=== PATIENT | female | born 1945 | race Caucasian/White ===

== ENCOUNTER 2016-04-21 22:55 | Emergency (ER) | payer MEDICARE ==
[2016-04-22] MEDS ORDERED: Ondansetron INJ* 2 MG/ML VIAL ONE
[2016-04-22] MEDS ORDERED: Ondansetron INJ* 2 MG/ML VIAL IV ONE ×2 (00:15→00:16)
[2016-04-22] MEDS ORDERED: NS 0.9% 1000 ML* 1,000 ML IV ONE ×2 (00:15→02:00)
--- NOTE | 2016-04-22 00:26 | ED ---
Polo Beverly Billy, scribed for Pantera Connor MD on 04/22/16 at 0014 . Complex/Multi-Sys Presentation - HPI Summary HPI Summary: Patient is a 71 year-old female with a history of cancer coming to [facility] complaining of constant dizziness today. She also reports nausea and vomiting. Nothing makes her symptoms better or worse. She saw her PCP yesterday for fever and cough and was given Rx Levaquin. She states that she had her last chemotherapy treatment 2 days ago. - History Of Current Complaint Chief Complaint: EDDizziness Time Seen by Provider: 04/22/16 00:11 Hx Obtained From: Patient Onset/Duration: Gradual Onset, Lasting Hours, Still Present Timing: Constant Severity Currently: Moderate Severity Initially: Moderate Aggravating Factor(s): none Alleviating Factor(s): none Associated Signs And Symptoms: Positive: Dizziness, Cough, Nausea, Vomiting, Fever - Allergies/Home Medications Allergies/Adverse Reactions: Allergies Allergy/AdvReac Type Severity Reaction Status Date / Time Cefepime Allergy Intermediate Hives Verified 03/10/16 10:47 Glatiramer [From Copaxone] Allergy Unknown Unknown Verified 03/10/16 10:47 Reaction Details Mannitol [From Copaxone] Allergy Unknown Unknown Verified 03/10/16 10:47 Reaction Details Ciprofloxacin AdvReac Severe See Comment Verified 03/10/16 10:47 PMH/Surg Hx/FS Hx/Imm Hx Endocrine/Hematology History: Reports: Hx Anemia - from chemo medications, Other Endocrine/Hematological Disorders - multiple MYELOMA, BONE MARROW TRANSPLANT Denies: Hx Diabetes Cardiovascular History: Reports: Other Cardiovascular Problems/Disorders - BONE MARROW TRANSPLANT, CML Denies: Hx Congestive Heart Failure, Hx Hypertension, Hx Pacemaker/ICD Respiratory History: Reports: Hx Pneumonia, Hx Seasonal Allergies, Other Respiratory Problems/Disorders - PNA GI History: Reports: Hx Gastroesophageal Reflux Disease History: Denies: Hx Dialysis, Hx Renal Disease Musculoskeletal History: Reports: Hx Arthritis - on right finger, neck, lower back, Other Musculoskeletal History - MS Sensory History: Reports: Hx Contacts or Glasses Denies: Hx Hearing Aid Opthamlomology History: Reports: Hx Contacts or Glasses Neurological History: Reports: Other Neuro Impairments/Disorders - MS Psychiatric History: Reports: Hx Anxiety Denies: Hx Panic Disorder - Cancer History Cancer Type, Location and Year: MULTIPLE myeloma with bone marrow transplant Hx Chemotherapy: Yes Hx Radiation Therapy: No Hx Palliative Cancer Treatment: No - Surgical History Surgery Procedure, Year, and Place: BONE MARROW TRANSPLANT 2011 Hx Anesthesia Reactions: No - Immunization History Date of Tetanus Vaccine: Unk Date of Influenza Vaccine: Fall 2014 Infectious Disease History: No Infectious Disease History: Denies: Traveled Outside the [place] in Last 30 Days - Family History Known Family History: Positive: Other - BREAST CANCER - Social History Alcohol Use: None Hx Substance Use: No Substance Use Type: Reports: None Hx Tobacco Use: No Smoking Status (MU): Never Smoked Tobacco Review of Systems Positive: Fever Positive: Cough Positive: Vomiting, Nausea Neurological: Other - dizziness All Other Systems Reviewed And Are Negative: Yes Physical Exam Triage Information Reviewed: Yes Vital Signs On Initial Exam: Initial Vitals Temp Pulse Resp BP Pulse Ox 101.9 F 107 22 149/54 100 04/21/16 23:02 04/21/16 23:02 04/21/16 23:02 04/21/16 23:02 04/21/16 23:02 Vital Signs Reviewed: Yes Appearance: Positive: No Pain Distress, Thin Skin: Positive: Warm Head/Face: Positive: Normal Head/Face Inspection Eyes: Positive: NORA ENT: Positive: Hearing grossly normal Neck: Positive: Supple Respiratory/Lung Sounds: Positive: Clear to Auscultation, Breath Sounds Present Cardiovascular: Positive: RRR Abdomen Description: Positive: Nontender, Soft Bowel Sounds: Positive: Present Musculoskeletal: Positive: Strength/ROM Intact Neurological: Positive: Sensory/Motor Intact, Alert, Oriented to Person Place, Time, Normal Gait Psychiatric: Positive: Affect/Mood Appropriate Diagnostics - Vital Signs Vital Signs Temp Pulse Resp BP Pulse Ox 04/21/16 23:02 101.9 F 107 22 149/54 100 - Laboratory Result Diagrams: 04/22/16 00:05 04/22/16 00:05 Lab Statement: Any lab studies that have been ordered have been reviewed, and results considered in the medical decision making process. - Radiology CXR Xray Interpretation: No Acute Changes Radiology Interpretation Completed By: ED Physician - EKG 2311 EKG Interpretation: NSR 90 bpm, no ST elevation Re-Evaluation - Re-Evaluation First Eval Re-Evaluation Time: 04:00 - afebrile, flu positive, will d/c Complex Multi-Symp Course/Dx - Diagnoses Provider Diagnoses: Influenza Discharge - Discharge Plan Condition: Stable Disposition: HOME Patient Education Materials: Influenza (ED) Referrals: Adwoa Boyce MD [Primary Care Provider] - Additional Instructions: RETURN FOR ANY WORSENING SYMPTOMS SUCH FEVER, CHILLS. The documentation as recorded by the Polo bal Billy accurately reflects the service I personally performed and the decisions made by me, Pantera Connor MD.
[2016-04-22 00:37] LABS: Hematocrit 27 % (35-47); Hemoglobin 8.4 g/dl (12.0-16.0); Mean Corpuscular HGB Conc 32 g/dl (31-36); Mean Corpuscular Hemoglobin 27 pg (27-31); Mean Corpuscular Volume 86 fL (80-97); Mean Platelet Volume 9 um3 (7.4-10.4); Red Blood Count 3.11 10^6/ul (4.0-5.4); Red Cell Distribution Width 19 % (10.5-15)
[2016-04-22 00:38] LABS: Comments Flag Yes
[2016-04-22 00:39] LABS: White Blood Count 3.1 10^3/ul (3.5-10.8)
[2016-04-22 00:44] LABS: Albumin 3.7 g/dL (3.2-5.2); BUN/Creatinine Ratio 9.3 (8-20); Calcium 9.1 mg/dL (8.6-10.3); EGFR African American 40.8 (>60); EGFR Non-African American 31.7 (>60); Globulin 2.5 g/dL (2-4); Magnesium 1.4 mg/dL (1.9-2.7); Potassium 3.7 mmol/L (3.5-5.0); Total Bilirubin 1.3 mg/dL (0.2-1.0); Total Protein 6.2 g/dL (6.4-8.9)
[2016-04-22 00:46] LABS: Troponin I 0.01 ng/mL (<0.04)
[2016-04-22] MEDS ORDERED: Metoclopramide IV* 5 MG/ML 2 ML VIAL ONE ×2 (00:55)
[2016-04-22] MEDS ORDERED: Metoclopramide IV* 5 MG/ML 2 ML VIAL IV ONE (01:00)
[2016-04-22 01:17] LABS: TSH (Thyroid Stimulating Horm) 2.92 mcIU/mL (0.34-5.60)
[2016-04-22 02:19] LABS: Urine Bilirubin Negative (Negative); Urine Glucose Negative (Negative); Urine Nitrite Negative (Negative)
[2016-04-22] MEDS ORDERED: Acetaminophen TAB* 325 MG PO ONE (02:47)
[2016-04-22 06:34] VITALS: BP 119/50
--- NOTE | 2016-04-22 07:58 | RAD ---
INDICATION: Fever COMPARISON: Similar chest x-ray dated December 28, 2015 TECHNIQUE: PA and lateral views of the chest were obtained. FINDINGS: The heart and mediastinum are normal in size and contour. There is atherosclerotic calcification overlying the arch of the aorta similar in appearance the previous chest x-ray. The lungs are grossly clear. There is no evidence of large pleural effusion. Visualized bones are normal for the patient's age. There is no radiographic evidence of free air beneath the diaphragm IMPRESSION: No radiographic evidence of acute cardiopulmonary disease.
== END 2016-04-22 06:34 | disposition home or self-care (01) ==
LOC: ED 22:55
DX: J11.1 Influenza due to unidentified influenza virus with other respiratory manifestations (principal); R42 Dizziness and giddiness; R05 Cough; R11.2 Nausea with vomiting, unspecified; R50.9 Fever, unspecified
CPT/HCPCS: 36415; 71020; 80053; 81003; 83605; 83735; 84443; 84484; 85025; 87040; 87502; 93005; 96374; 96375; 99282; A9270-GY; J2405; J2765

== ENCOUNTER 2016-11-28 01:00 | Inpatient (IN) | payer MEDICARE ==
[2016-11-28] MEDS ORDERED: NS 0.9% 1000 ML*IV.FLUID IV ONE (01:11)
[2016-11-28] MEDS ORDERED: Ondansetron INJ* 2 MG/ML VIAL IV ONE (01:12)
[2016-11-28] MEDS ORDERED: Acetaminophen SUPP* 650 MG SUPP PR ONE (01:13)
--- NOTE | 2016-11-28 01:36 | HP ---
H&P (Free Text) History and Physical: PCP: Elisabet Boyce MD Date/Time: 11/28/2016 0125 CC: N/V/D HPI: Mrs Pepe is a 71YO female HX multiple sclerosis & multiple myeloma who was admitted ~2 weeks ago at [facility] in [place] for LLE cellulitis. Tonight she presents reporting generalized fatigue and weakness all day with onset of N/ V/D around 2300 for which she called her PCP receiving the recommendation to present to [facility] ED. Upon arrival, she was noted to be febrile at 104.1F. Her has had bronchitis recently and Monday she felt a slight "tickle" in the back of her throat progressing to mild, non-productive cough. She admits to chills, but denies fever and sweats, earache, rash, open wound, and B/U/F of urine. She did have some mild to moderate LLQ/flank pain with the diarrhea, but this has since resolved. PMedHx multiple myeloma multiple sclerosis CKD stg 3b GERD normocytic anemia allergic rhinitis depression Ambulatory Orders Nursing to reconcile. Cholecalciferol TAB* [Vitamin D TAB*] 2,000 units PO DAILY 02/14/13 Dexamethasone TAB* [Decadron TAB*] 20 mg PO DAILY 09/09/14 Aspirin EC Low Dose* [Ecotrin EC Low Dose 81 MG*] 81 mg PO DAILY 10/02/14 LoraTADine TAB(NF) [Claritin 10 MG TAB(NF)] 10 mg PO DAILY 10/02/14 Multivitamins/Minerals TAB* [Theragran/minerals TAB*] 1 tab PO DAILY 10/02/14 Zoledronic Acid* [Zometa] 4 mg INFUSION .EVERY 3 MONTHS 10/02/14 Acyclovir* [Zovirax 400 MG TAB*] 400 mg PO DAILY 07/19/15 LORazepam TAB(*) [Ativan 0.5 MG TAB (*)] 0.5 mg PO Q4H PRN 07/19/15 Ondansetron ODT TAB* [Zofran 4 MG Odt TAB*] 4 mg PO Q4H PRN 07/19/15 Pomalyst 2 mg PO DAILY 07/19/15 Sennosides-Docusate Sodium [Senna-S 8.6-50 mg] 2 tab PO DAILY PRN 07/19/15 Ninlaro 4 mg PO SEE INSTRUCTIONS 10/27/15 Loperamide HCl [Imodium A-D] 0.5 - 2 tab PO DAILY PRN 11/02/15 Omeprazole CAP* [Prilosec CAP* 20 MG] 20 mg PO BID 11/02/15 Ranitidine HCl 150 mg PO DAILY PRN 11/02/15 Vitamin B Complex CAP* [B Complex CAP*] 1 cap PO DAILY 03/03/16 Escitalopram (NF) [Lexapro (NF)] 10 mg PO DAILY 06/09/16 Clarithromycin TAB* [Biaxin 500 MG TAB*] 500 mg PO DAILY 08/15/16 Levofloxacin [Levaquin] 500 mg PO DAILY 08/15/16 Probiotic Product [Align] 4 mg PO DAILY 09/27/16 Allergies Cefepime Allergy (Intermediate, Verified 09/27/16 11:46) Hives Glatiramer [From Copaxone] Allergy (Unknown, Verified 09/27/16 11:46) Unknown Reaction Details Mannitol [From Copaxone] Allergy (Unknown, Verified 09/27/16 11:46) Unknown Reaction Details Ciprofloxacin Adverse Reaction (Severe, Verified 09/27/16 11:46) See Comment Contraindicated with current medications PSurgHx L foot surgery bone marrow transplant tonsillectomy SocHx: no tobacco, alcohol, or recreational drug HX; lives with her ; works as an artist & owns/manages property; full code status FamHx: Mother: rheumatic heart disease, passed at 87; Father: CAD, bladder CA, passed at 84; Brother: Hodgkin's lymphoma in remission ROS: as above, otherwise reviewed and all were negative vitals: Vital Signs Temp 39.9 C 11/28/16 01:01 Pulse 109 11/28/16 01:01 Resp 20 11/28/16 01:01 BP 162/51 11/28/16 01:01 Pulse Ox 95 11/28/16 01:01 Intake & Output 11/27/16 11/27/16 11/28/16 11:59 23:59 11:59 Weight 77.111 kg Constitutional: NAD, normally developed, overweight white female HEENM: atraumatic; sclera/conjunctiva: non-icteric/clear; hearing: clinically intact; oropharynx: clear, mucosa moist Neck: soft tissue: no nuchal rigidity; thyroid: normal Pulmonary: harsh end-expiratory wheeze in left upper lung field, fair to good aeration, no accessory muscle use CV: TR/RR, normal S1S2, no carotid bruit, no jugular venous distention, 2+ B DP/ PT, no edema Abdominal: soft, non-distended, non-tender, no rebound/guarding/rigidity, normoactive bowel sounds, no hepatosplenomegaly or masses, no costovertebral angle tenderness Musculoskeletal: general: grossly intact; gait: stable Integumental: normal appearance and texture of exposed skin Psychiatric orientation: AA&O to PPS affect: calm mood: pleasant eye contact: good content: reliable responses: timely insight: good Testing: Lab Results 11/28/16 11/28/16 11/28/16 Range/Units 01:45 01:45 01:45 WBC 7.2 (3.5-10.8) 10^3/ul RBC 3.27 L (4.0-5.4) 10^6/ul Hgb 9.4 L (12.0-16.0) g/dl Hct 30 L (35-47) % MCV 90 (80-97) fL MCH 29 (27-31) pg MCHC 32 (31-36) g/dl RDW 19 H (10.5-15) % Plt Count 194 (150-450) 10^3/ul MPV 8 (7.4-10.4) um3 Neut % (Auto) 86.5 H (38-83) % Lymph % (Auto) 3.9 L (25-47) % Garrett % (Auto) 7.0 (1-9) % Eos % (Auto) 1.7 (0-6) % Baso % (Auto) 0.9 (0-2) % Absolute Neuts (auto) 6.2 (1.5-7.7) 10^3/ul Absolute Lymphs (auto) 0.3 L (1.0-4.8) 10^3/ul Absolute Monos (auto) 0.5 (0-0.8) 10^3/ul Absolute Eos (auto) 0.1 (0-0.6) 10^3/ul Absolute Basos (auto) 0.1 (0-0.2) 10^3/ul Absolute Nucleated RBC 0 10^3/ul Nucleated RBC % 0.1 INR (Anticoag Therapy) 0.90 (0.89-1.11) APTT 27.0 (26.0-36.3) seconds Sodium 138 (133-145) mmol/L Potassium 3.9 (3.5-5.0) mmol/L Chloride 106 (101-111) mmol/L Carbon Dioxide 23 (22-32) mmol/L Anion Gap 9 (2-11) mmol/L BUN 27 H (6-24) mg/dL Creatinine 1.85 H (0.51-0.95) mg/dL Est GFR ( Amer) 34.8 (>60) Est GFR (Non-Af Amer) 27.0 (>60) BUN/Creatinine Ratio 14.6 (8-20) Glucose 121 H (70-100) mg/dL Lactic Acid (0.5-2.0) mmol/L Calcium 9.1 (8.6-10.3) mg/dL Total Bilirubin 0.60 (0.2-1.0) mg/dL AST 19 (13-39) U/L ALT 19 (7-52) U/L Alkaline Phosphatase 83 (34-104) U/L Troponin I 0.02 (<0.04) ng/mL Total Protein 6.4 (6.4-8.9) g/dL Albumin 4.0 (3.2-5.2) g/dL Globulin 2.4 (2-4) g/dL Albumin/Globulin Ratio 1.7 (1-3) 11/28/16 Range/Units 01:45 WBC (3.5-10.8) 10^3/ul RBC (4.0-5.4) 10^6/ul Hgb (12.0-16.0) g/dl Hct (35-47) % MCV (80-97) fL MCH (27-31) pg MCHC (31-36) g/dl RDW (10.5-15) % Plt Count (150-450) 10^3/ul MPV (7.4-10.4) um3 Neut % (Auto) (38-83) % Lymph % (Auto) (25-47) % Garrett % (Auto) (1-9) % Eos % (Auto) (0-6) % Baso % (Auto) (0-2) % Absolute Neuts (auto) (1.5-7.7) 10^3/ul Absolute Lymphs (auto) (1.0-4.8) 10^3/ul Absolute Monos (auto) (0-0.8) 10^3/ul Absolute Eos (auto) (0-0.6) 10^3/ul Absolute Basos (auto) (0-0.2) 10^3/ul Absolute Nucleated RBC 10^3/ul Nucleated RBC % INR (Anticoag Therapy) (0.89-1.11) APTT (26.0-36.3) seconds Sodium (133-145) mmol/L Potassium (3.5-5.0) mmol/L Chloride (101-111) mmol/L Carbon Dioxide (22-32) mmol/L Anion Gap (2-11) mmol/L BUN (6-24) mg/dL Creatinine (0.51-0.95) mg/dL Est GFR ( Amer) (>60) Est GFR (Non-Af Amer) (>60) BUN/Creatinine Ratio (8-20) Glucose (70-100) mg/dL Lactic Acid 1.9 (0.5-2.0) mmol/L Calcium (8.6-10.3) mg/dL Total Bilirubin (0.2-1.0) mg/dL AST (13-39) U/L ALT (7-52) U/L Alkaline Phosphatase (34-104) U/L Troponin I (<0.04) ng/mL Total Protein (6.4-8.9) g/dL Albumin (3.2-5.2) g/dL Globulin (2-4) g/dL Albumin/Globulin Ratio (1-3) ECG, personally reviewed: NSR rate 89, no ischemia CXR, personally reviewed: no acute process Impression: 71F HX multiple sclerosis & multiple myeloma presents with N/V/D and fever 39.9C DIAGNOSIS & PLAN Primary SIRS 2nd bronchitis vs early pneumonia (HCAP) : IVFs : IV vancomycin, meropenem, & levofloxacin (allergy to cefepime) : blood & sputum CXs : urine Legionella & S pneumo antigens ordered : rapid influenza ordered : UA ordered, pending : incentive spirometry : guaifenesin : supportive care Secondary multiple myeloma : continue outpatient follow up multiple sclerosis : continue outpatient follow up CKD stg 3b : periodic monitoring GERD : continue omeprazole depression : review meds once reconciled Admission Rational: inpatient for SIRS 2nd bronchitis vs early HCAP requiring IVFs & IV ABX; inappropriate for outpatient setting DVTp: heparin SQ & SCDs Code Status: full HCP:
[2016-11-28] MEDS ORDERED: Acetaminophen TAB* 325 MG PO ONE (01:52)
[2016-11-28] MEDS ORDERED: Acetaminophen TAB* 325 MG ONE (01:54)
[2016-11-28 02:06] LABS: Hematocrit 30 % (35-47); Hemoglobin 9.4 g/dl (12.0-16.0); Mean Corpuscular HGB Conc 32 g/dl (31-36); Mean Corpuscular Hemoglobin 29 pg (27-31); Mean Corpuscular Volume 90 fL (80-97); Mean Platelet Volume 8 um3 (7.4-10.4); Red Blood Count 3.27 10^6/ul (4.0-5.4); Red Cell Distribution Width 19 % (10.5-15); White Blood Count 7.2 10^3/ul (3.5-10.8)
[2016-11-28 02:16] LABS: BUN/Creatinine Ratio 14.6 (8-20); Calcium 9.1 mg/dL (8.6-10.3); EGFR African American 34.8 (>60); Globulin 2.4 g/dL (2-4); Potassium 3.9 mmol/L (3.5-5.0); Total Bilirubin 0.6 mg/dL (0.2-1.0); Total Protein 6.4 g/dL (6.4-8.9)
[2016-11-28 02:19] LABS: Troponin I 0.02 ng/mL (<0.04)
--- NOTE | 2016-11-28 03:15 | ED ---
Alan Beverly Angela, scribed for Rand Garcia MD on 11/28/16 at 0144 . HPI Febrile Illness - HPI Summary HPI Summary: This pt is a 71 y/o female, with multiple myel presenting to [facility] c/o nausea, vomiting, diarrhea, fever (99.7 F) since 2300 yesterday (11/27/16). Pt has had 2 episodes of emesis. Pt is currently on 2 oral chemo treatments, the last one she took was yesterday. Pt reports she was admitted at [facility] 2 weeks ago for left leg cellulitis. She notes she has a cold and cough that began 2 days ago. Pt sees her oncologist at [facility] in [place]. PCP: Dr. Adwoa Boyce. - History of Current Complaint Chief Complaint: EDFever Time Seen by Provider: 11/28/16 01:11 Hx Obtained From: Patient Onset/Duration: Started Hours Ago Timing: Lasting Hours Pain Intensity: 3 Associated Signs and Symptoms: Diarrhea, Nausea, Vomiting, Other: - fever - Additional Pertinent History Primary Care Physician: [id number] - Allergy/Home Medications Allergies/Adverse Reactions: Allergies Allergy/AdvReac Type Severity Reaction Status Date / Time Cefepime Allergy Mild Hives Verified 11/28/16 03:06 Glatiramer [From Copaxone] Allergy Unknown Unknown Verified 11/28/16 02:09 Reaction Details Mannitol [From Copaxone] Allergy Unknown Unknown Verified 11/28/16 02:09 Reaction Details Ciprofloxacin AdvReac Severe See Comment Verified 11/28/16 02:09 PMH/Surg Hx/FS Hx/Imm Hx Endocrine/Hematology History: Reports: Hx Anemia - from chemo medications, Other Endocrine/Hematological Disorders - multiple MYELOMA, BONE MARROW TRANSPLANT Denies: Hx Diabetes Cardiovascular History: Reports: Other Cardiovascular Problems/Disorders - BONE MARROW TRANSPLANT, CML Denies: Hx Congestive Heart Failure, Hx Hypertension, Hx Pacemaker/ICD Respiratory History: Reports: Hx Pneumonia, Hx Seasonal Allergies, Other Respiratory Problems/Disorders - PNA GI History: Reports: Hx Gastroesophageal Reflux Disease History: Denies: Hx Dialysis, Hx Renal Disease Musculoskeletal History: Reports: Hx Arthritis - on right finger, neck, lower back, Other Musculoskeletal History - MS Sensory History: Reports: Hx Contacts or Glasses Denies: Hx Hearing Aid Opthamlomology History: Reports: Hx Contacts or Glasses Neurological History: Reports: Other Neuro Impairments/Disorders - MS Psychiatric History: Reports: Hx Anxiety Denies: Hx Panic Disorder - Cancer History Cancer Type, Location and Year: MULTIPLE myeloma with bone marrow transplant Hx Chemotherapy: Yes Hx Radiation Therapy: No Hx Palliative Cancer Treatment: No - Surgical History Surgery Procedure, Year, and Place: BONE MARROW TRANSPLANT 2011 Hx Anesthesia Reactions: No - Immunization History Date of Tetanus Vaccine: Unk Date of Influenza Vaccine: Fall 2014 Infectious Disease History: No Infectious Disease History: Denies: Traveled Outside the [place] in Last 30 Days - Family History Known Family History: Positive: Other - BREAST CANCER - Social History Alcohol Use: None Hx Substance Use: No Substance Use Type: Reports: None Hx Tobacco Use: No Smoking Status (MU): Never Smoked Tobacco Review of Systems Positive: Fever, Chills Negative: Chest Pain Positive: Cough. Negative: Shortness Of Breath Positive: Vomiting, Diarrhea, Nausea. Negative: Abdominal Pain Genitourinary: Negative Neurological: Negative All Other Systems Reviewed And Are Negative: Yes Physical Exam Triage Information Reviewed: Yes Vital Signs On Initial Exam: Initial Vitals Temp Pulse Resp BP Pulse Ox 103.8 F 109 20 162/51 95 11/28/16 01:01 11/28/16 01:01 11/28/16 01:01 11/28/16 01:01 11/28/16 01:01 Vital Signs Reviewed: Yes Appearance: Positive: No Pain Distress, Ill-Appearing Skin: Positive: Warm, Skin Color Reflects Adequate Perfusion, Dry Eyes: Positive: EOMI, NORA ENT: Positive: Pharynx normal, TMs normal Neck: Positive: Supple, Nontender, Other: - no meningismus Respiratory/Lung Sounds: Positive: Clear to Auscultation, Breath Sounds Present , Other - coughing frequently. Negative: Rales, Rhonchi Cardiovascular: Positive: Tachycardia - but not toxic. Negative: Murmur, Rub, Other - gallop Abdomen Description: Positive: Nontender, Soft. Negative: Distended, Guarding, Other: - rebound Bowel Sounds: Positive: Present Musculoskeletal: Positive: Strength/ROM Intact. Negative: Edema Left, Edema Right Neurological: Positive: Sensory/Motor Intact, Alert, Oriented to Person Place, Time, CN Intact II-III Psychiatric: Positive: Affect/Mood Appropriate Diagnostics - Vital Signs Vital Signs Temp Pulse Resp BP Pulse Ox 11/28/16 01:01 103.8 F 109 20 162/51 95 - Laboratory Lab Results: Lab Results 11/28/16 11/28/16 11/28/16 Range/Units 01:45 01:45 01:45 WBC 7.2 (3.5-10.8) 10^3/ul RBC 3.27 L (4.0-5.4) 10^6/ul Hgb 9.4 L (12.0-16.0) g/dl Hct 30 L (35-47) % MCV 90 (80-97) fL MCH 29 (27-31) pg MCHC 32 (31-36) g/dl RDW 19 H (10.5-15) % Plt Count 194 (150-450) 10^3/ul MPV 8 (7.4-10.4) um3 Neut % (Auto) 86.5 H (38-83) % Lymph % (Auto) 3.9 L (25-47) % [place] % (Auto) 7.0 (1-9) % Eos % (Auto) 1.7 (0-6) % Baso % (Auto) 0.9 (0-2) % Absolute Neuts (auto) 6.2 (1.5-7.7) 10^3/ul Absolute Lymphs (auto) 0.3 L (1.0-4.8) 10^3/ul Absolute Monos (auto) 0.5 (0-0.8) 10^3/ul Absolute Eos (auto) 0.1 (0-0.6) 10^3/ul Absolute Basos (auto) 0.1 (0-0.2) 10^3/ul Absolute Nucleated RBC 0 10^3/ul Nucleated RBC % 0.1 INR (Anticoag Therapy) 0.90 (0.89-1.11) APTT 27.0 (26.0-36.3) seconds Sodium 138 (133-145) mmol/L Potassium 3.9 (3.5-5.0) mmol/L Chloride 106 (101-111) mmol/L Carbon Dioxide 23 (22-32) mmol/L Anion Gap 9 (2-11) mmol/L BUN 27 H (6-24) mg/dL Creatinine 1.85 H (0.51-0.95) mg/dL Est GFR ( Amer) 34.8 (>60) Est GFR (Non-Af Amer) 27.0 (>60) BUN/Creatinine Ratio 14.6 (8-20) Glucose 121 H (70-100) mg/dL Lactic Acid (0.5-2.0) mmol/L Calcium 9.1 (8.6-10.3) mg/dL Total Bilirubin 0.60 (0.2-1.0) mg/dL AST 19 (13-39) U/L ALT 19 (7-52) U/L Alkaline Phosphatase 83 (34-104) U/L Troponin I 0.02 (<0.04) ng/mL Total Protein 6.4 (6.4-8.9) g/dL Albumin 4.0 (3.2-5.2) g/dL Globulin 2.4 (2-4) g/dL Albumin/Globulin Ratio 1.7 (1-3) 11/28/16 Range/Units 01:45 WBC (3.5-10.8) 10^3/ul RBC (4.0-5.4) 10^6/ul Hgb (12.0-16.0) g/dl Hct (35-47) % MCV (80-97) fL MCH (27-31) pg MCHC (31-36) g/dl RDW (10.5-15) % Plt Count (150-450) 10^3/ul MPV (7.4-10.4) um3 Neut % (Auto) (38-83) % Lymph % (Auto) (25-47) % [place] % (Auto) (1-9) % Eos % (Auto) (0-6) % Baso % (Auto) (0-2) % Absolute Neuts (auto) (1.5-7.7) 10^3/ul Absolute Lymphs (auto) (1.0-4.8) 10^3/ul Absolute Monos (auto) (0-0.8) 10^3/ul Absolute Eos (auto) (0-0.6) 10^3/ul Absolute Basos (auto) (0-0.2) 10^3/ul Absolute Nucleated RBC 10^3/ul Nucleated RBC % INR (Anticoag Therapy) (0.89-1.11) APTT (26.0-36.3) seconds Sodium (133-145) mmol/L Potassium (3.5-5.0) mmol/L Chloride (101-111) mmol/L Carbon Dioxide (22-32) mmol/L Anion Gap (2-11) mmol/L BUN (6-24) mg/dL Creatinine (0.51-0.95) mg/dL Est GFR ( Amer) (>60) Est GFR (Non-Af Amer) (>60) BUN/Creatinine Ratio (8-20) Glucose (70-100) mg/dL Lactic Acid 1.9 (0.5-2.0) mmol/L Calcium (8.6-10.3) mg/dL Total Bilirubin (0.2-1.0) mg/dL AST (13-39) U/L ALT (7-52) U/L Alkaline Phosphatase (34-104) U/L Troponin I (<0.04) ng/mL Total Protein (6.4-8.9) g/dL Albumin (3.2-5.2) g/dL Globulin (2-4) g/dL Albumin/Globulin Ratio (1-3) Result Diagrams: 11/28/16 01:45 11/28/16 01:45 Lab Statement: Any lab studies that have been ordered have been reviewed, and results considered in the medical decision making process. - Radiology Chest XR Xray Interpretation: No Acute Changes - Normal chest XR. Unchanged to prior chest XR from August 09. Radiology Interpretation Completed By: ED Physician - EKG 0203 Cardiac Rate: NL EKG Rhythm: Sinus Rhythm EKG Interpretation: No Q waves, no ST elevations Course/Dx - Course Course Of Treatment: 71 yo female with multiple myeloma with new cough and high fever pt discussed with Dr. Sneed upon her arrival he has already ordered antibiotics to cover her for pneumonia. She is not neutropenic and a urine is pending. She received 30cc/kg of NS upon initial evaluation - Diagnoses Provider Diagnoses: Pneumonia, Multiple myeloma - Provider Notifications Discussed Care Of Patient With: Rodrigo Sneed Instructed by Provider To: Other - I discussed the pt's case with Dr. Sneed, who has agreed to admit the pt. Discharge - Discharge Plan Condition: Stable Disposition: ADMITTED TO [facility] documentation as recorded by the Alan bal Angela accurately reflects the service I personally performed and the decisions made by , Rand Garcia MD.
[2016-11-28] MEDS ORDERED: Acetaminophen TAB* 325 MG PO PRN (03:16)
[2016-11-28] MEDS ORDERED: Ondansetron INJ* 2 MG/ML VIAL IV PRN (03:17)
[2016-11-28] MEDS ORDERED: NS 0.9% 1000 ML* 1,000 ML IV SCH (03:30)
[2016-11-28] MEDS ORDERED: Vancomycin per Pharmacy* NOTE FOLLOW UP PRN (04:10)
[2016-11-28 04:19] LABS: Urine Bacteria Absent (Absent); Urine Bilirubin Negative (Negative); Urine Glucose 1+(50 mg/dL) (Negative); Urine Nitrite Negative (Negative)
[2016-11-28] MEDS: Levofloxacin 750 MG IVPREMIX(* 750 MG/150 ML BAG IVPB SCH (05:04)
[2016-11-28] MEDS: Vancomycin(*) 1,250 MG in NS 0.9% 250 ML* 250 ML IVPB ONE ×3 (05:07→06:56)
[2016-11-28 05:59] LABS: Hematocrit 25 % (35-47); Mean Corpuscular HGB Conc 32 g/dl (31-36); Mean Corpuscular Hemoglobin 29 pg (27-31); Mean Corpuscular Volume 90 fL (80-97); Mean Platelet Volume 8 um3 (7.4-10.4); Red Blood Count 2.75 10^6/ul (4.0-5.4); Red Cell Distribution Width 19 % (10.5-15); White Blood Count 6.2 10^3/ul (3.5-10.8)
[2016-11-28] MEDS ORDERED: Omeprazole CAP* 20 MG PO SCH (06:00)
[2016-11-28 06:18] LABS: BUN/Creatinine Ratio 13.9 (8-20); Calcium 8.1 mg/dL (8.6-10.3); EGFR African American 41.7 (>60); EGFR Non-African American 32.4 (>60)
[2016-11-28] MEDS: Meropenem 500MG PREMIX(*) 500 MG/50 ML BAG IV SCH ×2 (06:55→16:58)
--- NOTE | 2016-11-28 07:50 | RAD ---
HISTORY: Fever COMPARISONS: August 09, 2016 VIEWS: 1: frontal portable view of the chest at 12:24 AM FINDINGS: LINES AND TUBES: None. CARDIOMEDIASTINAL SILHOUETTE: The cardiomediastinal silhouette is normal for portable technique. PLEURA: The costophrenic angles are sharp. No pleural abnormalities are noted. LUNG PARENCHYMA: The lungs are clear. ABDOMEN: The upper abdomen is clear. There is no subphrenic gas. BONES AND SOFT TISSUES: No bone or soft tissue abnormalities are noted. IMPRESSION: NO ACTIVE CARDIOPULMONARY DISEASE.
[2016-11-28] MEDS ORDERED: Levofloxacin 750 MG IVPREMIX(* 750 MG/150 ML BAG IVPB SCH (08:00)
--- NOTE | 2016-11-28 08:12 | RAD ---
INDICATION: Pneumonia COMPARISON: November 28, 2016 TECHNIQUE: An AP portable view obtained at 0755 hours is submitted. FINDINGS: Bones/Soft Tissues: There are no acute bony findings. Cardiomediastinal: The cardiomediastinal silhouette is normal. Lungs: There are no infiltrates. Pleura: There are no pleural effusions. Other: None IMPRESSION: NO ACTIVE DISEASE.
[2016-11-28] MEDS: guaiFENesin ER TAB 600 MG PO SCH ×2 (09:09→21:51)
[2016-11-28 10:50] LABS: C Reactive Protein 49.89 mg/L (< 5.00)
[2016-11-28] MEDS: Aspirin EC Low Dose* 81 MG TAB.EC PO SCH (11:58)
[2016-11-28] MEDS: Cholecalciferol TAB* 1000 UNITS PO SCH (11:59)
[2016-11-28] MEDS: Acyclovir* 400 MG TAB PO SCH (11:59)
[2016-11-28] MEDS ORDERED: Clarithromycin TAB* 500 MG PO SCH (12:00)
[2016-11-28] MEDS: CMC:Escitalopram (NF) 10 MG TAB PO SCH (12:28)
[2016-11-28] MEDS: Omeprazole CAP* 20 MG PO SCH (16:58)
[2016-11-28] MEDS: Vancomycin(*) 750 MG in NS 0.9% 250 ML* 250 ML IVPB SCH (18:04)
[2016-11-28] MEDS: Cetirizine* 10 MG TAB PO SCH (19:02)
[2016-11-28] MEDS: Clarithromycin TAB* 500 MG PO SCH (21:51)
[2016-11-28] MEDS: POMALIDOMIDE 2 MG PO SCH (21:53)
[2016-11-29] MEDS: Meropenem 500MG PREMIX(*) 500 MG/50 ML BAG IV SCH ×2 (03:51→21:36)
[2016-11-29] MEDS: Vancomycin(*) 750 MG in NS 0.9% 250 ML* 250 ML IVPB SCH ×2 (04:40→18:22)
[2016-11-29] MEDS: Heparin VIAL(*) 5000 UNITS/ML VIAL (FIVE THOUSAND) SUBCUT SCH ×3 (05:17→21:38)
[2016-11-29 05:32] LABS: Hematocrit 25 % (35-47); Mean Corpuscular HGB Conc 32 g/dl (31-36); Mean Corpuscular Hemoglobin 29 pg (27-31); Mean Corpuscular Volume 90 fL (80-97); Mean Platelet Volume 8 um3 (7.4-10.4); Red Cell Distribution Width 20 % (10.5-15); White Blood Count 3.5 10^3/ul (3.5-10.8)
[2016-11-29 05:46] LABS: Albumin 3.3 g/dL (3.2-5.2); BUN/Creatinine Ratio 11.6 (8-20); C Reactive Protein 57.26 mg/L (< 5.00); Calcium 8.2 mg/dL (8.6-10.3); EGFR African American 48.8 (>60); EGFR Non-African American 37.9 (>60); Globulin 1.9 g/dL (2-4); Magnesium 1.7 mg/dL (1.9-2.7); Phosphorus 2.8 mg/dL (2.5-5.0); Potassium 3.9 mmol/L (3.5-5.0); Total Bilirubin 0.5 mg/dL (0.2-1.0); Total Protein 5.2 g/dL (6.4-8.9)
[2016-11-29] MEDS: Cholecalciferol TAB* 1000 UNITS PO SCH (07:42)
[2016-11-29] MEDS: Omeprazole CAP* 20 MG PO SCH ×2 (07:42→18:18)
[2016-11-29] MEDS: Aspirin EC Low Dose* 81 MG TAB.EC PO SCH (07:42)
[2016-11-29] MEDS: Acyclovir* 400 MG TAB PO SCH (07:42)
[2016-11-29] MEDS: guaiFENesin ER TAB 600 MG PO SCH ×2 (07:42→21:37)
[2016-11-29] MEDS: CMC:Escitalopram (NF) 10 MG TAB PO SCH (07:45)
[2016-11-29] MEDS: Levofloxacin 750 MG IVPREMIX(* 750 MG/150 ML BAG IVPB SCH (08:44)
[2016-11-29] MEDS ORDERED: Magnesium Sulfate 2 GM IV IVPB ONE (09:30)
[2016-11-29] MEDS ORDERED: Loperamide CAP* 2 MG ONE (09:55)
[2016-11-29] MEDS ORDERED: diPHENhydraMINE PO* 25 MG PO ONE (11:00)
[2016-11-29] MEDS ORDERED: Acetaminophen TAB* 325 MG PO ONE (11:00)
[2016-11-29] MEDS ORDERED: Loperamide CAP* 2 MG PO PRN (11:00)
[2016-11-29] MEDS ORDERED: Famotidine TAB* 20 MG PO ONE (11:00)
[2016-11-29] MEDS ORDERED: IMMUNE GLOBULN IV ONE (11:30)
[2016-11-29] MEDS ORDERED: Loperamide LIQ* 2 MG/10 ML UDC PO PRN (11:36)
[2016-11-29] MEDS ORDERED: methylPREDNISolone 125 MG* 2 ML VIAL IV ONE (12:00)
[2016-11-29] MEDS ORDERED: NINLARO PO SCH (12:00)
[2016-11-29 13:55] LABS: Immunoglobulin A 30 mg/dL (61 - 356); Immunoglobulin G 295 mg/dL (767 - 1590); Immunoglobulin M <5 mg/dL (37 - 286)
[2016-11-29] MEDS ORDERED: Vancomycin Trough Check NOTE FOLLOW UP ONE (17:00)
[2016-11-29] MEDS: Cetirizine* 10 MG TAB PO SCH (18:18)
[2016-11-29] MEDS: POMALIDOMIDE 2 MG PO SCH (21:37)
[2016-11-29] MEDS: Clarithromycin TAB* 500 MG PO SCH (21:37)
[2016-11-29] MEDS: Vancomycin(*) 1,000 MG in NS 0.9% 250 ML* 250 ML IVPB SCH (22:16)
[2016-11-30] MEDS: Heparin VIAL(*) 5000 UNITS/ML VIAL (FIVE THOUSAND) SUBCUT SCH ×3 (06:03→20:45)
[2016-11-30 07:42] LABS: Hematocrit 29 % (35-47); Hemoglobin 9.3 g/dl (12.0-16.0); Mean Corpuscular HGB Conc 33 g/dl (31-36); Mean Corpuscular Hemoglobin 29 pg (27-31); Mean Corpuscular Volume 89 fL (80-97); Mean Platelet Volume 8 um3 (7.4-10.4); Red Blood Count 3.22 10^6/ul (4.0-5.4); Red Cell Distribution Width 19 % (10.5-15)
[2016-11-30 07:45] LABS: Add Diff/Slide Review? Slide Review Added; Comments Flag Yes
[2016-11-30] MEDS: Omeprazole CAP* 20 MG PO SCH ×2 (08:03→16:42)
[2016-11-30 08:04] LABS: Calcium 8.9 mg/dL (8.6-10.3); EGFR African American 52.7 (>60); Magnesium 2.2 mg/dL (1.9-2.7); Potassium 4.4 mmol/L (3.5-5.0)
[2016-11-30] MEDS: Meropenem 500MG PREMIX(*) 500 MG/50 ML BAG IV SCH ×3 (08:05→19:34)
[2016-11-30 08:15] LABS: Immature Granulocytes 10 % (0-9); Metamyelocytes % 4 % (0-2); Myelocytes % 1 % (0-1); Neutrophil % 79 % (38-83)
[2016-11-30 08:16] LABS: RBC Morphology Normal (Normal)
[2016-11-30] MEDS ORDERED: NS 0.9% 250 ML* 250 ML ONE (09:57)
[2016-11-30] MEDS: CMC:Escitalopram (NF) 10 MG TAB PO SCH (10:48)
[2016-11-30] MEDS: Aspirin EC Low Dose* 81 MG TAB.EC PO SCH (10:48)
[2016-11-30] MEDS: guaiFENesin ER TAB 600 MG PO SCH ×2 (10:48→20:44)
[2016-11-30] MEDS: Vancomycin(*) 1,000 MG in NS 0.9% 250 ML* 250 ML IVPB SCH ×2 (10:48→20:44)
[2016-11-30] MEDS: Acyclovir* 400 MG TAB PO SCH (10:48)
[2016-11-30] MEDS: Cholecalciferol TAB* 1000 UNITS PO SCH (10:48)
[2016-11-30] MEDS: Cetirizine* 10 MG TAB PO SCH (18:25)
[2016-11-30] MEDS: Clarithromycin TAB* 500 MG PO SCH (20:43)
[2016-11-30] MEDS: POMALIDOMIDE 2 MG PO SCH (20:44)
[2016-12-01] MEDS: Heparin VIAL(*) 5000 UNITS/ML VIAL (FIVE THOUSAND) SUBCUT SCH (05:18)
[2016-12-01 05:44] LABS: Hematocrit 25 % (35-47); Hemoglobin 8.1 g/dl (12.0-16.0); Mean Corpuscular HGB Conc 32 g/dl (31-36); Mean Corpuscular Hemoglobin 29 pg (27-31); Mean Corpuscular Volume 89 fL (80-97); Mean Platelet Volume 8 um3 (7.4-10.4); Red Cell Distribution Width 19 % (10.5-15); White Blood Count 6.1 10^3/ul (3.5-10.8)
[2016-12-01 05:58] LABS: Albumin 3.4 g/dL (3.2-5.2); BUN/Creatinine Ratio 16.1 (8-20); C Reactive Protein 14.93 mg/L (< 5.00); Calcium 8.6 mg/dL (8.6-10.3); EGFR African American 49.2 (>60); EGFR Non-African American 38.2 (>60); Globulin 2.5 g/dL (2-4); Potassium 4.2 mmol/L (3.5-5.0); Total Bilirubin 0.4 mg/dL (0.2-1.0); Total Protein 5.9 g/dL (6.4-8.9)
[2016-12-01] MEDS: Omeprazole CAP* 20 MG PO SCH (07:47)
[2016-12-01] MEDS: Meropenem 500MG PREMIX(*) 500 MG/50 ML BAG IV SCH (07:47)
[2016-12-01] MEDS ORDERED: Vancomycin Trough Check NOTE FOLLOW UP ONE (08:30)
--- NOTE | 2016-12-01 09:06 | RAD ---
Indication: Cough. 2 views of the chest including dual energy PA views demonstrate no mediastinal shift. Lung nance appear clear. No alveolar consolidation is noted. IMPRESSION: Hyperinflated lung nance without evidence of alveolar consolidation.
[2016-12-01] MEDS: Vancomycin(*) 1,000 MG in NS 0.9% 250 ML* 250 ML IVPB SCH (09:30)
[2016-12-01] MEDS: guaiFENesin ER TAB 600 MG PO SCH (09:33)
[2016-12-01] MEDS: CMC:Escitalopram (NF) 10 MG TAB PO SCH (09:33)
[2016-12-01] MEDS: Cholecalciferol TAB* 1000 UNITS PO SCH (09:33)
[2016-12-01] MEDS: Aspirin EC Low Dose* 81 MG TAB.EC PO SCH (09:33)
[2016-12-01] MEDS: Acyclovir* 400 MG TAB PO SCH (09:33)
--- NOTE | 2016-12-01 09:39 | PN ---
Progress Note - Progress Note Date of Service: 12/01/16 SOAP: Subjective: Feeling better this am. still coughing but improving. she reports an episode of cellulitis at [facility] this month requiring IV antibiotics. She feels that she improved from that but never got back to baseline and then got this episode. Objective: Vital Signs Temp Pulse Resp BP Pulse Ox 97.4 F 68 16 150/68 96 12/01/16 07:25 12/01/16 07:25 12/01/16 07:25 12/01/16 07:25 12/01/16 07:25 sitting up in NAD perr eomi op moist right sided rhonchi s1 s2 nl soft nt +bs no LE edema A+O x 3, nonfocal neurological exam no chuy Laboratory Results - last 24 hr 11/29/16 12/01/16 12/01/16 04:50 05:05 05:08 WBC 6.1 RBC 2.80 L Hgb 8.1 L Hct 25 L MCV 89 MCH 29 MCHC 32 RDW 19 H Plt Count 146 L MPV 8 Sodium Potassium Chloride Carbon Dioxide Anion Gap BUN Creatinine Est GFR ( Amer) Est GFR (Non-Af Amer) BUN/Creatinine Ratio Glucose Calcium Total Bilirubin AST ALT Alkaline Phosphatase C-Reactive Protein Total Protein Albumin Globulin Albumin/Globulin Ratio Procalcitonin 2.3 H 0.7 H 12/01/16 05:09 WBC RBC Hgb Hct MCV MCH MCHC RDW Plt Count MPV Sodium 141 Potassium 4.2 Chloride 110 Carbon Dioxide 26 Anion Gap 5 BUN 22 Creatinine 1.37 H Est GFR ( Amer) 49.2 Est GFR (Non-Af Amer) 38.2 BUN/Creatinine Ratio 16.1 Glucose 79 Calcium 8.6 Total Bilirubin 0.40 AST 12 L ALT 12 Alkaline Phosphatase 65 C-Reactive Protein 14.93 H Total Protein 5.9 L Albumin 3.4 Globulin 2.5 Albumin/Globulin Ratio 1.4 Procalcitonin Acetaminophen (Tylenol Tab*) 650 mg PO Q6H PRN PRN Reason: FEVER/PAIN Last Admin: 11/29/16 12:37 Dose: 650 mg Acyclovir (Zovirax Tab*) 400 mg PO DAILY [facility] Last Admin: 12/01/16 09:33 Dose: 400 mg Aspirin (Aspirin Ec Low Dose*) 81 mg PO DAILY [facility] Last Admin: 12/01/16 09:33 Dose: 81 mg Cetirizine HCl (Zyrtec*) 10 mg PO QPM [facility] Last Admin: 11/30/16 18:25 Dose: 10 mg Cholecalciferol (Vitamin D Tab*) 1,000 units PO DAILY [facility] Last Admin: 12/01/16 09:33 Dose: 1,000 units Clarithromycin (Biaxin Tab*) 500 mg PO 2100 [facility] Last Admin: 11/30/16 20:43 Dose: 500 mg Escitalopram Oxalate (Lexapro (Nf)) 10 mg PO DAILY [facility] Last Admin: 12/01/16 09:33 Dose: 10 mg Guaifenesin (Mucinex*) 1,200 mg PO BID [facility] Last Admin: 12/01/16 09:33 Dose: 1,200 mg Heparin Sodium (Porcine) (Heparin Vial(*)) 5,000 units SUBCUT Q8HR [facility] Last Admin: 12/01/16 05:18 Dose: Not Given Meropenem (Merrem 500mg Premix(*)) 500 mg in 50 mls @ 100 mls/hr IV 0800,2000 [facility] Last Admin: 12/01/16 07:47 Dose: 100 mls/hr Vancomycin HCl 1,000 mg/ (Sodium Chloride) 250 mls @ 166.667 mls/hr IVPB Q12H [facility] Last Admin: 12/01/16 09:30 Dose: Not Given Loperamide HCl (Imodium Cap*) 2 mg PO .AFTER EACH LOOSE BM PRN PRN Reason: LOOSE STOOL Loperamide HCl (Imodium Liq*) 1 mg PO .AFTER EACH LOOSE BM PRN PRN Reason: AFTER EACH LOOSE BM Pto: Pomalidomide ( Pomalyst) 2 Mg Capsule 1 dose PO 2100 [facility] Last Admin: 11/30/16 20:44 Dose: 1 dose Pto - Ninlaro ( (Ixazomib) 4 Mg) 1 dose PO Tu@1200 [facility] Last Admin: 11/29/16 13:05 Dose: 1 dose Omeprazole (Prilosec Cap*) 20 mg PO BID AC [facility] Last Admin: 12/01/16 07:47 Dose: 20 mg Ondansetron HCl (Zofran Inj*) 4 mg IV Q6H PRN PRN Reason: NAUSEA Pharmacy Consult (Vancomycin Per Pharmacy*) 1 note FOLLOW UP . PRN PRN Reason: PER PROTOCOL Assessment: 71 yo F w MM on pomalyst/ninlaro/dexamethasone presenting with her second bacterial infection in 1 month requiring IV abx. I suspect that this is related to her relative immunocompromised state and have recommended that we go back to IVIG when IgG <500 (she had been recommended to hold for summer months and start up again late fall). Plan: Pneumonia: -agree with discharge on antibiotics particularly given procalcitonin elevation on admission -will get rescue inhaler at home MM: -cont ninlaro, pomalyst, dex -IVIG this admission, will check q4 weeks and infuse when <500 -fu with tn 12/22 at 12:40 zometa to follow -cont asa -asymptomatic anemia-no indication for transfusion
[2016-12-01 14:15] VITALS: BP 139/56
--- NOTE | 2016-12-01 15:30 | DS ---
CC: Dr. Halie Kennedy; Dr. Venancio Chavez, [facility]. DISCHARGE SUMMARY: DATE OF ADMISSION: 11/28/16. DATE OF DISCHARGE: 12/01/16. DISCHARGE DIAGNOSES: 1. Pneumonia with systemic inflammatory response syndrome. 2. Multiple myeloma. 3. Low immunoglobins. 4. Renal insufficiency related to multiple myeloma. 5. History of multiple sclerosis. 6. Menopause. 7. History of colonic polyps. 8. Anemia related to multiple myeloma. 9. Hypomagnesemia. 10. History of anxiety. 11. History of gastroesophageal reflux disease. HISTORY: Adwoa Pepe is a 71-year-old woman admitted with a 2-day history of an upper respiratory infection, then with shaking chills and temperature of 103.8. Please see the dictated admission note for details of the present illness, past medical history, family history, social and personal history, review of systems and physical examination. LABORATORY DATA: CBC on 11/28/16: WBC 7.2, H and H 9.4/30, MCV 90, PLT 194K. Neutrophils 86.5%, lymphs 3.9%, monos 7%, eos 1.7%, baso 0.9%. Repeat CBC on four hours later: WBC 6.2, H and H 8/25, PLT 175K. CBC on 11/29/16: WBC down to 3.5, H and H 8/25, PLT 165K. 11/30/16: WBC 10, H and H 9.3/29, MCV 89, PLT 221K. CBC on 12/01/16: WBC 6.1, H and H 8.1/25, MCV 89, PLT 146K. INR 0.9, PTT 27. Chemistries on 11/28/16: Sodium 138, potassium 3.9, chloride 106, CO2 23, BUN/creatinine 27/1.85, glucose 121. Rest of the comprehensive metabolic panel was normal. BUN and creatinine gradually stabilized and were 18 /1.29 on 11/30/16 and 22/1.37 on 12/01/16. Comprehensive metabolic panel at the time of discharge was normal. CRPs during the course of the hospitalization 49.89 on 11/28/16, 57.26 on and 41.93 on 12/01/16. Procalcitonins were 2.3 on 11/29/16, 1.5 on 11/30/16 and 0.7 on 12/01/16. Magnesium was 1.7 on 11/29/16, 2.2 on 11/30/16. Urinalysis on 11/28/16, straw, clear; specific gravity 1.008, pH 5. Dipstick positive for blood 1+. Micro: Wbc's trace, rbc's trace, epithelial cells present, bacteria absent, urine glucose 1+. Vancomycin level on 11/29/16 was 13.6. Quantitative immunoglobulins on 11/28/16, IgG 295, IgA 30, IgM less than 5. Influenza A and B were negative. Blood cultures were no growth. Urine for legionella and streptoccocal antigens were negative. IMAGING: Chest x-ray on 11/28/16 showed no acute disease (portable). Repeat portable chest x-ray on 11/28/16 was essentially unchanged. Chest x-ray PA and lateral, on 12/01/16 did show bibasilar infiltrates, not an official report, addendum pending, this is on comparison with previous chest x-ray. EKG on 11/28 showed sinus rhythm, RSR' in V1 and V2; otherwise normal. HOSPITAL COURSE: The patient was initially admitted and placed on vancomycin, meropenem, levofloxacin after cultures were taken. It was felt that she had bronchitis versus early pneumonia. She was told to do incentive spirometry. She was given IV fluids. Her temperature came down and did not go up again. She was seen in consultation by Oncology while in the hospital and they recommended IVIG which she received. She was pretreated with IV methylprednisolone, diphenhydramine, and famotidine because of previous reaction to receiving IVIG. IV levofloxacin was stopped after the initial dose. She gradually improved. She continued to have a harsh cough, but felt better. She had loose stools related to the antibiotics. Her anemia was noted , she was asymptomatic from it and she did not wish to have transfusion at this time and it was not strongly recommended. She continued to have physical exam findings of pneumonia with harsh cough, coarse inspiratory rales at the bases with bronchial breath sounds and inspiratory and expiratory squeak. Her cough was always non- productive. She felt quite weak, but improved as she was in the hospital. She had a low magnesium which was repleted. At the time of discharge, she felt much better. She continued to cough, but felt up to going home. Her stools were looser than normal, but she said it was not diarrhea. Her vital signs were stable. She was afebrile. On exam, her chest showed bibasilar rales with inspiratory and expiratory squeak, bronchial breath sounds at the right base. Heart was regular. Abdomen was nontender. Extremities showed no calf tenderness or edema. She had an improving pneumonia, could be discharged. At the time of discharge, her diet is regular. Activities as tolerated. DISCHARGE MEDICATIONS: 1. Pomalyst 2 mg once a day. 2. Ninlaro 4 mg once a week. 3. Dexamethasone 12 mg once a week. 4. Levofloxacin 500 mg once a day for 5 days. 5. Erythromycin 500 mg once a day. 6. Acyclovir 400 mg once a day. 7. Escitalopram 10 mg once a day 8. Vitamin D 2000 units once a day. 9. Claritin 10 mg once a day. 10. Aspirin 81 mg once a day. 11. Omeprazole 20 mg twice a day. 12. Ondansetron 4 mg every 4 hours as needed for nausea. 13. Lorazepam 0.5 mg as needed for nausea. 14. Probiotic once a day. 15. Albuterol 2 puffs every 4 hours as needed for cough or wheezing. Prescriptions for levofloxacin and albuterol was sent into [facility]. She will be followed up with me in 5 to [address] Kennedy in about 3 weeks, at which time she will have usual Zometa infusion. Of note, she did receive her Pomalyst and Ninlaro while she was in the hospital. [id number]/[facility] #: [id number] [facility]
== END 2016-12-01 13:55 | disposition home or self-care (01) | DRG 194 ==
LOC: ED 01:00 → MED 01:26
PROVIDERS: ADMIT Hospitalist; ATTEND Internal Medicine Geriatric Medicine
DX: J18.9 Pneumonia, unspecified organism (principal); C90.00 Multiple myeloma not having achieved remission; Z94.81 Bone marrow transplant status; G35 Multiple sclerosis; E83.42 Hypomagnesemia; N18.3 Chronic kidney disease, stage 3 (moderate); J30.2 Other seasonal allergic rhinitis; M13.0 Polyarthritis, unspecified; F41.9 Anxiety disorder, unspecified; F32.9 Major depressive disorder, single episode, unspecified; D64.9 Anemia, unspecified; Z78.0 Asymptomatic menopausal state; Z88.1 Allergy status to other antibiotic agents; Z80.3 Family history of malignant neoplasm of breast; Z82.49 Family history of ischemic heart disease and other diseases of the circulatory system; Z80.52 Family history of malignant neoplasm of bladder; Z88.8 Allergy status to other drugs, medicaments and biological substances; Z86.010 Personal history of colon polyps; Z79.82 Long term (current) use of aspirin
CPT/HCPCS: 36415; 71010; 71020; 80048; 80053; 80202; 81003; 81015; 82784; 83605; 83735; 84100; 84145; 84484; 85025; 85027; 85610; 85730; 86140; 87040; 87502; 87899; 93005; 99232; A9270-GY; J1568; J1644; J2405; J2930; J3370; J3475

== ENCOUNTER 2016-12-09 12:57 | Observation (INO) | payer MEDICARE ==
[2016-12-09] MEDS ORDERED: Aspirin Low Dose CHEW TAB* 81 MG PO ONE (13:44)
--- NOTE | 2016-12-09 14:24 | RAD ---
Indication: Chest pain. Comparison: December 01, 2016 Technique: Upright AP 1400 hours Report: No focal pulmonary lesion, compelling alveolar consolidation, pleural effusion, pneumothorax. Negative for cardiomegaly. Unremarkable central pulmonary vasculature. Unremarkable mediastinal contours accounting for portable AP technique. IMPRESSION: No evidence for acute intrathoracic disease.
[2016-12-09 14:44] LABS: Hematocrit 27 % (35-47); Hemoglobin 8.8 g/dl (12.0-16.0); Mean Corpuscular HGB Conc 33 g/dl (31-36); Mean Corpuscular Hemoglobin 29 pg (27-31); Mean Corpuscular Volume 89 fL (80-97); Mean Platelet Volume 8 um3 (7.4-10.4); Red Blood Count 3.02 10^6/ul (4.0-5.4); Red Cell Distribution Width 19 % (10.5-15); White Blood Count 7.2 10^3/ul (3.5-10.8)
[2016-12-09 15:01] LABS: Albumin 3.4 g/dL (3.2-5.2); BUN/Creatinine Ratio 18.2 (8-20); Calcium 8.5 mg/dL (8.6-10.3); EGFR African American 46.8 (>60); EGFR Non-African American 36.4 (>60); Globulin 2.5 g/dL (2-4); Potassium 4.2 mmol/L (3.5-5.0); Total Bilirubin 0.6 mg/dL (0.2-1.0); Total Protein 5.9 g/dL (6.4-8.9)
[2016-12-09 15:02] LABS: Troponin I 0.01 ng/mL (<0.04)
[2016-12-09] MEDS ORDERED: NS 0.9% 1000 ML* 1,000 ML IV ONE (16:53)
--- NOTE | 2016-12-09 19:31 | ED ---
Alan Beverly Angela, scribed for Ant Apodaca MD on 12/09/16 at 1348 . HPI Chest Pain - HPI Summary HPI Summary: This pt is a 71 y/o female presenting to [facility] c/o chest pain that began at approximately 1200 today. Pt describes her pain under her left breast that radiates through her back and down right arm. She notes her pain only lasted about 15 minutes. Prior to her chest pain, when she got up at 1030 this morning , pt states she had a hard time walking the dog and felt tired. Pt also states she was diaphoretic. She reports she only had yogurt and cereal for breakfast this morning, and took omeprazole right before eating. She denies nausea, LE pain. At onset, the pt's pain was 7-8/10 in severity and currently she rates her pain 0/10 in severity. Pt states she has had this pain before and it was diagnosed as indigestion. She denies tobacco, alcohol, drug use. Pt states she was hospitalized for pneumonia and was discharged 9 days ago. She finished her 5 day course of antibiotics on Monday, 3 days ago. PMHx: multiple myeloma, GERD. PSHx: bone marrow transplant (5 years ago), currently on chemotherapy. - History of Current Complaint Chief Complaint: EDChestPainROMI Time Seen by Provider: 12/09/16 13:44 Hx Obtained From: Patient Onset/Duration: Started Hours Ago Timing: Lasting Minutes - 15 min Pain Intensity: 0 Pain Scale Used: 0-10 Numeric Chest Pain Location: Left Anterior Chest Pain Radiates: Yes Chest Pain Radiates To:: Back, Arm - right Aggravating Factor(s): Nothing Alleviating Factor(s): Spontaneous Resolution Associated Signs and Symptoms: Positive: Chest Pain, Diaphoresis, Back Pain, Other: - fatigue. Negative: Nausea, Calf Pain/Swelling - Additional Pertinent History Primary Care Physician: [id number] - Allergy/Home Medications Allergies/Adverse Reactions: Allergies Allergy/AdvReac Type Severity Reaction Status Date / Time Cefepime Allergy Mild Hives Verified 11/28/16 03:06 Glatiramer [From Copaxone] Allergy Unknown Unknown Verified 11/28/16 02:09 Reaction Details Mannitol [From Copaxone] Allergy Unknown Unknown Verified 11/28/16 02:09 Reaction Details Ciprofloxacin AdvReac Severe See Comment Verified 11/28/16 02:09 Home Medications: Home Medications Albuterol HFA INHALER* [Ventolin HFA Inhaler*] 2 puff INH Q4H PRN 12/09/16 [ History Confirmed 12/09/16] Dexamethasone TAB* [Decadron TAB*] 12 mg PO WEEKLY 12/09/16 [History Confirmed 12/09/16] Erythromycin TAB* 500 mg PO DAILY 12/09/16 [History Confirmed 12/09/16] Fluticasone NASAL SPRAY 50MCG* [Flonase NASAL SPRAY 50MCG*] 1 spray BOTH NARES DAILY PRN 12/09/16 [History Confirmed 12/09/16] Pseudoephedrine HCL ER TAB* [Sudafed 12 Hour*] 120 mg PO DAILY PRN 12/09/16 [ History Confirmed 12/09/16] PMH/Surg Hx/FS Hx/Imm Hx Endocrine/Hematology History: Reports: Hx Anemia - from chemo medications, Other Endocrine/Hematological Disorders - multiple MYELOMA, BONE MARROW TRANSPLANT Denies: Hx Diabetes Cardiovascular History: Reports: Other Cardiovascular Problems/Disorders - BONE MARROW TRANSPLANT, CML Denies: Hx Congestive Heart Failure, Hx Hypertension, Hx Pacemaker/ICD Respiratory History: Reports: Hx Pneumonia, Hx Seasonal Allergies, Other Respiratory Problems/Disorders - PNA GI History: Reports: Hx Gastroesophageal Reflux Disease History: Denies: Hx Dialysis, Hx Renal Disease Musculoskeletal History: Reports: Hx Arthritis - on right finger, neck, lower back, Other Musculoskeletal History - MS Sensory History: Reports: Hx Contacts or Glasses Denies: Hx Hearing Aid Opthamlomology History: Reports: Hx Contacts or Glasses Neurological History: Reports: Other Neuro Impairments/Disorders - MS Psychiatric History: Reports: Hx Anxiety Denies: Hx Panic Disorder - Cancer History Cancer Type, Location and Year: MULTIPLE myeloma with bone marrow transplant Hx Chemotherapy: Yes Hx Radiation Therapy: No Hx Palliative Cancer Treatment: No - Surgical History Surgery Procedure, Year, and Place: BONE MARROW TRANSPLANT 2011 Hx Anesthesia Reactions: No - Immunization History Date of Tetanus Vaccine: Unk Date of Influenza Vaccine: Fall 2014 Infectious Disease History: Yes Infectious Disease History: Denies: Traveled Outside the [place] in Last 30 Days - Family History Known Family History: Positive: Cardiac Disease, Other - BREAST CANCER. Mother: rheumatic heart disease (from rheumatic fever) - Social History Alcohol Use: None Hx Substance Use: No Substance Use Type: Reports: None Hx Tobacco Use: No Smoking Status (MU): Never Smoked Tobacco Review of Systems Positive: Fatigue, Skin Diaphoresis Eyes: Negative Positive: Chest Pain Negative: Nausea Musculoskeletal: Negative Skin: Negative Neurological: Negative All Other Systems Reviewed And Are Negative: Yes Physical Exam Triage Information Reviewed: Yes Vital Signs On Initial Exam: Initial Vitals Temp Pulse Resp BP Pulse Ox 98.8 F 63 19 131/62 93 12/09/16 13:03 12/09/16 13:03 12/09/16 13:03 12/09/16 13:03 12/09/16 13:03 Vital Signs Reviewed: Yes Appearance: Positive: Well-Appearing, No Pain Distress Skin: Positive: Warm, Skin Color Reflects Adequate Perfusion Head/Face: Positive: Normal Head/Face Inspection Eyes: Positive: EOMI ENT: Positive: Normal ENT inspection Neck: Positive: Nontender Respiratory/Lung Sounds: Positive: Clear to Auscultation, Breath Sounds Present Cardiovascular: Positive: RRR. Negative: Murmur Abdomen Description: Positive: Nontender Musculoskeletal: Positive: Strength/ROM Intact. Negative: Edema Left, Edema Right Neurological: Positive: Sensory/Motor Intact, Alert, Oriented to Person Place, Time, CN Intact II-III Psychiatric: Positive: Normal - Staci Coma Scale Best Eye Response: 4 - Spontaneous Best Motor Response: 6 - Obeys Commands Best Verbal Response: 5 - Oriented Coma Scale Total: 15 Diagnostics - Vital Signs Vital Signs Temp Pulse Resp BP Pulse Ox 12/09/16 13:03 98.8 F 63 19 131/62 93 - Laboratory Result Diagrams: 12/09/16 14:25 12/09/16 14:25 Lab Statement: Any lab studies that have been ordered have been reviewed, and results considered in the medical decision making process. - Radiology Chest XR Xray Interpretation: No Acute Changes - IMPRESSION: No evidence for acute intrathoracic disease. ED physician has reviewed this radiology report and agrees. Radiology Interpretation Completed By: Radiologist - EKG 1338 Cardiac Rate: NL - 66 bpm EKG Rhythm: Sinus Rhythm EKG Interpretation: No STEMI Chest Pain Course/Dx - Course Assessment/Plan: Pt is a 71 y/o female who presents with chest pain that began at approximately 1200 today and lasted 15 minutes. Pt describes her pain under her left breast that radiates through her back and up to her chin. Bloodwork, chest XR, and EKG were obtained. Chest XR is negative. EKG shows NSR. Dr. Adwoa Boyce came to see the pt in the ED. Dr. Boyce is admitting the pt. - Diagnoses Provider Diagnoses: Chest pain Discharge - Discharge Plan Condition: Good Disposition: ADMITTED TO [facility] Referrals: Adwoa Boyce MD [Primary Care Provider] - The documentation as recorded by the Alan bal Angela accurately reflects the service I personally performed and the decisions made by , Ant Apodaca MD.
[2016-12-09] MEDS ORDERED: POMALIDOMIDE 2 MG PO SCH (23:00)
[2016-12-09] MEDS ORDERED: Ondansetron TAB* 4 MG PO PRN (23:18)
[2016-12-09] MEDS ORDERED: Albuterol HFA INHALER* 8 gm MDI INH PRN (23:19)
[2016-12-09] MEDS: CLARITHROMYCIN 500 MG PO SCH (23:33)
[2016-12-09] MEDS: Omeprazole CAP* 20 MG PO SCH (23:41)
--- NOTE | 2016-12-10 02:34 | HP ---
HISTORY AND PHYSICAL: DATE OF ADMISSION: 12/09/16 HISTORY OF PRESENT ILLNESS: Adwoa Pepe is a 71-year-old woman admitted with chest pain. The patient was in her usual state of health until this morning. She had been ill recently with pneumonia, having been discharged from the hospital a week ago. She had been doing a lot of coughing and slept badly the night before last. Last night, however, she slept well and in fact slept until 10:30 this morning. She woke up and then had a small breakfast of yogurt with cereal and a glass of water. She ate this around 11 a.m. Around 11:30, she had pain in her lower sternal region, radiating to underneath the left breast and going up into her throat into the right side of her upper back. She thinks that she had similar symptoms years ago when she was first diagnosed with myeloma, which is about 5 years ago. This pain lasted about 10 to 15 minutes and then gradually resolved with just a faint feeling of a "shadow pain" afterwards. The ambulance was called by her and she thinks her blood pressure was quite elevated when the ambulance came. She felt hot, but her temperature was 98.7. She thinks, however, that her usual temperature is 97. She did not have any nausea or vomiting with this. She felt somewhat moist, but did not really sweat, but as mentioned, did feel hot. She wonders whether this could be related to her gallbladder. Last night, she had a heavy meal with vegetable soup, roast beef and cauliflower around 8 p.m. She still has a considerable amount of coughing, but better than it was. The cough is now productive since she has been using an inhaler. PAST MEDICAL HISTORY: Otherwise significant for the following medical problems: 1. Pneumonia as mentioned above with systemic inflammatory response syndrome for which she was in the hospital from 11/28/16 to 12/01/16. 2. Multiple myeloma, status post bone marrow transplant with recurrence, on chemotherapy. 3. Renal insufficiency related to multiple myeloma. 4. History of multiple sclerosis, asymptomatic. 5. Menopause. 6. History of colonic polyps. 7. Anemia, related to multiple myeloma. 8. History of anxiety. 9. History of gastroesophageal reflux disease. PAST SURGICAL HISTORY: Prior surgeries include status post excision of ganglion of right ring finger, hammertoe repair, and removal of bone spur from left foot in 2000 and 2017 excision of esophageal polyp (endoscopic). 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 CURRENT MEDICATIONS: 1. Ventolin 2 puffs q. 4h. p.r.n. 2. Ninlaro 4 mg capsule once a week, 3 weeks out of 4. 3. Vitamin D3 two capsules every day. 4. Escitalopram 10 mg daily. 5. Pomalyst 2 mg one a day, 21 days out of 28. 6. Ativan 0.5 mg p.r.n. 7. Probiotic every day. 8. Flonase 1 spray twice a day as needed for allergies. 9. Clarithromycin 500 mg daily. 10. Claritin 10 mg as needed for allergies. 11. Omeprazole 20 mg twice a day. 12. Zofran 4 mg every 4 hours as needed for nausea. 13. Acyclovir 400 mg daily. 14. She just finished taking Levaquin for her pneumonia. 15. Aspirin 81 mg daily. ALLERGIES: MANNITOL, CIPRO (contraindicated because of the chemotherapy she is on). CEFEPIME caused a rash. ERYTHROMYCIN, GI upset. ZOCOR, paresthesias. PENICILLIN, swollen tongue, blisters. COPAXONE, dyspnea and palpitations. HABITS: Tobacco, none. ETOH, occasional. FAMILY HISTORY: Positive for heart disease, cancer. SOCIAL AND PERSONAL HISTORY: The patient is . She lives in her own home. She has 3 adult children, all of whom live out of the area. REVIEW OF SYSTEMS: Generally, she has been very fatigued. Her appetite is okay. She denies recent fever, chills or sweats. Skin: She had a recent cellulitis prior to having had pneumonia, was hospitalized at [facility] in [place] for this. HEENT: Negative. Nodes: Negative. Heme: See above. Breasts: Negative. Endocrine: Negative. Respiratory: See above. Cardiovascular: See above. GI: See above. : Negative. 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 Musculoskeletal: Negative. Neuro: See above. Psychiatric: History of anxiety. PHYSICAL EXAMINATION GENERAL: She is a well-developed, well-nourished female, in no acute distress, no chest pain as we are speaking. VITAL SIGNS: Blood pressure 144/66, pulse 63, respirations 15, temperature 98.8. O2 sat 96% on room air. HEENT: Atraumatic, normocephalic. Mouth and pharynx showed moist mucous membranes. NECK: Supple. There is no thyromegaly. NODES: Without adenopathy. CHEST: Shows rales at the right base. HEART: Normal S1, S2. There are no murmurs, gallops, or rubs. Pulses are full throughout. ABDOMEN: Soft with mild right upper quadrant tenderness with involuntary guarding. No rebound. No masses or organomegaly. Bowel sounds are active. EXTREMITIES: Without cyanosis, clubbing, or edema. NEUROLOGIC: Without gross focal or lateralizing signs. SKIN: Warm and dry. LABORATORY DATA: CBC: WBC 7.2, H and H of 8.8/27, MCV 89, PLT 108,000. D- dimer 381. Chemistries: Sodium 137, potassium 4.2, chloride 106, CO2 of 24, BUN and creatinine of 26/1.43. Rest of her comprehensive metabolic panel was within normal limits. Troponins were 0.01 initial and repeat 0. Lactic acid normal at 1.6. IMAGING: Chest x-ray showed no acute disease. EKG was within normal limits. Lung scan was ordered, I do not see a result. Ultrasound of the gallbladder has been ordered, not resulted yet. IMPRESSION: The patient with chest discomfort radiating to the throat and back. Symptoms suggestive of possible biliary colic. Angina is a possibility, but seems less likely. Trending troponin seems normal at this point. She is being placed on telemetry. Heparin is being used for DVT prophylaxis. She already takes aspirin. She is full code. [id number]/[facility] #: [id number] [facility]
[2016-12-10 05:09] LABS: Hematocrit 25 % (35-47); Hemoglobin 8.2 g/dl (12.0-16.0); Mean Corpuscular HGB Conc 33 g/dl (31-36); Mean Corpuscular Hemoglobin 29 pg (27-31); Mean Corpuscular Volume 88 fL (80-97); Mean Platelet Volume 8 um3 (7.4-10.4); Red Blood Count 2.87 10^6/ul (4.0-5.4); Red Cell Distribution Width 19 % (10.5-15); White Blood Count 4.5 10^3/ul (3.5-10.8)
[2016-12-10 05:21] LABS: Albumin 3.2 g/dL (3.2-5.2); BUN/Creatinine Ratio 17.3 (8-20); C Reactive Protein 11.34 mg/L (< 5.00); Calcium 8.5 mg/dL (8.6-10.3); EGFR African American 50.9 (>60); EGFR Non-African American 39.6 (>60); Globulin 2.3 g/dL (2-4); Potassium 4.3 mmol/L (3.5-5.0); Total Bilirubin 0.6 mg/dL (0.2-1.0); Total Protein 5.5 g/dL (6.4-8.9); Troponin I 0.01 ng/mL (<0.04)
[2016-12-10 05:22] LABS: Comments Flag Yes
[2016-12-10 05:23] LABS: Add Diff/Slide Review? Slide Review Added
--- NOTE | 2016-12-10 08:42 | RAD ---
HISTORY: Biliary colic COMPARISONS: CT dated August 03, 2015 TECHNIQUE: Multiple transverse and longitudinal ultrasound images were obtained of the right upper quadrant of the abdomen using grayscale and color Doppler imaging. FINDINGS: LIVER: The liver is diffusely echogenic and coarse in echotexture, with decreased acoustic transmission. The liver is otherwise normal in shape, size, and contour. There is normal hepatopedal flow of the portal vein on Doppler imaging. BILIARY TREE: There is no intrahepatic or extrahepatic biliary dilatation. The common duct measures 0.3 cm. GALLBLADDER: The gallbladder is well-visualized. There is no cholelithiasis, gallbladder wall thickening, pericholecystic fluid, or sonographic Cruz sign. PANCREAS: The head of the pancreas is unremarkable. The tail of the pancreas is not well visualized secondary to overlying bowel gas. RIGHT KIDNEY: There is a 4.4 x 4.1 x 5.1 cm simple cyst of the lower pole of the right kidney. There is no hydronephrosis or nephrolithiasis. The right kidney measures 12.6 x 4.6 x 4.5 cm. AORTA AND IVC: The aorta and IVC are unremarkable. FLUID: There are no pleural effusions. There is no free fluid within the hepatorenal recess. OTHER FINDINGS: None. IMPRESSION: FATTY LIVER
[2016-12-10] MEDS ORDERED: Cetirizine* 10 MG TAB PO SCH (09:00)
[2016-12-10] MEDS ORDERED: Acyclovir* 400 MG TAB PO SCH (09:00)
[2016-12-10] MEDS ORDERED: Cholecalciferol TAB* 1000 UNITS PO SCH (09:00)
[2016-12-10] MEDS ORDERED: Aspirin Low Dose CHEW TAB* 81 MG PO SCH (09:00)
[2016-12-10] MEDS ORDERED: Citalopram TAB* 20 MG PO SCH (09:00)
[2016-12-10] MEDS: Omeprazole CAP* 20 MG PO SCH (09:57)
[2016-12-10] MEDS: CLARITHROMYCIN 500 MG PO SCH (09:58)
[2016-12-10 11:58] VITALS: BP 133/59
--- NOTE | 2016-12-10 18:54 | DS ---
CC: Dr. Halie Kennedy; Dr. Venancio Chavez, [facility] * DISCHARGE SUMMARY: DATE OF ADMISSION: 12/09/16 DATE OF DISCHARGE: 12/10/16 DISCHARGE DIAGNOSES: 1. Chest pain, probably due to gastroesophageal reflux. 2. Multiple myeloma, status post bone marrow transplant with recurrence, on chemotherapy. 3. History of recent pneumonia with systemic inflammatory response syndrome. 4. History of hypogammaglobulinemia, status post IVIG infusion. 5. Renal insufficiency related to multiple myeloma. 6. History of multiple sclerosis. 7. Menopause. 8. History of colonic polyps. 9. History of gastroesophageal reflux disease and esophageal polyp removed March 2016. 10. Anemia, related to multiple myeloma. 11. History of anxiety. 12. Thrombocytopenia. HISTORY: Adwoa Pepe is a 71-year-old woman admitted with chest pain. Please see the dictated admission note for details of the present illness, past medical history, family history, social and personal history, review of systems , and physical examination. DIAGNOSTIC STUDIES/LAB DATA: CBC on 12/09/16: WBC 7.2, H and H of 8.8/27, MCV 89, PLT 108K. CBC on 12/10/16: WBC 4.5, H and H 8.2/25, MCV 88, PLT 97. D- dimer 381 (normal corrected for age). Chemistries on 12/09/16: Sodium 137, potassium 4.2, chloride 106, CO2 24, BUN and creatinine 26/1.43, calcium 8.5, total protein 5.9, chemistry profile otherwise within normal limits. Troponin normal at 0.01, 0, and 0.01, serially followed. Chemistries on 12/10/16: Sodium 142, potassium 4.3, chloride 108, CO2 28, BUN and creatinine 23/1.33, glucose 81. Rest of her comprehensive metabolic panel was essentially within normal limits. C-reactive protein was mildly elevated at 11.34, which is down from 14.93 on 12/01/16 and which was down from 57.26 during her hospitalization for pneumonia on 11/29/16. Imaging: Chest x-ray on 12/09/16 was within normal limits. No evidence for acute intrathoracic process. Gallbladder ultrasound on 12/10/16 showed no gallstones. Note, the liver was diffusely echogenic and coarse in echotexture with normal flow in the portal vein. Pancreas was normal. Right kidney was normal. The aorta and IVC were unremarkable. EKG was normal. HOSPITAL COURSE: The patient was admitted. At the time of admission, she had no chest pain. She had recurrent heaviness in her chest with symptoms of food coming up in her chest after breakfast on 12/10/16, which she attributes to not having been given her omeprazole until after she ate. When I saw her, just felt sore, not painful. She felt that the symptoms today are mild and last night were similar to what she had experienced in August 2010, at which time she had a negative stress test. At the time of discharge, vital signs, blood pressure 144/67, pulse 58, respirations 16, temperature afebrile, and O2 sat 94%. Chest: Clear. Heart: Regular without murmurs, gallops, or rubs. Abdomen is soft with mild right upper quadrant and epigastric tenderness without rebound, guarding. Bowel sounds are normal. Extremities showed no edema. Her lower legs are diffusely tender, anterior and posteriorly this is mild. Her telemetry had showed normal sinus rhythm and sinus bradycardia. No arrhythmia. It was felt that her chest pain/epigastric pain sounded like gastroesophageal reflux. Initially, a nuclear medicine V/Q scan had been ordered, but felt not to be necessary because of the nature of her symptoms and what was essentially a negative D-dimer. It was felt that her symptoms were not cardiac. If there are recurrent symptoms, she could have an outpatient stress test. DISCHARGE MEDICATIONS: At the time of discharge, her medications are: 1. Ninlaro 4 mg weekly. 2. Pomalyst 2 mg daily. 3. Clarithromycin 500 mg once a day. 4. Omeprazole 20 mg twice a day; this is before eating. 5. Escitalopram 10 mg once a day. 6. Vitamin D3 2000 units once a day. 7. Acyclovir 400 mg once a day. 8. Aspirin 81 mg once a day. 9. Mylanta or Maalox 2 tablespoons every 4 hours as needed for indigestion or chest pain. 10. Claritin 10 mg once a day. 11. Dexamethasone 12 mg weekly. 12. Ondansetron 4 mg every 4 hours as needed for nausea. 13. Lorazepam 0.5 mg once a day as needed for nausea. 14. Probiotic once a day. 15. Albuterol 2 puffs every 4 hours as needed for cough or wheezing. DISCHARGE INSTRUCTIONS: She was told to call 911 if she has chest pain unrelieved by antacid. She will be following up with me in 5 to 7 days. DIET: As usual. ACTIVITY: As tolerated. [id number]/CPS #: [id number] MTDD
== END 2016-12-10 14:20 | disposition home or self-care (01) ==
LOC: ED 12:57 → MEDTELE 19:31
PROVIDERS: ADMIT Internal Medicine Geriatric Medicine; ATTEND Internal Medicine Geriatric Medicine
DX: R07.9 Chest pain, unspecified (principal); C90.00 Multiple myeloma not having achieved remission; D63.8 Anemia in other chronic diseases classified elsewhere; N28.9 Disorder of kidney and ureter, unspecified; G35 Multiple sclerosis; K21.9 Gastro-esophageal reflux disease without esophagitis; D69.6 Thrombocytopenia, unspecified; K76.0 Fatty (change of) liver, not elsewhere classified; Z79.82 Long term (current) use of aspirin; Z79.899 Other long term (current) drug therapy; Z88.1 Allergy status to other antibiotic agents; Z88.8 Allergy status to other drugs, medicaments and biological substances
CPT/HCPCS: 36415; 71010; 76705; 80053; 83605; 84484; 85025; 85379; 86140; 87040; 93005; 96360; 96361; 99284; A9270-GY; G0378

== ENCOUNTER 2017-02-10 11:46 | Day surgery (SDC) | payer MEDICARE ==
[~2017-02-10 11:46] MED LIST: Buffered Lidocaine 0.9% SYRIN* 5 ML/SYR SYRINGE INTRADERM ONE; Famotidine IV* 10 MG/ML 2 ML (20 mg) IV ONE; Lidocaine 2% PF * 5 ML VIAL ONE; Midazolam* 1 MG/ML 2 ML VIAL (2 MG) ONE; Propofol* 500 MG/50 ML BTL ONE; Sodium Citrate/Citric Acid* 15 ML UDC PO ONE
[2017-02-10] MEDS ORDERED: Buffered Lidocaine 0.9% SYRIN* 5 ML/SYR SYRINGE ONE (12:00)
[2017-02-10] MEDS ORDERED: Famotidine IV* 10 MG/ML 2 ML (20 mg) ONE (12:00)
[2017-02-10] MEDS ORDERED: Sodium Citrate/Citric Acid* 15 ML UDC ONE (12:00)
[2017-02-10] MEDS ORDERED: Ondansetron INJ* 2 MG/ML VIAL IV PRN (12:20)
[2017-02-10] MEDS ORDERED: fentaNYL* 50 MCG/ML 2 ML VIAL (100 MCG VIAL) IV PRN ×2 (12:20)
[2017-02-10] MEDS ORDERED: Lidocaine 1% INJ* 10 MG/ML 30 ML SDV ONE (12:20)
[2017-02-10] MEDS ORDERED: Ibuprofen TAB* 600 MG PO PRN (12:20)
[2017-02-10] MEDS ORDERED: oxyCODONE TAB* 5 MG TAB PO PRN (12:20)
[2017-02-10] MEDS ORDERED: Clindamycin 900 MG IVPREMIX(* 900 MG/50 ML SDV IV ONE (13:18)
[2017-02-10] MEDS ORDERED: KETAMINE HCL* 50 MG/ML 10 ML VIAL ONE (13:35)
[2017-02-10] MEDS ORDERED: fentaNYL* 50 MCG/ML 2 ML VIAL (100 MCG VIAL) ONE (14:08)
--- NOTE | 2017-02-10 15:02 | RAD ---
Indication: Status post port placement. Single frontal view of the chest performed at 1445 hours was reviewed. Comparison is made with previous exam dated December 09, 2016. No mediastinal shift is noted. Heart is of normal size and configuration. Lung nance appear clear. Central catheter is in the superior vena cava. No pneumothorax is noted. IMPRESSION: NO ACTIVE CARDIOPULMONARY DISEASE IS NOTED. PORT-A-CATH IS IN THE SUPERIOR VENA CAVA WITH NO PNEUMOTHORAX.
--- NOTE | 2017-02-10 15:03 | RAD ---
CPT II Codes: 6045F INDICATION: PowerPort placement. Fluoroscopic services provided for referring physician. 119.6 seconds of fluoroscopy time was used. 2 spot image demonstrates placement of a catheter into the superior vena cava. IMPRESSION: Fluoroscopic services provided for referring physician for PowerPort placement.
[2017-02-10 15:18] VITALS: BP 155/72
--- NOTE | 2017-02-11 03:42 | OP ---
CC: Halie Kennedy MD; Adwoa Boyce MD * DATE OF OPERATION: 02/10/17 - [facility] DATE OF : 49 SURGEON: Abram Floyd MD. INDUSTRIAL NURSE: None. ANESTHESIOLOGIST: Dr. Lara. ANESTHESIA: Local MAC. PRE-OP DIAGNOSIS: Leukemia. POST-OP DIAGNOSIS: Leukemia. OPERATIVE PROCEDURE: PowerPort placement, left subclavian approach. ESTIMATED BLOOD LOSS: Minimal. IV FLUIDS: Crystalloid. SPECIMENS: None. DRAINS: None. COMPLICATIONS: None. COUNTS: Instrument, needle, and sponge counts correct. DESCRIPTION OF PROCEDURE: The patient was brought to the operating room and placed on the table supine. Sequential compression devices were placed on both lower extremities. Intravenous antibiotics were administered. Sedation was administered. She was prepped and draped in the usual sterile fashion. Time out was performed. Local anesthetic was infiltrated for a left subclavian approach and the left subclavian vein was cannulated on first pass; however, the guidewire did not seem to be able to be progressed into the superior vena cava. The guidewire was withdrawn and the vein was re-assessed. With the needle in place and manipulation of the guidewire under fluoroscopic guidance, the guidewire was ultimately able to be passed into the atrium. No arrhythmia was noted. A pocket was created in the left upper chest after infiltrating additional local anesthetic. The pocket was created with cautery dissection of the subcutaneous tissues. A counter incision was then made at the guidewire insertion and an 8 [place] PowerPort catheter was back tunneled to the pocket. The peel-away sheath and dilator were then advanced into the superior vena cava under fluoroscopic guidance. The guidewire and dilator were removed and then the catheter was advanced into the superior vena cava under fluoroscopic guidance. The peel-away sheath was removed. The catheter was cut to 25 cm length and connected to the PowerPort and this was positioned in the pocket to secure with 2-0 Prolene suture. The port was assessed. It was drawn and flushed easily and ultimately flushed with heparinized saline. The pocket was closed in 2 layers with a 3-0 Vicryl for the subcutaneous tissues and 4-0 Monocryl for the skin edges. Counter incision was closed in the same fashion. Steri-strips were applied with a Tegaderm dressing. The patient tolerated the procedure well, was transferred to the recovery stable condition. A post-procedural chest x-ray revealed the catheter to be in the superior vena cava and no evidence of pneumothorax. [id number]/[facility] #: [id number] DONTE
== END 2017-02-10 15:44 | disposition home or self-care (01) ==
LOC: OR 11:46
PROVIDERS: ATTEND Surgery
DX: C90.00 Multiple myeloma not having achieved remission (principal); G35 Multiple sclerosis; N18.9 Chronic kidney disease, unspecified; F41.8 Other specified anxiety disorders; D64.9 Anemia, unspecified; K21.9 Gastro-esophageal reflux disease without esophagitis; R11.2 Nausea with vomiting, unspecified
CPT/HCPCS: 71010; 76000; A9270-GY; C1788; J1642; J2250; J2704; J3010

== ENCOUNTER 2017-12-18 12:08 | Observation (INO) | payer MEDICARE ==
[2017-12-18 12:54] LABS: ABS Basophils 0 10^3/ul (0-0.2); ABS Eosinophils 0.1 10^3/ul (0-0.6); ABS Lymphocytes 1.1 10^3/ul (1.0-4.8); ABS Monocytes 0.5 10^3/ul (0-0.8); ABS Neutrophils 1.7 10^3/ul (1.5-7.7); ABS Nucleated RBC 0 10^3/ul; Eosinophil % 2.3 % (0-6); Hematocrit 28 % (35-47); Hemoglobin 8.9 g/dl (12.0-16.0); Lymphocyte % 32.1 % (25-47); Mean Corpuscular HGB Conc 32 g/dl (31-36); Mean Corpuscular Hemoglobin 28 pg (27-31); Mean Corpuscular Volume 88 fL (80-97); Mean Platelet Volume 7.8 um3 (7.4-10.4); Nucleated Red Blood Cells % 0.1; Platelet Count 110 10^3/ul (150-450); Red Blood Count 3.16 10^6/ul (4.00-5.40); Red Cell Distribution Width 19 % (10.5-15); White Blood Count 3.4 10^3/ul (3.5-10.8)
[2017-12-18 13:19] LABS: EGFR Non-African American 33.3 (>60)
--- NOTE | 2017-12-18 13:50 | ED ---
HPI Chest Pain - HPI Summary HPI Summary: A 72 y/o F with CA was BIBA presents to ED with c/o CP onset approx 1030. Associated sx: fatigue, elevated BP (max: 178/90 at home), mild SOB, nausea. Pt went to physical therapy at 0930. Sees Dr. Kennedy, oncology, who referred her to ED due to CP and elevated BP. Pt is feeling better at bedside. No previous CT. Shes unsure of the date of her last stress test. Denies: MOSER, vision changes , ear ache, sore throat, neck pain, v/d, dysuria, melea, hematuria, rash, pedal edema. Pt takes baby aspirin daily, took her medications this AM. Pt given nitro by EMS en route. - History of Current Complaint Chief Complaint: EDChestPainROMI Hx Obtained From: Patient Onset/Duration: Started Hours Ago, Atraumatic, Still Present - mildly Timing: Constant Initial Severity: Moderate Current Severity: Mild Pain Intensity: 1 Pain Scale Used: 0-10 Numeric Character: Dull/Aching Alleviating Factor(s): EMS Tx - nitro Associated Signs and Symptoms: Positive: Shortness of Breath - mild, Nausea, Other: - pos: elevated BP; fatigue. neg: vision changes, ear ache, sore throat, neck pain, diarrhea, dysuria, melea, hematuria, rash, pedal edema. Negative: Headaches, Vomiting - Additional Pertinent History Primary Care Physician: [id number] - Allergy/Home Medications Allergies/Adverse Reactions: Allergies Allergy/AdvReac Type Severity Reaction Status Date / Time cefepime Allergy Mild Hives Verified 12/06/17 11:17 glatiramer (copolymer 1) Allergy Unknown Verified 12/06/17 11:17 [From Copaxone] Reaction Details simvastatin Allergy Unknown Verified 12/06/17 11:17 Reaction Details ciprofloxacin AdvReac Severe Unknown Verified 12/06/17 11:17 Reaction Details Home Medications: Home Medications Loperamide HCl [Imodium A-D] 2 mg PO SEE INSTRUCTIONS PRN 12/18/17 [History Confirmed 12/18/17] Metoprolol Tartrate TAB* [Lopressor TAB*] 25 mg PO BID 12/18/17 [History Confirmed 12/18/17] Pomalidomide [Pomalyst] 2 mg PO DAILY 12/18/17 [History Confirmed 12/18/17] diPHENhydraMINE PO* [Benadryl PO 25 MG TAB*] 25 mg PO Q6H PRN 12/18/17 [History Confirmed 12/18/17] PMH/Surg Hx/FS Hx/Imm Hx Previously Healthy: No Endocrine/Hematology History: Reports: Hx Anemia - from chemo medications, Other Endocrine/Hematological Disorders - multiple MYELOMA, BONE MARROW TRANSPLANT Denies: Hx Diabetes Cardiovascular History: Reports: Other Cardiovascular Problems/Disorders - BONE MARROW TRANSPLANT, CML Denies: Hx Congestive Heart Failure, Hx Hypertension, Hx Pacemaker/ICD Respiratory History: Reports: Hx Pneumonia, Hx Seasonal Allergies, Other Respiratory Problems/Disorders - PNEUMONIA ONE WEEK AGO GI History: Reports: Hx Gastroesophageal Reflux Disease History: Reports: Hx Renal Disease - DECREASED FUNCTION FROM MULTIPLE MYELOMA Denies: Hx Dialysis Musculoskeletal History: Reports: Hx Arthritis, Other Musculoskeletal History - MS Sensory History: Reports: Hx Contacts or Glasses - GLASSES Denies: Hx Hearing Aid Opthamlomology History: Reports: Hx Contacts or Glasses - GLASSES Neurological History: Reports: Other Neuro Impairments/Disorders - MS Psychiatric History: Reports: Hx Anxiety, Hx Depression - ON MEDICATION Denies: Hx Panic Disorder - Cancer History Cancer Type, Location and Year: MULTIPLE MYELOMA Hx Chemotherapy: Yes Hx Radiation Therapy: No Hx Palliative Cancer Treatment: No - Surgical History Surgery Procedure, Year, and Place: BONE MARROW TRANSPLANT 2011;. RIGHT HAND RING FINGER - REMOVAL OF BONE SPUR;. POWER PORT. Lt 5TH TOE - ARTHROPLASTY Hx Anesthesia Reactions: No - Immunization History Date of Tetanus Vaccine: Unk Date of Influenza Vaccine: Fall 2014 Infectious Disease History: No Infectious Disease History: Denies: Traveled Outside the [place] in Last 30 Days - Family History Known Family History: Positive: Cardiac Disease, Other - BREAST CANCER. Mother: rheumatic heart disease (from rheumatic fever) - Social History Occupation: Retired Lives: With Family Alcohol Use: None Hx Substance Use: No Substance Use Type: Reports: None Hx Tobacco Use: No Smoking Status (MU): Never Smoked Tobacco Have You Smoked in the Last Year: No Review of Systems Positive: Fatigue Negative: Blurred Vision Negative: Sore Throat, Ear Ache Positive: Chest Pain, Other - elevated BP Positive: Shortness Of Breath - mild Positive: Nausea, Other - neg: melena. Negative: Vomiting, Diarrhea Negative: dysuria, hematuria Negative: Arthralgia - neck pain, Edema Negative: Rash Negative: Headache All Other Systems Reviewed And Are Negative: No Physical Exam - Summary Physical Exam Summary: Appearance: Alert, conversive, nontoxic appearing Skin: Warm, dry, no mottling, no rashes, no contusions HEENT: EOMI, PERRL, mildly dry mucous membranes Neck: No masses on the neck, supple Respiratory: Clear to auscultation, breath sounds present, no rales, no rhonchi , no wheezes Cardiovascular: RRR, pulses are symmetrical in both lower and upper extremities Abdomen: Soft, non-tender Bowel Sounds: Present Musculoskeletal: No CVA tenderness, no obvious deformity, moving all extremities in a grossly normal manner Neurological: A&Ox3, CN II-XII Intact, moving all extremities symmetrically Psychiatric: Normal affect and mood Triage Information Reviewed: Yes Vital Signs On Initial Exam: Initial Vitals Temp Pulse Resp BP Pulse Ox 98.1 F 74 19 128/69 97 12/18/17 12:10 12/18/17 12:10 12/18/17 12:10 12/18/17 12:10 12/18/17 12:10 Vital Signs Reviewed: Yes Diagnostics - Vital Signs Vital Signs Temp Pulse Resp BP Pulse Ox 12/18/17 13:00 72 20 95 12/18/17 12:30 79 23 95 12/18/17 12:27 81 17 137/81 96 12/18/17 12:26 73 23 95 12/18/17 12:10 98.1 F 74 19 128/69 97 - Laboratory Lab Results: Lab Results 12/18/17 12/18/17 12/18/17 Range/Units 12:41 12:41 12:41 WBC 3.4 L (3.5-10.8) 10^3/ul RBC 3.16 L (4.00-5.40) 10^6/ul Hgb 8.9 L (12.0-16.0) g/dl Hct 28 L (35-47) % MCV 88 (80-97) fL MCH 28 (27-31) pg MCHC 32 (31-36) g/dl RDW 19 H (10.5-15) % Plt Count 110 L (150-450) 10^3/ul MPV 7.8 (7.4-10.4) um3 Neut % (Auto) 51.0 (38-83) % Lymph % (Auto) 32.1 (25-47) % Gibson % (Auto) 13.9 H (0-7) % Eos % (Auto) 2.3 (0-6) % Baso % (Auto) 0.7 (0-2) % Absolute Neuts (auto) 1.7 (1.5-7.7) 10^3/ul Absolute Lymphs (auto) 1.1 (1.0-4.8) 10^3/ul Absolute Monos (auto) 0.5 (0-0.8) 10^3/ul Absolute Eos (auto) 0.1 (0-0.6) 10^3/ul Absolute Basos (auto) 0 (0-0.2) 10^3/ul Absolute Nucleated RBC 0 10^3/ul Nucleated RBC % 0.1 Sodium 139 (135-145) mmol/L Potassium 4.2 (3.5-5.0) mmol/L Chloride 107 (101-111) mmol/L Carbon Dioxide 24 (22-32) mmol/L Anion Gap 8 (2-11) mmol/L BUN 29 H (6-24) mg/dL Creatinine 1.54 H (0.51-0.95) mg/dL Est GFR ( Amer) 40.3 (>60) Est GFR (Non-Af Amer) 33.3 (>60) BUN/Creatinine Ratio 18.8 (8-20) Glucose 96 (70-100) mg/dL Calcium 8.8 (8.6-10.3) mg/dL Magnesium 1.8 L (1.9-2.7) mg/dL Total Bilirubin 0.60 (0.2-1.0) mg/dL AST 21 (13-39) U/L ALT 25 (7-52) U/L Alkaline Phosphatase 81 (34-104) U/L Troponin I 0.01 (<0.04) ng/mL B-Natriuretic Peptide 67 ( - 100) pg/mL Total Protein 5.9 L (6.4-8.9) g/dL Albumin 3.7 (3.2-5.2) g/dL Globulin 2.2 (2-4) g/dL Albumin/Globulin Ratio 1.7 (1-3) Lipase 54 (11.0-82.0) U/L TSH Pending Result Diagrams: 12/18/17 12:41 12/18/17 12:41 Lab Statement: Any lab studies that have been ordered have been reviewed, and results considered in the medical decision making process. - Radiology CXR Xray Interpretation: No Acute Changes - IMPRESSION: No active cardiopulmonary disease is noted. ED provider has reviewed this report. Radiology Interpretation Completed By: Radiologist - EKG 1211 Cardiac Rate: NL - 78 bpm EKG Rhythm: Sinus Rhythm EKG Interpretation: nml QTC. nml axis. Re-Evaluation - Re-Evaluation 1 Re-Evaluation Time: 16:02 Change: Unchanged Comment: Family at bedside now. Discussing results with pt. Pt states the CP onset was approx 1030 today. States still having chest "heaviness" during re- eval. Chest Pain Course/Dx - Course Course Of Treatment: A 72 y/o F with CA was BIBA presenting with CP onset approx 1030. Associated sx: fatigue, elevated BP (max: 178/90 at home), mild SOB , nausea. - Diagnoses Provider Diagnoses: Chest pain - Provider Notifications Discussed Care Of Patient With: Chris Richardson - oncology Time Discussed With Above Provider: 16:20 Instructed by Provider To: Other - Courtesy call. Recommends admission. Discharge - Sign-Out/Discharge Documenting (check all that apply): Patient Departure - ADMIT - Discharge Plan Condition: Stable Disposition: ADMITTED TO [facility] - Billing Disposition and Condition Condition: STABLE Disposition: Admitted to [facility] - Attestation Statements Document Initiated by Scribe: Yes Documenting Scribe: Kisha Fernandez Provider For Whom Scribe is Documenting (Include Credential): Dr. Mallory Funk MD Scribe Attestation: Kisha Beverly, scribed for Dr. Mallory Funk MD on 12/18/17 at 2155. Scribe Documentation Reviewed: Yes Provider Attestation: The documentation as recorded by the Kisha bal accurately reflects the service I personally performed and the decisions made by me, Dr. Mallory Funk MD Consult Consult: At 1628: Consult with Dr. Perez, hospitalist Will admit pt.
--- NOTE | 2017-12-18 13:52 | RAD ---
Indication: Chest pain. Single AP portable view of the chest done at 1302 hours demonstrates no mediastinal shift. Central line is in the superior cava. Lung nance are clear. IMPRESSION: No active cardiopulmonary disease is noted.
[2017-12-18] MEDS ORDERED: Al Hydrox/Mg Hydrox/Simet LIQ* 30 ML UDC PO PRN (17:39)
[2017-12-18] MEDS ORDERED: Albuterol 2.5 MG/3 ML NEB.SOL* (0.083%) INH PRN (17:39)
[2017-12-18] MEDS ORDERED: Acetaminophen TAB* 325 MG PO PRN (17:39)
[2017-12-18] MEDS ORDERED: oxyCODONE/Acetamin 5/325 MG* TAB PO PRN (17:39)
[2017-12-18] MEDS ORDERED: Morphine VIAL* 4 MG/ML VIAL (1 ml vial) IV PRN (17:39)
[2017-12-18] MEDS ORDERED: Ondansetron INJ* 2 MG/ML VIAL IV PRN (17:39)
[2017-12-18] MEDS ORDERED: Magnesium Oxide TAB* 400 MG PO ONE (17:43)
[2017-12-18] MEDS ORDERED: diPHENhydraMINE PO* 25 MG PO PRN (17:46)
[2017-12-18] MEDS: Omeprazole CAP* 20 MG PO SCH (21:04)
[2017-12-18] MEDS: Heparin VIAL(*) 5000 UNITS/ML VIAL (FIVE THOUSAND) SUBCUT SCH (21:05)
--- NOTE | 2017-12-18 21:06 | HP ---
AMENDED REPORT NOW INCLUDES COSIGNER DESIGNATION CC: Dr. Boyce; Dr. Kennedy * ADMISSION HISTORY AND PHYSICAL: DATE OF ADMISSION: 12/18/17 PATIENT OF ADMITTING HOSPITALIST: Dr. Laney Perez.* (DICTATED BY DO WHITE) PRIMARY CARE PROVIDER: Dr. Adwoa Boyce. PRIMARY ONCOLOGIST: Dr. Halie Kennedy. CHIEF COMPLAINT: Chest pain. HISTORY OF PRESENT ILLNESS: Ms. Pepe is a 72-year-old female with past medical history significant for multiple myeloma, for which she received both oral and IV infusions of chemotherapy most recently last week, who also was recently diagnosed with hypertension who presented to the emergency room earlier today with complaints of chest pain. The patient tells me that she is on her week break from IV infusion starting today and she took her last dose of 21 day cycle of Pomalyst today and she is not due for any more oral medication for another week. She tells me that she was recently diagnosed at Dr. Kennedy' s office with hypertension for which she was initially both on metoprolol 25 mg b.i.d. that she did not tolerate causing her to be weak and have no energy. She saw Dr. Kennedy last Monday and her metoprolol was discontinued and instead she was started on 2.5 mg of amlodipine. The patient notes that her blood pressure that she checked at home and outside at the local pharmacy continued to be high with systolic measure up to 160s in general. She denied any headache, dizziness, or blurred vision; however, she developed some chest tightness this morning after she had physical therapy and exertion. She denied any shortness of breath, cough, or any other associated symptoms. She presented to the emergency room for evaluation and had laboratory workup that revealed a CBC with hemoglobin and hematocrit consistent with her recent baseline of 9 for hemoglobin and 28 for hematocrit. Her chemistry panel showed again BUN of 29 which appear slightly elevated than her baseline as well as creatinine of 1.5 as well. Her magnesium was slightly low at 1.8 and her troponin was negative. Her EKG in the emergency room showed no evidence of any ST changes. The patient had similar episode of chest pain about a year ago that was evaluated and thought to be related to her gallbladder. She had gallbladder workup that revealed no evidence of cholecystitis; however, she had history of GERD and her symptoms eventually improved with proton pump inhibitors and taken Mylanta as needed. She described her chest pain this time as being totally different, more substernal and started after exertion during her workout with physical therapist earlier today. Again, given her ongoing symptoms and her history of multiple myeloma as well as exertional chest pain earlier today and recent diagnosis of hypertension, we were asked to see the patient to consider admission to telemetry for observation trending troponin and to rule out acute coronary syndrome. PAST MEDICAL HISTORY: As mentioned above, significant for: 1. Multiple myeloma for which she receive IV chemotherapy infusions at Dr. Kennedy's office and this week is her "break week" with no infusion scheduled. 2. History of renal insufficiency secondary to multiple myeloma. 3. History of multiple sclerosis, which has been asymptomatic. 4. History of colonic polyps. 5. History of anemia related to her multiple myeloma. 6. Anxiety. 7. GERD. 8. Recent diagnosis of hypertension. PAST SURGICAL HISTORY: Include: 1. Excision of ganglion on the right ring finger. 2. Hammertoe repair. 3. Removal of bone spur from the left foot in 2000 and 2016. 4. Excision of esophageal polyp. 5. Mediport placement. CURRENT MEDICATIONS: Her medications at home include: 1. Acyclovir 400 mg p.o. daily. 2. Aspirin 81 mg p.o. daily. 3. Decadron 4 mg p.o. q.weekly. 4. Benadryl 25 mg p.o. q.6 hours as needed for itching. 5. Imodium 2 mg p.o. q.6 hours as needed for diarrhea. 6. Claritin 10 mg p.o. daily. 7. Amlodipine 2.5 mg p.o. daily. 8. Omeprazole 20 mg p.o. b.i.d. 9. Zofran 4 mg p.o. q.6 hours as needed for nausea. 10. Pomalyst 2 mg p.o. daily every 28-day cycle and the patient finished her 28 - day cycle today and she is starting her week break. ALLERGIES: Multiple including CEFEPIME, SIMVASTATIN, CIPROFLOXACIN, and GLATIRAMER. FAMILY HISTORY: Significant for heart disease as well as cancer. SOCIAL HISTORY: The patient is . Lives with her in her own home. She is a nonsmoker. Denies alcohol intake. Wishes her as healthcare proxy and she wishes to be a full code. REVIEW OF SYSTEMS: See HPI, otherwise 12-point review of systems were examined and they were essentially negative. PHYSICAL EXAMINATION GENERAL: She is a pleasant, healthy-appearing older female, in no acute distress or discomfort at the time of admission. VITAL SIGNS: Revealed a temperature of 98.1, pulse of 68, blood pressure 156/66 , respiration of 18 with O2 sat of 95% on room air. HEENT: Head is normocephalic, atraumatic. Sclerae anicteric. PERRLA. EOMs intact. Oropharynx is pink and moist. NECK: Supple. Trachea midline. No cervical adenopathy, thyromegaly, or JVD. LUNGS: Clear to auscultation bilaterally. HEART: Regular rate and rhythm. Normal S1 and S2 without rubs, murmurs, or gallops. BACK: With normal curvature. No CVA tenderness noted. BREAST EXAM: Deferred at this time. ABDOMEN: Soft, nontender, and nondistended. No hernias, masses, or hepatosplenomegaly. EXTREMITIES: Without cyanosis, clubbing, or edema. NEUROLOGIC: She is awake, alert, and oriented x3. Hand certified dietary manager is equal bilaterally. Tongue is midline. Sensation is intact throughout. RECTAL: Exam deferred at this time. LABORATORY DATA: CBC with white count of 3,400, hemoglobin 8.9, hematocrit 28 , and platelets of 110. Her chemistry panel with sodium of 139, potassium 4.2, chloride 107, BUN at 29 and creatinine of 1.54. Glucose 96, magnesium 1.8. LFTs within normal limits. ACCESSORY DIAGNOSTIC DATA: Her chest x-ray today showed no evidence of acute cardiopulmonary issue. EKG showed sinus rhythm with a ventricular rate of [address] changes. IMPRESSION: A 72-year-old female with past medical history significant for multiple myeloma for which she is currently receiving chemotherapy as well as chronic renal insufficiency, history of multiple sclerosis, anemia, anxiety and most recently diagnosed with hypertension, who presented to the emergency room with hypertension and acute onset of chest tightness earlier this morning, found to have a negative troponin and normal EKG, but given her multiple risk factor will be admitted to telemetry to rule out acute coronary syndrome under hospitalist services for the following. ASSESSMENT AND PLAN: 1. Chest pain. The patient definitely has multiple risk factors for acute coronary syndrome given her age, family history as well as recent diagnosis of hypertension and known history of multiple myeloma. I will trend her troponin, repeat her EKG in the morning, and will go ahead and perform a stress test in the a.m. She is currently stable and I will provide nitroglycerin and morphine as needed for her chest pain. Looking back at her record, it looks like she was started on metoprolol for a period of 10 days that she did not tolerate. Her Norvasc dose was 2.5 at home which we will increase to 5 mg starting tomorrow morning until she follows up with Dr. Kennedy later tomorrow. Again, we will provide supplemental oxygen as needed. Keep her n.p.o. after midnight in anticipation for a stress test. 2. History of multiple myeloma. The patient fortunately on her break week for both IV infusion and p.o. medication. I will continue to monitor closely. Her CBC appeared to be at her baseline and her platelet count is reasonable. We will continue her heparin subcu for DVT prophylaxis. I will also continue all her medication including acyclovir, Benadryl, Imodium, and Decadron as needed. 3. Renal insufficiency. The patient with slight elevation in her BUN; however , her creatinine appears to be at baseline. She was given a dose of IV fluid and we will continue to encourage her p.o. hydration. She does not have any complaints of nausea and will provide Zofran as needed for symptomatic management. 4. History of anxiety. We will continue her home meds or Ativan as needed. 5. Gastroesophageal reflux disease. I will continue her PPI coverage. 6. DVT prophylaxis. The patient at highest risk. We will provide both subcu heparin and SCDs. 7. Code status. She wishes to be a full code. 8. Disposition. Admit to telemetry for observation, trending troponin. Stress test in the morning, rule out acute coronary syndrome. TIME SPENT: Approximately 60 minutes spent admitting this patient for which greater than 50% of that time on taking history and performing physical exam. I went on and discussed the case with my attending who agreed to plan of care and will follow up accordingly. DO WHITE [id number]/[facility] #: [id number] ROND
[2017-12-19] MEDS: Heparin VIAL(*) 5000 UNITS/ML VIAL (FIVE THOUSAND) SUBCUT SCH ×2 (05:28→13:01)
[2017-12-19 07:03] LABS: ABS Basophils 0 10^3/ul (0-0.2); ABS Eosinophils 0.1 10^3/ul (0-0.6); ABS Lymphocytes 0.9 10^3/ul (1.0-4.8); ABS Monocytes 0.4 10^3/ul (0-0.8); ABS Neutrophils 1.2 10^3/ul (1.5-7.7); ABS Nucleated RBC 0 10^3/ul; Eosinophil % 5.4 % (0-6); Hematocrit 28 % (35-47); Hemoglobin 9.1 g/dl (12.0-16.0); Lymphocyte % 34.7 % (25-47); Mean Corpuscular HGB Conc 33 g/dl (31-36); Mean Corpuscular Hemoglobin 29 pg (27-31); Mean Corpuscular Volume 87 fL (80-97); Mean Platelet Volume 8.4 um3 (7.4-10.4); Nucleated Red Blood Cells % 0; Platelet Count 120 10^3/ul (150-450); Red Blood Count 3.16 10^6/ul (4.00-5.40); Red Cell Distribution Width 19 % (10.5-15); White Blood Count 2.6 10^3/ul (3.5-10.8)
[2017-12-19 07:09] LABS: EGFR Non-African American 32.8 (>60)
[2017-12-19] MEDS ORDERED: Acyclovir* 400 MG TAB PO SCH (09:00)
[2017-12-19] MEDS ORDERED: amLODIPine TAB* 5 MG PO SCH (09:00)
[2017-12-19] MEDS ORDERED: Aspirin EC TAB* 81 MG TAB.EC PO SCH (09:00)
[2017-12-19] MEDS: Omeprazole CAP* 20 MG PO SCH (09:18)
--- NOTE | 2017-12-19 09:30 | PN ---
Progress Note - Progress Note Date of Service: 12/19/17 SOAP: Subjective: [72 yo female well known to the oncology service for treatment of her multiple myeloma was referred to the emergency department with c/o CP and HTN yesterday. She reports that she wasn't feeling well at physical therapy and developed some substernal chest pressure. Her PT session ended early, but she felt well enough to go shopping after. When she returned home she checked her BP and sBP measured ~180mmHg. She waited several minutes and rechecked and noted it was still elevated at ~170 mmHg. At that point she called the oncology office and was directed to the ER. She was hypertensive for EMS, but normotensive when she reached the ER. No EKG changes and troponin negative. She was admitted for telemetry monitoring and plans for a stress test this morning. She was recently started on treatment for HTN in the oncology clinic when she reported she wasn't feeling well and her sBP was measured in the 180s. She did not tolerate the metoprolol she was initially prescribed, and recently started on amlodipine. She reports that she had very little sleep overnight. No recurrent CP. She did have an episode of diarrhea this morning and feels mentally "slow".] Objective: [ Laboratory Results - last 24 hr 12/18/17 12/18/17 12/18/17 12:41 12:41 12:41 WBC 3.4 L RBC 3.16 L Hgb 8.9 L Hct 28 L MCV 88 MCH 28 MCHC 32 RDW 19 H Plt Count 110 L MPV 7.8 Neut % (Auto) 51.0 Lymph % (Auto) 32.1 Wolfe % (Auto) 13.9 H Eos % (Auto) 2.3 Baso % (Auto) 0.7 Absolute Neuts (auto) 1.7 Absolute Lymphs (auto) 1.1 Absolute Monos (auto) 0.5 Absolute Eos (auto) 0.1 Absolute Basos (auto) 0 Absolute Nucleated RBC 0 Nucleated RBC % 0.1 Sodium 139 Potassium 4.2 Chloride 107 Carbon Dioxide 24 Anion Gap 8 BUN 29 H Creatinine 1.54 H Est GFR ( Amer) 40.3 Est GFR (Non-Af Amer) 33.3 BUN/Creatinine Ratio 18.8 Glucose 96 Calcium 8.8 Magnesium 1.8 L Total Bilirubin 0.60 AST 21 ALT 25 Alkaline Phosphatase 81 Troponin I 0.01 B-Natriuretic Peptide 67 Total Protein 5.9 L Albumin 3.7 Globulin 2.2 Albumin/Globulin Ratio 1.7 Triglycerides Cholesterol LDL Cholesterol HDL Cholesterol Lipase 54 TSH 4.73 12/18/17 12/18/17 12/19/17 18:01 21:44 06:33 WBC 2.6 L RBC 3.16 L Hgb 9.1 L Hct 28 L MCV 87 MCH 29 MCHC 33 RDW 19 H Plt Count 120 L MPV 8.4 Neut % (Auto) 44.3 Lymph % (Auto) 34.7 Wolfe % (Auto) 14.7 H Eos % (Auto) 5.4 Baso % (Auto) 0.9 Absolute Neuts (auto) 1.2 L Absolute Lymphs (auto) 0.9 L Absolute Monos (auto) 0.4 Absolute Eos (auto) 0.1 Absolute Basos (auto) 0 Absolute Nucleated RBC 0 Nucleated RBC % 0 Sodium Potassium Chloride Carbon Dioxide Anion Gap BUN Creatinine Est GFR ( Amer) Est GFR (Non-Af Amer) BUN/Creatinine Ratio Glucose Calcium Magnesium Total Bilirubin AST ALT Alkaline Phosphatase Troponin I 0.01 0.01 B-Natriuretic Peptide Total Protein Albumin Globulin Albumin/Globulin Ratio Triglycerides Cholesterol LDL Cholesterol HDL Cholesterol Lipase TSH 12/19/17 06:33 WBC RBC Hgb Hct MCV MCH MCHC RDW Plt Count MPV Neut % (Auto) Lymph % (Auto) Wolfe % (Auto) Eos % (Auto) Baso % (Auto) Absolute Neuts (auto) Absolute Lymphs (auto) Absolute Monos (auto) Absolute Eos (auto) Absolute Basos (auto) Absolute Nucleated RBC Nucleated RBC % Sodium 141 Potassium 4.1 Chloride 108 Carbon Dioxide 25 Anion Gap 8 BUN 24 Creatinine 1.56 H Est GFR ( Amer) 39.7 Est GFR (Non-Af Amer) 32.8 BUN/Creatinine Ratio 15.4 Glucose 101 H Calcium 9.2 Magnesium Total Bilirubin AST ALT Alkaline Phosphatase Troponin I B-Natriuretic Peptide Total Protein Albumin Globulin Albumin/Globulin Ratio Triglycerides 331 Cholesterol 207 LDL Cholesterol 88 HDL Cholesterol 53.2 Lipase TSH Acetaminophen (Tylenol Tab*) 650 mg PO Q4H PRN PRN Reason: FEVER/PAIN Acyclovir (Zovirax Tab*) 400 mg PO QAM [facility] Last Admin: 12/19/17 09:18 Dose: 400 mg Al Hydrox/Mg Hydrox/Simethicone (Maalox Plus*) 30 ml PO Q6H PRN PRN Reason: INDIGESTION Albuterol (Ventolin 2.5 Mg/3 Ml Neb.Lynne*) 2.5 mg INH [id number] AWAKE PRN PRN Reason: sob/wheezing Amlodipine Besylate (Norvasc Tab*) 5 mg PO DAILY [facility] Last Admin: 12/19/17 09:19 Dose: 5 mg Aspirin (Aspirin Ec Tab*) 81 mg PO DAILY [facility] Last Admin: 12/19/17 09:19 Dose: 81 mg Cetirizine HCl (Zyrtec*) 10 mg PO QPM [facility] Diphenhydramine HCl (Benadryl Po*) 25 mg PO Q6H PRN PRN Reason: Allergy Symptoms Escitalopram Oxalate (Lexapro (Nf)) 10 mg PO DAILY [facility] Heparin Sodium (Porcine) (Heparin Vial(*)) 5,000 units SUBCUT Q8HR [facility] Last Admin: 12/19/17 05:28 Dose: 5,000 units Morphine Sulfate (Morphine Vial*) 2 mg IV Q4H PRN PRN Reason: PAIN Omeprazole (Prilosec Cap*) 20 mg PO BID [facility] Last Admin: 12/19/17 09:18 Dose: 20 mg Ondansetron HCl (Zofran Inj*) 4 mg IV Q4H PRN PRN Reason: NAUSEA/VOMITING Oxycodone/Acetaminophen (Percocet 5/325 Tab*) 1 tab PO Q4H PRN PRN Reason: Pain Vital Signs: Temp Pulse Resp BP Pulse Ox 97.8 F 71 16 135/60 94 12/19/17 07:31 12/19/17 07:31 12/19/17 07:31 12/19/17 07:31 12/19/17 07:31 Exam: Gen: Well appearing 72 yo female in NAD HEENT: tacky MM, thin white coating of tongue and start of ulceration on R buccal mucosa CV: RRR, no m/r/g Resp: CTA Abd: soft, mild epigastric TTP Ext: no edema ] Assessment: [72 yo female with multiple myeloma admitted with HTN and chest pressure. No EKG changes or elevated troponin. She has some mild epigastric TTP and an episode of diarrhea. Symptoms may be due to a mild viral gastroenteritis.] Plan: [1. Chest pain - seems less likely to be cardiac, but proceeding with stress test is recommended - patient was concerned about how her myeloma medications may interact with the technicium 99 used in a nuclear stress test, no significant drug-drug interactions found - further management per primary care physician, Dr Adwoa Boyce 2. HTN - patient is concerned that her recent onset of HTN is related to the Velcade that was started in October, which is certainly possible but is not a common SE - BP appears well controlled overnight and seems to be tolerating the amlodipine well 3. Multiple myeloma - currently treated with pomalyst, daratumumab and Velcade - Velcade was added in October with some slight improvement in light chains 4. Anemia - stable - likely multifactorial related to CRI and myeloma - could consider repeating iron/B12 studies as both were slightly low when last measured 1 year ago Dispo: pending stress test, discharge per Dr Boyce. Oncology will follow as necessary
[2017-12-19] MEDS ORDERED: Citalopram TAB* 20 MG PO SCH ×2 (10:00→10:05)
--- NOTE | 2017-12-19 15:03 | RAD ---
Edited for charges. INDICATION: Chest pain. COMPARISON: There are no relevant prior studies available for comparison. Technique: A single day myocardial perfusion stress study was performed. Initially a resting study was performed. The patient was given an intravenous injection of 26.8 mCi of technetium 99m tetrofosmin and and the heart was imaged in multiple projections. The patient returned later in the day and under the direction of the patient's adjunct latin professor, the patient was exercised to a peak heart rate of 130 beats per minute which was 87% of the maximum predicted heart rate. Subsequently the patient was given intravenous injection of 26.8 mCi of technetium 99m tetrofosmin and the heart was imaged in multiple projections. Images were reconstructed in the axial, sagittal and coronal planes and in a 3- D format. FINDINGS: There is mild hypokinesis within the septum. The left ventricular ejection fraction is calculated to be 71%. No focal myocardial perfusion defects are seen. There is no evidence for infarct or ischemia. IMPRESSION: NO EVIDENCE FOR INFARCT OR ISCHEMIA. ASSESSMENT: Low risk. Based on imaging criteria from ACC/AHA 2002 Guideline Update for the Management of Patients With Chronic Stable Angina Table 23. Noninvasive Risk Stratification. MTDD
[2017-12-19 16:22] VITALS: BP 134/48
[2017-12-19] MEDS ORDERED: Cetirizine* 10 MG TAB PO SCH (18:00)
--- NOTE | 2017-12-22 18:20 | DS ---
CC: Dr. Halie Kennedy; Dr. Veanncio Chavez * DISCHARGE SUMMARY: DATE OF ADMISSION: 12/18/17 DATE OF DISCHARGE: 12/19/17 DISCHARGE DIAGNOSES: 1. Chest pain, etiology uncertain. 2. Multiple myeloma. 3. Anemia. 4. Hypogammaglobulinemia, receiving IVIG infusions. 5. Renal insufficiency related to multiple myeloma. 6. History of multiple sclerosis. 7. Menopause. 8. History of colonic polyps. 9. History of gastroesophageal reflux disease and esophageal polyp removed in March 2016. 10. History of anxiety. 11. Thrombocytopenia. 12. Leukopenia. 13. Hypertension. HISTORY: Adwoa Pepe is a 72-year-old woman admitted with chest pain. Please see the dictated admission note for details of the present illness, past medical history, family history, social and personal history, review of systems , and physical examination. In detailed review of her admission, she tells me that she had recently had 3 cycles of Velcade. Two weeks previous to admission after her shot, she did not feel good and her blood pressure was 186. She received an IV drug to bring her blood pressure down. Started metoprolol, which she took twice a day. She felt rotten and kept falling asleep, so she stopped taking it. She then was recently started on amlodipine on Monday, 12/15. She did not feel well all weekend, was dragging. 12/18/17, she went to physical therapy, which she has been doing 3 times a week to work on strength. She had taken doxycycline for a week 12/05/17 until 12/12/17 for a persistent cough following a cold. She had been sick for 6 weeks prior to that and the doxycycline seemed to work. On physical therapy, she looked bad, was slow/sluggish. She did do physical therapy but for only about 20 minutes and then, because she was tired, left early. She stopped at [employer] to pick something up she had put away and went home. She took her blood pressure getting home and it was 170 systolic. She had been checking her blood pressure 3 times a day. She called oncology office because of the elevated blood pressure and also feeling of weight on her chest, which started after getting home. She described this pain was 5/10. She was instructed to come to the emergency room. She called 911. In the ambulance, she was given 4 baby aspirin and 2 nitroglycerins and the pain went away. After going into the ER, she had heaviness that stayed for "awhile", went away without treatment. The patient describes pain as lower substernal/epigastric. We reviewed her medications. She regularly takes acyclovir, escitalopram, aspirin, vitamin D 2000 units, Claritin, Norvasc in the morning, omeprazole b.i.d., Pomalyst days and dexamethasone every other week along with Velcade she is getting 12 mg the first day and 4 mg days 2 and 3. LABORATORY DATA: WBC 3.4, H and H 8.9, MCV 88, PLT 110k. Repeat labs, WBC 2.6, H and H 9.1, MCV 87, PLT 120k on 12/19/17. Chemistries on admission: Sodium 139, potassium 4.2, chloride 107, CO2 of 24, BUN and creatinine 29/1.54, glucose 96, magnesium 1.8. Rest of the comprehensive metabolic panel within normal limits, except for a total protein 5.9. Lipase normal at 54. TSH normal at 4.73. B12 low normal at 241. Lipids on 12/19/17, triglycerides 331, cholesterol 207, LDL 88, HDL 53.2. Troponins were trended and were 0.01, 0.01, 0.01. BNP was 67 (normal). Repeat BNP on 12/19/17 was essentially unchanged. IMAGING: Chest x-ray on 12/18/17 showed no active cardiopulmonary disease. EKG done on admission showed sinus rhythm, normal EKG, no significant change. Repeat EKG on 12/19/17 showed normal sinus rhythm, no significant change, normal. Nuclear stress test done on 12/18/17 showed less than [address] depression in recovery. It was an exercise test. She got part way into stage II. Her blood pressure went up to 206/64. She reached her target heart rate. It was felt to be a low-risk study with no areas of decreased perfusion or infarct. No infarct or ischemia. HOSPITAL COURSE: The patient was admitted. She was placed on telemetry. She had no significant arrhythmias. She had no further chest pain. She felt fairly well on 12/19/17. She felt up to going home. She was seen by the Oncology physician's assistant quality manager. She felt that her multiple myeloma was improving on the Velcade with her light chains going down. She suggested repeating B12 and iron studies. At the time of discharge, she was feeling back to normal. It was felt that her chest pain is possibly due to gastroesophageal reflux. It is felt not to be cardiac. She will be followed up in my office in 2 to 3 days. B12 and iron studies will be reviewed at that time. DISCHARGE MEDICATIONS: At the time of discharge, her medications are as follows : 1. Acetaminophen 650 every 4 hours as needed. 2. Maalox as needed for indigestion. 3. Amlodipine 5 mg daily, which is twice the dose she had been on previously. 4. Loratadine 10 mg q.a.m. 5. Baby aspirin 81 mg daily. 6. Acyclovir 400 mg daily. 7. Omeprazole 20 mg twice a day. 8. Pomalyst as before. 9. Velcade as before. 10. Dexamethasone as before. DIET: Regular. ACTIVITY: As tolerated. [id number]/[facility] #: [id number] MTDD
== END 2017-12-19 17:54 | disposition home or self-care (01) ==
LOC: ED 12:08 → MEDTELE 17:39
PROVIDERS: ADMIT Hospitalist; ATTEND Internal Medicine Geriatric Medicine
DX: R07.9 Chest pain, unspecified (principal); R06.02 Shortness of breath; R11.0 Nausea; R53.83 Other fatigue; Z85.820 Personal history of malignant melanoma of skin; R21 Rash and other nonspecific skin eruption; K21.9 Gastro-esophageal reflux disease without esophagitis
CPT/HCPCS: 36415; 71045; 78452; 80048; 80053; 80061; 82607; 82728; 83540; 83550; 83690; 83735; 83880; 83921; 84443; 84484; 85025; 93005; 93017; 96375; 99225; 99232; 99284; A9270-GY; A9502; G0378; J1644

== ENCOUNTER 2018-02-08 20:47 | Inpatient (IN) | payer MEDICARE ==
--- OUTSIDE RECORDS SUMMARY | 2018-02-08 21:11 | XMS REPORT | Continuity of Care Document ---
:1945 External Reference #:[id number] Author Name Marcia Mota O.D. Address [address] [place] [address] Care Team Providers Name Role Phone Adwoa Boyce M.D. Primary Care Physician Unavailable Payers Type Date Identification Numbers Payment Provider Subscriber Policy Number: [id number] [employer] Adwoa Pepe Group Number: [id number] PayID: [id number] [place] [address] Advance Directives Description No Information Available Problems Date Description Provider Status Onset: Reflux Active Onset: Multiple myeloma Active Onset: Multiple sclerosis Active Note: NOT ON TREATMENT AT THIS TIME Onset: 02/07/2018 Conjunctivitis Marcia Mota O.D. Active Onset: 02/07/2018 Tear film insufficiency Marcia Mota O.D. Active Onset: 02/07/2018 Angular blepharoconjunctivitis Marcia Mota O.D. Active Onset: 02/12/2016 Nuclear senile cataract Marcia Mota O.D. Active Family History Date Family Member(s) Problem(s) Comments Father No Current Problems Mother No Current Problems Social History Type Date Description Comments Sex Unknown Marital Status Legal Status: Occupation Real Estate ETOH Use Denies alcohol use Tobacco Use Start: Unknown Patient has never smoked Recreational Drug Use Denies Drug Use Smoking Status Reviewed: 02/07/18 Patient has never smoked Allergies, Adverse Reactions, Alerts Description No Known Drug Allergies Medications Medication Date Status Form Strength Qnty SIG Indications Ordering Provider Erythromycin 02/07/ Active Ointment 5mg/GM 1Tube apply H10.89 Marcia J. 2018 thin [place], strip to O.D. all four eyelid margins x every night for 2 weeks Systane Ultra 09/12/ Active Solution 0.4-0.3% 1 drop Marcia Garza left eye [place], every 2 O.D. hours Aspirin 00/00/ Active Tablets 81mg 1 tab by Unknown 0000 mouth every day Pomalyst /00/ Active Capsules 2mg Kennedy, 0000 Halie M.D. Ninlaro /00/ Active Capsules 4mg Kennedy, 0000 Halie M.D. Dexamethasone 00/ Active Tablets 4mg Unknown 0000 Ondansetron HCL / Active Tablets 4mg Kennedy, 0000 Halie M.D. Acyclovir / Active Tablets 400mg Kennedy, 0000 Halie M.D. Escitalopram / Active Tablets 10mg Kennedy, Oxalate 0000 Halie M.D. Omeprazole / Active Capsules DR 10mg Unknown 0000 Vitamin D 00/ Active Tablets 2000Unit Unknown 0000 Doxycycline / Active Capsules 50mg 1 by Unknown Hyclate 0000 mouth every day Prednisolone 06/27/ Hx Suspension 1% 1units 1 drop 372.14 Tonie Chamorro Acetate 2015 - right Giovanny, 02/11/ eye four O.D. 2015 times a day Vitamin D // Hx Capsules 17457Acar Austen, (Ergocalciferol 0000 - Adwoa M.D. ) 2015 Daily Efra // Hx Tablets Take 1 Unknown 0000 - Tablet 09/12/ By Mouth 2017 Day Revlimid // Hx Capsules 5mg Unknown 0000 - 2015 B Complex-B12 // Hx Tablets 1 tab by Unknown 0000 - mouth 02/11/ 2015 day Dexamethasone /00/ Hx Tablets 1mg Unknown 0000 - 2017 Immunizations Description No Information Available Vital Signs Description No Information Available Results Description No Information Available Procedures Date Code Description Status 09/13/2017 29064 Determination Of Refractive State Completed 09/13/2017 99852 Est Patient Comprehensive Exam Completed 09/09/2016 80897 Est Patient Comprehensive Exam Completed 02/12/2016 49864 Determination Of Refractive State Completed 02/12/2016 73756 Est Patient Comprehensive Exam Completed 01/21/2014 76548 Determination Of Refractive State Completed 01/21/2014 49688 Est Patient Comprehensive Exam Completed 11/28/2011 10457 Recheck Completed 07/29/2011 97626 Determination Of Refractive State Completed 07/29/2011 40565 Est Patient Comprehensive Exam Completed 04/22/2010 42850 Est Patient Comprehensive Exam Completed 04/22/2010 27164 Determination Of Refractive State Completed 03/25/2009 13968 Est Patient Intermediate Exam Completed 02/05/2008 63086 Determination Of Refractive State Completed 02/05/2008 82205 Est Patient Comprehensive Exam Completed 11/09/2006 11718 Determination Of Refractive State Completed 11/09/2006 73487 Est Patient Comprehensive Exam Completed 09/14/2005 76978 Determination Of Refractive State Completed 09/14/2005 88433 Est Patient Comprehensive Exam Completed 08/13/2003 81537 Determination Of Refractive State Completed 08/13/2003 74997 Est Patient Comprehensive Exam Completed 08/12/2003 32797 Rescheduled Appointment Completed Encounters Type Date Location Provider Dx Diagnosis Office Visit 06/30/2014 Tonie Zamora, 372.14 Allergic 3:15p , rody Serrato Conjunctivitis 373.00 Blepharitis Unspec Office Visit 06/27/2014 11:30a Nando Chamorro 372.14 Allergic MD Samson, rody Baltazar O.D. Conjunctivitis Office Visit 08/30/2010 4:15p Nando Perez 373.00 Blepharitis Unspec MD Samson, rody Flanagan O.D. Office Visit 07/26/2010 3:15p Nando Perez 373.00 Blepharitis Unspec MD Samson, rody Flanagan O.D. Office Visit 07/21/2010 8:15a Nando Perez 375.15 Dry Eyes (Isabell Davies MD, rody Flanagan O.D. Syndrome) Office Visit 04/03/2008 3:15p Nando Perez 375.15 Dry Eyes (Isabell Davies MD, rody Flanagan O.D. Syndrome) Office Visit 01/07/2008 11:30a Nando Perez 375.15 Dry Eyes (Isabell Davies MD, rody Flanagan O.D. Syndrome) Office Visit 07/08/2004 9:45a Nando Chang 372.14 Allergic MD Samson, pc Kelly Rod. Conjunctivitis Plan of Treatment 02/07/2018 - Marcia Mota O.D.H10.89 Other conjunctivitisNew Medication: Erythromycin 5 mg/GM - apply thin strip to all four eyelid margins x every night for 2 weeksFollow up:prn/ cee 09/2018/ pt may return for rx check once eyes quhouY75.523 Angular blepharoconjunctivitis, bilateralComments:Smoking can increase the risk of developing or worsening any eye related disease, as well as affect your overall health. If you are a smoker, we strongly recommend that you quit.If you are not a smoker, we strongly recommend that you do not start. Start ointment in both eyes and rub into all lids atbedtime for 2 weeks - do right eye first then left Use a hot compress for 5-10 minutes 2 x [id number] Dry eye syndrome of bilateral lacrimal glands
[2018-02-08] MEDS ORDERED: Lidocaine 2.5%/Prilocain 2.5%* 5 GM TUBE ONE (21:37)
[2018-02-08] MEDS ORDERED: NS 0.9% 1000 ML* 1,000 ML IV ONE (22:24)
--- NOTE | 2018-02-08 22:44 | ED ---
HPI Febrile Illness - HPI Summary HPI Summary: 72 year old female with history of multiple myeloma on chemotherapy presents to the ED referred by Siena Bryson, TO for fever, sinus pressure, and cough. States she was seen by her PCP approximately 1 week ago and started on course of doxycycline for sinus infection. She returned PCP on 02/06/2018 with no improvement in symptoms. A CBC was performed at that time which showed WBC 5.7, RBC 3.16, Hgb 8.8, Hct 27, Platelet 202, with a normal diff. Last night she spiked a fever of 103 F and returned to her PCP again today. A BMP, CRP, Procalcitonin, blood cultures x 2, and CXR were obtained. BMP showed Cr 2.24 with eGFR 21.6 and otherwise unremarkable. CRP 159.6. Normal procalcitonin. CXR showed a right subhilar mass with RUL atelectasis not seen on previous CT chest. She states she has had continued intermittent fever today, max temp of 101 F. Symptoms associated with feeling fatigued, sleeping more than usual, and decreased PO intake. She also notes chronic diarrhea related to her chemo but states it is at baseline. - History of Current Complaint Chief Complaint: EDFever Time Seen by Provider: 02/08/18 21:31 Hx Obtained From: Patient Onset/Duration: Started Days Ago Pain Intensity: 0 - Additional Pertinent History Primary Care Physician: [id number] - Allergy/Home Medications Allergies/Adverse Reactions: Allergies Allergy/AdvReac Type Severity Reaction Status Date / Time cefepime Allergy Mild Hives Verified 02/08/18 21:02 glatiramer (copolymer 1) Allergy Unknown Verified 02/08/18 21:02 [From Copaxone] Reaction Details simvastatin Allergy Unknown Verified 02/08/18 21:02 Reaction Details ciprofloxacin AdvReac Severe Unknown Verified 02/08/18 21:02 Reaction Details Home Medications: Home Medications Erythromycin OPHTH.OINT* [Ilotycin OPHTH.OINT*] 1 applic BOTH EYES BEDTIME 02/09 [History Confirmed 02/09/18] Magnesium Oxide [Magnesium] 250 mg PO DAILY 02/09/18 [History Confirmed 02/09/18 ] PMH/Surg Hx/FS Hx/Imm Hx Endocrine/Hematology History: Reports: Hx Anemia - from chemo medications, Other Endocrine/Hematological Disorders - multiple MYELOMA, BONE MARROW TRANSPLANT Denies: Hx Diabetes Cardiovascular History: Reports: Hx Angina, Hx Hypertension, Other Cardiovascular Problems/Disorders - BONE MARROW TRANSPLANT, CML Denies: Hx Congestive Heart Failure, Hx Coronary Artery Disease, Hx Hypercholesterolemia, Hx Myocardial Infarction, Hx Pacemaker/ICD, Hx Valvular Heart Disease Respiratory History: Reports: Hx Pneumonia, Hx Seasonal Allergies, Other Respiratory Problems/Disorders - PNEUMONIA ONE WEEK AGO Denies: Hx Asthma, Hx Chronic Obstructive Pulmonary Disease (COPD) GI History: Reports: Hx Gastroesophageal Reflux Disease History: Reports: Hx Renal Disease - DECREASED FUNCTION FROM MULTIPLE MYELOMA Denies: Hx Dialysis Musculoskeletal History: Reports: Hx Arthritis, Other Musculoskeletal History - MS Sensory History: Reports: Hx Contacts or Glasses - GLASSES Denies: Hx Hearing Aid Opthamlomology History: Reports: Hx Contacts or Glasses - GLASSES Neurological History: Reports: Other Neuro Impairments/Disorders - MS Psychiatric History: Reports: Hx Anxiety, Hx Depression - ON MEDICATION Denies: Hx Panic Disorder - Cancer History Cancer Type, Location and Year: MULTIPLE MYELOMA Hx Chemotherapy: Yes Hx Radiation Therapy: No Hx Palliative Cancer Treatment: No - Surgical History Surgery Procedure, Year, and Place: BONE MARROW TRANSPLANT 2011;. RIGHT HAND RING FINGER - REMOVAL OF BONE SPUR;. POWER PORT. Lt 5TH TOE - ARTHROPLASTY Hx Anesthesia Reactions: No - Immunization History Date of Tetanus Vaccine: Unk Date of Influenza Vaccine: Fall 2014 Infectious Disease History: No Infectious Disease History: Denies: Traveled Outside the [place] in Last 30 Days - Family History Known Family History: Positive: Cardiac Disease, Other - BREAST CANCER. Mother: rheumatic heart disease (from rheumatic fever) - Social History Alcohol Use: None Hx Substance Use: No Substance Use Type: Reports: None Hx Tobacco Use: No Smoking Status (MU): Never Smoked Tobacco Have You Smoked in the Last Year: No Review of Systems Positive: Fever, Chills, Fatigue Negative: Drainage, Erythema Positive: Nasal Discharge, Other - Sinus pressure. Negative: Sore Throat, Ear Ache Negative: Palpitations, Chest Pain Positive: Shortness Of Breath, Cough Positive: Nausea. Negative: Abdominal Pain, Vomiting, Diarrhea Negative: dysuria, frequency, urgency Negative: Rash All Other Systems Reviewed And Are Negative: Yes Physical Exam - Summary Physical Exam Summary: GENERAL APPEARANCE: Well appearing, alert and cooperative, and appears to be in no acute distress. EYES: Conjunctiva clear. No discharge. EARS: External auditory canals and tympanic membranes clear, hearing grossly intact. NOSE: No nasal discharge noted. Mild maxillary sinus tenderness. THROAT: Pharynx mild erythema with cobblestoning. No tonsilar inflammation, swelling, exudate, or lesions. NECK: Neck supple, non-tender without lymphadenopathy. CARDIAC: Normal S1 and S2. No S3, S4 or murmurs. Rhythm is regular. There is no peripheral edema, cyanosis or pallor. Extremities are warm and well perfused. Capillary refill is less than 2 seconds. LUNGS: Course crackles noted to RML otherwise clear. Loose non-productive cough. ABDOMEN: Positive bowel sounds. Soft, nondistended, nontender. No guarding or rebound. No masses or hepatosplenomegally. MUSKULOSKELETAL: ROM intact to all extremities. No joint erythema or tenderness. Normal muscular development. Normal gait. EXTREMITIES: No significant deformity or joint abnormality. No edema. Peripheral pulses intact. NEUROLOGICAL: Awake and oriented. Strength and sensation symmetric and intact throughout. SKIN: Skin normal color, texture and turgor with no lesions or eruptions. Triage Information Reviewed: Yes Vital Signs On Initial Exam: Initial Vitals Temp Pulse Resp BP Pulse Ox 98.2 F 80 18 140/48 98 02/08/18 20:56 02/08/18 20:56 02/08/18 20:56 02/08/18 20:56 02/08/18 20:56 Vital Signs Reviewed: Yes Diagnostics - Vital Signs Vital Signs Temp Pulse Resp BP Pulse Ox 02/08/18 22:21 97 02/08/18 22:07 74 128/54 97 02/08/18 22:00 77 98 02/08/18 21:38 79 97 02/08/18 21:36 78 144/66 97 02/08/18 20:56 98.2 F 80 18 140/48 98 - Laboratory Result Diagrams: 02/08/18 22:20 02/08/18 22:20 Lab Statement: Any lab studies that have been ordered have been reviewed, and results considered in the medical decision making process. Course/Dx - Course Course Of Treatment: 72 year old female with history of multiple myeloma on chemotherapy presents to the ED referred by Siena Bryson NP for fever , sinus pressure, and cough. States she was seen by her PCP approximately 1 week ago and started on course of doxycycline for sinus infection. She returned PCP on 02/06/2018 with no improvement in symptoms. A CBC was performed at that time which showed WBC 5.7, RBC 3.16, Hgb 8.8, Hct 27, Platelet 202, with a normal diff. Last night she spiked a fever of 103 F and returned to her PCP again today. A BMP, CRP, Procalcitonin, blood cultures x 2, and CXR were obtained. BMP showed Cr 2.24 with eGFR 21.6 and otherwise unremarkable. CRP 159.6. Normal procalcitonin. CXR showed a right subhilar mass with RUL atelectasis not seen on previous CT chest. She states she has had continued intermittent fever today, max temp of 101 F. Symptoms associated with feeling fatigued, sleeping more than usual, and decreased PO intake. She also notes chronic diarrhea related to her chemo but states it is at baseline. She was afebrile at presentation and remained so throught her ED course. VSS. Exam revealed sinus pressure, nasal congestion, and mild pharyngeal cobblestoning consistent with a URI/sinusitis. There were course crackle in the RML consistent with the x-ray findings. She was found to have a normal WBC of 5.9 and normal differential, she was anemic with RBC 2.84, Hgb 7.9, and Hct 25, her creatinine remained elevated at 2.36 and her BUN had increased to 28. Her CRP remained elevated at 171.20 however her lactic acid and procalcitonin were normal at 1.4 and 0.3 respectively. The case was discussed with Dr. Navarrete and she has accepted her for admission. - Febrile Illness Differential Diagnoses: Bacteremia, Neoplasm, Pneumonia, Sepsis - Diagnoses Provider Diagnoses: Fever, Mass of middle lobe of right lung, Anemia - Provider Notifications Discussed Care Of Patient With: Carlene Navarrete Time Discussed With Above Provider: 00:20 Instructed by Provider To: Admit As Inpatient Discharge - Sign-Out/Discharge Documenting (check all that apply): Patient Departure - Discharge Plan Condition: Stable Disposition: ADMITTED TO [facility] - Billing Disposition and Condition Condition: STABLE Disposition: Admitted to [facility]
[2018-02-08 22:47] LABS: EGFR Non-African American 20.3 (>60)
[2018-02-08 22:51] LABS: Hematocrit 25 % (35-47); Hemoglobin 7.9 g/dl (12.0-16.0); Mean Corpuscular HGB Conc 32 g/dl (31-36); Mean Corpuscular Hemoglobin 28 pg (27-31); Mean Corpuscular Volume 87 fL (80-97); Mean Platelet Volume 9.5 fL (7.4-10.4); Platelet Count 182 10^3/ul (150-450); Red Blood Count 2.84 10^6/ul (4.00-5.40); Red Cell Distribution Width 20 % (10.5-15); White Blood Count 5.9 10^3/ul (3.5-10.8)
[2018-02-08 23:09] LABS: INR 1.31 (0.77-1.02)
[2018-02-08 23:27] LABS: ABS Basophils 0 10^3/ul (0-0.2); ABS Eosinophils 0 10^3/ul (0-0.6); ABS Lymphocytes 0.5 10^3/ul (1.0-4.8); ABS Monocytes 0.5 10^3/ul (0-0.8); ABS Neutrophils 4.7 10^3/ul (1.5-7.7); ABS Nucleated RBC 0 10^3/ul; Eosinophil % 0.3 %; Lymphocyte % 9.3 %; Nucleated Red Blood Cells % 0
[2018-02-09] MEDS ORDERED: Acetaminophen TAB* 325 MG PO PRN (00:21)
[2018-02-09] MEDS ORDERED: Loperamide CAP* 2 MG PO PRN (00:21)
[2018-02-09] MEDS ORDERED: diPHENhydraMINE PO* 25 MG PO PRN (00:21)
[2018-02-09] MEDS ORDERED: Al Hydrox/Mg Hydrox/Simet LIQ* 30 ML UDC PO PRN (00:21)
[2018-02-09] MEDS: amLODIPine TAB* 5 MG PO SCH ×2 (02:35→20:43)
[2018-02-09] MEDS: NS 0.9% 1000 ML* 1,000 ML IV SCH ×2 (02:36→10:32)
--- NOTE | 2018-02-09 04:16 | HP ---
CC: Dr. Adwoa Boyce; Dr. Espinoza; Dr. Kennedy * HISTORY AND PHYSICAL: DATE OF ADMISSION: 02/08/18 TIME OF EVALUATION: 11:50 p.m. PRIMARY CARE PROVIDER: Dr. Adwoa Boyce. COVERING PRIMARY CARE PROVIDER: Dr. Espinoza. ONCOLOGIST: Dr. Kennedy. CHIEF COMPLAINT: "I am not well." HISTORY OF PRESENT ILLNESS: Ms. Pepe is a 72-year-old lady with a past medical history of recurrent multiple myeloma, undergoing chemotherapy; chronic kidney disease; anemia; GERD; multiple sclerosis, who presents to the emergency room referred by Siena Bryson NP, at Dr. Boyce's office due to fever and failing outpatient antibiotic therapy. The patient states that she has started to have upper respiratory symptoms that she describes as facial pressure and rhinorrhea around 01/27/18 and 01/28/18. She contacted Dr. Boyce over the phone, was prescribed doxycycline. She states that she took it for about a week but did not have improvement of her symptom. She continued to have facial pressure, rhinorrhea, postnasal drip with cough productive of yellowish-greenish phlegm. She states that last night , she had a fever of 103.[address] Espinoza, who recommended laboratory tests and x-ray that the patient had done this morning. Her chest x-ray done as outpatient earlier today showed a right suprahilar mass with right upper lobe atelectasis, new when compared to her prior test from 12/18/17 and she was referred to the emergency room for further evaluation. The patient states that she has been feeling poorly with low energy. Has been sleeping more and she states that she is not able to keep up with her oral fluid intake. She does have diarrhea associated with her chemotherapy but states that this is unchanged from her baseline. This morning, she had another episode of fever, although it was lower at 100.7. She denies chest pain or palpitation. She does not have shortness of breath but feels "stuffed." There is no nausea, no vomiting. She is able to eat, although her appetite is decreased due to her respiratory symptoms. PAST MEDICAL HISTORY: 1. Multiple myeloma, status post bone marrow transplant with recurrence, now on chemotherapy with Pomalyst, daratumumab, and Velcade for 3 weeks of the month. 2. CKD, stage 3, secondary to multiple myeloma. 3. Chronic anemia secondary to multiple myeloma. 4. History of multiple sclerosis. 5. History of chronic polyps. 6. Anxiety. 7. GERD. 8. Hypertension. PAST SURGICAL HISTORY: 1. Excision of ganglion of the right ring finger. 2. Hammertoe repair. 3. Removal of bone spurs from the left foot in 2000 and 2016. 4. 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 5. Status post Mediport placement. MEDICATIONS: 1. Acetaminophen 650 mg p.o. q.4 hours p.r.n. pain or fever. 2. Acyclovir 400 mg p.o. q.a.m. 3. Maalox Plus 30 mL p.o. q.6 hours p.r.n. indigestion. 4. Amlodipine 2.5 mg p.o. at bedtime. 5. Aspirin 81 mg p.o. daily. 6. Cholecalciferol 1000 units p.o. daily. 7. Dexamethasone 4 mg p.o. weekly on Tuesdays with her dose of daratumumab. 8. Benadryl 25 mg p.o. q.6 hours p.r.n. itching. 9. Erythromycin ophthalmological ointment to both eyes at bedtime. 10. Escitalopram 10 mg p.o. daily. 11. Loperamide 2 mg 1 to 2 tablets as needed, up to 6 times a day for diarrhea. 12. Claritin 10 mg p.o. q.a.m. 13. Magnesium oxide 250 mg p.o. daily. 14. Omeprazole 20 mg p.o. b.i.d. 15. Pomalyst 2 mg p.o. daily. 16. Psyllium husk 2 capsules p.o. b.i.d. The patient received daratumumab and Velcade at Dr. Kennedy's office. ALLERGIES: The patient had hives with CEFEPIME, and unknown reactions to COPAXONE, SIMVASTATIN, and CIPROFLOXACIN. FAMILY HISTORY: Positive for heart disease and cancer. SOCIAL HISTORY: No history of tobacco or drug use. She occasionally drinks alcohol. Surrogate decision maker is her , Jonathan Pepe. Phone number is [phone]. REVIEW OF SYSTEMS: A 14-point review of systems was performed, and all the pertinent negative and positive findings are in the HPI. PHYSICAL EXAMINATION GENERAL: The patient is a pleasant elderly lady, sitting up on the ED stretcher , in no acute distress. VITAL SIGNS: Temperature 98.2, heart rate is 76, respiratory rate is 18, oxygen saturation is 97% on room air, blood pressure is 121/55. HEENT: Pupils are equal. There is mild palpebral erythema, but the patient states that she was recently diagnosed with an eyelid infection and was just prescribed erythromycin ointment. Mucous membranes are dry. CHEST: Breath sounds bilaterally, decreased in the right upper lobe. There are some faint crackles in the right middle lobe. CVS: Normal S1, S2. Regular rate and rhythm. ABDOMEN: Soft. Bowel sounds are present. EXTREMITIES: Trace bilateral lower extremity pitting edema. NEURO: She is alert x3. Able to move all 4 extremities. DIAGNOSTIC STUDIES/LAB DATA: The patient had a CBC that showed WBC of 5.9, hemoglobin 7.9, hematocrit of 25, platelets of 182 with 80.5% neutrophils. INR is 1.3. Chemistry showed sodium of 134, potassium 3.6, chloride of 103, bicarb of 20, BUN of 28, creatinine of 2.36, glucose of 128, lactic acid of 1.4, calcium of 8.6. Total bilirubin 0.6, AST is 12, ALT is 19, alk phos 76. CRP is 171.2. Her chest x-ray done earlier today as outpatient showed a right suprahilar mass causing right upper lobe atelectasis and this appears to be new when compared to her prior chest x-ray from 12/18/17. IMPRESSION AND PLAN: Ms. Pepe is a 72-year-old lady with a past medical history of recurrent multiple myeloma, status post bone marrow transplant, now on chemotherapy; chronic kidney disease, stage 3, and anemia associated with multiple myeloma; gastroesophageal reflux disease; hypertension, who presented to the emergency room with almost 2 weeks of respiratory symptoms that failed management as outpatient. 1. Respiratory infection, suspect the patient may have a postobstructive pneumonia. The patient does not meet sepsis criteria at this time, but she is immunosuppressed due to her history of multiple myeloma and current chemotherapy. I believe her symptoms started with a upper respiratory infection , likely a sinusitis that did not respond to doxycycline and it has progressed to a lower respiratory tract infection. This lesion on her lungs could represent an infiltrate but I am concerned that this could represent a new tumor or adenopathy causing obstructive atelectasis and postobstructive pneumonia. The patient will be admitted to telemetry floor, she will receive IV hydration and we are going to continue her levofloxacin that had just been started as outpatient. I will believe levofloxacin will give enough coverage for gram-positives, gram-negatives, and atypicals and we will check legionella and pneumococcal antigens as well as sputum culture. She will have a CT of the chest without contrast (due to her renal failure) to better delineate this right upper lobe process. Blood cultures already sent in the emergency room. Prior H and P states that there is interaction between Cipro and her chemotherapy. I have run the drug interaction report and that does not seem to be the case with levofloxacin. She will receive symptomatic treatment for her cough. 2. Acute kidney injury. The patient's creatinine at baseline is around 1.7 to 1.9. She is up to 2.3 now and this appears to be prerenal in the setting of dehydration. She will receive IV fluids. We are going to check a urinalysis, random urine creatinine, random urine sodium, so we can calculate her FENa. 3. Anemia. It is close to her baseline. 4. Hypertension. It is controlled at this time. We will continue amlodipine. 5. Gastroesophageal reflux disease. We will continue omeprazole. 6. DVT prophylaxis. The patient has a score of 4 on a DVT Prophylaxis Risk Assessment Guide and she will be started on subcutaneous heparin. 7. Code status is full. TIME SPENT: Approximately 55 minutes was spent with the patient interview, medical records review, physical examination to complete this admission, more than half of this time was spent [id number] with the patient in coordination of care. [id number]/[facility] #: [id number] DONTE
[2018-02-09] MEDS: Heparin VIAL(*) 5000 UNITS/ML VIAL (FIVE THOUSAND) SUBCUT SCH ×3 (05:24→21:37)
[2018-02-09] MEDS ORDERED: Heparin VIAL(*) 5000 UNITS/ML VIAL (FIVE THOUSAND) SUBCUT SCH (06:00)
[2018-02-09] MEDS: Omeprazole CAP* 20 MG PO SCH ×2 (07:34→18:22)
[2018-02-09 08:31] LABS: Urine Appearance Clear; Urine Blood 2+ (Negative); Urine Color Straw; Urine Ketones Negative (Negative); Urine Protein Negative (Negative); Urine Red Blood Cell Trace(0-2/hpf) (Absent); Urine Specific Gravity 1.009 (1.010-1.030); Urine Urobilinogen Negative (Negative); Urine White Blood Cell Absent (Absent)
[2018-02-09] MEDS: Aspirin EC TAB* 81 MG TAB.EC PO SCH (09:27)
[2018-02-09] MEDS: Magnesium Oxide TAB* 400 MG PO SCH (09:27)
[2018-02-09] MEDS: guaiFENesin ER TAB 600 MG PO SCH ×2 (09:28→20:43)
[2018-02-09] MEDS: Cholecalciferol TAB* 1000 UNITS PO SCH (09:30)
[2018-02-09] MEDS: CMCS:Escitalopram (NF) 10 MG TAB PO SCH (09:30)
[2018-02-09] MEDS: Acyclovir* 400 MG TAB PO SCH (09:31)
[2018-02-09] MEDS: Psyllium PAK PO SCH ×2 (09:33→20:44)
[2018-02-09] MEDS ORDERED: NS 0.9% 250 ML* 250 ML IV ONE (10:00)
[2018-02-09] MEDS: POMALIDOMIDE 2 MG PO SCH (13:34)
--- NOTE | 2018-02-09 16:41 | PN ---
Progress Note - Progress Note Date of Service: 02/09/18 SOAP: Subjective: [Admitted overnight with cough and fever, CXR suggested possible RUL mass. She had been treated with doxycycline for several days for sinusitis but started spiking fevers 2d ago and was switched to Levaquin by her PCP. She took her first dose shortly before she presented in the ER. This am she reports feeling slightly better. No additional fevers since admission.] Objective: [ Acetaminophen (Tylenol Tab*) 650 mg PO Q4H PRN PRN Reason: FEVER/PAIN Acyclovir (Zovirax Tab*) 400 mg PO QAM [facility] Last Admin: 02/09/18 09:31 Dose: 400 mg Al Hydrox/Mg Hydrox/Simethicone (Maalox Plus*) 30 ml PO Q6H PRN PRN Reason: INDIGESTION Amlodipine Besylate (Norvasc Tab*) 2.5 mg PO BEDTIME [facility] Last Admin: 02/09/18 02:35 Dose: 2.5 mg Aspirin (Aspirin Ec Tab*) 81 mg PO DAILY [facility] Last Admin: 02/09/18 09:27 Dose: 81 mg Cetirizine HCl (Zyrtec*) 10 mg PO QPM [facility] Cholecalciferol (Vitamin D Tab*) 2,000 units PO DAILY [facility] Last Admin: 02/09/18 09:30 Dose: 2,000 units Diphenhydramine HCl (Benadryl Po*) 25 mg PO Q6H PRN PRN Reason: Allergy Symptoms Erythromycin (Erythromycin Opth Oint*) 1 applic BOTH EYES BEDTIME [facility] Escitalopram Oxalate (Lexapro (Nf)) 10 mg PO DAILY [facility] Last Admin: 02/09/18 09:30 Dose: 10 mg Guaifenesin (Mucinex*) 600 mg PO BID [facility] Last Admin: 02/09/18 09:28 Dose: 600 mg Heparin Sodium (Porcine) (Heparin Vial(*)) 5,000 units SUBCUT Q8HR [facility] Last Admin: 02/09/18 13:35 Dose: 5,000 units Levofloxacin/Dextrose (Levaquin 750 Mg Ivpremix(*)) 750 mg in 150 mls @ 100 mls /hr IVPB Q48H [facility] Sodium Chloride (Ns 0.9% 1000 Ml*) 1,000 mls @ 100 mls/hr IV PER RATE [facility] Stop: 02/10/18 06:00 Last Admin: 02/09/18 10:32 Dose: 100 mls/hr Loperamide HCl (Imodium Cap*) 2 mg PO .SEE INSTRUCTIONS PRN PRN Reason: DIARRHEA Magnesium Oxide (Magox 400 Tab*) 200 mg PO DAILY [facility] Last Admin: 02/09/18 09:27 Dose: 200 mg Pto:Pomalidomide [ (Pomalyst] 2 Mg Caps) 2 mg PO DAILY [facility] Last Admin: 02/09/18 13:34 Dose: 2 mg Omeprazole (Prilosec Cap*) 20 mg PO Q12H [facility] Last Admin: 02/09/18 07:34 Dose: 20 mg Psyllium Hydrophilic Mucilloid (Metamucil Noé*) 1 pkt PO BID [facility] Last Admin: 02/09/18 09:33 Dose: 1 pkt Laboratory Results - last 24 hr 02/08/18 02/08/18 02/08/18 22:20 22:20 22:20 WBC 5.9 RBC 2.84 L Hgb 7.9 L Hct 25 L MCV 87 MCH 28 MCHC 32 RDW 20 H Plt Count 182 MPV 9.5 Neut % (Auto) 80.5 Lymph % (Auto) 9.3 Waller % (Auto) 9.3 Eos % (Auto) 0.3 Baso % (Auto) 0.6 Absolute Neuts (auto) 4.7 Absolute Lymphs (auto) 0.5 L Absolute Monos (auto) 0.5 Absolute Eos (auto) 0 Absolute Basos (auto) 0 Absolute Nucleated RBC 0 Nucleated RBC % 0 INR (Anticoag Therapy) APTT Sodium 134 L Potassium 3.6 Chloride 103 Carbon Dioxide 20 L Anion Gap 11 BUN 28 H Creatinine 2.36 H Est GFR ( Amer) 24.6 Est GFR (Non-Af Amer) 20.3 BUN/Creatinine Ratio 11.9 Glucose 128 H Lactic Acid 1.4 Calcium 8.6 Total Bilirubin 0.60 AST 12 L ALT 19 Alkaline Phosphatase 76 C-Reactive Protein 171.20 H Total Protein 6.1 L Albumin 3.6 Globulin 2.5 Albumin/Globulin Ratio 1.4 Procalcitonin Urine Color Urine Appearance Urine pH Ur Specific Plains Urine Protein Urine Ketones Urine Blood Urine Nitrate Urine Bilirubin Urine Urobilinogen Ur Leukocyte Esterase Urine WBC (Auto) Urine RBC (Auto) Urine Bacteria Urine Glucose 02/08/18 02/08/18 02/09/18 22:55 22:55 02:50 WBC RBC Hgb Hct MCV MCH MCHC RDW Plt Count MPV Neut % (Auto) Lymph % (Auto) Waller % (Auto) Eos % (Auto) Baso % (Auto) Absolute Neuts (auto) Absolute Lymphs (auto) Absolute Monos (auto) Absolute Eos (auto) Absolute Basos (auto) Absolute Nucleated RBC Nucleated RBC % INR (Anticoag Therapy) 1.31 H APTT 27.1 Sodium Potassium Chloride Carbon Dioxide Anion Gap BUN Creatinine Est GFR ( Amer) Est GFR (Non-Af Amer) BUN/Creatinine Ratio Glucose Lactic Acid 1.1 Calcium Total Bilirubin AST ALT Alkaline Phosphatase C-Reactive Protein Total Protein Albumin Globulin Albumin/Globulin Ratio Procalcitonin 0.3 Urine Color Urine Appearance Urine pH Ur Specific [place] Urine Protein Urine Ketones Urine Blood Urine Nitrate Urine Bilirubin Urine Urobilinogen Ur Leukocyte Esterase Urine WBC (Auto) Urine RBC (Auto) Urine Bacteria Urine Glucose 02/09/18 08:15 WBC RBC Hgb Hct MCV MCH MCHC RDW Plt Count MPV Neut % (Auto) Lymph % (Auto) Waller % (Auto) Eos % (Auto) Baso % (Auto) Absolute Neuts (auto) Absolute Lymphs (auto) Absolute Monos (auto) Absolute Eos (auto) Absolute Basos (auto) Absolute Nucleated RBC Nucleated RBC % INR (Anticoag Therapy) APTT Sodium Potassium Chloride Carbon Dioxide Anion Gap BUN Creatinine Est GFR ( Amer) Est GFR (Non-Af Amer) BUN/Creatinine Ratio Glucose Lactic Acid Calcium Total Bilirubin AST ALT Alkaline Phosphatase C-Reactive Protein Total Protein Albumin Globulin Albumin/Globulin Ratio Procalcitonin Urine Color Straw Urine Appearance Clear Urine pH 6.0 Ur Specific [place] 1.009 L Urine Protein Negative Urine Ketones Negative Urine Blood 2+ A Urine Nitrate Negative Urine Bilirubin Negative Urine Urobilinogen Negative Ur Leukocyte Esterase Negative Urine WBC (Auto) Absent Urine RBC (Auto) Trace(0-2/hpf) Urine Bacteria Absent Urine Glucose Negative Vital Signs Temp Pulse Resp BP Pulse Ox 98.1 F 77 16 121/49 99 02/09/18 11:40 02/09/18 11:40 02/09/18 11:40 02/09/18 11:40 02/09/18 11:40 Exam: Gen: Mildly ill appearing 72 yo female in NAD HEENT: MMM no thrush CV: RRR, no m/r/g Resp: faint wheeze in RML otherwise CTA Abd: soft, nonTTP Ext: trace edema Skin: no rashes] Assessment: [72 yo female with MM who presented with cough and fever after several days on oral abx. Initial CXR suggestive of RUL mass. CT has a dense consolidation in the RUL with associated atelectasis, no obvious mass.] Plan: [1. Pneumonia - cont IV Levaquin - check QUIGs - she requires freq IVIG for hypogammagolbulinemia, IgG ~1000 2 weeks - give IVIG if IgG <500 - repeat CXR or CT in 4-6 weeks to ensure full resolution 2. Multiple myeloma - under the care of Dr Kennedy - currently treated and stable on Pomalyst, Daratumumab, Velcade and dexamethasone - No neutropenia - She would like to cont her Pomalyst for the time being which is likely ok as long as she is not neutropenic Dispo: anticipate dc home in 2-3 days]
[2018-02-09] MEDS: Cetirizine* 10 MG TAB PO SCH (18:22)
[2018-02-09] MEDS: Erythromycin OPTH OINT* APPLIC OINT BOTH EYES SCH (22:52)
[2018-02-10] MEDS: Heparin VIAL(*) 5000 UNITS/ML VIAL (FIVE THOUSAND) SUBCUT SCH ×3 (05:10→22:54)
[2018-02-10 05:35] LABS: EGFR Non-African American 23.8 (>60)
[2018-02-10 05:36] LABS: ABS Basophils 0 10^3/ul (0-0.2); ABS Eosinophils 0.1 10^3/ul (0-0.6); ABS Lymphocytes 0.3 10^3/ul (1.0-4.8); ABS Monocytes 0.3 10^3/ul (0-0.8); ABS Neutrophils 2.8 10^3/ul (1.5-7.7); ABS Nucleated RBC 0 10^3/ul; Eosinophil % 3.7 %; Hematocrit 22 % (35-47); Hemoglobin 6.9 g/dl (12.0-16.0); Lymphocyte % 8.2 %; Mean Corpuscular HGB Conc 32 g/dl (31-36); Mean Corpuscular Hemoglobin 27 pg (27-31); Mean Corpuscular Volume 87 fL (80-97); Mean Platelet Volume 8.2 fL (7.4-10.4); Nucleated Red Blood Cells % 0; Platelet Count 152 10^3/ul (150-450); Red Blood Count 2.52 10^6/ul (4.00-5.40); Red Cell Distribution Width 20 % (10.5-15); White Blood Count 3.5 10^3/ul (3.5-10.8)
[2018-02-10] MEDS: Omeprazole CAP* 20 MG PO SCH ×2 (07:36→19:26)
[2018-02-10] MEDS: Magnesium Oxide TAB* 400 MG PO SCH (09:18)
[2018-02-10] MEDS: Acyclovir* 400 MG TAB PO SCH (09:20)
[2018-02-10] MEDS: guaiFENesin ER TAB 600 MG PO SCH ×2 (09:20→19:26)
[2018-02-10] MEDS: Cholecalciferol TAB* 1000 UNITS PO SCH (09:20)
[2018-02-10] MEDS: Aspirin EC TAB* 81 MG TAB.EC PO SCH (09:20)
[2018-02-10] MEDS: CMCS:Escitalopram (NF) 10 MG TAB PO SCH (09:21)
[2018-02-10] MEDS: POMALIDOMIDE 2 MG PO SCH (09:22)
[2018-02-10] MEDS: Psyllium PAK PO SCH ×2 (09:30→19:27)
--- NOTE | 2018-02-10 10:47 | PN ---
Progress Note - Progress Note Date of Service: 02/10/18 SOAP: Subjective: []Feels better today. Congested. Not SOB. Eating. No more fevers. Had diarrhea and then took several immodium, no no BM for 3 days. Acetaminophen (Tylenol Tab*) 650 mg PO Q4H PRN PRN Reason: FEVER/PAIN Acyclovir (Zovirax Tab*) 400 mg PO QAM [facility] Last Admin: 02/10/18 09:20 Dose: 400 mg Al Hydrox/Mg Hydrox/Simethicone (Maalox Plus*) 30 ml PO Q6H PRN PRN Reason: INDIGESTION Amlodipine Besylate (Norvasc Tab*) 2.5 mg PO BEDTIME [facility] Last Admin: 02/09/18 20:43 Dose: 2.5 mg Aspirin (Aspirin Ec Tab*) 81 mg PO DAILY [facility] Last Admin: 02/10/18 09:20 Dose: 81 mg Cetirizine HCl (Zyrtec*) 10 mg PO QPM [facility] Last Admin: 02/09/18 18:22 Dose: 10 mg Cholecalciferol (Vitamin D Tab*) 2,000 units PO DAILY [facility] Last Admin: 02/10/18 09:20 Dose: 2,000 units Diphenhydramine HCl (Benadryl Po*) 25 mg PO Q6H PRN PRN Reason: Allergy Symptoms Erythromycin (Erythromycin Opth Oint*) 1 applic BOTH EYES BEDTIME [facility] Last Admin: 02/09/18 22:52 Dose: 1 applic Escitalopram Oxalate (Lexapro (Nf)) 10 mg PO DAILY [facility] Last Admin: 02/10/18 09:21 Dose: 10 mg Guaifenesin (Mucinex*) 600 mg PO BID [facility] Last Admin: 02/10/18 09:20 Dose: 600 mg Heparin Sodium (Porcine) (Heparin Vial(*)) 5,000 units SUBCUT Q8HR [facility] Last Admin: 02/10/18 05:10 Dose: Not Given Levofloxacin/Dextrose (Levaquin 750 Mg Ivpremix(*)) 750 mg in 150 mls @ 100 mls /hr IVPB Q48H [facility] Loperamide HCl (Imodium Cap*) 2 mg PO .SEE INSTRUCTIONS PRN PRN Reason: DIARRHEA Magnesium Oxide (Magox 400 Tab*) 200 mg PO DAILY [facility] Last Admin: 02/10/18 09:18 Dose: 200 mg Pto:Pomalidomide [ (Pomalyst] 2 Mg Caps) 2 mg PO DAILY [facility] Last Admin: 02/10/18 09:22 Dose: 2 mg Omeprazole (Prilosec Cap*) 20 mg PO Q12H [facility] Last Admin: 02/10/18 07:36 Dose: 20 mg Psyllium Hydrophilic Mucilloid (Metamucil Noé*) 1 pkt PO BID [facility] Last Admin: 02/10/18 09:30 Dose: 1 pkt Objective: [] Vital Signs Temp Pulse Resp BP Pulse Ox 98 F 71 16 139/55 98 02/10/18 07:28 02/10/18 07:28 02/10/18 07:31 02/10/18 07:28 02/10/18 07:31 Exam: Gen: Looks better, no distress HEENT: MMM no thrush CV: RRR, no m/r/g Resp: CTA Abd: soft, nonTTP Ext: trace edema Skin: no rashes] Hgb 6.9 Cr 2.06 Assessment: [72 yo female with MM who presented with cough and fever after several days on oral abx. Initial CXR suggestive of RUL mass. CT has a dense consolidation in the RUL with associated atelectasis, no obvious mass. She appears to be doing much better on Levofloxacin. Plan: [1. Pneumonia - cont IV Levaquin 750 mg q48 hrs. - check QUIGs. IVIG, if indicated would be as out patient. - repeat CXR or CT in 4-6 weeks to ensure full resolution 2. Multiple myeloma - currently treated and stable on Pomalyst, Daratumumab, Velcade and dexamethasone - No neutropenia - OK to continue Pomalyst 3. CRI. Cr increased from dehydration. Improving 4. Anemia. Tx 2 U PRBC 5. Constipation. Follow, no laxatives for fear of brining back diarrhea. ]
[2018-02-10] MEDS ORDERED: Levofloxacin 750 MG IVPREMIX(* 750 MG/150 ML BAG IVPB SCH (12:30)
[2018-02-10] MEDS: Cetirizine* 10 MG TAB PO SCH (19:26)
[2018-02-10] MEDS: amLODIPine TAB* 5 MG PO SCH (19:26)
[2018-02-10] MEDS: Erythromycin OPTH OINT* APPLIC OINT BOTH EYES SCH (22:52)
[2018-02-11] MEDS: Heparin VIAL(*) 5000 UNITS/ML VIAL (FIVE THOUSAND) SUBCUT SCH (05:19)
[2018-02-11 05:27] LABS: Hematocrit 30 % (35-47); Hemoglobin 9.7 g/dl (12.0-16.0); Mean Corpuscular HGB Conc 33 g/dl (31-36); Mean Corpuscular Hemoglobin 28 pg (27-31); Mean Corpuscular Volume 84 fL (80-97); Platelet Count 158 10^3/ul (150-450); Red Blood Count 3.54 10^6/ul (4.00-5.40); Red Cell Distribution Width 20 % (10.5-15); White Blood Count 3.4 10^3/ul (3.5-10.8)
[2018-02-11 05:45] LABS: ABS Basophils 0 10^3/ul (0-0.2); ABS Eosinophils 0.2 10^3/ul (0-0.6); ABS Lymphocytes 0.3 10^3/ul (1.0-4.8); ABS Monocytes 0.4 10^3/ul (0-0.8); ABS Neutrophils 2.5 10^3/ul (1.5-7.7); ABS Nucleated RBC 0 10^3/ul; Eosinophil % 5.6 %; Lymphocyte % 7.8 %; Nucleated Red Blood Cells % 0
[2018-02-11 05:51] LABS: EGFR Non-African American 26.6 (>60)
[2018-02-11] MEDS: Psyllium PAK PO SCH (08:41)
[2018-02-11] MEDS: Cholecalciferol TAB* 1000 UNITS PO SCH (08:41)
[2018-02-11] MEDS: CMCS:Escitalopram (NF) 10 MG TAB PO SCH (08:43)
[2018-02-11] MEDS: Magnesium Oxide TAB* 400 MG PO SCH (08:43)
[2018-02-11] MEDS: Acyclovir* 400 MG TAB PO SCH (08:43)
[2018-02-11] MEDS: Omeprazole CAP* 20 MG PO SCH (08:44)
[2018-02-11] MEDS: guaiFENesin ER TAB 600 MG PO SCH (08:44)
[2018-02-11] MEDS: Aspirin EC TAB* 81 MG TAB.EC PO SCH (08:45)
[2018-02-11] MEDS: POMALIDOMIDE 2 MG PO SCH (08:46)
[2018-02-11 12:10] VITALS: BP 127/55
[2018-02-11] MEDS ORDERED: Levofloxacin 750 MG IVPREMIX(* 750 MG/150 ML BAG IVPB SCH (12:30)
--- NOTE | 2018-02-12 04:21 | DS ---
CC: Adwoa Boyce MD; Halie Kennedy MD * DISCHARGE SUMMARY: DATE OF ADMISSION: 02/08/18 DATE OF DISCHARGE: 02/11/18 PRIMARY CARE PHYSICIAN: Adwoa Boyce MD ONCOLOGIST: Halie Kennedy MD PRINCIPAL DIAGNOSIS: Right upper lobe pneumonia. SECONDARY DIAGNOSES: 1. Multiple myeloma. 2. Chronic kidney disease, stage 3. 3. Chronic anemia. 4. History of multiple sclerosis. 5. History of colonic polyps. 6. Anxiety. 7. Gastroesophageal reflux disease. 8. Hypertension. MEDICATIONS: New medications prescribed at discharge: 1. Levaquin 750 mg p.o. every 48 hours renally dosed to be completed on . Remaining medications are unchanged as follows: 1. Erythromycin ointment to both eyes at bedtime. 2. Magnesium oxide 250 mg p.o. daily. 3. Metamucil 2 caps p.o. b.i.d. 4. Pomalyst 2 mg p.o. daily. 5. Benadryl 25 mg every 6 hours as needed. 6. Omeprazole 20 mg p.o. b.i.d. 7. Loratadine 10 mg p.o. daily. 8. Loperamide as instructed, as needed. 9. Lexapro 10 mg p.o. daily. 10. Decadron 4 mg p.o. weekly. 11. Vitamin D3 2000 units daily. 12. Aspirin 81 mg daily. 13. Amlodipine 2.5 mg daily at bedtime. 14. Maalox 30 mL every 6 hours as needed. 15. Acyclovir 400 mg p.o. daily. 16. Tylenol 650 mg every 4 hours as needed. 17. Mucinex 600 mg p.o. b.i.d. HOSPITAL COURSE: This is a 72-year-old female with a past medical history of multiple myeloma, undergoing chemotherapy, and CKD, who was referred from her primary care physician's office after fever and failing outpatient antibiotic regimen. The patient presented initially to her primary with upper respiratory symptoms and she was prescribed doxycycline over the phone. She took it for about 1 week but no improvement in her symptoms with fevers as high as 103.7. There was chest x-ray done as an outpatient that showed right suprahilar mass with right upper lobe atelectasis. Based on these results, she was referred to the emergency room for further evaluation. The patient had further imaging in the emergency room of a chest CT showing right upper lobe consolidation with air bronchogram. Recommend followup resolution to exclude underlying pulmonary parenchymal pathology. The patient was started on IV Levaquin and followed by the oncology service. She denies any shortness of breath. She is ambulating and tolerating p.o. and she has been on room air. She ambulated twice around her unit and remained 98% on room air while ambulating. The patient is going to get another dose of IV Levaquin today and to continue her course for full 7 days of antibiotics of Levaquin for her pneumonia. Discussed with the location of her pneumonia, it is possible for microaspiration and/or chronic aspiration. She discussed how she has a mouthguard where she pulls a lot of saliva and she feels that she gags off and on on her saliva which is possible that she aspirates during the night due to this mouthguard. Discussed following up with her dentist to modify this mouthguard and to discontinue using for now to avoid further aspiration events if this is truly the culprit. Regarding her multiple myeloma, she is to follow up with Dr. Kennedy as an outpatient and to resume her home medications as prescribed. DISCHARGE PLAN: The patient is being discharged to home under the care of her , who is at the bedside. ACTIVITY: As tolerated DIET: Regular. DISCHARGE INSTRUCTIONS: Instructions as above to follow up with her primary and with her oncologist. PATIENT TIME: Greater than 30 minutes was spent doing the discharge summary, more than half the time was spent in direct patient contact. [id number]/CPS #: [id number] MTDD
[2018-02-13] MEDS ORDERED: Dexamethasone TAB* 6 MG PO SCH (00:21)
== END 2018-02-11 15:10 | disposition home or self-care (01) | DRG 194 ==
LOC: ED 20:47 → MEDTELE 23:57
PROVIDERS: ADMIT Internal Medicine; ATTEND Internal Medicine Geriatric Medicine
PROC: 30233N1 Transfusion of Nonautologous Red Blood Cells into Peripheral Vein, Percutaneous Approach (ICD-10-PCS; principal; 2018-02-10)
DX: J18.9 Pneumonia, unspecified organism (principal); C90.00 Multiple myeloma not having achieved remission; J98.11 Atelectasis; Z94.81 Bone marrow transplant status; N17.9 Acute kidney failure, unspecified; G35 Multiple sclerosis; E86.0 Dehydration; D63.8 Anemia in other chronic diseases classified elsewhere; N18.3 Chronic kidney disease, stage 3 (moderate); I12.9 Hypertensive chronic kidney disease with stage 1 through stage 4 chronic kidney disease, or unspecified chronic kidney disease; F41.9 Anxiety disorder, unspecified; K21.9 Gastro-esophageal reflux disease without esophagitis; Z79.1 Long term (current) use of non-steroidal anti-inflammatories (NSAID); Z79.82 Long term (current) use of aspirin; Z79.899 Other long term (current) drug therapy; Z88.1 Allergy status to other antibiotic agents; Z88.8 Allergy status to other drugs, medicaments and biological substances; Z82.49 Family history of ischemic heart disease and other diseases of the circulatory system; Z80.9 Family history of malignant neoplasm, unspecified
CPT/HCPCS: 36415; 71250; 80048; 80053; 81003; 81015; 82784; 83605; 84145; 85025; 85610; 85730; 86140; 86850; 86900; 86901; 86922; 87070; 87205; 87899; 93005; 99232; 99284; A9270-GY; J1642; J1644; P9040

== ENCOUNTER 2018-04-15 11:41 | Emergency (ER) | payer MEDICARE ==
--- NOTE | 2018-04-15 12:12 | ED ---
HPI Chest Pain - HPI Summary HPI Summary: This patient is a 73 year old F brought in by ambulance to [facility] accompanied by with a chief complaint of stabbing mid-sternal CP that radiates to her chin that began at 1030. The patient rates the pain 3/10 in severity. Symptoms aggravated by nothing. Symptoms alleviated by nothing. Patient reports diaphoresis and low back pain. Patient denies nausea and SOB. Patient reports having similar symptoms previously. - History of Current Complaint Chief Complaint: EDChestPainROMI Time Seen by Provider: 04/15/18 11:45 Hx Obtained From: Patient Onset/Duration: Started Hours Ago, Atraumatic, Still Present Timing: Constant Initial Severity: Mild Current Severity: Mild Pain Intensity: 3 Pain Scale Used: 0-10 Numeric Chest Pain Location: Mid Sternal Chest Pain Radiates: Yes Chest Pain Radiates To:: Jaw Character: Sharp/Stabbing Aggravating Factor(s): Nothing Alleviating Factor(s): Nothing Associated Signs and Symptoms: Positive: Diaphoresis, Other: - Positive low back pain. Negative: Shortness of Breath, Nausea - Additional Pertinent History Primary Care Physician: [id number] - Allergy/Home Medications Allergies/Adverse Reactions: Allergies Allergy/AdvReac Type Severity Reaction Status Date / Time cefepime Allergy Mild Hives Verified 04/03/18 12:12 glatiramer (copolymer 1) Allergy Unknown Verified 04/03/18 12:12 [From Copaxone] Reaction Details simvastatin Allergy Unknown Verified 04/03/18 12:12 Reaction Details ciprofloxacin AdvReac Severe Unknown Verified 04/03/18 12:12 Reaction Details Home Medications: Home Medications Compazine 10 mg PO Q6HR PRN 04/15/18 [History Confirmed 04/15/18] Emla* 1 dose TOPICAL DAILY PRN 04/15/18 [History Confirmed 04/15/18] Vitamin B-12 1,000 mcg PO DAILY 04/15/18 [History Confirmed 04/15/18] PMH/Surg Hx/FS Hx/Imm Hx Previously Healthy: No Endocrine/Hematology History: Reports: Hx Anemia - from chemo medications, Other Endocrine/Hematological Disorders - multiple MYELOMA, BONE MARROW TRANSPLANT Denies: Hx Diabetes Cardiovascular History: Reports: Hx Angina, Hx Hypertension, Other Cardiovascular Problems/Disorders - BONE MARROW TRANSPLANT, CML Denies: Hx Congestive Heart Failure, Hx Coronary Artery Disease, Hx Hypercholesterolemia, Hx Myocardial Infarction, Hx Pacemaker/ICD, Hx Valvular Heart Disease Respiratory History: Reports: Hx Pneumonia, Hx Seasonal Allergies, Other Respiratory Problems/Disorders - PNEUMONIA ONE WEEK AGO Denies: Hx Asthma, Hx Chronic Obstructive Pulmonary Disease (COPD) GI History: Reports: Hx Gastroesophageal Reflux Disease History: Reports: Hx Renal Disease - DECREASED FUNCTION FROM MULTIPLE MYELOMA Denies: Hx Dialysis Musculoskeletal History: Reports: Hx Arthritis, Other Musculoskeletal History - MS Sensory History: Reports: Hx Contacts or Glasses - GLASSES Denies: Hx Hearing Aid Opthamlomology History: Reports: Hx Contacts or Glasses - GLASSES Neurological History: Reports: Other Neuro Impairments/Disorders - MS Psychiatric History: Reports: Hx Anxiety, Hx Depression - ON MEDICATION Denies: Hx Panic Disorder - Cancer History Cancer Type, Location and Year: MULTIPLE MYELOMA Hx Chemotherapy: Yes - shots on tuesdays Hx Radiation Therapy: No Hx Palliative Cancer Treatment: No - Surgical History Surgery Procedure, Year, and Place: BONE MARROW TRANSPLANT 2011;. RIGHT HAND RING FINGER - REMOVAL OF BONE SPUR;. POWER PORT. Lt 5TH TOE - ARTHROPLASTY Hx Anesthesia Reactions: No - Immunization History Date of Tetanus Vaccine: Unk Date of Influenza Vaccine: Fall 2014 Infectious Disease History: No Infectious Disease History: Denies: Traveled Outside the [place] in Last 30 Days - B - Family History Known Family History: Positive: Cardiac Disease, Other - BREAST CANCER. Mother: rheumatic heart disease (from rheumatic fever) - Social History Occupation: Retired Lives: With Family Alcohol Use: None Hx Substance Use: No Substance Use Type: Reports: None Hx Tobacco Use: No Smoking Status (MU): Never Smoked Tobacco Have You Smoked in the Last Year: No Review of Systems Positive: Skin Diaphoresis Positive: Chest Pain Negative: Shortness Of Breath Negative: Nausea Positive: Other - Positive low back pain All Other Systems Reviewed And Are Negative: Yes Physical Exam - Summary Physical Exam Summary: VITAL SIGNS: Reviewed. GENERAL: Patient is a well-developed and nourished female who is lying comfortable in the stretcher. Patient is not in any acute respiratory distress. HEAD AND FACE: No signs of trauma. No ecchymosis, hematomas or skull depressions. No sinus tenderness. EYES: PERRLA, EOMI x 2, No injected conjunctiva, no nystagmus. EARS: Hearing grossly intact. Ear canals and tympanic membranes are within normal limits. MOUTH: Oropharynx within normal limits. NECK: Supple, trachea is midline, no adenopathy, no JVD, no carotid bruit, no c- spine tenderness, neck with full ROM. CHEST: Symmetric, no tenderness at palpation. Port in left side of chest. LUNGS: Clear to auscultation bilaterally. No wheezing or crackles. CVS: Regular rate and rhythm, S1 and S2 present, no murmurs or gallops appreciated. ABDOMEN: Soft, non-tender. No signs of distention. No rebound no guarding, and no masses palpated. Bowel sounds are normal. EXTREMITIES: FROM in all major joints, no edema, no cyanosis or clubbing. NEURO: Alert and oriented x 3. No acute neurological deficits. Speech is normal and follows commands. SKIN: Dry and warm Triage Information Reviewed: Yes Vital Signs On Initial Exam: Initial Vitals Temp Pulse Resp BP Pulse Ox 97.8 F 57 13 166/67 99 04/15/18 11:59 04/15/18 11:59 04/15/18 11:59 04/15/18 11:59 04/15/18 11:59 Vital Signs Reviewed: Yes Diagnostics - Vital Signs Vital Signs Temp Pulse Resp BP Pulse Ox 04/15/18 11:59 97.8 F 57 13 166/67 99 - Laboratory Result Diagrams: 04/15/18 12:16 04/15/18 11:29 Lab Statement: Any lab studies that have been ordered have been reviewed, and results considered in the medical decision making process. - Radiology Chest XR Radiology Interpretation Completed By: Radiologist Summary of Radiographic Findings: CXR reveals, per radiologist, no evidence for acute finding, interval resolution of right upper lobe infiltrate. ED physician has reviewed this radiology report. - EKG 1226 Cardiac Rate: Bradycardia EKG Rhythm: Sinus Rhythm - [address] Segment: Normal EKG Comparison: No Significant Change Summary of EKG Findings: An EKG taken at 1226 reveals sinus bradycardia at [address] elevations and similar to previous EKG taken on 03/18/18. Chest Pain Course/Dx - Course Assessment/Plan: Patient is a 73-year-old female who presents to the emergency department with a chief complaint of having sharp pain in the left side of the chest and radiates to the left axilla. Denies any nausea vomiting denies any shortness of breath and she has chronic dizziness. Blood work shows a wbcs of 3.4, hemoglobin 10.2, hematocrit 31 and platelets of 101. BUN is 37, creatinine 1.72, glucose 102. This is consistent with her chronic renal insufficiency. And BNP is 339, total protein 6.1. Chest x-ray impression: No evidence for acute findings. Interval resolution of right upper lobe infiltrate. Blood pressure has been lingering between 150/71. At this point I discussed my physical exam, findings and test results with Dr. Boyce was the primary care physician for the patient and she recommends for the patient to be discharged home and follow up next week. I discussed all the findings and test results with the patient. Patient was instructed to return to the emergency room immediately if any of the symptoms return or worsens. Plan of care was discussed with the patient and understands and agrees. All questions were answered at patient satisfaction. There were no further complaints or concerns. Lung exam before discharge: CTA B/ L. Good air exchange. No wheezing or crackles heard. CVS: S1 and S2 present. No murmurs appreciated. Patient is alert and oriented x 3. Patient is hemodynamically stable. Patient will be discharged home with follow up PCP in the next 2-3 days - Chest Pain Differential Diagnosis/HQI/PQRI: Acute AL, ACS, Angina, Aortic Aneurysm, CHF, Chest Wall, GI Disease, Lower Respiratory Infection - Diagnoses Provider Diagnoses: Atypical chest pain, Uncontrolled hypertension - Provider Notifications Discussed Care Of Patient With: Adwoa Boyce Time Discussed With Above Provider: 15:45 Instructed by Provider To: Other - Consult with Austen (primary care) at 1545. She recommended the patient be discharged and follow up with her next week. Discharge - Sign-Out/Discharge Documenting (check all that apply): Patient Departure - Discharge home Patient Received Moderate/Deep Sedation with Procedure: No - Discharge Plan Condition: Stable Disposition: HOME Patient Education Materials: Chest Pain (ED), Chronic Hypertension (ED) Referrals: Adwoa Boyce MD [Primary Care Provider] - 2 Days Additional Instructions: RETURN TO THE EMERGENCY DEPARTMENT FOR NEW OR WORSENING SYMPTOMS - Billing Disposition and Condition Condition: STABLE Disposition: Home - Attestation Statements Document Initiated by Scribe: Yes Documenting Scribe: Lina Burrows Provider For Whom Scribe is Documenting (Include Credential): Dr. Ant Brothers MD Scribe Attestation: I, Lina Burrows, scribed for Dr. Ant Brothers MD on 04/15/18 at 2058. Scribe Documentation Reviewed: Yes Provider Attestation: The documentation as recorded by the scribe, Lina Burrows accurately reflects the service I personally performed and the decisions made by me, Dr. Ant Brothers MD Status of Scribe Document: Viewed
[2018-04-15] MEDS ORDERED: Aspirin 81 mg CHEW TAB* 81 MG TAB.CHEW PO ONE (12:14)
[2018-04-15 12:45] LABS: ABS Basophils 0 10^3/ul (0-0.2); ABS Eosinophils 0.1 10^3/ul (0-0.6); ABS Lymphocytes 0.4 10^3/ul (1.0-4.8); ABS Monocytes 0.5 10^3/ul (0-0.8); ABS Neutrophils 2.4 10^3/ul (1.5-7.7); ABS Nucleated RBC 0 10^3/ul; Eosinophil % 4.4 %; Hematocrit 31 % (35-47); Hemoglobin 10.2 g/dl (12.0-16.0); Lymphocyte % 10.6 %; Mean Corpuscular HGB Conc 33 g/dl (31-36); Mean Corpuscular Hemoglobin 31 pg (27-31); Mean Corpuscular Volume 92 fL (80-97); Mean Platelet Volume 7.8 fL (7.4-10.4); Nucleated Red Blood Cells % 0.9; Platelet Count 101 10^3/ul (150-450); Red Blood Count 3.31 10^6/ul (4.00-5.40); Red Cell Distribution Width 23 % (10.5-15); White Blood Count 3.4 10^3/ul (3.5-10.8)
[2018-04-15 12:53] LABS: Albumin 3.8 g/dL (3.2-5.2); Albumin/Globulin Ratio 1.7 (1-3); BUN/Creatinine Ratio 21.5 (8-20); Calcium 9.4 mg/dL (8.6-10.3); EGFR African American 35.4 (>60); EGFR Non-African American 29.2 (>60); Globulin 2.3 g/dL (2-4); Magnesium 1.8 mg/dL (1.9-2.7); Potassium 4.4 mmol/L (3.5-5.0); Total Bilirubin 0.9 mg/dL (0.2-1.0); Total Protein 6.1 g/dL (6.4-8.9)
[2018-04-15 12:55] LABS: Troponin I 0.01 ng/mL (<0.04)
[2018-04-15 12:57] LABS: CKMB ng/mL 1.5 ng/mL (0.6-6.3)
[2018-04-15 13:17] LABS: TSH (Thyroid Stimulating Horm) 3.2 mcIU/mL (0.34-5.60)
[2018-04-15 16:12] VITALS: BP 156/67
== END 2018-04-15 16:08 | disposition home or self-care (01) ==
LOC: ED 11:41
DX: R07.89 Other chest pain (principal); I10 Essential (primary) hypertension; R00.1 Bradycardia, unspecified; F32.9 Major depressive disorder, single episode, unspecified; F41.9 Anxiety disorder, unspecified; C90.00 Multiple myeloma not having achieved remission
CPT/HCPCS: 36415; 71045; 80053; 82550; 82553; 83605; 83735; 83880; 84443; 84484; 85025; 93005; 99284; A9270-GY

== ENCOUNTER 2018-08-20 11:28 | Observation (INO) | payer MEDICARE ==
--- NOTE | 2018-08-20 11:35 | ED ---
HPI Chest Pain - HPI Summary HPI Summary: A 73 y/o F brought in by ambulance presents to ED c/o CP radiating to her back onset approx 1100. The CP is described as heaviness. Associated sx: throat discomfort, SOB, elevated BP (max: 180 systolic). Alleviating factors: EMS treatment (aspirin and nitro). - History of Current Complaint Hx Obtained From: Patient, EMS Onset/Duration: Started Hours Ago, Still Present Timing: Constant Initial Severity: Moderate Current Severity: Mild Chest Pain Radiates: Yes Chest Pain Radiates To:: Back Character: Heaviness Alleviating Factor(s): EMS Tx Associated Signs and Symptoms: Positive: Shortness of Breath, Other: - pos: throat discomfort, elevated BP - Additional Pertinent History Primary Care Physician: [id number] - Allergy/Home Medications Allergies/Adverse Reactions: Allergies Allergy/AdvReac Type Severity Reaction Status Date / Time cefepime Allergy Mild Hives Verified 08/06/18 09:47 glatiramer (copolymer 1) Allergy Unknown Verified 08/06/18 09:47 [From Copaxone] Reaction Details simvastatin Allergy Unknown Verified 08/06/18 09:47 Reaction Details ciprofloxacin AdvReac Severe Unknown Verified 08/06/18 09:47 Reaction Details Home Medications: Home Medications Benzonatate CAP* [Tessalon 100 MG CAP*] 100 mg PO TID PRN 08/20/18 [History Confirmed 08/20/18] Bifidobacterium Infantis [Align] 4 mg PO DAILY 08/20/18 [History Confirmed 08/20] Cholecalciferol TAB* [Vitamin D TAB*] 1,000 unit PO DAILY 08/20/18 [History Confirmed 08/20/18] Clarithromycin TAB* [Biaxin 500 MG TAB*] 500 mg PO DAILY 08/20/18 [History Confirmed 08/20/18] Elotuzumab* [Empliciti*] 400 mg IV MONTHLY 08/20/18 [History Confirmed 08/20/18] Immun Globg(IgG)/Malt/Iga Ov50 [Octagam 5% Vial] 20 ml IV Q2M 08/20/18 [History Confirmed 08/20/18] LORazepam TAB(*) [Ativan 0.5 MG TAB (*)] 0.5 mg PO Q8H PRN 08/20/18 [History Confirmed 08/20/18] Multivitamins/Minerals TAB* [Theragran/minerals TAB*] 1 tab PO DAILY 08/20/18 [ History Confirmed 08/20/18] Zoledronic Acid* [Zometa] 4 mg IV Q3M 08/20/18 [History Confirmed 08/20/18] amLODIPine TAB* [Norvasc 5 mg TAB*] 2.5 mg PO DAILY 08/20/18 [History Confirmed 08/20/18] PMH/Surg Hx/FS Hx/Imm Hx Previously Healthy: No Endocrine/Hematology History: Reports: Hx Anemia - from chemo medications, Other Endocrine/Hematological Disorders - multiple MYELOMA, BONE MARROW TRANSPLANT Denies: Hx Diabetes Cardiovascular History: Reports: Hx Angina, Hx Hypertension, Other Cardiovascular Problems/Disorders - BONE MARROW TRANSPLANT, CML Denies: Hx Congestive Heart Failure, Hx Coronary Artery Disease, Hx Hypercholesterolemia, Hx Myocardial Infarction, Hx Pacemaker/ICD, Hx Valvular Heart Disease Respiratory History: Reports: Hx Pneumonia, Hx Seasonal Allergies, Other Respiratory Problems/Disorders - PNEUMONIA ONE WEEK AGO Denies: Hx Asthma, Hx Chronic Obstructive Pulmonary Disease (COPD) GI History: Reports: Hx Gastroesophageal Reflux Disease History: Reports: Hx Renal Disease - DECREASED FUNCTION FROM MULTIPLE MYELOMA Denies: Hx Dialysis Musculoskeletal History: Reports: Hx Arthritis, Other Musculoskeletal History - MS Sensory History: Reports: Hx Contacts or Glasses - GLASSES Denies: Hx Hearing Aid Opthamlomology History: Reports: Hx Contacts or Glasses - GLASSES Neurological History: Reports: Other Neuro Impairments/Disorders - MS Psychiatric History: Reports: Hx Anxiety, Hx Depression - ON MEDICATION Denies: Hx Panic Disorder - Cancer History Cancer Type, Location and Year: MULTIPLE MYELOMA Hx Chemotherapy: Yes - shots on tuesdays Hx Radiation Therapy: No Hx Palliative Cancer Treatment: No - Surgical History Surgery Procedure, Year, and Place: BONE MARROW TRANSPLANT 2011;. RIGHT HAND RING FINGER - REMOVAL OF BONE SPUR;. POWER PORT. Lt 5TH TOE - ARTHROPLASTY Hx Anesthesia Reactions: No - Immunization History Date of Tetanus Vaccine: Unk Date of Influenza Vaccine: Fall 2014 - Family History Known Family History: Positive: Cardiac Disease, Other - BREAST CANCER. Mother: rheumatic heart disease (from rheumatic fever) - Social History Occupation: Retired Lives: With Family Alcohol Use: None Hx Substance Use: No Substance Use Type: Reports: None Hx Tobacco Use: No Smoking Status (MU): Never Smoked Tobacco Have You Smoked in the Last Year: No Review of Systems ENT: Other - pos: throat discomfort Positive: Chest Pain, Other - pos: elevated BP Positive: Shortness Of Breath Musculoskeletal: Other - pos: back pain radiating from chest All Other Systems Reviewed And Are Negative: Yes Physical Exam - Summary Physical Exam Summary: Appearance: The patient is well-nourished in no acute distress and in no acute pain. Skin: The skin is warm and dry and skin color reflects adequate perfusion. HEENT: The head is normocephalic and atraumatic. The pupils are equal and reactive. The conjunctivae are clear and without drainage. Nares are patent and without drainage. Mouth reveals moist mucous membranes and the throat is without erythema and exudate. The external ears are intact. The ear canals are patent and without drainage. The tympanic membranes are intact. Neck: the neck is supple with full range of motion and non-tender. There are no carotid bruits. There is no neck vein distension. Respiratory: Chest is non-tender. Lungs are clear to auscultation and breath sounds are symmetrical and equal. Cardiovascular: Heart is regular rate and rhythm. There is no murmur or rub auscultated. There is no peripheral edema and pulses are symmetrical and equal. Abdomen: The abdomen is soft and non-tender. There are normal bowel sounds heard in all four quadrants and there is no organomegaly palpated. Musculoskeletal: There is no back tenderness noted. Extremities are non-tender with full range of motion. There is good capillary refill. There is no peripheral edema or calf tenderness elicited. Neurological: Patient is alert and oriented to person, place and time. The patient has symmetrical motor strength in all four extremities. Cranial nerves are grossly intact. Deep tendon reflexes are symmetrical and equal in all four extremities. Psychiatric: The patient has an appropriate affect and does not exhibit any anxiety or depression. Triage Information Reviewed: Yes Vital Signs Reviewed: Yes Diagnostics - Laboratory Result Diagrams: 08/20/18 12:07 08/20/18 12:07 Lab Statement: Any lab studies that have been ordered have been reviewed, and results considered in the medical decision making process. - Radiology CXR Radiology Interpretation Completed By: Radiologist Summary of Radiographic Findings: IMPRESSION: #. No evidence for acute intrathoracic disease. ED provider has reviewed this report. - EKG 1138 Cardiac Rate: NL - 67 bpm EKG Rhythm: Sinus Rhythm ST Segment: Normal Ectopy: None Summary of EKG Findings: No STEMI. Re-Evaluation - Re-Evaluation 1 Re-Evaluation Time: 13:53 Change: Unchanged Comment: Discussing results and plans for admission with patient. Chest Pain Course/Dx - Course Course Of Treatment: Ms. Pepe had a sudden episode of chest pain while at work today. It got worse and worse and became very severe and she called the ambulance. He was chest pain accompanied by shortness of breath. She did not have any nausea or diaphoresis. The ambulance found her with stable vitals. They ran an EKG which showed her to be in a Mobitz 2 block. They gave her nitroglycerin and aspirin and her chest pain resolved. On arrival here she was in normal sinus rhythm and complaining only of mild residual chest pain. EKG, chest x-ray and labs were unremarkable. I spoke with Dr. Calvin of cardiology who recommended admission to the hospitalist and heparinization. I spoke with Dr. Briggs for admission. - Diagnoses Provider Diagnoses: Chest pain, Mobitz type II block - Provider Notifications Discussed Care Of Patient With: Chaka Calvin - cardio Time Discussed With Above Provider: 12:59 Instructed by Provider To: Other - Recommends admission. - Critical Care Time Critical Care Time: 30-74 min Discharge - Sign-Out/Discharge Documenting (check all that apply): Patient Departure - ADMIT Patient Received Moderate/Deep Sedation with Procedure: No - Discharge Plan Condition: Stable Disposition: ADMITTED TO [facility] Referrals: Adwoa Boyce MD [Primary Care Provider] - - Billing Disposition and Condition Condition: STABLE Disposition: Admitted to [facility] - Attestation Statements Document Initiated by Scribe: Yes Documenting Scribe: Kisha Fernandez Provider For Whom Scribe is Documenting (Include Credential): Dr. Vasquez Fournier MD Scribe Attestation: I, Kisha Fernandez, scribed for Dr. Vasquez Fournier MD on 08/20/18 at 1611. Scribe Documentation Reviewed: Yes Provider Attestation: The documentation as recorded by the Kisha bal accurately reflects the service I personally performed and the decisions made by me, Dr. Vasquez Fournier MD Status of Scribe Document: Viewed Consult Consult: 1310: Consult with Dr. Briggs, [facility] Will [facility] patient.
[2018-08-20 12:17] LABS: ABS Basophils 0.1 10^3/ul (0-0.2); ABS Eosinophils 0.4 10^3/ul (0-0.6); ABS Lymphocytes 0.5 10^3/ul (1.0-4.8); ABS Monocytes 0.4 10^3/ul (0-0.8); ABS Neutrophils 3.4 10^3/ul (1.5-7.7); Eosinophil % 8.4 %; Hematocrit 31 % (35-47); Lymphocyte % 11.3 %; Mean Corpuscular HGB Conc 33 g/dL (31-36); Mean Corpuscular Hemoglobin 31 pg (27-31); Mean Corpuscular Volume 95 fL (80-97); Nucleated Red Blood Cells % 0.2; Platelet Count 149 10^3/uL (150-450); Red Blood Count 3.22 10^6 /uL (3.70-4.87); Red Cell Distribution Width 18 % (10-15); White Blood Count 4.8 10^3/uL (3.5-10.8)
[2018-08-20 12:31] LABS: Albumin 3.8 g/dL (3.2-5.2); Albumin/Globulin Ratio 1.4 (1-3); Calcium 9.6 mg/dL (8.6-10.3); EGFR African American 38.2 (>60); EGFR Non-African American 31.5 (>60); Globulin 2.8 g/dL (2-4); INR 0.91 (0.82-1.09); Potassium 4.1 mmol/L (3.5-5.0); Total Bilirubin 1.1 mg/dL (0.2-1.0); Total Protein 6.6 g/dL (6.4-8.9)
[2018-08-20 12:32] LABS: Troponin I 0.01 ng/mL (<0.04)
[2018-08-20 13:07] LABS: TSH (Thyroid Stimulating Horm) 4.55 mcIU/mL (0.34-5.60)
[2018-08-20] MEDS ORDERED: Heparin VIAL(*) 5000 UNITS/ML VIAL (FIVE THOUSAND) IV SCH (14:00)
[2018-08-20] MEDS ORDERED: Heparin DRIP 25,000 UNITS(*) 25,000 UNITS/500 ML BAG IV SCH (14:00)
[2018-08-20] MEDS ORDERED: Nitroglycerin TAB 0.4 MG* 0.4 MG TAB SL PRN (14:32)
[2018-08-20] MEDS ORDERED: Ondansetron INJ* 2 MG/ML VIAL IV PRN (14:32)
[2018-08-20] MEDS ORDERED: Acetaminophen TAB* 325 MG PO PRN (14:32)
[2018-08-20] MEDS ORDERED: LORazepam TAB(*) 0.5 MG PO PRN (14:34)
[2018-08-20] MEDS ORDERED: Benzonatate CAP* 100 MG PO PRN (14:34)
[2018-08-20] MEDS ORDERED: NS 0.9% 1000 ML** 1,000 ML IV SCH (14:45)
--- NOTE | 2018-08-20 17:19 | HP ---
CC: Dr. Adwoa Boyce; Dr. Halie Kennedy * ADMISSION HISTORY AND PHYSICAL: DATE OF ADMISSION: 08/20/18 PRIMARY CARE PROVIDER: Dr. Adwoa Boyce. OUTPATIENT [employer] G[employer] TECHNICIAN: Dr. Halie Kennedy. MY ATTENDING WHILE IN THE HOSPITAL: Dr. Sherley Briggs.* (DICTATED BY DO MEZA) CHIEF COMPLAINT: Chest pain x4 hours. HISTORY OF PRESENT ILLNESS: Ms. Pepe is a 73-year-old female with past medical history significant for multiple myeloma, chronic kidney disease, anemia , multiple sclerosis, and hypertension, who presents to the emergency department. After this morning, she was feeling in her normal state of health except for feeling somewhat run down from a recent car trip she took, which was approximately 4 hours, arriving home yesterday when she was standing at the sink doing dishes and felt a sudden onset of substernal chest pain, which describes as sharp and radiating into her right arm and scapula. The patient denied any shortness of breath or diaphoresis, nausea or vomiting with this. The patient has had similar pain in the past, which has been ascribed to GERD. Due to this, the patient took Mylanta, which did not change the pain at all. The patient had no fevers or chills. No recent dysuria or abdominal pain. The patient has chronic diarrhea that is unchanged. The patient has no swelling in her legs. No calf pain. The patient had extra strong coffee this morning, which she said was given to her by a mix-up and that when she took her blood pressure at home it was high initially 170/100 and then over 200 systolic in the ambulance. The patient in the ambulance was said to have had several dropped beats; however, this appears to have been atrial bigemini with the rate of 74. In the emergency department, the patient's pain resolved by itself. The patient had an EKG, which was nonischemic. Due to concern for chest pain in the patient with risk factors, we are asked to evaluate the patient for admission to the hospital. PAST MEDICAL HISTORY: Multiple myeloma, chronic kidney disease, anemia, GERD, multiple sclerosis in remission, hypertension, esophageal polyps, osteoporosis. PAST SURGICAL HISTORY: Ganglion cyst removal, stem cell transplant, hammertoe surgery, bone spur removals, esophageal polyp removal, port placement. MEDICATIONS: On admission: 1. Acyclovir 400 mg p.o. twice daily. 2. Amlodipine 2.5 mg p.o. daily. 3. Aspirin 81 mg p.o. daily. 4. Benzonatate 100 mg p.o. t.i.d. as needed for cough. 4. Vitamin D3 1000 units p.o. daily. 5. Biaxin 500 mg p.o. daily. 6. Lexapro 10 mg p.o. daily. 7. Loratadine 10 mg p.o. daily. 8. Lorazepam 0.5 mg p.o. every 8 hours as needed for anxiety. 9. Multivitamin 1 tab p.o. daily. 10. Zoledronic acid infusion every 3 months. 11. Pomalyst 2 mg cap as directed. 12. Immunoglobulin infusion every 2 months. 13. Dexamethasone 3 tablets on day of infusion. 14. Alemtuzumab infusion every week. ALLERGIES: CEFEPIME, GLATIRAMER, SIMVASTATIN, CIPROFLOXACIN. FAMILY HISTORY: The patient's father had bladder cancer and at 84 out of complications of bladder cancer. The patient's mother had rheumatic fever and of old age at 86. SOCIAL HISTORY: The patient never smoked, drank, or used illicit drugs. 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 The patient is and has 3 children. Surrogate decision maker is her , Jonathan Pepe. REVIEW OF SYSTEMS: A 14-point review of systems was reviewed and is negative, except as above in the HPI. PHYSICAL EXAMINATION GENERAL: The patient is a 73-year-old female, who appears stated age and sitting comfortably in bed, in no acute distress. VITAL SIGNS: Temperature 97, pulse rate 70, respiratory rate 18, oxygen saturation 97% on room air, blood pressure 175/85. HEENT: Head: Normocephalic, atraumatic. Sclerae anicteric. No conjunctival injection. Nasal mucosa moist. Oral mucosa moist. No pharyngeal erythema, discharge, or exudate. NECK: Supple, nontender. No lymphadenopathy. No carotid bruits auscultated. No JVD. RESPIRATORY: Good air exchange bilaterally. No wheezes, rales, or rhonchi. CARDIAC: Regular rate and rhythm. No clicks, murmurs, gallops, or rubs. Pulses are 2+ in the bilateral dorsalis pedis, posterior tibialis and radial areas. ABDOMEN: Soft, nontender, nondistended. Bowel sounds present and normoactive in all 4 quadrants. No hepatosplenomegaly. No abdominal bruits auscultated. No hepatojugular reflux. GENITOURINARY: No suprapubic or CVA tenderness. NEURO: Cranial nerves II through XII intact. No focal deficits. PSYCHIATRIC: Pleasant, cooperative. SKIN: Clean, dry, and intact. No rash. DIAGNOSTIC STUDIES/LAB DATA: White blood cell count 4.0, hemoglobin 10, platelet count 149,000. INR 0.91. D-dimer 280. Sodium 139, potassium 4.0, chloride 104, carbon dioxide 26, anion gap 9, BUN 29, creatinine 1.61, glucose 101, lactic acid 2.4, calcium 9.6. Bilirubin 1.1, AST 18, ALT 42, alkaline phosphatase 97. Troponin I 0.01. BNP 99, protein 6.6, albumin 3.8, globulin 2.8. TSH 4.55. Studies: Chest x-ray read as no acute intrathoracic disease. Electrocardiogram shows normal sinus rhythm. No ST segment elevation or depression. Normal axis. No hypertrophy enlargement compared to previous exam. There are no significant changes. ASSESSMENT AND PLAN: Ms. Pepe is a 73-year-old female with past medical history significant for multiple myeloma, chronic kidney disease, multiple sclerosis remission, and hypertension, who presents to the emergency department with 4 hours of chest pain which has now resolved, admitted to the hospital for rule out myocardial infarction. 1. Chest pain. The patient's chest pain was substernal, though was sharp, did not have associated symptoms. It did radiate to her right shoulder and scapula. The patient has atypical chest pain; however, she is in the demographic for this and she does have a JR risk score of 2 given her multiple risk factors including high blood pressure, chronic inflammation, chronic kidney disease, and family history of heart disease as well as her age. The patient had initially negative troponin. Nonischemic EKG. The patient will be admitted to the hospital. Her troponins will be trended. She will have a repeat EKG in the morning as well as a nuclear medicine stress test. The patient's blood pressure is borderline high. The patient will be monitored closely and her blood pressure medications will be adjusted as needed. This case has been discussed with Dr. Chaka Calvin, Cardiology, and he is in agreement with the above plan. The patient does have a compelling history for pulmonary embolism; however, her D- dimer was 280, which is much less than her age adjusted cutoff and likely be elevated anyway given her chronic inflammation and active malignancy. The patient will be risk stratified with the hemoglobin A1c and lipid profile. 2. Multiple myeloma. The patient has infusion scheduled for tomorrow. These will be continued as scheduled if possible. The patient's anemia and chronic kidney disease are at their baselines. 3. Hypertension. As above, the patient will continue amlodipine. Adjust as needed for persistent hypertension in the hospital. 4. Chronic kidney disease at baseline. Avoid nephrotoxic medications. 5. DVT prophylaxis. The patient will have Lovenox. 6. FEN: The patient will have a heart-healthy diet without caffeine and will be given 1 L of fluids for her elevated lactic acid, which will be rechecked. 7. Disposition: The patient made observation in the hospital. TIME SPENT: Approximately 60 minutes were spent on the admission of this patient, 30 of which were spent [id number] with the patient, obtaining history and physical and discussing treatment plan. This plan was discussed with my attending, Dr. Sherley Briggs, and she is in agreement. DO MEZA [id number]/[facility] #: [id number] MTDD
[2018-08-20] MEDS: Enoxaparin(*) 40 MG/0.4 ML SYR SUBCUT SCH (18:32)
[2018-08-20] MEDS: Acyclovir* 400 MG TAB PO SCH (21:04)
[2018-08-21] MEDS ORDERED: NS 0.9% 1000 ML** 1,000 ML IV SCH
[2018-08-21] MEDS: Acyclovir* 400 MG TAB PO SCH (07:48)
[2018-08-21] MEDS: Multivitamins/Minerals TAB PO SCH ×2 (07:48→08:43)
[2018-08-21] MEDS ORDERED: Cholecalciferol TAB* 1000 UNITS PO SCH (09:00)
[2018-08-21] MEDS ORDERED: Aspirin EC TAB* 81 MG TAB.EC PO SCH (09:00)
[2018-08-21] MEDS ORDERED: amLODIPine TAB* 5 MG PO SCH (09:00)
[2018-08-21] MEDS ORDERED: BIFIDOBACTERIUM INFANTIS 4 MG PO SCH (09:00)
[2018-08-21] MEDS ORDERED: Cetirizine* 10 MG TAB PO SCH (09:00)
[2018-08-21] MEDS ORDERED: Clarithromycin TAB* 500 MG PO SCH (09:00)
[2018-08-21] MEDS ORDERED: Escitalopram * 10 MG TAB PO SCH (09:00)
--- NOTE | 2018-08-21 12:12 | PN ---
Progress Note - Progress Note Date of Service: 08/21/18 SOAP: Patient was not available for interview. Chart reviewed. Troponins negative. Stress test pending. She had a low risk stress test in December of 2017. Plan to delay treatment till tomorrow, an appointment was made for 10a on her behalf. Appointment with Dr Kennedy rescheduled to 09/03 at 12:10p. This admission does not appear related to her multiple myeloma. Oncology team is available for additional input if necessary.
[2018-08-21] MEDS ORDERED: Regadenoson* 0.4 MG/5 ML SYRINGE ONE (13:45)
[2018-08-21] MEDS: Enoxaparin(*) 40 MG/0.4 ML SYR SUBCUT SCH (14:42)
[2018-08-21 15:54] VITALS: BP 158/68
== END 2018-08-21 17:15 | disposition home or self-care (01) ==
LOC: ED 11:28 → MEDTELE 16:10
PROVIDERS: ADMIT Internal Medicine; ATTEND Internal Medicine Geriatric Medicine
DX: R07.9 Chest pain, unspecified (principal); Z79.82 Long term (current) use of aspirin; Z79.899 Other long term (current) drug therapy; Z85.79 Personal history of other malignant neoplasms of lymphoid, hematopoietic and related tissues; I12.9 Hypertensive chronic kidney disease with stage 1 through stage 4 chronic kidney disease, or unspecified chronic kidney disease; N18.9 Chronic kidney disease, unspecified; K21.9 Gastro-esophageal reflux disease without esophagitis; G35 Multiple sclerosis; K31.7 Polyp of stomach and duodenum; M81.0 Age-related osteoporosis without current pathological fracture; Z92.21 Personal history of antineoplastic chemotherapy; Z94.81 Bone marrow transplant status
CPT/HCPCS: 36415; 71045; 78452; 80053; 83605; 83880; 84443; 84484; 85025; 85379; 85610; 93005; 93017; 96360; 96361; 96372; 99224; 99231; 99285; A9270-GY; A9502; G0378; J1650; J2785

== ENCOUNTER 2018-10-08 18:48 | Observation (INO) | payer MEDICARE ==
--- NOTE | 2018-10-08 19:40 | ED ---
Shortness of Breath - HPI Summary HPI Summary: Pt is a 73 y/o F presenting to the ED with a chief complaint of shortness of breath. She states she has been feeling bad since 10/04, characterized by lightheadedness, dizziness, shortness of breath that is worse with exertion, discomfort at her upper sternum, and R-sided flank pain. She also notes she currently has an upper respiratory infection. She is currently on chemotherapy for multiple myeloma. - History of Current Complaint Chief Complaint: EDShortnessOfBreath Hx Obtained From: Patient Onset/Duration: Gradual Onset, Lasting Days, Still Present Timing: Constant Current Severity: Moderate Dyspnea At: Rest Aggravating Factors: Movement Alleviating Factors: Nothing Associated Signs & Symptoms: Dizzy - Allergy/Home Medications Allergies/Adverse Reactions: Allergies Allergy/AdvReac Type Severity Reaction Status Date / Time cefepime Allergy Mild Hives Verified 09/05/18 14:10 glatiramer (copolymer 1) Allergy Unknown Verified 09/05/18 14:10 [From Copaxone] Reaction Details simvastatin Allergy Unknown Verified 09/05/18 14:10 Reaction Details ciprofloxacin AdvReac Severe Unknown Verified 09/05/18 14:10 Reaction Details PMH/Surg Hx/FS Hx/Imm Hx Previously Healthy: Yes Endocrine/Hematology History: Reports: Hx Anemia - from chemo medications, Other Endocrine/Hematological Disorders - multiple MYELOMA, BONE MARROW TRANSPLANT Denies: Hx Diabetes Cardiovascular History: Reports: Hx Angina, Hx Hypertension, Other Cardiovascular Problems/Disorders - BONE MARROW TRANSPLANT, CML Denies: Hx Congestive Heart Failure, Hx Coronary Artery Disease, Hx Hypercholesterolemia, Hx Myocardial Infarction, Hx Pacemaker/ICD, Hx Valvular Heart Disease Respiratory History: Reports: Hx Pneumonia, Hx Seasonal Allergies, Other Respiratory Problems/Disorders - PNEUMONIA ONE WEEK AGO Denies: Hx Asthma, Hx Chronic Obstructive Pulmonary Disease (COPD) GI History: Reports: Hx Gastroesophageal Reflux Disease History: Reports: Hx Chronic Renal Failure, Hx Renal Disease - DECREASED FUNCTION FROM MULTIPLE MYELOMA Denies: Hx Dialysis Musculoskeletal History: Reports: Hx Arthritis, Other Musculoskeletal History - MS Sensory History: Reports: Hx Contacts or Glasses Denies: Hx Hearing Aid Opthamlomology History: Reports: Hx Contacts or Glasses Neurological History: Reports: Other Neuro Impairments/Disorders - MS Psychiatric History: Reports: Hx Anxiety, Hx Depression - ON MEDICATION Denies: Hx Panic Disorder - Cancer History Cancer Type, Location and Year: MULTIPLE MYELOMA Hx Chemotherapy: Yes - shots on tuesdays Hx Radiation Therapy: No Hx Palliative Cancer Treatment: No - Surgical History Surgery Procedure, Year, and Place: LEFT FEMUR JUS FROM HIP TO KNEE 2019. BONE MARROW TRANSPLANT 2011. PORT. TOE SURGERY Hx Anesthesia Reactions: No - Immunization History Date of Tetanus Vaccine: Unk Date of Influenza Vaccine: Fall 2014 Infectious Disease History: No Infectious Disease History: Denies: Traveled Outside the [place] in Last 30 Days - Family History Known Family History: Positive: Cardiac Disease, Other - BREAST CANCER. Mother: rheumatic heart disease (from rheumatic fever) - Social History Alcohol Use: None Hx Substance Use: No Substance Use Type: Reports: None Hx Tobacco Use: No Smoking Status (MU): Never Smoked Tobacco Have You Smoked in the Last Year: No Review of Systems Positive: Other - current URI Positive: Chest Pain - discomfort at upper sternum Positive: Shortness Of Breath Positive: Abdominal Pain - R sided flank Neurological: Other - lightheadedness, dizziness All Other Systems Reviewed And Are Negative: Yes Physical Exam - Summary Physical Exam Summary: Constitutional: Well-developed, Well-nourished, Alert. (-) Distressed Skin: Warm, Dry HENT: Normocephalic; Atraumatic Eyes: Conjunctiva normal Neck: Musculoskeletal ROM normal neck. (-) JVD, (-) Stridor, (-) Tracheal deviation Cardio: Rhythm regular, rate normal, Heart sounds normal; Intact distal pulses; The pedal pulses are 2+ and symmetric. Radial pulses are 2+ and symmetric. (-) Murmur Pulmonary/Chest wall: Effort normal. (-) Respiratory distress, (-) Wheezes, (-) Rales Abd: Soft, (-) tenderness, (-) Distension, (-) Guarding, (-) Rebound Musculoskeletal: (-) Edema, Mild tenderness lower lateral bilateral ribs. Lymph: (-) Cervical adenopathy Neuro: Alert, Oriented x3 Psych: Mood and affect Normal Triage Information Reviewed: Yes Vital Signs On Initial Exam: Initial Vitals Temp Pulse Resp BP Pulse Ox 98.4 F 95 28 128/68 98 10/08/18 18:52 10/08/18 18:52 10/08/18 18:52 10/08/18 18:52 10/08/18 18:52 Vital Signs Reviewed: Yes Diagnostics - Vital Signs Vital Signs Temp Pulse Resp BP Pulse Ox 10/08/18 18:52 98.4 F 95 28 128/68 98 - Laboratory Result Diagrams: 10/08/18 19:46 10/08/18 19:46 Lab Statement: Any lab studies that have been ordered have been reviewed, and results considered in the medical decision making process. - Radiology CXR Radiology Interpretation Completed By: ED Physician Summary of Radiographic Findings: No acute process, pending official radiology report. - Ultrasound US gallbladder Ultrasound Interpretation Completed By: Radiologist Summary of Ultrasound Findings: 1. No acute findings. 2. Chronic findings, as above. ED physician has reviewed this report. - EKG 1857 Cardiac Rate: NL - 85bpm EKG Rhythm: Sinus Rhythm ST Segment: Normal Ectopy: None Summary of EKG Findings: EKG at 1857 shows normal sinus rhythm at 85bpm, normal MN, normal QRS, normal QTc, normal axis, normal ST, normal T-waves, non- specific EKG. Course/Dx - Course Course Of Treatment: Pt is a 73 y/o F presenting to the ED with a chief complaint of shortness of breath. She states she has been feeling bad since 10/04, characterized by lightheadedness, dizziness, shortness of breath that is worse with exertion, discomfort at her upper sternum, and R-sided flank pain. The pt's physical exam is normal aside from mild tenderness at the lower lateral bilateral ribs. EKG at 1857 shows normal sinus rhythm at 85bpm, normal MN, normal QRS, normal QTc, normal axis, normal ST, normal T-waves, non- specific EKG. Pts lab results show RBC of 3.31, Hgb of 10.1, Hct of 31, RDW of 19, Chloride of 97, Anion Gap of 15, BUN of 35, BUN of 35, Creatinine of 2.06 , and total Bilirubin of 1.10. The pts lactic acid is 4.1. As of 2199, the pt is reporting RUQ pain. Dr. Farooq requested that the pt receive a blood gas, and I will be placing an order for a US of the gallbladder. CXR shows no acute process, pending official radiology report. Pt's lactic acid is down to 2.2. US of the gallbladder shows: 1. No acute findings. 2. Chronic findings, as above. At 0127, I spoke with Dr. Soto who recommended speaking to the hospitalist about admitting the patient. Dr. Farooq accepts the pt to [facility] with dx of dehydration and lactic acidosis. - Diagnoses Provider Diagnoses: Dehydration, Lactic acidosis - Physician Notifications Discussed Care of Patient With: Addison Farooq Time Discussed With Above Provider: 01:31 Instructed by Provider To: Admit As Inpatient Discharge - Sign-Out/Discharge Documenting (check all that apply): Patient Departure - Discharge Plan Condition: Stable Disposition: ADMITTED TO [facility] - Billing Disposition and Condition Condition: STABLE Disposition: Admitted to [facility] - Attestation Statements Document Initiated by Scribe: Yes Documenting Scribe: Kelly Garces Provider For Whom Luis Enrique is Documenting (Include Credential): Nga Montilla MD. Scribe Attestation: IKelly, scribed for Nga Farley MD. on 10/09/18 at 0518. Scribe Documentation Reviewed: Yes Provider Attestation: The documentation as recorded by the scribe, Kelly Garces accurately reflects the service I personally performed and the decisions made by me, Nga Farley MD. Status of Scribe Document: Viewed Consult Consult: 0127 - I spoke with Dr. Soto about the pt who recommended speaking with the hospitalist about possible admission. She also recommended rehydration of the patient. 0135 - I spoke with Dr. Farooq about the pt who will be accepting the pt to [facility].
[2018-10-08 20:36] LABS: ABS Eosinophils 0.6 10^3/ul (0-0.6); ABS Lymphocytes 0.8 10^3/ul (1.0-4.8); ABS Monocytes 0.8 10^3/ul (0-0.8); ABS Neutrophils 6.2 10^3/ul (1.5-7.7); Eosinophil % 7.5 %; Hematocrit 31 % (35-47); Hemoglobin 10.1 g/dL (12.0-16.0); Lymphocyte % 9.1 %; Mean Corpuscular HGB Conc 33 g/dL (31-36); Mean Corpuscular Hemoglobin 31 pg (27-31); Mean Corpuscular Volume 93 fL (80-97); Mean Platelet Volume 8.9 fL (7.4-10.4); Nucleated Red Blood Cells % 0.2; Platelet Count 222 10^3/uL (150-450); Red Blood Count 3.31 10^6 /uL (3.70-4.87); Red Cell Distribution Width 19 % (10-15); White Blood Count 8.4 10^3/uL (3.5-10.8)
[2018-10-08 20:52] LABS: Albumin 4.1 g/dL (3.2-5.2); Albumin/Globulin Ratio 1.2 (1-3); Calcium 9.7 mg/dL (8.6-10.3); EGFR African American 28.7 (>60); EGFR Non-African American 23.7 (>60); Globulin 3.3 g/dL (2-4); Potassium 3.8 mmol/L (3.5-5.0); Total Bilirubin 1.1 mg/dL (0.2-1.0); Total Protein 7.4 g/dL (6.4-8.9)
[2018-10-08 20:53] LABS: Troponin I 0.01 ng/mL (<0.04)
[2018-10-08] MEDS ORDERED: NS 0.9% IV ONE (22:15)
[2018-10-09] MEDS ORDERED: LORazepam TAB(*) 0.5 MG PO PRN (03:22)
--- NOTE | 2018-10-09 05:22 | HP ---
CC: Dr. Adwoa Boyce; Dr. Halie Norris * ADMISSION HISTORY AND PHYSICAL: DATE OF ADMISSION: 10/09/18 CHIEF COMPLAINT: Generalized weakness and dizziness. HISTORY OF PRESENT ILLNESS: This is a 73-year-old female with past medical history of multiple myeloma, chronic kidney disease stage 4, anemia, multiple sclerosis, and hypertension who came in due to nonspecific symptoms including weakness, dizziness, and shortness of breath, which has been worsening especially with ambulation and activity. She was recently admitted with similar symptoms in August and workup at that point included a V/Q scan of the lung which was low probability for any PE and nuclear cardiac stress test which did not show any fixed or reversible perfusion defects and she was subsequently discharged home. Now, she comes in again with nonspecific symptoms without any diagnostic criteria. However, the patient was noted to have lactic acidosis and dehydration. So, she is being observed for her dehydration and for resolution of her lactic acidosis. PAST MEDICAL HISTORY: As mentioned, 1. Multiple myeloma. 2. Chronic kidney disease stage 4. 3. Anemia. 4. Gastroesophageal reflux disease. 5. Multiple sclerosis, in remission. 6. Hypertension. 7. Esophageal polyps. 8. Osteoporosis. PAST SURGICAL HISTORY: 1. She has had right ring finger ganglion cyst and bone spur removal. 2. Bone marrow transplant. 3. Hammertoe surgery. 4. Esophageal polyp removal. 5. Chemo port placement. 6. Left hip femur surgery with a mel placement for osteoporosis. HOME MEDICATIONS: The patient is currently on: 1. Amlodipine 10 mg oral daily. 2. Zometa 4 mg IV q.3 months. 3. Pomalyst 2 mg oral daily. 4. Loratadine 10 mg every morning. 5. Ativan 0.5 mg q.8 hours p.r.n. 6. IVIG 20 mL IV q.2 months. 7. Escitalopram 10 mg oral daily. 8. Elotuzumab 4 mg IV monthly. 9. Clarithromycin 500 mg oral daily. 10. Vitamin D 1000 units oral daily. 11. Aspirin 81 mg oral daily. 12. Acyclovir 400 mg p.o. b.i.d. 13. Tylenol 650 mg p.r.n. ALLERGIES: The patient is documented to have allergies to CEFEPIME, GLATIRAMER , SIMVASTATIN, and CIPROFLOXACIN. FAMILY HISTORY: Father had bladder cancer, at age 84 out of complication of bladder cancer and mother had rheumatic fever and of old age at 86. SOCIAL HISTORY: The patient never smoked, drank or used alcohol. The patient is and lives with her and is a retired real estate transaction coordinator. Her is the surrogate decision maker, Jonathan Pepe. Denies any smoking, alcohol, or drug use. She does state that she consumes REVIEW OF SYSTEMS: A 14-point review of systems did not reveal any new information, other than what is stated in the HPI. PHYSICAL EXAMINATION GENERAL: The patient is awake, alert, oriented x3, did not appear to be in any acute respiratory distress. VITAL SIGNS: BP was noted to be 151/61, heart rate 80, respiratory rate 25, saturating 96% on room air, temperature documented at 98.4. HEAD AND NECK: Atraumatic, normocephalic. Bilateral pupils were reactive. Oral mucosa was moist. Neck supple. No jugular venous distention. LUNGS: Clear to auscultation bilaterally. No wheezing, rhonchi, or rales. HEART: S1, S2. Regular rate and rhythm. ABDOMEN: Soft, nontender, nondistended. EXTREMITIES: No cyanosis, clubbing, or edema. DIAGNOSTIC STUDIES/LAB DATA: Labs: CBC shows normal white count, mild anemia with hemoglobin of 10.1, hematocrit 31, platelet count was within normal limits. Comprehensive metabolic panel shows creatinine minimally worse when compared to her baseline at 2.06. Lactic acid level was elevated at 4.1; repeat lactic acid was improved to 2.2. ABG shows pH of 7.54 with PCO2 of 24, likely secondary to hyperventilation. PA and lateral chest x-ray was noted to be within normal limits. Official read by radiology is still pending. Gallbladder ultrasound shows no acute findings. EKG shows sinus rhythm at 85 beats per minute when compared to her old EKG from 2 months ago, essentially unchanged waveform. IMPRESSION: This is a 73-year-old female with multiple myeloma, chronic kidney disease, anemia, gastroesophageal reflux disease, and hypertension here due to nonspecific shortness of breath and weakness and dizziness symptoms; however, was noted to be ambulating fine and noted to have lactic acidosis, possibly due to dehydration. ASSESSMENT AND PLAN: 1. Lactic acidosis, likely secondary to dehydration. We will hydrate the patient and repeat lactic acid level and observe the patient on the floor. Once lactic acidosis resolves, we can consult with Dr. Adwoa Boyce, who can consider discharging the patient. 2. History of hypertension. Restart home medication. 3. History of multiple myeloma. Follow up with outpatient oncology. 4. Chronic kidney disease. GFR relatively stable at this point. 5. History of anemia of chronic disease. 6. DVT prophylaxis with subcu heparin. [id number]/[facility] #: [id number] MTDD
[2018-10-09] MEDS: amLODIPine TAB* 5 MG PO SCH (05:45)
[2018-10-09] MEDS: Heparin VIAL(*) 5000 UNITS/ML VIAL (FIVE THOUSAND) SUBCUT SCH ×3 (05:46→20:46)
[2018-10-09] MEDS: NS 0.9% 1000 ML** 1,000 ML IV SCH ×2 (05:47→23:49)
[2018-10-09 06:57] LABS: ABS Eosinophils 0.6 10^3/ul (0-0.6); ABS Lymphocytes 0.3 10^3/ul (1.0-4.8); ABS Monocytes 0.5 10^3/ul (0-0.8); ABS Neutrophils 3.5 10^3/ul (1.5-7.7); Eosinophil % 11.7 %; Hematocrit 25 % (35-47); Hemoglobin 8.5 g/dL (12.0-16.0); Lymphocyte % 6.2 %; Mean Corpuscular HGB Conc 34 g/dL (31-36); Mean Corpuscular Hemoglobin 31 pg (27-31); Mean Corpuscular Volume 92 fL (80-97); Mean Platelet Volume 8.4 fL (7.4-10.4); Nucleated Red Blood Cells % 0.1; Platelet Count 157 10^3/uL (150-450); Red Cell Distribution Width 19 % (10-15); White Blood Count 4.9 10^3/uL (3.5-10.8)
[2018-10-09 07:22] LABS: BUN/Creatinine Ratio 16.6 (8-20); Calcium 8.7 mg/dL (8.6-10.3); EGFR African American 32.1 (>60); EGFR Non-African American 26.5 (>60); Potassium 3.5 mmol/L (3.5-5.0)
[2018-10-09] MEDS: Escitalopram * 10 MG TAB PO SCH (09:04)
[2018-10-09] MEDS: Aspirin EC TAB* 81 MG TAB.EC PO SCH (09:04)
[2018-10-09] MEDS: Cholecalciferol TAB* 1000 UNITS PO SCH (09:04)
[2018-10-09] MEDS: Cetirizine* 10 MG TAB PO SCH (09:06)
[2018-10-09] MEDS: POMALIDOMIDE 2 MG PO SCH (09:09)
[2018-10-09 09:23] LABS: C Reactive Protein 48.9 mg/L (<8.01)
[2018-10-09 09:27] LABS: C Reactive Protein 63.4 mg/L (<8.01)
[2018-10-09] MEDS ORDERED: amLODIPine TAB* 5 MG PO ONE (14:00)
[2018-10-09] MEDS: Pantoprazole TAB * 40 MG TAB PO SCH (15:39)
[2018-10-09] MEDS ORDERED: Loperamide CAP* 2 MG PO ONE (16:00)
[2018-10-10 03:38] LABS: Urine Appearance Clear; Urine Bacteria Absent (Absent); Urine Bilirubin Negative (Negative); Urine Blood 1+ (Negative); Urine Color Straw; Urine Glucose Negative (Negative); Urine Ketones Negative (Negative); Urine Nitrite Negative (Negative); Urine Protein Negative (Negative); Urine Red Blood Cell Trace(0-2/hpf) (Absent); Urine Specific Gravity 1.009 (1.010-1.030); Urine Squamous Epithelial Cell Present (Absent); Urine Urobilinogen Negative (Negative); Urine White Blood Cell Absent (Absent)
[2018-10-10] MEDS: Heparin VIAL(*) 5000 UNITS/ML VIAL (FIVE THOUSAND) SUBCUT SCH ×3 (05:06→21:00)
[2018-10-10 05:33] LABS: ABS Basophils 0.1 10^3/ul (0-0.2); ABS Eosinophils 0.7 10^3/ul (0-0.6); ABS Lymphocytes 0.3 10^3/ul (1.0-4.8); ABS Monocytes 0.6 10^3/ul (0-0.8); ABS Neutrophils 3.5 10^3/ul (1.5-7.7); Hematocrit 27 % (35-47); Hemoglobin 9.1 g/dL (12.0-16.0); Lymphocyte % 5.6 %; Mean Corpuscular HGB Conc 34 g/dL (31-36); Mean Corpuscular Hemoglobin 31 pg (27-31); Mean Corpuscular Volume 93 fL (80-97); Nucleated Red Blood Cells % 0.2; Platelet Count 133 10^3/uL (150-450); Red Blood Count 2.93 10^6 /uL (3.70-4.87); Red Cell Distribution Width 18 % (10-15); White Blood Count 5.1 10^3/uL (3.5-10.8)
[2018-10-10 05:42] LABS: BUN/Creatinine Ratio 13.5 (8-20); C Reactive Protein 40.41 mg/L (<8.01); Calcium 8.4 mg/dL (8.6-10.3); EGFR African American 35.6 (>60); EGFR Non-African American 29.4 (>60); Potassium 3.8 mmol/L (3.5-5.0)
[2018-10-10] MEDS: Cetirizine* 10 MG TAB PO SCH (08:24)
[2018-10-10] MEDS: Aspirin EC TAB* 81 MG TAB.EC PO SCH (08:24)
[2018-10-10] MEDS: Pantoprazole TAB * 40 MG TAB PO SCH ×2 (08:24→17:17)
[2018-10-10] MEDS: Escitalopram * 10 MG TAB PO SCH (08:25)
[2018-10-10] MEDS: Cholecalciferol TAB* 1000 UNITS PO SCH (08:25)
[2018-10-10] MEDS: POMALIDOMIDE 2 MG PO SCH (09:26)
[2018-10-10] MEDS ORDERED: Dexamethasone TAB* 4 MG PO ONE (10:44)
[2018-10-10] MEDS ORDERED: Albuterol HFA INHALER* 8 gm MDI INH PRN (10:44)
--- NOTE | 2018-10-10 11:56 | PN ---
Progress Note - Progress Note Date of Service: 10/10/18 SOAP: Subjective: feels better though still tight chest. does not feel as dehydrated. frustrated that her off steroid days are associated with increased fatigue. Objective: Vital Signs Temp Pulse Resp BP Pulse Ox 97.9 F 73 18 138/65 98 10/10/18 08:15 10/10/18 08:15 10/10/18 08:15 10/10/18 08:15 10/10/18 08:15 sitting up in nad perr eomi op moist end exp wheeze s1 s2 nl soft obese nt no le edema A+O x 3 Laboratory Results - last 24 hr 10/09/18 10/10/18 10/10/18 06:36 03:18 05:13 WBC RBC Hgb Hct MCV MCH MCHC RDW Plt Count MPV Neut % (Auto) Lymph % (Auto) [place] % (Auto) Eos % (Auto) Baso % (Auto) Absolute Neuts (auto) Absolute Lymphs (auto) Absolute Monos (auto) Absolute Eos (auto) Absolute Basos (auto) Absolute Nucleated RBC Nucleated RBC % Sodium 140 Potassium 3.8 Chloride 111 Carbon Dioxide 23 Anion Gap 6 BUN 23 Creatinine 1.71 H Est GFR ( Amer) 35.6 Est GFR (Non-Af Amer) 29.4 BUN/Creatinine Ratio 13.5 Glucose 111 H Calcium 8.4 L C-Reactive Protein 40.41 H Urine Color Straw Urine Appearance Clear Urine pH 6.0 Ur Specific [place] 1.009 L Urine Protein Negative Urine Ketones Negative Urine Blood 1+ A Urine Nitrate Negative Urine Bilirubin Negative Urine Urobilinogen Negative Ur Leukocyte Esterase Negative Urine WBC (Auto) Absent Urine RBC (Auto) Trace(0-2/hpf) Ur Squamous Epith Cells Present A Urine Bacteria Absent Urine Glucose Negative Blood Type A Positive Antibody Screen Negative Crossmatch See Detail 10/10/18 05:13 WBC 5.1 RBC 2.93 L Hgb 9.1 L Hct 27 L MCV 93 MCH 31 MCHC 34 RDW 18 H Plt Count 133 L MPV 8.0 Neut % (Auto) 68.7 Lymph % (Auto) 5.6 [place] % (Auto) 11.7 Eos % (Auto) 13.0 Baso % (Auto) 1.0 Absolute Neuts (auto) 3.5 Absolute Lymphs (auto) 0.3 L Absolute Monos (auto) 0.6 Absolute Eos (auto) 0.7 H Absolute Basos (auto) 0.1 Absolute Nucleated RBC 0.0 Nucleated RBC % 0.2 Sodium Potassium Chloride Carbon Dioxide Anion Gap BUN Creatinine Est GFR ( Amer) Est GFR (Non-Af Amer) BUN/Creatinine Ratio Glucose Calcium C-Reactive Protein Urine Color Urine Appearance Urine pH Ur Specific [place] Urine Protein Urine Ketones Urine Blood Urine Nitrate Urine Bilirubin Urine Urobilinogen Ur Leukocyte Esterase Urine WBC (Auto) Urine RBC (Auto) Ur Squamous Epith Cells Urine Bacteria Urine Glucose Blood Type Antibody Screen Crossmatch Albuterol (Ventolin Hfa Inhaler*) 2 puff INH Q4H PRN PRN Reason: SOB/WHEEZING Amlodipine Besylate (Norvasc Tab*) 10 mg PO 2100 [facility] Last Admin: 10/09/18 05:45 Dose: Not Given Aspirin (Aspirin Ec Tab*) 81 mg PO DAILY [facility] Last Admin: 10/10/18 08:24 Dose: 81 mg Cetirizine HCl (Zyrtec*) 10 mg PO QAM [facility] Last Admin: 10/10/18 08:24 Dose: 10 mg Cholecalciferol (Vitamin D Tab*) 1,000 units PO DAILY [facility] Last Admin: 10/10/18 08:25 Dose: 1,000 units Escitalopram Oxalate (Lexapro *) 10 mg PO DAILY [facility] Last Admin: 10/10/18 08:25 Dose: 10 mg Heparin Sodium (Porcine) (Heparin Vial(*)) 5,000 units SUBCUT Q8HR [facility] Last Admin: 10/10/18 05:06 Dose: Not Given Heparin Sodium (Porcine) (Heparin Flush Port (Ivad)) 0 ml FLUSH DAILY [facility] Last Admin: 10/10/18 11:08 Dose: 5 ml Lorazepam (Ativan Tab(*)) 0.5 mg PO Q8H PRN PRN Reason: ANXIETY Mometasone Furoate/Formoterol Fumar (Dulera 200/5 Mdi*) 2 puff INH BID [facility] Pto: (Pomalidomide [ (Pomalyst] 2 Mg)) 2 mg PO DAILY [facility] Last Admin: 10/10/18 09:26 Dose: 2 mg Pantoprazole Sodium (Protonix Tab*) 40 mg PO BID [facility] Last Admin: 10/10/18 08:24 Dose: 40 mg Assessment: 73 yo F w advanced multiple myeloma on palliative elotuzumab/pomalyst/ dexamethasone p/w dizziness, SOB, and acute renal failure in the setting of poor PO intake and a possible viral syndrome. overall improving though notably wheezing on exam today. We discussed at length that her energy levels may be her new normal and related to both her underlying cancer and her treatment. She clearly feels better with steroids, though group home use is not a safe option. In terms of her SOB, we have ruled out PE and cardiac etiologies. She is wheezing more today and so we will add an inhaled steroid to see if this improves. She should get her 12 mg of dexamethasone PO today, and if she stays tomorrow will need 4 mg here (or alternatively can get at home)
[2018-10-10] MEDS: Mometasone/Formoter 200/5 MDI INH SCH ×2 (13:35→20:20)
[2018-10-10] MEDS: amLODIPine TAB* 5 MG PO SCH (21:00)
[2018-10-11] MEDS: Heparin VIAL(*) 5000 UNITS/ML VIAL (FIVE THOUSAND) SUBCUT SCH (05:14)
[2018-10-11 06:13] LABS: Hematocrit 31 % (35-47); Hemoglobin 10.3 g/dL (12.0-16.0); Mean Corpuscular HGB Conc 33 g/dL (31-36); Mean Corpuscular Hemoglobin 31 pg (27-31); Mean Corpuscular Volume 92 fL (80-97); Mean Platelet Volume 8.2 fL (7.4-10.4); Platelet Count 190 10^3/uL (150-450); Red Blood Count 3.38 10^6 /uL (3.70-4.87); Red Cell Distribution Width 18 % (10-15); White Blood Count 6.9 10^3/uL (3.5-10.8)
[2018-10-11 06:30] LABS: C Reactive Protein 55.53 mg/L (<8.01); Calcium 9.4 mg/dL (8.6-10.3); EGFR African American 35.6 (>60); EGFR Non-African American 29.4 (>60); Potassium 4.1 mmol/L (3.5-5.0)
[2018-10-11 06:33] LABS: ABS Lymphocytes 0.5 10^3/ul (1.0-4.8); ABS Monocytes 0.5 10^3/ul (0-0.8); ABS Neutrophils 5.9 10^3/ul (1.5-7.7); Eosinophil % 0.1 %; Lymphocyte % 7.1 %
[2018-10-11] MEDS: Escitalopram * 10 MG TAB PO SCH (08:06)
[2018-10-11] MEDS: Aspirin EC TAB* 81 MG TAB.EC PO SCH (08:06)
[2018-10-11] MEDS: Cetirizine* 10 MG TAB PO SCH (08:06)
[2018-10-11] MEDS: Pantoprazole TAB * 40 MG TAB PO SCH (08:06)
[2018-10-11] MEDS: Cholecalciferol TAB* 1000 UNITS PO SCH (08:06)
[2018-10-11] MEDS: POMALIDOMIDE 2 MG PO SCH (08:08)
[2018-10-11] MEDS: Mometasone/Formoter 200/5 MDI INH SCH (08:27)
[2018-10-11 12:07] VITALS: BP 134/57
--- NOTE | 2018-10-11 12:53 | DS ---
cc: Dr. Halie Norris* DISCHARGE SUMMARY: DATE OF ADMISSION: 10/08/18 DATE OF DISCHARGE: 10/11/18 DISCHARGE DIAGNOSES: 1. Volume depletion. 2. Shortness of breath due to bronchospasm and anemia. 3. Recent respiratory infection with bronchospasm. 4. Anemia due to chemotherapy, multiple myeloma. 5. Multiple myeloma, currently on treatment, status post bone marrow transplant. 6. Chronic kidney disease. 7. History of multiple sclerosis. 8. Hypertension. 9. Gastroesophageal reflux disease. 10. History of esophageal polyp. 11. Osteoporosis. 12. Kidney cyst. 13. Anxiety and depression. HISTORY: Adwoa Pepe is a 73-year-old woman admitted with shortness of breath. Please see the dictated admission note for details of the present illness, past medical history, family history, social and personal history, review of systems , and physical examination. LABORATORY DATA: CBC on admission: WBC 8.4, H and H 10.1/31, MCV 93, PLT 222, 000. White count went down to 4.9 on 10/09/18 and 6.9 on 10/11/18. Platelet count went down to 133 on 10/10/18, was 190 on 10/11/18. H and H started at 10.1/31, went down to 8.5/25 with hydration and then went up to 9.1/27 on after a unit of blood, and then was 10.3/31 on 10/11/18 after IV fluids were discontinued. ABGs on 10/08/18: pH 7.54, pCO2 of 24, pO2 of 82, base excess - 0.4. Chemistries on admission: Sodium 135, potassium 3.8, chloride 97, CO2 of 23, BUN and creatinine 35/2.06. Glucose 125. Total bilirubin 1.10. Rest of her comprehensive metabolic panel was within normal limits except for bilirubin of 1.10. Initial lactic acid was 4.1, went down to 2.2. CRP was 63.40, went down to 40.41, was 55.53 on 10/11/18. BNP was 79. Troponins were 0.01, 0.01, 0.02. Lipase was normal at 55. BUN and creatinine went down to 31/1.87 on 10/09 and 23/1.71 on 10/10/18 and 24/1.71 on 10/11/18. Urinalysis: Straw colored , clear, specific gravity 1.009, pH 6. Dipstick positive for 1+ blood. Micro: Wbc absent, rbc trace, squamous epithelial cells present, bacteria absent, glucose negative. Blood cultures x2 with no growth, C. diff was negative. Blood type A+. The patient received 1 unit transfused packed red blood cells on 10/09/18. IMAGING: Chest x-ray on 10/08/18 showed no acute disease. Gallbladder ultrasound on 10/08/18 showed no acute findings. Chronic findings showed a 2.6 cm cyst in the mid portion of the right kidney and a 5.5 cm hypoechoic cyst in the inferior pole. These were chronic findings. EKG on admission showed sinus rhythm, altered lead placement anteriorly, otherwise no change, essentially normal. HOSPITAL COURSE: The patient was admitted, felt to have lactic acidosis secondary to dehydration, was rehydrated. Her home medications were restarted for hypertension. She improved with volume repletion. Her IV fluids were continued through 10/10/18 when they were discontinued. She felt better. She did continue to have dyspnea and received 1 unit of packed red blood cells which seemed to help with her shortness of breath. She also was found to have bronchospasm on exam. This was treated with Dulera and albuterol and also improved. On 10/10/18, she was feeling better but still complained of chest tightness, lightheadedness. She had not yet walked much. It was at this point that the bronchodilators were started. She also was given dexamethasone as was due for her multiple myeloma treatment. On 10/11/18, she was feeling improved. Her breathing is better. She has been walking in the [place] without significant dyspnea. Her vital signs are, blood pressure 114/65, pulse 65, respirations 16, temperature 97.5, O2 sat 97% on room air. She was seen in consultation by Dr. Norris on 10/10/18. She felt that the patient had a viral syndrome, had acute renal failure due to poor p.o. intake. She felt she was improving except for the wheezing. She felt that low energy levels maybe her new normal related to cancer and treatment. Long-term chronic use of steroids everyday would not be a safe treatment. By 10/11/18, she felt up to going home. She is being discharged on usual diet, activity as tolerated, on the following medications: 1. Albuterol 2 puffs every 4 hours as needed for wheezing. 2. Amlodipine 10 mg daily. 3. Aspirin 81 mg daily. 4. Claritin 10 mg daily. 5. Vitamin D 1000 units daily. 6. Escitalopram 10 mg daily. 7. Lorazepam 0.25 mg at h.s. 8. Dulera 200/5 twice a day. 9. Pomalyst 2 mg daily, 21 days out of 28. 10. Omeprazole 20 mg twice a day. 11. Dexamethasone 12 mg weekly, followed by 4 mg for the next 2 days. 12. Albuterol 2 puffs every 4 hours p.r.n. shortness of breath. 13. Melatonin 3 mg at bedtime as needed. 14. Tylenol p.r.n. 15. Acyclovir 400 mg daily. 16. Vitamin D 1000 units daily. 17. Empliciti 400 mg monthly. She is going home in improved condition. She will follow up with me in 4 to 7 days. [id number]/[facility] #: [id number] MTDD
== END 2018-10-11 14:00 | disposition home or self-care (01) ==
LOC: ED 18:48 → MEDTELE 10-09 02:27
PROVIDERS: ADMIT Internal Medicine; ATTEND Internal Medicine Geriatric Medicine
DX: E86.9 Volume depletion, unspecified (principal); R06.02 Shortness of breath; J98.01 Acute bronchospasm; D64.9 Anemia, unspecified; Z92.21 Personal history of antineoplastic chemotherapy; C90.00 Multiple myeloma not having achieved remission; I12.9 Hypertensive chronic kidney disease with stage 1 through stage 4 chronic kidney disease, or unspecified chronic kidney disease; N18.4 Chronic kidney disease, stage 4 (severe); K21.9 Gastro-esophageal reflux disease without esophagitis; M81.0 Age-related osteoporosis without current pathological fracture; N28.1 Cyst of kidney, acquired; F41.9 Anxiety disorder, unspecified; F32.9 Major depressive disorder, single episode, unspecified; G35 Multiple sclerosis; Z79.82 Long term (current) use of aspirin; Z79.899 Other long term (current) drug therapy; R10.84 Generalized abdominal pain
CPT/HCPCS: 36415; 36430; 71046; 76705; 80048; 80053; 81003; 81015; 82803; 83605; 83690; 83880; 84484; 85025; 86140; 86850; 86900; 86901; 86922; 87040; 87493; 93005; 94640; 96360; 96361; 96372; 99232; 99284; A9270-GY; G0378; J1642; J1644; J8540; P9040

== ENCOUNTER 2018-12-09 09:30 | Inpatient (IN) | payer MEDICARE ==
[2018-12-09] MEDS ORDERED: NS 0.9% 1000 ML** 1,000 ML IV ONE ×2 (10:21→10:55)
[2018-12-09] MEDS ORDERED: Metoclopramide IV* 5 MG/ML 2 ML VIAL IV ONE (10:21)
--- NOTE | 2018-12-09 10:33 | ED ---
Abdominal Pain/Female - HPI Summary HPI Summary: 73 year old female presents to the ED by EMS with a chief complaint of N/V/D starting 1 am last night. Per , she vomited multiple times to the point that nothing came out. Has had nothing to eat or drink for the last 15 hours. Feels weak. Mild abdominal discomfort. No fever or dysuria. She took a Zofran but it did not help with symptoms. Patient has multiple myeloma, has a port, and is undergoing chemotherapy. She gets infused every 2 weeks and last changed medications 3 weeks ago. She has a history of MS. No DM, HTN, or PSHx of her abdomen. Medications reviewed. Allergies noted. - History of Current Complaint Chief Complaint: EDGeneral Stated Complaint: NAUSEA/VOMITING PER EMS Time Seen by Provider: 12/09/18 09:59 Hx Obtained From: Patient, Family/Breast Worker - ?: No Onset/Duration: Sudden Onset - 0100, Lasting Hours, Still Present Timing: Constant Severity Initially: Moderate Severity Currently: Mild Pain Intensity: 2 Pain Scale Used: 0-10 Numeric Alleviating Factor(s): Medications - Negative - Zofran Associated Signs and Symptoms: Positive: Nausea, Vomiting, Diarrhea Allergies/Adverse Reactions: Allergies Allergy/AdvReac Type Severity Reaction Status Date / Time cefepime Allergy Mild Hives Verified 12/09/18 09:45 gabapentin Allergy Unknown Verified 12/09/18 09:45 Reaction Details glatiramer (copolymer 1) Allergy Unknown Verified 12/09/18 09:45 [From Copaxone] Reaction Details mannitol Allergy Unknown Verified 12/09/18 09:45 Reaction Details simvastatin Allergy Unknown Verified 12/09/18 09:45 Reaction Details ciprofloxacin AdvReac Severe Unknown Verified 12/09/18 09:45 Reaction Details PMH/Surg Hx/FS Hx/Imm Hx Endocrine/Hematology History: Reports: Hx Anemia - from chemo medications, Other Endocrine/Hematological Disorders - multiple MYELOMA, BONE MARROW TRANSPLANT Denies: Hx Diabetes Cardiovascular History: Reports: Hx Angina, Hx Hypertension, Other Cardiovascular Problems/Disorders - BONE MARROW TRANSPLANT, CML Denies: Hx Congestive Heart Failure, Hx Coronary Artery Disease, Hx Hypercholesterolemia, Hx Myocardial Infarction, Hx Pacemaker/ICD, Hx Valvular Heart Disease Respiratory History: Reports: Hx Pneumonia, Hx Seasonal Allergies, Other Respiratory Problems/Disorders - PNEUMONIA ONE WEEK AGO Denies: Hx Asthma, Hx Chronic Obstructive Pulmonary Disease (COPD) GI History: Reports: Hx Gastroesophageal Reflux Disease History: Reports: Hx Chronic Renal Failure, Hx Renal Disease - DECREASED FUNCTION FROM MULTIPLE MYELOMA Denies: Hx Dialysis Musculoskeletal History: Reports: Hx Arthritis, Other Musculoskeletal History - MS Sensory History: Reports: Hx Cataracts, Hx Contacts or Glasses Denies: Hx Hearing Aid Opthamlomology History: Reports: Hx Cataracts, Hx Contacts or Glasses Neurological History: Reports: Other Neuro Impairments/Disorders - MS Psychiatric History: Reports: Hx Anxiety, Hx Depression - ON MEDICATION Denies: Hx Panic Disorder - Cancer History Cancer Type, Location and Year: MULTIPLE MYELOMA Hx Chemotherapy: Yes - shots on tuesdays Hx Radiation Therapy: No Hx Palliative Cancer Treatment: No - Surgical History Surgery Procedure, Year, and Place: LEFT FEMUR JUS FROM HIP TO KNEE 2018. BONE MARROW TRANSPLANT 2011. PORT. TOE SURGERY Hx Anesthesia Reactions: No - Immunization History Date of Tetanus Vaccine: Unk Date of Influenza Vaccine: Fall 2014 Infectious Disease History: No Infectious Disease History: Denies: Hx Clostridium Difficile, Hx Hepatitis, Hx Human Immunodeficiency Virus (HIV), Traveled Outside the [place] in Last 30 Days - Family History Known Family History: Positive: Cardiac Disease, Other - BREAST CANCER. Mother: rheumatic heart disease (from rheumatic fever) - Social History Alcohol Use: None Hx Substance Use: No Substance Use Type: Reports: None Hx Tobacco Use: No Smoking Status (MU): Never Smoked Tobacco Have You Smoked in the Last Year: No Review of Systems Negative: Fever Positive: Abdominal Pain, Vomiting, Diarrhea, Nausea Negative: dysuria Positive: Weakness All Other Systems Reviewed And Are Negative: Yes Physical Exam - Summary Physical Exam Summary: Constitutional: Well-developed, Well-nourished, Alert. (-) Distressed. Responding via nodding. Skin: Warm, Dry HENT: Normocephalic; Atraumatic Eyes: Conjunctiva normal Mouth: Dry Oral Mucosa. Neck: Musculoskeletal ROM normal neck. (-) JVD, (-) Stridor, (-) Tracheal deviation Cardio: Rhythm regular, rate tachycardic, Heart sounds normal; Intact distal pulses; Radial pulses are 2+ and symmetric. (-) Murmur Pulmonary/Chest wall: Effort normal. (-) Respiratory distress, (-) Wheezes, (-) Rales Abd: Soft, (-) Distension, (-) Guarding, (-) Rebound. Tenderness on palpation diffusely but especially on RUQ. Musculoskeletal: (-) Edema Lymph: (-) Cervical adenopathy Neuro: Alert, Oriented x3 Psych: Mood and affect Normal Triage Information Reviewed: Yes Vital Signs On Initial Exam: Initial Vitals Temp Pulse Resp BP Pulse Ox 98.2 F 100 19 132/71 97 12/09/18 09:37 12/09/18 09:37 12/09/18 09:37 12/09/18 09:37 12/09/18 09:37 Vital Signs Reviewed: Yes Procedures - Sedation Patient Received Moderate/Deep Sedation with Procedure: No Diagnostics - Vital Signs Vital Signs Temp Pulse Resp BP Pulse Ox 12/09/18 10:00 94 93 12/09/18 09:37 98.2 F 102 19 132/71 96 - Laboratory Result Diagrams: 12/09/18 10:30 12/09/18 10:30 Lab Statement: Any lab studies that have been ordered have been reviewed, and results considered in the medical decision making process. - Radiology CXR Radiology Interpretation Completed By: Radiologist Summary of Radiographic Findings: No evidence of active cardiopulmonary disease. An ED physician has reviewed this report. - Ultrasound Gallbladder US Ultrasound Interpretation Completed By: Radiologist Summary of Ultrasound Findings: Gallbladder US shows: 1. LIMITED STUDY NOTED. 2. NORMAL EXAMINATION OF THE GALLBLADDER. 3. HEPATIC STEATOSIS. 4. RENAL CYSTS. An ED physician has reviewed this report. Re-Evaluation - Re-Evaluation First Eval Re-Evaluation Time: 11:41 Change: Improved Comment: Patient is feeling better, talking, opening eyes, and looking around. Abdominal Pain Fem Course/Dx - Course Course Of Treatment: Patient is here with vomiting and diarrhea in the setting of cancer. Patient had right upper quadrant tenderness so and also formers show no evidence cholecystitis. Patient blood performed which showed worsening leukopenia. Patient had a WBC count of 6.04 days ago and was 1.9 today. Patient had an ANC of 1.2. Patient was given IV fluids for her elevated lactate with no improvement in her lactate. Oncology was called and the recommended admission to the hospital with no empiric Antibiotics. - Diagnoses Provider Diagnoses: Leukopenia, Multiple myeloma, Vomiting, Diarrhea - Provider Notifications Discussed Care Of Patient With: Vikram Lang - Oncology Time Discussed With Above Provider: 11:50 Instructed by Provider To: Other - Talked to Dr. Precious MD, at 1150. He adviced against antibiotics, and suggested a CXR. 1154 - Talked to MEAGAN Burt, who agreed to accept for admission. Admit/Transition Orders Completed By ED Provider: Yes - Admit Discharge ED - Sign-Out/Discharge Documenting (check all that apply): Patient Departure - Admit - Discharge Plan Condition: Stable Disposition: ADMITTED TO [facility] - Billing Disposition and Condition Condition: STABLE Disposition: Admitted to [facility] - Attestation Statements Document Initiated by Scribe: Yes Documenting Scribe: Horace Stock Provider For Whom Luis Enrique is Documenting (Include Credential): Cole Kamara MD Scribe Attestation: Horace Beverly, scribed for Cole Kamara MD on 12/09/18 at 2044. Scribe Documentation Reviewed: Yes Provider Attestation: The documentation as recorded by the scribeHorace accurately reflects the service I personally performed and the decisions made by , Cole Kamara MD Status of Scribe Document: Viewed
[2018-12-09 10:36] LABS: Hematocrit 32 % (35-47); Hemoglobin 10.4 g/dL (12.0-16.0); Mean Corpuscular HGB Conc 33 g/dL (31-36); Mean Corpuscular Hemoglobin 31 pg (27-31); Mean Corpuscular Volume 97 fL (80-97); Mean Platelet Volume 8.4 fL (7.4-10.4); Platelet Count 149 10^3/uL (150-450); Red Cell Distribution Width 20 % (10-15); White Blood Count 1.9 10^3/uL (3.5-10.8)
[2018-12-09 10:53] LABS: Albumin/Globulin Ratio 1.8 (1-3); BUN/Creatinine Ratio 18.5 (8-20); Calcium 8.8 mg/dL (8.6-10.3); EGFR African American 39.3 (>60); EGFR Non-African American 32.5 (>60); Globulin 2.2 g/dL (2-4); Total Bilirubin 0.8 mg/dL (0.2-1.0); Total Protein 6.2 g/dL (6.4-8.9)
[2018-12-09 10:56] LABS: ABS Eosinophils 0.2 10^3/ul (0-0.6); ABS Lymphocytes 0.2 10^3/ul (1.0-4.8); ABS Monocytes 0.4 10^3/ul (0-0.8); ABS Neutrophils 1.1 10^3/ul (1.5-7.7); Eosinophil % 11.3 %; Lymphocyte % 7.8 %; Nucleated Red Blood Cells % 0.7
[2018-12-09] MEDS ORDERED: Acetaminophen TAB* 325 MG PO PRN (12:33)
[2018-12-09] MEDS ORDERED: Melatonin 3 MG TAB PO PRN (12:42)
[2018-12-09] MEDS ORDERED: Prochlorperazine TAB* 10 MG PO PRN (12:42)
[2018-12-09] MEDS ORDERED: Albuterol HFA INHALER* 8 gm MDI INH PRN (12:42)
[2018-12-09] MEDS ORDERED: LORazepam TAB(*) 1 MG PO PRN (12:42)
[2018-12-09] MEDS: Ondansetron INJ* 2 MG/ML VIAL IV PRN ×2 (14:27→18:30)
[2018-12-09] MEDS: Enoxaparin(*) 40 MG/0.4 ML SYR SUBCUT SCH (14:29)
[2018-12-09] MEDS: NS 0.9% 1000 ML** 1,000 ML IV SCH (14:29)
--- NOTE | 2018-12-09 15:28 | HP ---
CC: Dr. Adwoa Boyce * ADMISSION HISTORY AND PHYSICAL: DATE OF ADMISSION: 12/09/18 PRIMARY CARE PROVIDER: Dr. Adwoa Boyce. ONCOLOGIST: Dr. Vikram Lang. ATTENDING FOR THIS ADMISSION: Dr. Vikram Lang.* (DICTATED BY CIELO HERNÁNDEZ NP) CHIEF COMPLAINT: Nausea, vomiting, and diarrhea x24 hours. HISTORY OF PRESENT ILLNESS: Ms. Pepe is a pleasant 73-year-old female patient with a history of multiple myeloma who has currently been on chemotherapy with the last treatment on Monday of this week. The patient states that she was in her usual state of health and had no issues after her last treatment; however yesterday, she began to have acute nausea and then started with vomiting and diarrhea. The patient states she has had multiple episodes over the last 24 hours. She says she thinks 6 or 7 times and then it became intractable and uncontrolled. The patient states she became progressively weak and fatigued and then came to the emergency department for evaluation. In the ED, the patient is noted to have a reduction in her white blood cell count. It should be noted that on 12/05/18, her white blood cell count was 6.0 and in the emergency department today, it has dropped to 1.9. Her absolute neutrophils today are 1.1, down from 4.5 on 12/05/18. The patient is not febrile, but she does have an elevated lactic acid, which she has had also in the past. However , given the constellation of her symptoms, the emergency department did reach out to Dr. Lang who recommends the patient be admitted to observation. She is not meeting complete criteria for neutropenic fever; however, given the tenuous nature of her presentation, it is likely that her absolute neutrophils made further drop and if she does also present with fever, she will require IV antibiotics and potentially neutropenic precautions. Hospitalists have been requested to admit the patient to observation. Dr. Lang will be seeing the patient in the morning. PAST MEDICAL HISTORY: Significant for multiple myeloma, stage 4 chronic kidney disease, anemia, GERD, hypertension, MS in remission, and osteoporosis. PAST SURGICAL HISTORY: Significant for bone marrow transplant, hammertoe surgery, removal of esophageal polyp, placement of Chemo-Port in the chest and mel insertion of the left femur. HOME MEDICATIONS: 1. Tylenol Extra Strength 1 to 2 tabs 3 times a day as needed for pain. 2. Albuterol inhaler 2 puffs q.4 hours as needed. 3. Zovirax 400 mg p.o. daily. 4. Vitamin B12 1000 mcg p.o. daily. 5. Vitamin D 1000 units p.o. daily. 6. Probiotic 4 mg p.o. daily. 7. Aspirin 81 mg p.o. daily. 8. Decadron 4 mg 3 tabs on Monday, 1 tab on Monday, and 1 tab on Monday. 9. Empliciti 400 mg IV monthly. 10. Lorazepam 1 mg p.o. q.8 hours as needed for anxiety. 11. Lexapro 10 mg p.o. daily. 12. Imodium 1 to 2 tabs p.o. q.2 hours as needed. 13. Amlodipine 10 mg p.o. at bedtime. 14. Compazine 10 mg p.o. q.6 hours as needed. 15. Pomalyst 2 mg capsules daily for 21 days. 16. Omeprazole 20 mg p.o. b.i.d. 17. Dulera 200/5 two puffs inhaled b.i.d. 18. Melatonin 3 mg at bedtime as needed. 19. Mag-Ox 1 tab p.o. daily. 20. Claritin 10 mg p.o. in the morning. ALLERGIES: The patient has allergies to CEFEPIME, SIMVASTATIN, CIPROFLOXACIN, and GLATIRAMER. FAMILY HISTORY: Father with bladder cancer, at age 84. Mother with history of rheumatic fever and at age 86. SOCIAL HISTORY: The patient denies any tobacco, alcohol, or drug use. She is and lives with her , Jonathan. He is her surrogate decision maker and healthcare proxy. CODE STATUS: She is full code. REVIEW OF SYSTEMS: A 14-point review of systems is negative except as noted in the HPI above. PHYSICAL EXAMINATION GENERAL: The patient is alert and ill-appearing, in moderate amount of distress. VITAL SIGNS: Blood pressure 154/61, heart rate 99, O2 saturation 93% on room air with a temperature of 98.2. HEENT: The patient is atraumatic, normocephalic. PERRLA, nonicteric sclerae. Oral mucosa is dry. Tongue is midline. NECK: Supple, nontender. No JVD noted. No carotid bruits auscultated. LUNGS: Clear bilaterally to auscultation with no wheezing, rhonchi, or rales. CARDIOVASCULAR: S1, S2 present. No murmurs, gallops, or rubs noted. Rate and rhythm are regular. ABDOMEN: Soft, nontender, and nondistended. Positive bowel sounds in all 4 quadrants. No organomegaly appreciated. : Deferred. MUSCULOSKELETAL: There is no clubbing, no cyanosis. She has some trace edema of the left lower extremity, nonpitting in nature. She has +2 distal pulses palpable. Gross motor and sensation are intact. NEUROLOGIC: Grossly intact with no focalities. She is somewhat fatigued and sleepy, but alert and oriented x3. LABORATORY DATA: WBCs 1.9, RBCs 3.30, hemoglobin 10.4, hematocrit 32, platelets 149. Sodium 141, potassium 5.0, chloride 106, CO2 28, anion gap 7, BUN 29, creatinine 1.57, GFR 32.5, glucose 135. Lactic acid 3.5 at 10:30, 3.8 at 11:36. Calcium 8.8. Bilirubin 0.80, AST 12, ALT 20, alk phos 71. Total protein 6.2, albumin 4.0, globulin 2.2, albumin-globulin ratio 1.8, lipase 14. IMAGING: Ultrasound of the gallbladder at 10:21 this morning shows limited study, normal examination of the gallbladder, hepatic steatosis, and some renal cysts. Chest x-ray dated today at 11:45 this morning shows PowerPoint catheter on the left side with the tip projecting over the superior vena cava, otherwise , no evidence for acute cardiopulmonary disease. Lungs are clear. IMPRESSION: Ms. Pepe is a 73-year-old female patient with history of multiple myeloma, who presents to the emergency department today with acute nausea, vomiting, and diarrhea. 1. Nausea, vomiting, diarrhea and low white blood cell count. Dr. Lang has already been made aware that the patient is in the emergency department. Dr. Lang requested the patient be admitted to observation and that her lab work be monitored. Her absolute neutrophil count right now is 1.1, so she is not meeting criteria for neutropenic fever. She is currently afebrile. She does continue to have nausea, vomiting, and diarrhea; however, we will continue her on fluids. She has already been bolused in the emergency department. Her vital signs are currently stable. I will continue her on IV Zofran as needed, also her oral Compazine as needed, loperamide as needed for her diarrhea. We will place her on clear liquid diet as tolerated and continue to reassess her fluid status. 2. History of hypertension. Her blood pressure is currently stable. She will be continued on her Norvasc. 3. History of depression. She will be continued on her Lexapro and her as- needed lorazepam. 4. History of gastroesophageal reflux disease. The patient is on omeprazole at home. This will be auto substituted with Protonix while she is here. 5. For DVT prophylaxis, the patient will be placed on Lovenox subcutaneous. Her platelets are 149 right now. We will continue to monitor platelets during this hospitalization. 6. Diet. Clear liquid as noted above. 7. Disposition. Admitted to observation. The rest of the patient's course will be determined by further diagnostics, laboratories, and any other input from other providers as warranted during this admission. TIME SPENT: Sixty-five minutes on admission plan of care, 50% of which has been spent direct [id number] with the patient on examination and determining admission and plan of care. CIELO HERNÁNDEZ NP [id number]/[facility] #: [id number] DONTE
[2018-12-09] MEDS: Mometasone/Formoter 200/5 MDI INH SCH (19:49)
[2018-12-09] MEDS: amLODIPine TAB* 5 MG PO SCH (22:27)
[2018-12-10] MEDS: NS 0.9% 1000 ML** 1,000 ML IV SCH ×2 (03:55→17:01)
[2018-12-10 07:06] LABS: ABS Eosinophils 0.2 10^3/ul (0-0.6); ABS Lymphocytes 0.2 10^3/ul (1.0-4.8); ABS Monocytes 0.4 10^3/ul (0-0.8); ABS Neutrophils 1.9 10^3/ul (1.5-7.7); Eosinophil % 5.9 %; Hematocrit 26 % (35-47); Hemoglobin 8.6 g/dL (12.0-16.0); Lymphocyte % 7.3 %; Mean Corpuscular HGB Conc 33 g/dL (31-36); Mean Corpuscular Hemoglobin 32 pg (27-31); Mean Corpuscular Volume 97 fL (80-97); Mean Platelet Volume 8.9 fL (7.4-10.4); Nucleated Red Blood Cells % 0.2; Platelet Count 139 10^3/uL (150-450); Red Blood Count 2.68 10^6 /uL (3.70-4.87); Red Cell Distribution Width 20 % (10-15); White Blood Count 2.7 10^3/uL (3.5-10.8)
[2018-12-10 07:19] LABS: Albumin 3.4 g/dL (3.2-5.2); Albumin/Globulin Ratio 1.8 (1-3); BUN/Creatinine Ratio 13.2 (8-20); Calcium 7.2 mg/dL (8.6-10.3); EGFR African American 43.4 (>60); EGFR Non-African American 35.9 (>60); Globulin 1.9 g/dL (2-4); Potassium 3.7 mmol/L (3.5-5.0); Total Bilirubin 0.9 mg/dL (0.2-1.0); Total Protein 5.3 g/dL (6.4-8.9)
[2018-12-10] MEDS: Mometasone/Formoter 200/5 MDI INH SCH ×2 (08:26→19:30)
[2018-12-10] MEDS: Acyclovir* 400 MG TAB PO SCH (10:35)
[2018-12-10] MEDS: Cholecalciferol TAB* 1000 UNITS PO SCH (10:35)
[2018-12-10] MEDS: Pantoprazole TAB * 40 MG TAB PO SCH (10:35)
[2018-12-10] MEDS: Aspirin EC TAB* 81 MG TAB.EC PO SCH (10:35)
[2018-12-10] MEDS: Cyanocobalamin TAB* 500 MCG PO SCH (10:36)
--- NOTE | 2018-12-10 10:40 | DS ---
- Discharge Summary Admission Date: 12/09/18 Discharge Date" 12/10/18 Discharge Diagnosis: 1. Uncontrolled nausea and vomiting: suspect viral enteritis, though possible S/ E of chemo and will need to monitor closely, resolved this AM and stable for d/ c home 2. Diarrhea: likely related to treatment, now improved, cont. imodium PRN 3. Multiple Myeloma: On Elotuzumab 20 mg/kg IV D1 & 15, Pomalidimide 2 mg PO D1- 21, and Ixazomib 4 mg PO D1,8,15 q28day cycle; [id number] 12/05/18 (Ixazomib recently added D8 11/27) Discharge Medications: Medication Instructions Recorded Confirmed Type Aspirin EC TAB* [Ecotrin EC Low 81 mg PO DAILY 10/02/14 12/09/18 History Dose 81 MG*] LoraTADine TAB(NF) [Claritin 10 MG 10 mg PO QAM 10/02/14 12/09/18 History TAB(NF)] Escitalopram * [Lexapro 10 mg (NF)] 10 mg PO DAILY 12/19/17 12/09/18 History Cholecalciferol TAB* [Vitamin D 1,000 unit PO DAILY 08/20/18 12/09/18 History TAB*] Elotuzumab* [Empliciti*] 400 mg IV MONTHLY 08/20/18 12/09/18 History Albuterol HFA INHALER* [Ventolin 2 puff INH Q4H PRN mdi 10/11/18 12/09/18 Rx HFA Inhaler*] Magnesium Oxide [Magnesium] 1 tab PO DAILY #30 tab 10/11/18 12/09/18 Rx Melatonin 3 mg PO BEDTIME PRN 30 Days #30 tab 10/11/18 12/09/18 Rx Mometasone/Formoter 200/5 MDI* 2 puff INH BID mdi 10/11/18 12/09/18 Rx [Dulera 200/5 MDI*] Omeprazole 20 mg PO BID 30 Days capsule. 10/11/18 12/09/18 Rx Acetaminophen [Acetaminophen Extra 1 - 2 tab PO TID PRN 11/23/18 12/09/18 History Strength] Acyclovir* [Zovirax 400 MG TAB*] 400 mg PO DAILY 11/23/18 12/09/18 History Bifidobacterium Infantis [Align] 4 mg PO DAILY 11/23/18 12/09/18 History Cyanocobalamin TAB* [Vitamin B12 1,000 mcg PO DAILY 11/23/18 12/09/18 History TAB*] Dexamethasone [Decadron] 4 mg PO SEE INSTRUCTIONS 11/23/18 12/09/18 History Lidocaine/PRILOCAINE* [Emla*] 1 applic TOPICAL ONCE PRN 11/23/18 12/09/18 History Pomalidomide [Pomalyst] 2 mg PO SEE INSTRUCTIONS 11/23/18 12/09/18 History Prochlorperazine TAB* [Compazine 10 mg PO Q6H PRN 11/23/18 12/09/18 History Tab*] amLODIPine TAB* [Norvasc 5 mg TAB*] 10 mg PO BEDTIME 11/23/18 12/09/18 History LORazepam TAB(*) [Ativan 0.5 MG 1 mg PO Q6HR PRN #0 12/10/18 12/09/18 Rx TAB (*)] Loperamide CAP* [Imodium CAP*] 2 mg PO .SEE DIRECTIONS PRN #0 cap 12/10/18 Rx Ondansetron ODT TAB* [Zofran 4 MG 4 mg SL Q4H PRN #60 tab.odt 12/10/18 Rx Odt TAB*] Disposition: Home Condition: Good Activity: As tolerated Diet: clears advancing to full liquid/soft then bland as tolerated Hospital Course: Please see admission note for full H&P, however briefly, Mrs. Pepe is well known to our service due to her diagnosis of Multiple Myeloma. She recently progressed and had Ixazomib added to her regimen with elotuzumab changed from weekly to every other week. She presented to the ER on 12/09 with severe nausea and vomiting that started as an upset stomach Sat. 12/08 after lunch. She is not aware of others who ate with her (such as her ) experiencing similar symptoms. On presentation she was lethargic and extremely weak. Labs revealed dehydration with elevated lactic acid. Following fluid resuscitation in the ER she improved dramatically, however with lethargy on presentation, admission overnight was recommended. Mrs. Pepe states she feels well this AM without nausea and no upset stomach. She has tolerated a clear diet and is motivated to go home. At home she attempted to take her PRN nausea meds, however these were not effective and on d/c we will send her with a prescription for zofran ODT tabs that she can take SL. The onset of her nausea seems unlikely to be related to treatment and may represent a viral enteritis. To note on presentation she was also mildly neutropenic and this is likely related to her treatment, but will not affect her doses at this time. Mrs. Pepe will follow- up with Dr. Norris on 12/14 as previously scheduled. All questions answered.
[2018-12-10] MEDS: Escitalopram * 10 MG TAB PO SCH (11:41)
[2018-12-10] MEDS: Enoxaparin(*) 40 MG/0.4 ML SYR SUBCUT SCH (13:26)
[2018-12-10] MEDS: Ondansetron INJ* 2 MG/ML VIAL IV PRN (13:30)
[2018-12-10] MEDS ORDERED: Ondansetron ODT TAB* 4 MG SL PRN (14:22)
[2018-12-10] MEDS ORDERED: LORazepam TAB(*) 0.5 MG PO PRN (14:22)
[2018-12-10] MEDS: Loperamide CAP* 2 MG PO PRN ×2 (14:35→15:06)
--- NOTE | 2018-12-10 17:02 | PN ---
Progress Note - Progress Note Date of Service: 12/10/18 SOAP: Subjective: []Seen this AM feeling much better and initial plan for d/c home, however unfortunately she had recurrent diarrhea this around lunch. Following four episodes of watery diarrhea contacted by RN regarding d/c and instructions to utilize imodium reinforced. D/c delayed for monitoring. Adwoa has received relief from 2 doses of imodium but is extremely tired. BMs are "just water." She is not having any abd. pain or cramping. Zofran SL effective for nausea. Medications: Acetaminophen (Tylenol Tab*) 650 mg PO Q4H PRN PRN Reason: MILD PAIN or TEMP > 100.4 Last Admin: 12/09/18 18:31 Dose: 650 mg Acyclovir (Zovirax Tab*) 400 mg PO DAILY [facility] Last Admin: 12/10/18 10:35 Dose: 400 mg Albuterol (Ventolin Hfa Inhaler*) 2 puff INH Q4H PRN PRN Reason: SOB/WHEEZING Amlodipine Besylate (Norvasc Tab*) 10 mg PO BEDTIME [facility] Last Admin: 12/09/18 22:27 Dose: 10 mg Aspirin (Aspirin Ec Tab*) 81 mg PO DAILY [facility] Last Admin: 12/10/18 10:35 Dose: 81 mg Cholecalciferol (Vitamin D Tab*) 1,000 units PO DAILY [facility] Last Admin: 12/10/18 10:35 Dose: 1,000 units Cyanocobalamin (Vitamin B12 Tab*) 1,000 mcg PO DAILY [facility] Last Admin: 12/10/18 10:36 Dose: 1,000 mcg Enoxaparin Sodium (Lovenox(*)) 40 mg SUBCUT Q24H [facility] Last Admin: 12/10/18 13:26 Dose: Not Given Escitalopram Oxalate (Lexapro *) 10 mg PO DAILY [facility] Last Admin: 12/10/18 11:41 Dose: 10 mg Heparin Sodium (Porcine) (Heparin Flush Port (Ivad)) 5 ml FLUSH DAILY [facility]; Protocol Sodium Chloride (Ns 0.9% 1000 Ml) 1,000 mls @ 75 mls/hr IV PER RATE [facility] Last Admin: 12/10/18 03:55 Dose: 75 mls/hr Loperamide HCl (Imodium Cap*) 2 mg PO .SEE DIRECTIONS PRN PRN Reason: DIARRHEA Lorazepam (Ativan Tab(*)) 1 mg PO Q8H PRN PRN Reason: ANXIETY Last Admin: 12/10/18 14:36 Dose: 1 mg Lorazepam (Ativan Tab(*)) 0.5 mg PO Q4H PRN PRN Reason: Anxiety or nausea Melatonin (Melatonin) 3 mg PO BEDTIME PRN PRN Reason: SLEEP Mometasone Furoate/Formoterol Fumar (Dulera 200/5 Mdi*) 2 puff INH BID [facility] Last Admin: 12/10/18 08:26 Dose: 2 puff Ondansetron HCl (Zofran Inj*) 4 mg IV Q4H PRN PRN Reason: NAUSEA/VOMITING Last Admin: 12/10/18 13:30 Dose: 4 mg Ondansetron HCl (Zofran Odt Tab*) 4 mg SL Q6H PRN PRN Reason: NAUSEA/VOMITING Pantoprazole Sodium (Protonix Tab*) 40 mg PO DAILY [facility] Last Admin: 12/10/18 10:35 Dose: 40 mg Prochlorperazine (Compazine Tab*) 10 mg PO Q6H PRN PRN Reason: NAUSEA Objective: [] Vital Signs Temp Pulse Resp BP Pulse Ox 97.9 F 70 12 112/44 98 12/10/18 10:56 12/10/18 10:56 12/10/18 15:06 12/10/18 10:56 12/10/18 10:56 A&O, communicating clearly HRR LS clear Hyperactive BS, abd. softly distended, non-tender, tymphany throughout Laboratory Results - last 24 hr 12/09/18 12/10/18 12/10/18 10:30 06:34 06:34 WBC 2.7 L RBC 2.68 L Hgb 8.6 L Hct 26 L MCV 97 MCH 32 H MCHC 33 RDW 20 H Plt Count 139 L MPV 8.9 Neut % (Auto) 72.4 Lymph % (Auto) 7.3 [place] % (Auto) 14.2 Eos % (Auto) 5.9 Baso % (Auto) 0.2 Absolute Neuts (auto) 1.9 Absolute Lymphs (auto) 0.2 L Absolute Monos (auto) 0.4 Absolute Eos (auto) 0.2 Absolute Basos (auto) 0.0 Absolute Nucleated RBC 0.0 Nucleated RBC % 0.2 Hem Pathologist Commnt Sodium 141 Potassium 3.7 Chloride 111 Carbon Dioxide 24 Anion Gap 6 BUN 19 Creatinine 1.44 H Est GFR ( Amer) 43.4 Est GFR (Non-Af Amer) 35.9 BUN/Creatinine Ratio 13.2 Glucose 95 Calcium 7.2 L Total Bilirubin 0.90 AST 9 L ALT 14 Alkaline Phosphatase 55 Total Protein 5.3 L Albumin 3.4 Globulin 1.9 L Albumin/Globulin Ratio 1.8 Assessment: []73 yo female with multiple myeloma admitted for uncontrolled nausea, vomiting , and now persistent diarrhea likely related to treatment and non-aggressive use of rescue meds. She has seen some relief from the use of supportive meds, however we will cont. to provide hydration and monitoring. Plan: []d/c cancelled, requires cont.'d inpt. stay for IV fluids, monitoring, and nursing support No roll for imaging at this time, however if she is not improving may want to pursue CT No evidence of infection or obstruction, repeat labs in AM Anemia dilutional with IV fluids, monitor
[2018-12-10] MEDS: amLODIPine TAB* 5 MG PO SCH (20:39)
[2018-12-11] MEDS: Loperamide CAP* 2 MG PO PRN ×2 (04:00→04:56)
[2018-12-11 05:31] LABS: ABS Eosinophils 0.4 10^3/ul (0-0.6); ABS Lymphocytes 0.4 10^3/ul (1.0-4.8); ABS Monocytes 0.6 10^3/ul (0-0.8); ABS Neutrophils 3.3 10^3/ul (1.5-7.7); Hematocrit 26 % (35-47); Hemoglobin 8.5 g/dL (12.0-16.0); Lymphocyte % 8.7 %; Mean Corpuscular HGB Conc 32 g/dL (31-36); Mean Corpuscular Hemoglobin 32 pg (27-31); Mean Corpuscular Volume 98 fL (80-97); Mean Platelet Volume 8.7 fL (7.4-10.4); Nucleated Red Blood Cells % 0.3; Platelet Count 149 10^3/uL (150-450); Red Blood Count 2.68 10^6 /uL (3.70-4.87); Red Cell Distribution Width 20 % (10-15); White Blood Count 4.7 10^3/uL (3.5-10.8)
[2018-12-11 05:47] LABS: Albumin 3.4 g/dL (3.2-5.2); Albumin/Globulin Ratio 1.6 (1-3); BUN/Creatinine Ratio 8.7 (8-20); Calcium 6.7 mg/dL (8.6-10.3); EGFR African American 45.6 (>60); EGFR Non-African American 37.7 (>60); Globulin 2.1 g/dL (2-4); Magnesium 1.6 mg/dL (1.9-2.7); Potassium 3.6 mmol/L (3.5-5.0); Total Bilirubin 0.7 mg/dL (0.2-1.0); Total Protein 5.5 g/dL (6.4-8.9)
[2018-12-11] MEDS: Mometasone/Formoter 200/5 MDI INH SCH (08:06)
[2018-12-11] MEDS: NS 0.9% 1000 ML** 1,000 ML IV SCH (08:41)
[2018-12-11] MEDS ORDERED: Magnesium Sulf 4 GM/100 ML IV* 4,000 MG/100 ML BAG IVPB ONE (08:41)
[2018-12-11] MEDS: Pantoprazole TAB * 40 MG TAB PO SCH (09:38)
[2018-12-11] MEDS: Aspirin EC TAB* 81 MG TAB.EC PO SCH (09:38)
[2018-12-11] MEDS: Cholecalciferol TAB* 1000 UNITS PO SCH (09:38)
[2018-12-11] MEDS: Escitalopram * 10 MG TAB PO SCH (09:38)
[2018-12-11] MEDS: Acyclovir* 400 MG TAB PO SCH (09:39)
[2018-12-11] MEDS: Cyanocobalamin TAB* 500 MCG PO SCH (09:39)
[2018-12-11 12:04] VITALS: BP 122/68
--- NOTE | 2018-12-11 12:11 | PN ---
Progress Note - Progress Note Date of Service: 12/11/18 SOAP: Addendum to Discharge Summary: Diarrhea was controlled overnight with imodium. No nausea or vomiting. She received 4g of IV Magnesium for a Mg of 1.6 the morning of discharge. Reported feeling weak, but generally improved. She felt ready for discharge home. No change in plan that was outlined in discharge summary from Clover Fishman NP dated 12/10/18.
== END 2018-12-11 14:25 | disposition home or self-care (01) | DRG 392 ==
LOC: ED 09:30 → MED 12:33
PROVIDERS: ADMIT Internal Medicine Hematology & Oncology; ATTEND Internal Medicine Hematology & Oncology
DX: A08.4 Viral intestinal infection, unspecified (principal); K52.1 Toxic gastroenteritis and colitis; C90.00 Multiple myeloma not having achieved remission; N18.4 Chronic kidney disease, stage 4 (severe); Z94.81 Bone marrow transplant status; T45.1X5A Adverse effect of antineoplastic and immunosuppressive drugs, initial encounter; R11.2 Nausea with vomiting, unspecified; I12.9 Hypertensive chronic kidney disease with stage 1 through stage 4 chronic kidney disease, or unspecified chronic kidney disease; D64.9 Anemia, unspecified; K21.9 Gastro-esophageal reflux disease without esophagitis; G35 Multiple sclerosis; M81.0 Age-related osteoporosis without current pathological fracture; Y92.9 Unspecified place or not applicable; Z79.1 Long term (current) use of non-steroidal anti-inflammatories (NSAID); Z79.82 Long term (current) use of aspirin; Z79.51 Long term (current) use of inhaled steroids; Z79.899 Other long term (current) drug therapy; Z88.8 Allergy status to other drugs, medicaments and biological substances; Z80.52 Family history of malignant neoplasm of bladder
CPT/HCPCS: 36415; 71045; 76705; 80053; 83605; 83690; 83735; 85025; 85060; 87040; 94640; 96361; 96374; 99233; 99239; 99284; A9270-GY; J1642; J1650; J2405; J2765; J3475; Q0164

== ENCOUNTER 2019-01-05 13:01 | Emergency (ER) | payer MEDICARE ==
--- NOTE | 2019-01-05 14:38 | ED ---
Lower Extremity - HPI Summary HPI Summary: This patient is a 73 year old F presenting to ED with a chief complaint of right leg erythema and pain near the ankle since two weeks ago. Patient was sent here by oncology to rule out DVT. Patient has been on chemotherapy for the past two weeks and has had a prolonged skin reaction. She had facial swelling, blisters in the mouth, and erythema of the bilateral legs. These all cleared up after taking Benadryl except for the right leg erythema and pain. Originally, the both legs were erythematic but now it is only the right leg. Patient reports the right leg erythema has worsened, spread a little, and the skin has hardened. The patient rates the pain 6/10 in severity. Symptoms aggravated by nothing. Symptoms alleviated by nothing. Patient denies fever. - History of Current Complaint Chief Complaint: EDExtremityLower Stated Complaint: LEG PAIN PER PT Time Seen by Provider: 01/05/19 14:27 Hx Obtained From: Patient Onset of Pain: Days - 2 weeks ago Onset/Duration: Worse Since - 2 weeks ago Severity Initially: Mild Severity Currently: Moderate Pain Intensity: 6 Pain Scale Used: 0-10 Numeric Timing: Constant, Lasting Weeks - Since 2 weeks ago Location: Is Discrete @ - R ankle Associated Signs And Symptoms: Positive: Redness, Other - Skin hardening. Negative: Fever Aggravating Factor(s): Nothing Alleviating Factor(s): Nothing - Allergies/Home Medications Allergies/Adverse Reactions: Allergies Allergy/AdvReac Type Severity Reaction Status Date / Time cefepime Allergy Mild Hives Verified 12/26/18 16:10 gabapentin Allergy Unknown Verified 12/26/18 16:10 Reaction Details glatiramer (copolymer 1) Allergy Unknown Verified 12/26/18 16:10 [From Copaxone] Reaction Details mannitol Allergy Unknown Verified 12/26/18 16:10 Reaction Details simvastatin Allergy Unknown Verified 12/26/18 16:10 Reaction Details ciprofloxacin AdvReac Severe Unknown Verified 12/26/18 16:10 Reaction Details PMH/Surg Hx/FS Hx/Imm Hx Endocrine/Hematology History: Reports: Hx Anemia - from chemo medications, Other Endocrine/Hematological Disorders - multiple MYELOMA, BONE MARROW TRANSPLANT Denies: Hx Diabetes Cardiovascular History: Reports: Hx Angina, Hx Hypertension, Other Cardiovascular Problems/Disorders - BONE MARROW TRANSPLANT, CML Denies: Hx Congestive Heart Failure, Hx Coronary Artery Disease, Hx Hypercholesterolemia, Hx Myocardial Infarction, Hx Pacemaker/ICD, Hx Valvular Heart Disease Respiratory History: Reports: Hx Pneumonia, Hx Seasonal Allergies, Other Respiratory Problems/Disorders - PNEUMONIA ONE WEEK AGO Denies: Hx Asthma, Hx Chronic Obstructive Pulmonary Disease (COPD) GI History: Reports: Hx Gastroesophageal Reflux Disease History: Reports: Hx Chronic Renal Failure, Hx Renal Disease - DECREASED FUNCTION FROM MULTIPLE MYELOMA Denies: Hx Dialysis Musculoskeletal History: Reports: Hx Arthritis, Other Musculoskeletal History - MS Sensory History: Reports: Hx Cataracts, Hx Contacts or Glasses Denies: Hx Hearing Aid Opthamlomology History: Reports: Hx Cataracts, Hx Contacts or Glasses Neurological History: Reports: Other Neuro Impairments/Disorders - MS Psychiatric History: Reports: Hx Anxiety, Hx Depression - ON MEDICATION Denies: Hx Panic Disorder - Cancer History Cancer Type, Location and Year: MULTIPLE MYELOMA Hx Chemotherapy: Yes - shots on tuesdays Hx Radiation Therapy: No Hx Palliative Cancer Treatment: No - Surgical History Surgery Procedure, Year, and Place: LEFT FEMUR JUS FROM HIP TO KNEE 2018. BONE MARROW TRANSPLANT 2011. PORT. TOE SURGERY Hx Anesthesia Reactions: No - Immunization History Date of Tetanus Vaccine: Unk Date of Influenza Vaccine: Fall 2014 Infectious Disease History: No Infectious Disease History: Denies: Hx Clostridium Difficile, Hx Hepatitis, Hx Human Immunodeficiency Virus (HIV), Hx of Known/Suspected MRSA, Traveled Outside the [place] in Last 30 Days - Family History Known Family History: Positive: Cardiac Disease, Other - BREAST CANCER. Mother: rheumatic heart disease (from rheumatic fever) - Social History Alcohol Use: None Hx Substance Use: No Substance Use Type: Reports: None Hx Tobacco Use: No Smoking Status (MU): Never Smoked Tobacco Have You Smoked in the Last Year: No Review of Systems Negative: Fever Positive: Rash - On right ankle, with pain and skin hardening All Other Systems Reviewed And Are Negative: Yes Physical Exam - Summary Physical Exam Summary: Appearance: The patient is well-nourished in no acute distress and in no acute pain. Skin: 8x8cm area of induration and erythema on the medial distal right leg, very slight edema associated with it distally. HEENT: The head is normocephalic and atraumatic. The pupils are equal and reactive. The conjunctivae are clear and without drainage. Nares are patent and without drainage. Mouth reveals moist mucous membranes, and the throat is without erythema and exudate. The external ears are intact. The ear canals are patent and without drainage. The tympanic membranes are intact. Neck: The neck is supple with full range of motion and non-tender. There are no carotid bruits. There is no neck vein distension. Respiratory: Chest is non-tender. Lungs are clear to auscultation and breath sounds are symmetrical and equal. Cardiovascular: Heart is regular rate and rhythm. There is no murmur or rub auscultated. There is no peripheral edema and pulses are symmetrical and equal. Abdomen: The abdomen is soft and non-tender. There are normal bowel sounds heard in all four quadrants and there is no organomegaly palpated. Musculoskeletal: There is no back tenderness noted. Extremities are non-tender with full range of motion. There is good capillary refill. Neurological: Patient is alert and oriented to person, place and time. The patient has symmetrical motor strength in all four extremities. Cranial nerves are grossly intact. Deep tendon reflexes are symmetrical and equal in all four extremities. Psychiatric: The patient has an appropriate affect and does not exhibit any anxiety or depression. Triage Information Reviewed: Yes Vital Signs On Initial Exam: Initial Vitals Temp Pulse Resp BP Pulse Ox 96.8 F 83 16 142/82 93 01/05/19 13:02 01/05/19 13:02 01/05/19 13:02 01/05/19 13:02 01/05/19 13:02 Vital Signs Reviewed: Yes Procedures - Sedation Patient Received Moderate/Deep Sedation with Procedure: No Diagnostics - Vital Signs Vital Signs Temp Pulse Resp BP Pulse Ox 01/05/19 13:02 96.8 F 83 16 142/82 93 - Laboratory Result Diagrams: 01/05/19 15:01 01/05/19 15:01 Lab Statement: Any lab studies that have been ordered have been reviewed, and results considered in the medical decision making process. - Ultrasound DVT Ultrasound Interpretation Completed By: Radiologist Summary of Ultrasound Findings: No evidence for RIGHT lower extremity deep venous thrombosis. Dr. Fournier has reviewed this radiology report. Re-Evaluation - Re-Evaluation First Eval Re-Evaluation Time: 17:30 Comment: Discussed results with patient. Patient will be discharged home with dx of cellulitis. Patient understands and agrees with this plan. Lower Extremity Course/Dx - Course Course Of Treatment: Ms. Pepe presented with an erythematous, swollen and painful right lower extremity. She had been seen by Dr. Norris previously for this. It seemed to be getting worse so she called the offices and was referred here. An ultrasound was obtained as well as labs. She did have a mild leukocytosis. She was nontoxic in appearance with stable vitals. There was a technical issue in obtaining a reading on her vascular test and a delay of over an hour and a half. She was very upset about this although relieved that the test was negative. I started her on doxycycline but she became more upset with the time it took to discharge her. - Diagnoses Provider Diagnoses: Cellulitis of right lower extremity Discharge ED - Sign-Out/Discharge Documenting (check all that apply): Patient Departure - Discharge - Discharge Plan Condition: Stable Disposition: HOME Prescriptions: DOXYcycline CAP(*) [DOXYcycline 100MG CAP(*)] 100 mg PO BID #20 cap Patient Education Materials: Cellulitis (ED) Referrals: Adwoa Boyce MD [Primary Care Provider] - 3 Days Halie Norris MD [Medical Doctor] - 3 Days Additional Instructions: Please follow-up with your primary care physician in 2-3 days. RETURN TO THE ER FOR WORSENING OR CHANGING SYMPTOMS. - Billing Disposition and Condition Condition: STABLE Disposition: Home - Attestation Statements Document Initiated by Scribe: Yes Documenting Scribe: Rafat Larson Provider For Whom Luis Enrique is Documenting (Include Credential): Vasquez Fournier MD Scribe Attestation: Rafat Beverly, scribed for Vasquez Fournier MD on 01/05/19 at 1846. Scribe Documentation Reviewed: Yes Provider Attestation: The documentation as recorded by the Rafat bal accurately reflects the service I personally performed and the decisions made by me, Vasquez Fournier MD Status of Scribe Document: Viewed
[2019-01-05 15:09] LABS: ABS Eosinophils 0.5 10^3/ul (0-0.6); ABS Lymphocytes 0.7 10^3/ul (1.0-4.8); ABS Monocytes 0.9 10^3/ul (0-0.8); ABS Neutrophils 9.8 10^3/ul (1.5-7.7); Eosinophil % 4.3 %; Hematocrit 33 % (35-47); Hemoglobin 10.4 g/dL (12.0-16.0); Lymphocyte % 5.5 %; Mean Corpuscular HGB Conc 32 g/dL (31-36); Mean Corpuscular Hemoglobin 30 pg (27-31); Mean Corpuscular Volume 96 fL (80-97); Mean Platelet Volume 8.8 fL (7.4-10.4); Platelet Count 115 10^3/uL (150-450); Red Blood Count 3.44 10^6 /uL (3.70-4.87); Red Cell Distribution Width 18 % (10-15); White Blood Count 11.9 10^3/uL (3.5-10.8)
[2019-01-05 15:41] LABS: Albumin/Globulin Ratio 1.4 (1-3); C Reactive Protein 23.21 mg/L (<8.01); Calcium 8.9 mg/dL (8.6-10.3); EGFR African American 34.7 (>60); EGFR Non-African American 28.7 (>60); Globulin 2.9 g/dL (2-4); Potassium 4.3 mmol/L (3.5-5.0); Total Bilirubin 0.6 mg/dL (0.2-1.0); Total Protein 6.9 g/dL (6.4-8.9)
[2019-01-05 18:04] VITALS: BP 0/0
== END 2019-01-05 18:03 | disposition home or self-care (01) ==
LOC: ED 13:01
DX: L03.115 Cellulitis of right lower limb (principal); D64.81 Anemia due to antineoplastic chemotherapy; C90.00 Multiple myeloma not having achieved remission; I12.9 Hypertensive chronic kidney disease with stage 1 through stage 4 chronic kidney disease, or unspecified chronic kidney disease; N18.9 Chronic kidney disease, unspecified; F41.9 Anxiety disorder, unspecified; F32.9 Major depressive disorder, single episode, unspecified; Z94.81 Bone marrow transplant status; Z88.1 Allergy status to other antibiotic agents; Z88.8 Allergy status to other drugs, medicaments and biological substances
CPT/HCPCS: 36415; 80053; 85025; 86140; 99282

== ENCOUNTER 2019-01-09 14:55 | Inpatient (IN) | payer MEDICARE ==
[2019-01-09] MEDS ORDERED: NS 0.9% 1000 ML** 1,000 ML IV ONE (16:16)
[2019-01-09] MEDS ORDERED: Vancomycin per Pharmacy* NOTE FOLLOW UP SCH (17:00)
[2019-01-09] MEDS ORDERED: Zosyn per Pharmacy* NOTE FOLLOW UP SCH (17:00)
[2019-01-09] MEDS ORDERED: Prochlorperazine TAB* 10 MG PO PRN (17:07)
[2019-01-09] MEDS ORDERED: traMADol TAB* 50 MG PO PRN (17:12)
[2019-01-09] MEDS ORDERED: Vancomycin(*) 1,250 MG in NS 0.9% 250 ML* 250 ML IVPB ONE (18:00)
[2019-01-09] MEDS: Enoxaparin(*) 30 MG/0.3 ML SYR SUBCUT SCH (18:13)
[2019-01-09] MEDS: NS 0.9% 1000 ML** 1,000 ML IV SCH (18:38)
[2019-01-09] MEDS: Mometasone/Formoter 200/5 MDI INH SCH (19:59)
[2019-01-09] MEDS: Piperacillin/Tazobac ADVAN(*) 3.375 GM in NS 0.9% 100 ML* 100 ML IVPB SCH (20:23)
--- NOTE | 2019-01-09 21:14 | PN ---
Sepsis Event Evaluation Date of Evaluation: 01/09/19 Time of Evaluation: 21:00 Current Stage of Sepsis: Sepsis Vital Signs - Last 12 Hours: Vital Signs - 12 hr Temp Pulse Resp BP Pulse Ox 01/09/19 20:01 70 20 98 01/09/19 17:20 97.5 F 72 16 152/86 100 Lactic Acid: 01/09/19 19:15 Lactic Acid 2.4 H* - Cardiopulmonary Exam Capillary Refill: Immediate Respiratory: Symmetrical Chest Expansion and Respiratory Effort, Clear to Auscultation Cardiovascular: NL Sounds; No Murmurs; No JVD, RRR, No Edema - Peripheral Pulse Exam Radial Pulses: Bilateral Normal - Skin Exam Skin Exam: Normal Turgor - Staci Coma Scale Best Eye Response: 4 - Spontaneous Best Motor Response: 6 - Obeys Commands Best Verbal Response: 5 - Oriented Coma Scale Total: 15 Assess/Plan/Problems-Billing Assessment: Doing well. Was able to walk in and around the room. Right ankle molding machine tender and minimal erythema. Lactic acid elevated will add a repeat for 6Hrs from last one. Continue current fluids.
[2019-01-09] MEDS: amLODIPine TAB* 5 MG PO SCH ×2 (22:19→23:14)
[2019-01-09] MEDS: Melatonin 3 MG TAB PO PRN (23:21)
[2019-01-10] MEDS ORDERED: NS 0.9% 1000 ML** 1,000 ML IV ONE (01:15)
[2019-01-10] MEDS: NS 0.9% 1000 ML** 1,000 ML IV SCH ×2 (02:10→17:45)
[2019-01-10] MEDS: Piperacillin/Tazobac ADVAN(*) 3.375 GM in NS 0.9% 100 ML* 100 ML IVPB SCH ×3 (03:51→19:28)
[2019-01-10] MEDS: Mometasone/Formoter 200/5 MDI INH SCH ×2 (07:42→19:32)
[2019-01-10] MEDS: Magnesium Oxide TAB* 400 MG PO SCH (09:25)
[2019-01-10] MEDS: Acyclovir* 400 MG TAB PO SCH (09:25)
[2019-01-10] MEDS: Cholecalciferol TAB* 1000 UNITS PO SCH (09:25)
[2019-01-10] MEDS: Aspirin EC TAB* 81 MG TAB.EC PO SCH (09:25)
[2019-01-10] MEDS: Pantoprazole TAB * 40 MG TAB PO SCH (09:25)
[2019-01-10] MEDS: Cetirizine* 10 MG TAB PO SCH (09:25)
[2019-01-10] MEDS: Cyanocobalamin TAB* 500 MCG PO SCH (09:25)
[2019-01-10] MEDS: Escitalopram * 10 MG TAB PO SCH (09:29)
[2019-01-10] MEDS: Acetaminophen TAB* 325 MG PO PRN (10:21)
--- NOTE | 2019-01-10 10:44 | PN ---
Progress Note - Progress Note Date of Service: 01/10/19 SOAP: Subjective: feels much better than yesterday, less pain and swelling in leg. Objective: Vital Signs Temp Pulse Resp BP Pulse Ox 97.5 F 76 16 130/63 93 01/10/19 03:15 01/10/19 07:44 01/10/19 07:44 01/10/19 03:15 01/10/19 07:44 lying in bed in nad perr eomi op moist cta bl s1 s2 nl soft nt +Bs much less erythema of RLE, bilateral LE edema (chronic) A+O x 3, nonfocal port clean Laboratory Results - last 24 hr 01/09/19 01/09/19 01/10/19 19:15 23:43 03:50 Lactic Acid 2.4 H* 2.8 H* 1.3 01/10/19 07:48 Lactic Acid 1.6 Acetaminophen (Tylenol Tab*) 975 mg PO Q6H PRN PRN Reason: PAIN - MILD Last Admin: 01/10/19 10:21 Dose: 975 mg Acyclovir (Zovirax Tab*) 400 mg PO DAILY [facility] Last Admin: 01/10/19 09:25 Dose: 400 mg Amlodipine Besylate (Norvasc Tab*) 7.5 mg PO BEDTIME [facility] Aspirin (Aspirin Ec Tab*) 81 mg PO DAILY [facility] Last Admin: 01/10/19 09:25 Dose: 81 mg Cetirizine HCl (Zyrtec*) 10 mg PO QAM [facility] Last Admin: 01/10/19 09:25 Dose: 10 mg Cholecalciferol (Vitamin D Tab*) 1,000 units PO DAILY [facility] Last Admin: 01/10/19 09:25 Dose: 1,000 units Cyanocobalamin (Vitamin B12 Tab*) 1,000 mcg PO DAILY [facility] Last Admin: 01/10/19 09:25 Dose: 1,000 mcg Enoxaparin Sodium (Lovenox(*)) 30 mg SUBCUT Q24H [facility] Last Admin: 01/09/19 18:13 Dose: Not Given Escitalopram Oxalate (Lexapro *) 10 mg PO DAILY [facility] Last Admin: 01/10/19 09:29 Dose: 10 mg Heparin Sodium (Porcine) (Heparin Flush Port (Ivad)) 5 ml FLUSH DAILY [facility]; Protocol Last Admin: 01/10/19 09:29 Dose: Not Given Sodium Chloride (Ns 0.9% 1000 Ml) 1,000 mls @ 75 mls/hr IV PER RATE [facility] Last Admin: 01/10/19 02:10 Dose: 75 mls/hr Piperacillin Sod/Tazobactam (Sod 3.375 gm/ Sodium Chloride) 100 mls @ 25 mls/ hr IVPB Q8H [facility] Last Admin: 01/10/19 03:51 Dose: 25 mls/hr Vancomycin HCl 1,250 mg/ (Sodium Chloride) 250 mls @ 166.667 mls/hr IVPB Q24H [facility] Loperamide HCl (Imodium Cap*) 2 mg PO .SEE DIRECTIONS PRN PRN Reason: DIARRHEA Magnesium Oxide (Magox 400 Tab*) 400 mg PO DAILY [facility] Last Admin: 01/10/19 09:25 Dose: 400 mg Melatonin (Melatonin) 3 mg PO BEDTIME PRN PRN Reason: SLEEP Last Admin: 01/09/19 23:21 Dose: 3 mg Mometasone Furoate/Formoterol Fumar (Dulera 200/5 Mdi*) 2 puff INH BID [facility] Last Admin: 01/10/19 07:42 Dose: 2 puff Pantoprazole Sodium (Protonix Tab*) 40 mg PO DAILY [facility] Last Admin: 01/10/19 09:25 Dose: 40 mg Pharmacy Consult (Vancomycin Per Pharmacy*) 1 note FOLLOW UP .VANC PER PHARMACY [facility]; Protocol Pharmacy Consult (Zosyn Per Pharmacy*) 1 note FOLLOW UP .ZOSYN PER PHARMACY [facility] Pharmacy Profile Note (Vancomycin Trough Check) 1 note FOLLOW UP 1530 ONE Stop: 01/12/19 15:31 Prochlorperazine (Compazine Tab*) 10 mg PO Q6H PRN PRN Reason: NAUSEA Tramadol HCl (Ultram*) 50 mg PO Q6H PRN PRN Reason: PAIN - MODERATE Assessment: 73 yo F w IgG kappa MM on 8th line therapy with elotuzumab/pomalyst/ninlaro/ dexamethasone, significantly immunocompromised, presenting with nonpurulent cellulitis, failing oral antiobiotics, and meeting sepsis criteria. Clinically markedly improved today. Plan: -ID consultation pending -cont vanco and zosyn for now, anticipate switching to oral regimen in next day or two -MRI (personally reviewed) without any evidence of osteomyelitis -fortunately this is her "off week" and so we do not need to hold therapy -repeat labs today full code
[2019-01-10 12:32] LABS: Albumin 3.6 g/dL (3.2-5.2); Albumin/Globulin Ratio 1.8 (1-3); BUN/Creatinine Ratio 16.3 (8-20); Calcium 7.8 mg/dL (8.6-10.3); EGFR African American 36.8 (>60); EGFR Non-African American 30.5 (>60); Potassium 4.1 mmol/L (3.5-5.0); Total Bilirubin 0.5 mg/dL (0.2-1.0); Total Protein 5.6 g/dL (6.4-8.9)
[2019-01-10 12:45] LABS: ABS Lymphocytes 0.3 10^3/ul (1.0-4.8); ABS Monocytes 0.5 10^3/ul (0-0.8); ABS Neutrophils 5.8 10^3/ul (1.5-7.7); Eosinophil % 0.7 %; Hematocrit 25 % (35-47); Hemoglobin 7.8 g/dL (12.0-16.0); Lymphocyte % 3.8 %; Mean Corpuscular HGB Conc 32 g/dL (31-36); Mean Corpuscular Hemoglobin 31 pg (27-31); Mean Corpuscular Volume 96 fL (80-97); Mean Platelet Volume 8.2 fL (7.4-10.4); Nucleated Red Blood Cells % 0.1; Platelet Count 87 10^3/uL (150-450); Red Blood Count 2.54 10^6 /uL (3.70-4.87); Red Cell Distribution Width 18 % (10-15); White Blood Count 6.6 10^3/uL (3.5-10.8)
[2019-01-10] MEDS: Enoxaparin(*) 30 MG/0.3 ML SYR SUBCUT SCH (16:00)
[2019-01-10] MEDS ORDERED: Vancomycin(*) 1,250 MG in NS 0.9% 250 ML* 250 ML IVPB SCH (16:00)
[2019-01-10] MEDS: amLODIPine TAB* 5 MG PO SCH (19:34)
[2019-01-10] MEDS: Melatonin 3 MG TAB PO PRN (22:31)
[2019-01-11] MEDS: Piperacillin/Tazobac ADVAN(*) 3.375 GM in NS 0.9% 100 ML* 100 ML IVPB SCH ×3 (03:26→19:53)
[2019-01-11 05:46] LABS: ABS Eosinophils 0.3 10^3/ul (0-0.6); ABS Lymphocytes 0.3 10^3/ul (1.0-4.8); ABS Monocytes 0.5 10^3/ul (0-0.8); ABS Neutrophils 3.6 10^3/ul (1.5-7.7); Eosinophil % 5.6 %; Hematocrit 25 % (35-47); Hemoglobin 8.2 g/dL (12.0-16.0); Mean Corpuscular HGB Conc 32 g/dL (31-36); Mean Corpuscular Hemoglobin 31 pg (27-31); Mean Corpuscular Volume 96 fL (80-97); Mean Platelet Volume 8.1 fL (7.4-10.4); Nucleated Red Blood Cells % 0.1; Platelet Count 84 10^3/uL (150-450); Red Blood Count 2.64 10^6 /uL (3.70-4.87); Red Cell Distribution Width 19 % (10-15); White Blood Count 4.7 10^3/uL (3.5-10.8)
[2019-01-11 05:54] LABS: Albumin 3.7 g/dL (3.2-5.2); Albumin/Globulin Ratio 1.7 (1-3); BUN/Creatinine Ratio 12.7 (8-20); EGFR Non-African American 32.2 (>60); Globulin 2.2 g/dL (2-4); Potassium 4.3 mmol/L (3.5-5.0); Total Bilirubin 0.5 mg/dL (0.2-1.0); Total Protein 5.9 g/dL (6.4-8.9)
[2019-01-11] MEDS: Mometasone/Formoter 200/5 MDI INH SCH ×2 (07:38→19:45)
[2019-01-11] MEDS: Escitalopram * 10 MG TAB PO SCH (08:01)
[2019-01-11] MEDS: Cyanocobalamin TAB* 500 MCG PO SCH (08:02)
[2019-01-11] MEDS: Acyclovir* 400 MG TAB PO SCH (08:02)
[2019-01-11] MEDS: Aspirin EC TAB* 81 MG TAB.EC PO SCH (08:02)
[2019-01-11] MEDS: Pantoprazole TAB * 40 MG TAB PO SCH (08:02)
[2019-01-11] MEDS: Cetirizine* 10 MG TAB PO SCH (08:02)
[2019-01-11] MEDS: Cholecalciferol TAB* 1000 UNITS PO SCH (08:02)
[2019-01-11] MEDS: Magnesium Oxide TAB* 400 MG PO SCH (08:03)
--- NOTE | 2019-01-11 13:31 | CONS ---
CONSULTATION REPORT: DATE OF CONSULT: 01/11/19 PRIMARY CARE PROVIDER: Dr. Adwoa Boyce. PROVIDER REQUESTING CONSULTATION: Corie Fishman NP. CONSULTING SERVICE: Infectious Disease. CARE PROVIDER: Wojciech Sellers NP. ATTENDING PROVIDER: Dr. Hector Valdez.* (DICTATED BY WOJCIECH SELLERS NP) REASON FOR CONSULTATION: Cellulitis in an immunocompromised patient due to chemotherapy. IMPRESSION: 1. Nonpurulent cellulitis of the right lower extremity. She underwent an MRI showing no osteomyelitis with soft tissue swelling of the distal lower extremities bilateral, no acute bone marrow edema. Blood cultures drawn in the oncology office prior to admission with no growth to date. She feels that the erythema and edema are improving. Previously on Doxycycline outpatient. She has been on vancomycin and Zosyn during her hospitalization. Her leukocytosis has resolved. She is afebrile. She continues to have pain in this leg but overall is improving 2. IgG kappa multiple myeloma, currently receiving chemotherapy. 3. Chronic kidney disease 4. CEFEPIME allergy, causes hives and CIPRO not compatible with medications she is currently taking. PLAN: Recommend discontinuing the vancomycin and continue Zosyn for another day. Discharge the patient on Augmentin for 1 week. She can follow up outpatient with ID outpatient next week. HISTORY OF PRESENT ILLNESS: Ms. Pepe is a 73-year-old female with past medical history significant for multiple myeloma, currently receiving chemotherapy; multiple sclerosis; chronic kidney disease stage 4; anemia; GERD; hypertension; and osteoporosis. She states that approximately 1 month ago she developed erythema in the right medial lower leg with pain. She states that about the same time she had had a reaction to one of her chemotherapy drugs causing facial swelling. She was seen several times by providers who were monitoring bilateral legs, which both had a noe appearance and edema. On 04/24, the pain worsened and she had edema greater than the left leg in the right leg. She was seen in the emergency room on 01/05/19, had a Doppler ultrasound showing no DVT and was started on doxycycline for suspected cellulitis. She was discharged home, continued to have erythema to the right medial lower leg with no fevers or chills, significant pain. She discussed this with a doctor friend who recommended she discuss with her provider about getting admitted for IV antibiotics. She was seen in the oncology clinic on 08/[address] Norris who recommended that she be admitted for sepsis secondary to cellulitis. She had blood cultures drawn with no growth to date. Her outpatient labs showed leukocytosis of 12.6, CRP of 49.77. She was admitted to the hospital receiving IV fluids, vancomycin, and Zosyn, which she has received for the last 3 days. She feels that overall the erythema of the right leg is improving in addition to the edema. She continued to have pain, pain with ambulation. She had an MRI showing no osteomyelitis. Her leukocytosis has resolved. She has been afebrile. She denies nausea, vomiting, diarrhea with the exception of 2 loose stools this morning. She states she has baseline edema on the left leg due to a history of IM rodding. Denies any urinary symptoms. She has an occasional nonproductive cough that started over the last couple of days. PAST MEDICAL HISTORY: 1. IgG kappa multiple myeloma, on 8th line therapy. 2. Multiple sclerosis. 3. Chronic kidney disease stage 4. 4. Anemia. 5. GERD. 6. Hypertension. 7. Osteoporoses. PAST SURGICAL HISTORY: 1. Status post bone marrow transplant. 2. Status post hammertoe surgery. 3. Excision of an esophageal polyp. 4. Status post left femur rodding. 5. Insertion of a PowerPort MEDICATIONS: Home medications. 1. Amlodipine 10 mg by mouth daily. 2. Compazine 10 mg by mouth every 6 hours as needed for nausea. 3. Pomalyst 2 mg by mouth. 4. Omeprazole 20 mg by mouth daily. 5. Dulera 200/5 MDI 2 puffs inhalation twice daily. 6. Melatonin 3 mg by mouth at bedtime as needed for sleep. 7. Magnesium oxide 1 tablet by mouth daily. 8. Claritin 10 mg by mouth every morning. 9. Imodium 2 mg by mouth as needed for diarrhea. 10. Emla cream apply topical as needed for port access. 11. Lorazepam 1 mg by mouth every 6 hours as needed for anxiety. 12. Lexapro 10 mg by mouth daily. 13. Empliciti 400 mg IV monthly. 14. Dexamethasone 4 mg by mouth with 3 tablets on Monday, 1 tablet on Monday, and 1 tablet on Monday weekly. 15. Doxycycline 100 mg by mouth twice daily. 16. Vitamin B12 1000 mcg by mouth daily. 17. Vitamin D 1000 units by mouth daily. 18. Aspirin 81 mg by mouth daily. 19. Acyclovir 400 mg by mouth daily. 20. Acetaminophen 500 to 1000 mg by mouth 3 times daily as needed for pain. Hospital medications: 1. Acetaminophen 975 mg by mouth every 6 hours as needed for pain. 2. Acyclovir 400 mg by mouth daily. 3. Amlodipine 7.5 mg by mouth daily at bedtime. 4. Aspirin 81 mg by mouth daily. 5. Zyrtec 10 mg by mouth daily. 6. Vitamin D 1000 units by mouth daily. 7. Vitamin B12 1000 mcg by mouth daily. 8. Lovenox 30 mg by mouth daily. 9. Lexapro 10 mg by mouth daily. 10. Heparin sodium 5 mL flush daily. 11. Imodium 4 mg by mouth after the first loose stool followed by 2 mg after each subsequent stool, maximum daily dose of 16 mg. 12. Magnesium oxide 400 mg by mouth daily. 13. Melatonin 3 mg by mouth daily as needed for sleep. 14. Dulera 200/5 MDI 2 puffs inhalation twice daily. 15. Pantoprazole 40 mg by mouth daily. 16. Zosyn 3.375 g IV every 8 hours. 17. Compazine 10 mg by mouth every 6 hours as needed for nausea. 18. Tramadol 50 mg by mouth daily. 19. Vancomycin 250 mg IV daily. ALLERGIES: 1. CEFEPIME causes hives. 2. GABAPENTIN. 3. GLATIRAMER. 4. MELATONIN. 5. SIMVASTATIN. 6. CIPRO, the patient is unsure of the reaction but feels that it is contraindicated with the current medications. FAMILY HISTORY: Denies family history of recurrent resistant infections. Mother with a history of rheumatic fever, passed at age 84. Father with a history of bladder cancer, passed at age 84. SOCIAL HISTORY: Denies tobacco, alcohol, or recreational drug use. REVIEW OF SYSTEMS: I performed a 10-point review of systems. All the pertinent positives and negatives are mentioned in the history of present illness. The remaining review of systems are negative. PHYSICAL EXAM: Vital Signs: Temperature 98.3, heart rate 80, respiratory rate 18, O2 sat 97% on room air, blood pressure 151/54. General Appearance: Alert, appears to be in no acute distress, sitting up on the side of the bed. Head normocephalic, atraumatic. ENT: Extraocular movements are intact. No subconjunctival hemorrhage. Moist mucous membranes. Neurological: Alert and oriented x4. Cranial nerves II through XII are grossly intact. Cardiovascular: Regular rate and rhythm. S1, S2 present. No murmurs, rubs, or gallops heard. Respiratory: The lungs are clear to auscultation bilateral with the exception of some scattered expiratory wheezing. Abdomen: Bowel sounds present. Abdomen soft, nontender, nondistended. Extremities: There is a trace left lower extremity edema. 1+ pitting right lower extremity edema. Musculoskeletal: No clubbing or cyanosis noted. The patient exhibits good strength in all extremities. Is able to dorsi and plantarflex her right ankle. No tenderness with palpation of that area. She does have tenderness with palpation to an area of dark discoloration to the medial aspect of her right lower leg. Psychological: Calm and cooperative. Skin: No rashes are seen on the lower. She has some dusky areas of discoloration on the left lower extremity. On the right lower medial extremity, she has a dark area of discoloration, slight surrounding erythema. She has a PowerPort to her left upper chest with the site benign DIAGNOSTIC STUDIES/LAB DATA: Sodium 144, potassium 4.3, chloride 115, CO2 22, BUN 20, creatinine 1.58, glucose is 87. White blood cell count 4.7, hemoglobin 8.2, hematocrit 25, platelet count 84. Please see impression and recommendations outlined above. Recommendations have been discussed with DO Lovelace. Thank you for asking us to see Ms. Pepe in consultation. Case has been discussed with my attending Dr. Hector Valdez who agrees with the plan of care as above. Reviewed by WOJCIECH SELLERS, EDYTA-Bobbi 01/14/191909 [id number]/[facility] #: [id number] DONTE
--- NOTE | 2019-01-11 17:20 | PN ---
Progress Note - Progress Note Date of Service: 01/11/19 SOAP: Subjective: [She had trouble sleeping last night. She was up urinating freq and developed a cough. She is quite fatigued today. Leg feels slightly better.] Objective: [ Vital Signs: Temp Pulse Resp BP Pulse Ox 98.5 F 70 16 155/64 93 01/11/19 15:30 01/11/19 15:30 01/11/19 15:30 01/11/19 15:30 01/11/19 15:30 Acetaminophen (Tylenol Tab*) 975 mg PO Q6H PRN PRN Reason: PAIN - MILD Last Admin: 01/10/19 10:21 Dose: 975 mg Acyclovir (Zovirax Tab*) 400 mg PO DAILY [facility] Last Admin: 01/11/19 08:02 Dose: 400 mg Amlodipine Besylate (Norvasc Tab*) 7.5 mg PO BEDTIME [facility] Last Admin: 01/10/19 19:34 Dose: 7.5 mg Aspirin (Aspirin Ec Tab*) 81 mg PO DAILY [facility] Last Admin: 01/11/19 08:02 Dose: 81 mg Cetirizine HCl (Zyrtec*) 10 mg PO QAM [facility] Last Admin: 01/11/19 08:02 Dose: 10 mg Cholecalciferol (Vitamin D Tab*) 1,000 units PO DAILY [facility] Last Admin: 01/11/19 08:02 Dose: 1,000 units Cyanocobalamin (Vitamin B12 Tab*) 1,000 mcg PO DAILY [facility] Last Admin: 01/11/19 08:02 Dose: 1,000 mcg Enoxaparin Sodium (Lovenox(*)) 30 mg SUBCUT Q24H [facility] Last Admin: 01/10/19 16:00 Dose: Not Given Escitalopram Oxalate (Lexapro *) 10 mg PO DAILY [facility] Last Admin: 01/11/19 08:01 Dose: 10 mg Heparin Sodium (Porcine) (Heparin Flush Port (Ivad)) 5 ml FLUSH DAILY [facility]; Protocol Last Admin: 01/11/19 08:03 Dose: Not Given Piperacillin Sod/Tazobactam (Sod 3.375 gm/ Sodium Chloride) 100 mls @ 25 mls/ hr IVPB Q8H [facility] Last Admin: 01/11/19 11:40 Dose: 25 mls/hr Loperamide HCl (Imodium Cap*) 2 mg PO .SEE DIRECTIONS PRN PRN Reason: DIARRHEA Magnesium Oxide (Magox 400 Tab*) 400 mg PO DAILY [facility] Last Admin: 01/11/19 08:03 Dose: 400 mg Melatonin (Melatonin) 3 mg PO BEDTIME PRN PRN Reason: SLEEP Last Admin: 01/10/19 22:31 Dose: 3 mg Mometasone Furoate/Formoterol Fumar (Dulera 200/5 Mdi*) 2 puff INH BID [facility] Last Admin: 01/11/19 07:38 Dose: 2 puff Pantoprazole Sodium (Protonix Tab*) 40 mg PO DAILY [facility] Last Admin: 01/11/19 08:02 Dose: 40 mg Pharmacy Consult (Zosyn Per Pharmacy*) 1 note FOLLOW UP .ZOSYN PER PHARMACY [facility] Prochlorperazine (Compazine Tab*) 10 mg PO Q6H PRN PRN Reason: NAUSEA Tramadol HCl (Ultram*) 50 mg PO Q6H PRN PRN Reason: PAIN - MODERATE Last Admin: 01/11/19 05:33 Dose: 50 mg Laboratory Results - last 24 hr 01/10/19 01/11/19 01/11/19 12:00 05:26 05:26 WBC 4.7 RBC 2.64 L Hgb 8.2 L Hct 25 L MCV 96 MCH 31 MCHC 32 RDW 19 H Plt Count 84 L MPV 8.1 Neut % (Auto) 76.8 Lymph % (Auto) 7.0 Gilmer % (Auto) 10.2 Eos % (Auto) 5.6 Baso % (Auto) 0.4 Absolute Neuts (auto) 3.6 Absolute Lymphs (auto) 0.3 L Absolute Monos (auto) 0.5 Absolute Eos (auto) 0.3 Absolute Basos (auto) 0.0 Absolute Nucleated RBC 0.0 Nucleated RBC % 0.1 Hem Pathologist Commnt Sodium 144 Potassium 4.3 Chloride 115 H Carbon Dioxide 22 Anion Gap 7 BUN 20 Creatinine 1.58 H Est GFR ( Amer) 39.0 Est GFR (Non-Af Amer) 32.2 BUN/Creatinine Ratio 12.7 Glucose 87 Calcium 8.0 L Total Bilirubin 0.50 AST 15 ALT 27 Alkaline Phosphatase 64 Total Protein 5.9 L Albumin 3.7 Globulin 2.2 Albumin/Globulin Ratio 1.7 Exam: Gen: mildly ill appearing 73 yo female in NAD HEENT: MMM CV: RRR, no m/r/g Resp: scant wheeze at R lung base Abd: soft, nonTTP Ext: hyperpigmentation of the medial aspect of both legs, no erythema noted, mild edema Assessment: 73 yo F w 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 She has improved with vancomycin and zosyn. Plan: 1. Cellulitis - vancomycin stopped and cont Zosyn per ID recommendation - plan for Augmentin at dc 2. Cough - CXR completed and read a possible bilateral PNA - IVF stopped as mild pulm edema may be contributing to her cough - Zosyn and Augmentin would be appropriate coverage for most respiratory pathogens as well 3. MM - currently in an off week for oral medications - consider holding oral therapy until abx completed Dispo: anticipate likely dc home tomorrow with po abx
[2019-01-11] MEDS: Enoxaparin(*) 30 MG/0.3 ML SYR SUBCUT SCH (17:55)
[2019-01-11] MEDS: amLODIPine TAB* 5 MG PO SCH (19:50)
[2019-01-11] MEDS: Loperamide CAP* 2 MG PO PRN (19:52)
[2019-01-11] MEDS: Acetaminophen TAB* 325 MG PO PRN (20:04)
[2019-01-11] MEDS ORDERED: Metoprolol Tartrate IV* 1 MG/ML 5 ML VIAL ONE (22:00)
[2019-01-11] MEDS ORDERED: Metoprolol Tartrate IV* 1 MG/ML 5 ML VIAL IV ONE (22:00)
[2019-01-12] MEDS: Piperacillin/Tazobac ADVAN(*) 3.375 GM in NS 0.9% 100 ML* 100 ML IVPB SCH ×4 (03:52→22:05)
[2019-01-12 04:32] LABS: BUN/Creatinine Ratio 11.3 (8-20); Calcium 8.1 mg/dL (8.6-10.3); EGFR African American 38.4 (>60); EGFR Non-African American 31.8 (>60); Magnesium 1.6 mg/dL (1.9-2.7)
[2019-01-12 05:05] LABS: TSH (Thyroid Stimulating Horm) 8.08 mcIU/mL (0.34-5.60)
[2019-01-12] MEDS: Mometasone/Formoter 200/5 MDI INH SCH ×2 (08:46→19:46)
[2019-01-12] MEDS ORDERED: Magnesium Sulfate IV* 3 GM in NS 0.9% 100 ML* 100 ML IVPB ONE (10:22)
[2019-01-12] MEDS: Acyclovir* 400 MG TAB PO SCH (10:42)
[2019-01-12] MEDS: Cyanocobalamin TAB* 500 MCG PO SCH (10:42)
[2019-01-12] MEDS: Acetaminophen TAB* 325 MG PO PRN ×2 (10:42→18:00)
[2019-01-12] MEDS: Pantoprazole TAB * 40 MG TAB PO SCH (10:42)
[2019-01-12] MEDS: Cholecalciferol TAB* 1000 UNITS PO SCH (10:42)
[2019-01-12] MEDS: Magnesium Oxide TAB* 400 MG PO SCH (10:43)
[2019-01-12] MEDS: Aspirin EC TAB* 81 MG TAB.EC PO SCH (10:43)
[2019-01-12] MEDS: Cetirizine* 10 MG TAB PO SCH (10:43)
[2019-01-12] MEDS: Metoprolol Tartrate TAB* 25 MG PO SCH ×2 (10:43→21:54)
[2019-01-12] MEDS: Escitalopram * 10 MG TAB PO SCH (10:43)
[2019-01-12] MEDS: Loperamide CAP* 2 MG PO PRN ×2 (10:43→19:05)
[2019-01-12] MEDS ORDERED: Vancomycin Trough Check NOTE FOLLOW UP ONE (15:30)
[2019-01-12] MEDS: Enoxaparin(*) 30 MG/0.3 ML SYR SUBCUT SCH (18:02)
[2019-01-12] MEDS: amLODIPine TAB* 5 MG PO SCH (21:55)
[2019-01-13] MEDS: Piperacillin/Tazobac ADVAN(*) 3.375 GM in NS 0.9% 100 ML* 100 ML IVPB SCH (05:35)
[2019-01-13] MEDS: Loperamide CAP* 2 MG PO PRN ×2 (05:35→08:40)
[2019-01-13 06:21] LABS: ABS Eosinophils 0.5 10^3/ul (0-0.6); ABS Lymphocytes 0.5 10^3/ul (1.0-4.8); ABS Monocytes 0.5 10^3/ul (0-0.8); ABS Neutrophils 3.3 10^3/ul (1.5-7.7); Eosinophil % 10.6 %; Hematocrit 29 % (35-47); Hemoglobin 9.5 g/dL (12.0-16.0); Lymphocyte % 10.7 %; Mean Corpuscular HGB Conc 33 g/dL (31-36); Mean Corpuscular Hemoglobin 31 pg (27-31); Mean Corpuscular Volume 94 fL (80-97); Mean Platelet Volume 8.8 fL (7.4-10.4); Nucleated Red Blood Cells % 0.1; Platelet Count 94 10^3/uL (150-450); Red Blood Count 3.07 10^6 /uL (3.70-4.87); Red Cell Distribution Width 18 % (10-15); White Blood Count 4.8 10^3/uL (3.5-10.8)
[2019-01-13 06:35] LABS: BUN/Creatinine Ratio 12.1 (8-20); Calcium 8.7 mg/dL (8.6-10.3); EGFR African American 39.3 (>60); EGFR Non-African American 32.5 (>60); Magnesium 2.1 mg/dL (1.9-2.7); Potassium 4.3 mmol/L (3.5-5.0)
[2019-01-13 07:27] VITALS: BP 147/70
[2019-01-13] MEDS: Mometasone/Formoter 200/5 MDI INH SCH (08:15)
[2019-01-13] MEDS: Pantoprazole TAB * 40 MG TAB PO SCH (09:40)
[2019-01-13] MEDS: Cyanocobalamin TAB* 500 MCG PO SCH (09:41)
[2019-01-13] MEDS: Cetirizine* 10 MG TAB PO SCH (09:41)
[2019-01-13] MEDS: Magnesium Oxide TAB* 400 MG PO SCH (09:41)
[2019-01-13] MEDS: Cholecalciferol TAB* 1000 UNITS PO SCH (09:41)
[2019-01-13] MEDS: Acyclovir* 400 MG TAB PO SCH (09:41)
[2019-01-13] MEDS: Aspirin EC TAB* 81 MG TAB.EC PO SCH (09:41)
[2019-01-13] MEDS: Metoprolol Tartrate TAB* 25 MG PO SCH (09:41)
[2019-01-13] MEDS: Escitalopram * 10 MG TAB PO SCH (09:45)
--- NOTE | 2019-01-13 13:59 | DS ---
CC: Dr. Halie Kennedy; Dr. Adwoa Boyce DISCHARGE SUMMARY: DATE OF ADMISSION: 01/09/19 DATE OF DISCHARGE: 01/13/19 DISCHARGE DIAGNOSES: 1. Cellulitis of the left lower extremity. 2. New onset atrial fibrillation. 3. Multiple myeloma. 4. History of hypertension. HISTORY OF PRESENT ILLNESS: Adwoa Pepe is a 73-year-old female with a longstanding history of multip le myeloma treated over the past 8 years. Currently on Ninlaro and elotuzumab. She has recently bee n started on antibiotics for cellulitis of the left lower extremity. She was started on doxycycline when seen in the ER approximately 4 days prior to admission. Since that point, the cellulitis has wo rsened by the time she was seen in the office. She had a mildly elevated white count at 12,600 witho ut a fever, without hypotension. There was very little suspicion for bacteremia. She is severely im munocompromised with immunoglobulin deficiency, receiving IV IgG on a regular basis. Lactic acid was mildly elevated at the time of admission and did improve during the hospitalization. She was treated with antibiotics with IV Zosyn along with vancomycin initially. Infectious Disease co nsultation was obtained with Dr. Valdez. She was felt to have a cellulitis without evidence for os teomyelitis on the MRI scan that was obtained of both lower extremities. Blood cultures were negativ e. Leukocytosis resolved. Recommendation was to continue on Zosyn and discontinue the vancomycin. O magno the course of hospitalization, the lower extremity improved with a smaller area of induration and also became less red, although on the day of discharge the area involving was smaller, but there was slightly more redness. She never developed a fever during the hospitalization and the white count w as down to 4800 with a neutrophil count of 3300 by the time of discharge. Lactic acid which had been elevated at 4.2 on admission rapidly came down to 1.3 by the following day. During the hospitalization, the patient was bothered with multiple episodes of diarrhea, although she reports this is not terribly unusual for her to have multiple episodes of diarrhea at home and she u sually takes Imodium for this. On 01/11/19, there were several episodes and the patient had got up to use the bathroom when the tele metry monitor showed a brief episodes of atrial fibrillation, each lasting a minute or less. Subsequ ent to this, there was 1 further episode with an episode of more sustained atrial fibrillation with v entricular response up to 160 that lasted approximately 30 to 40 minutes; 10 to 15 minutes into this episode, the patient received one dose of IV metoprolol with resolution of the atrial fibrillation an d returned to normal rate and rhythm. She had no subsequent episodes of AFib during the hospitalizat ion by telemetry monitoring. Following this episode, decision was made to try to correct hypomagnese marii. Her magnesium level had been 1.6 at that time and following 3 g of IV magnesium increased to 2. 1. She was unable to increase her oral magnesium due to ongoing diarrhea. It should be noted that charisse whyte has had slightly low magnesium levels in the 1.5 to 1.8 range going back several years. In [facility], decision was made to give her 1 unit of packed red blood cells as her hemoglobin was 8.9 on admiss ion, but it fell into 7.8. Following 1 unit of packed red blood cells, her hemoglobin was 9.5. The patient will be discharged to home. The patient was also started on low dose beta blockers at 12 .5 mg of metoprolol b.i.d. and at the time of discharge as her blood pressure had remained elevated t hroughout the hospitalization, this was increased to 25 b.i.d. DISCHARGE MEDICATIONS: Included: 1. Augmentin 875 mg b.i.d. to take to complete a 10 day course of antibiotics. 2. Metoprolol 25 mg of tartrate b.i.d. 3. The patient is to continue on her current therapy for her multiple myeloma, which will be resumed this coming week. 4. P.r.n. lorazepam 0.5 q.6 p.r.n. anxiety. 5. Compazine p.r.n. 6. Omeprazole 20 mg daily. 7. Dulera 2 puffs b.i.d. 8. Melatonin 3 mg at h.s. 9. Magnesium oxide 400 mg daily. 10. Cetirizine 10 mg daily. 11. Imodium 2 after the first loose stool,1 after subsequent loose stools, up to maximum of 6 per da y. 12. Lexapro 10 mg daily. 13. Cyanocobalamin 1000 mcg daily. 14. Cholecalciferol 1000 units daily. 15. Aspirin 81 mg daily. 16. Amlodipine 7.5 mg at h.s. 17. Acyclovir 400 mg daily. The patient was discharged to home in stable condition with followup recommended in the 1 to 2 week p eriod of time in our office and with laboratory studies including CBC, BMP and magnesium to be checke d over the next week. Dr. Adwoa Boyce, who is her primary care physician, was notified during this hospitalization that th e patient had had several brief episodes of atrial fibrillation. She should likely follow up with reymundo barrow in the near future as well. [id number]/[facility] #: [id number]
== END 2019-01-13 11:25 | disposition home health service (06) | DRG 872 ==
LOC: MED 16:08
PROVIDERS: ADMIT Internal Medicine Hematology & Oncology; ATTEND Internal Medicine Hematology & Oncology
PROC: 30233N1 Transfusion of Nonautologous Red Blood Cells into Peripheral Vein, Percutaneous Approach (ICD-10-PCS; principal; 2019-01-12)
DX: A41.9 Sepsis, unspecified organism (principal); L03.116 Cellulitis of left lower limb; C90.00 Multiple myeloma not having achieved remission; D80.3 Selective deficiency of immunoglobulin G [IgG] subclasses; Z94.81 Bone marrow transplant status; N18.4 Chronic kidney disease, stage 4 (severe); I12.9 Hypertensive chronic kidney disease with stage 1 through stage 4 chronic kidney disease, or unspecified chronic kidney disease; I48.91 Unspecified atrial fibrillation; E83.42 Hypomagnesemia; G35 Multiple sclerosis; R19.7 Diarrhea, unspecified; D64.9 Anemia, unspecified; K21.9 Gastro-esophageal reflux disease without esophagitis; M81.0 Age-related osteoporosis without current pathological fracture; Z77.22 Contact with and (suspected) exposure to environmental tobacco smoke (acute) (chronic); Z88.1 Allergy status to other antibiotic agents; Z88.8 Allergy status to other drugs, medicaments and biological substances; Z79.1 Long term (current) use of non-steroidal anti-inflammatories (NSAID); Z79.82 Long term (current) use of aspirin; Z79.899 Other long term (current) drug therapy; Z80.52 Family history of malignant neoplasm of bladder; Z80.7 Family history of other malignant neoplasms of lymphoid, hematopoietic and related tissues
CPT/HCPCS: 36415; 71046; 80048; 80053; 83605; 83735; 84443; 85025; 85060; 86850; 86900; 86901; 86922; 93005; 94640; 99222; 99232; A9270-GY; J1642; J1650; J2543; J3370; J3475; J3490; P9040; Q0164

== ENCOUNTER 2019-01-22 19:49 | Inpatient (IN) | payer MEDICARE ==
[2019-01-22] MEDS ORDERED: NS 0.9% 1000 ML** 1,000 ML IV.FLUID IV ONE (20:09)
[2019-01-22] MEDS ORDERED: Levofloxacin 750 MG IVPREMIX(* 750 MG/150 ML BAG IVPB ONE (20:09)
[2019-01-22] MEDS ORDERED: Cefepime(*) 2 GM in NS 0.9% 50 ML* 50 ML IVPB ONE (20:09)
--- NOTE | 2019-01-22 20:14 | ED ---
Respiratory - HPI Summary HPI Summary: Pt is a 73 y/o F presenting to the ED brought in by EMS for a respiratory complaint. Pt was recently in the hospital for cellulitis in her L leg and PNA, and d/colin on 01/13/19 on Amoxicillin. She finished that and was placed on a different antibiotic yesterday that has caused nausea/vomiting and decreased appetite. She went to oncology today where she was given fluids, but she has been increasingly short of breath with a productive cough that has not resolved. She denies CP. Her oncologist here is Dr. Norris but she also has an oncologist at [facility] in [place]. PCP is Dr. Adwoa Boyce. - History of Current Complaint Chief Complaint: EDShortnessOfBreath Stated Complaint: PNEUMONIA PER EMS Time Seen by Provider: 01/22/19 19:54 Hx Obtained From: Patient, EMS Onset/Duration: Gradual Onset, Lasting Weeks, Still Present Timing: Constant Initial Severity: Mild Current Severity: None Pain Intensity: 0 Character: Cough (Productive), Dyspnea at Rest Sputum Amount: Moderate Sputum Color: Clear, Green Aggravating Factor(s): Nothing Alleviating Factor(s): Nothing Associated Signs and Symptoms: SOB - Allergy/Home Medications Allergies/Adverse Reactions: Allergies Allergy/AdvReac Type Severity Reaction Status Date / Time cefepime Allergy Mild Hives Verified 12/26/18 16:10 gabapentin Allergy Unknown Verified 12/26/18 16:10 Reaction Details glatiramer (copolymer 1) Allergy Unknown Verified 12/26/18 16:10 [From Copaxone] Reaction Details mannitol Allergy Unknown Verified 12/26/18 16:10 Reaction Details simvastatin Allergy Unknown Verified 12/26/18 16:10 Reaction Details ciprofloxacin AdvReac Severe Unknown Verified 12/26/18 16:10 Reaction Details PMH/Surg Hx/FS Hx/Imm Hx Previously Healthy: Yes Endocrine/Hematology History: Reports: Hx Anemia - from chemo medications, Other Endocrine/Hematological Disorders - multiple MYELOMA, BONE MARROW TRANSPLANT Denies: Hx Diabetes Cardiovascular History: Reports: Hx Angina, Hx Hypertension, Other Cardiovascular Problems/Disorders - BONE MARROW TRANSPLANT, CML Denies: Hx Congestive Heart Failure, Hx Coronary Artery Disease, Hx Hypercholesterolemia, Hx Myocardial Infarction, Hx Pacemaker/ICD, Hx Valvular Heart Disease Respiratory History: Reports: Hx Pneumonia, Hx Seasonal Allergies, Other Respiratory Problems/Disorders - PNEUMONIA ONE WEEK AGO Denies: Hx Asthma, Hx Chronic Obstructive Pulmonary Disease (COPD) GI History: Reports: Hx Gastroesophageal Reflux Disease History: Reports: Hx Chronic Renal Failure, Hx Renal Disease - DECREASED FUNCTION FROM MULTIPLE MYELOMA Denies: Hx Dialysis Musculoskeletal History: Reports: Hx Arthritis, Other Musculoskeletal History - MS Sensory History: Reports: Hx Cataracts, Hx Contacts or Glasses Denies: Hx Hearing Aid Opthamlomology History: Reports: Hx Cataracts, Hx Contacts or Glasses Neurological History: Reports: Other Neuro Impairments/Disorders - MS Psychiatric History: Reports: Hx Anxiety, Hx Depression - ON MEDICATION Denies: Hx Panic Disorder - Cancer History Cancer Type, Location and Year: MULTIPLE MYELOMA Hx Chemotherapy: Yes - shots on tuesdays Hx Radiation Therapy: No Hx Palliative Cancer Treatment: No - Surgical History Surgery Procedure, Year, and Place: LEFT FEMUR JUS FROM HIP TO KNEE 2019. BONE MARROW TRANSPLANT 2012. [place]. TOE SURGERY Hx Anesthesia Reactions: No - Immunization History Date of Tetanus Vaccine: Unk Date of Influenza Vaccine: Fall 2014 Infectious Disease History: No Infectious Disease History: Denies: Hx Clostridium Difficile, Hx Hepatitis, Hx Human Immunodeficiency Virus (HIV), Hx of Known/Suspected MRSA, Traveled Outside the [place] in Last 30 Days - Family History Known Family History: Positive: Cardiac Disease, Other - BREAST CANCER. Mother: rheumatic heart disease (from rheumatic fever) - Social History Alcohol Use: None Hx Substance Use: No Substance Use Type: Reports: None Hx Tobacco Use: No Smoking Status (MU): Never Smoked Tobacco Have You Smoked in the Last Year: No Review of Systems Positive: Other - decreased appetite Negative: Chest Pain Positive: Shortness Of Breath, Cough Positive: Vomiting, Nausea All Other Systems Reviewed And Are Negative: Yes Physical Exam - Summary Physical Exam Summary: Appearance: Elderly woman lying on the stretcher in no acute distress Skin: Warm, dry, no obvious rash Eyes: sclera anicteric, no conjunctival pallor ENT: mucous membranes dry, pharynx appears otherwise normal Neck: Supple, nontender Respiratory: No signs of respiratory distress. Coarse sounding crackles in the right lower lung nance. Bronchial breath sounds and cacophony in the left lower lung nance. Cardiovascular: Normal S1, S2. No murmurs. Normal distal pulses in tibial and radial bilaterally. Abdomen: Soft, nontender, normal active bowel sounds present Musculoskeletal: Normal, Strength/ROM Intact Neurological: A&Ox3, awake and alert, mentation is normal, speech is fluent and appropriate Psychiatric: affect is normal, does not appear anxious or depressed Triage Information Reviewed: Yes Vital Signs On Initial Exam: Initial Vitals Temp Pulse Resp BP Pulse Ox 100.0 F 100 16 138/70 95 01/22/19 19:52 01/22/19 19:52 01/22/19 19:52 01/22/19 19:52 01/22/19 19:52 Vital Signs Reviewed: Yes Procedures - Sedation Patient Received Moderate/Deep Sedation with Procedure: No Diagnostics - Vital Signs Vital Signs Temp Pulse Resp BP Pulse Ox 01/22/19 19:52 100.0 F 100 16 138/70 95 - Laboratory Result Diagrams: 01/22/19 22:09 01/22/19 22:09 Lab Statement: Any lab studies that have been ordered have been reviewed, and results considered in the medical decision making process. Disposition - Course Course Of Treatment: Pt is a 73 y/o F presenting to the ED brought in by EMS for a respiratory complaint. Pt was recently in the hospital for cellulitis in her L leg and PNA, and d/colin on 01/13/19 on Amoxicillin. She has since been on a different antibiotic that has caused nausea/vomiting and decreased appetite. Her shortness of breath and cough have worsened since d/c. She denies CP. On exam, pt is an elderly woman lying on the stretcher in no acute distress. Her mucuous membranes are dry, but pharynx is otherwise nml. No signs of respiratory distress. There are coarse sounding crackles in the right lower lung nance with bronchial breath sounds and cacophony in the left lower lung nance. I informed Dr. Lang of the pt's presence in the ED at 2004. CXR from earlier today shows worsening left lower lobe infiltrate. Discussed pt with Dr. Lopez at 2031 who will accept to [facility] [place] with dx of PNA. - Diagnoses Provider Diagnoses: PNA (pneumonia) Discharge ED - Sign-Out/Discharge Documenting (check all that apply): Patient Departure - Discharge Plan Condition: Stable Disposition: ADMITTED TO [facility] - Billing Disposition and Condition Condition: STABLE Disposition: Admitted to [facility] - Attestation Statements Document Initiated by Scribe: Yes Documenting Scribe: Kelly Garces Provider For Whom Scribe is Documenting (Include Credential): Vasquez Montana MD. Scribe Attestation: I, Kelly Garces, scribed for Vasquez Montana MD. on 01/23/19 at 0625. Scribe Documentation Reviewed: Yes Provider Attestation: The documentation as recorded by the Kelly bal accurately reflects the service I personally performed and the decisions made by me, Vasquez Montana MD. Status of Luis Enrique Document: Viewed Consult Consult: 2004 - I informed Dr. Lang of the pt's presentation to the ED. Discussed pt with Dr. Lopez at 2031.
[2019-01-22] MEDS ORDERED: Cefepime 2 GM in Dextrose(*) 2 GM/50 ML BAG IV ONE (22:00)
[2019-01-22] MEDS ORDERED: Loperamide CAP* 2 MG PO PRN (22:03)
[2019-01-22 22:20] LABS: Hematocrit 28 % (35-47); Hemoglobin 9.1 g/dL (12.0-16.0); Mean Corpuscular HGB Conc 33 g/dL (31-36); Mean Corpuscular Hemoglobin 31 pg (27-31); Mean Corpuscular Volume 94 fL (80-97); Mean Platelet Volume 9.1 fL (7.4-10.4); Platelet Count 147 10^3/uL (150-450); Red Blood Count 2.93 10^6 /uL (3.70-4.87); Red Cell Distribution Width 18 % (10-15); White Blood Count 8.4 10^3/uL (3.5-10.8)
[2019-01-22 22:38] LABS: ALT 16 U/L (7-52); AST 10 U/L (13-39); Albumin 3.2 g/dL (3.2-5.2); Albumin/Globulin Ratio 1.2 (1-3); Alkaline Phosphatase 63 U/L (34-104); Anion Gap 7 mmol/L (2-11); BUN/Creatinine Ratio 10.8 (8-20); Blood Urea Nitrogen 20 mg/dL (6-24); CO2 Carbon Dioxide 22 mmol/L (22-32); Calcium 7.8 mg/dL (8.6-10.3); Chloride 109 mmol/L (101-111); EGFR African American 32.5 (>60); EGFR Non-African American 26.9 (>60); Globulin 2.7 g/dL (2-4); Glucose 125 mg/dL (70-100); Potassium 4.1 mmol/L (3.5-5.0); Sodium 138 mmol/L (135-145); Total Protein 5.9 g/dL (6.4-8.9)
[2019-01-22 22:43] LABS: Troponin I 0.03 ng/mL (<0.03)
[2019-01-22 22:47] LABS: ABS Lymphocytes 0.3 10^3/ul (1.0-4.8); ABS Monocytes 0.6 10^3/ul (0-0.8); ABS Neutrophils 7.4 10^3/ul (1.5-7.7); Eosinophil % 0.3 %; Lymphocyte % 3.7 %; Nucleated Red Blood Cells % 0.1
[2019-01-22] MEDS ORDERED: Vancomycin per Pharmacy* NOTE FOLLOW UP SCH (23:00)
[2019-01-22] MEDS ORDERED: Vancomycin(*) 1,250 MG in NS 0.9% 250 ML* 250 ML IVPB ONE (23:00)
[2019-01-22 23:12] LABS: Activated Partial Thrombo Time 28.2 seconds (26.0-38.0); INR 1.28 (0.82-1.09)
[2019-01-22] MEDS ORDERED: Zosyn per Pharmacy* NOTE FOLLOW UP PRN (23:40)
--- NOTE | 2019-01-22 23:40 | HP ---
History of Present Illness - History of Present Illness Reason for Visit: shortness of breath History of Present Illness: 73 yo F with hx of Multiple Myeloma on chemotherapy brought in today with worsening pneumonia. Pt just had an admission for cellulitis and PNA. She developed the PNA inpatient, and was discharged on augmentin to treat both the cellulitis and PNA. Progressively after discharge she was feeling short of breath and started coughing. She saw her PCP today who urged her to come back to the hospital. She last received chemo today. In the Er, she was placed on 4L NC. Her vitals are stable. She complains of generalized weakness that she is attributing to dehydration from her chronic diarrhea. - Past Medical History Cardiac: AFIB, HTN, Hyperlipidemia Heme/Onc: Cancer - Past Social History Alcohol: None Drugs: None Lives: With Family Review of Systems - Measurements Intake and Output: Intake and Output Last 24 Hours 01/20/19 01/21/19 01/22/19 01/23/19 06:59 06:59 06:59 06:59 Weight 170 lb - Review of Systems Constitutional Symptoms: Positive: Weakness, Fatigue Dermatology: Negative: Normal, Rash, Skin Lesions, Cancer, Skin Lumps, Other HEENT: Negative: Normal, Change in Hearing, Vertigo, Dental Problems, Tinnitus, Sinus Problem, Other Eyes: Negative: Normal, Change in Vision, Double Vision, Eye Pain, Glaucoma, Cataract, Contacts or Glasses, Other Thyroid: Negative: Normal, Goiter, Thyroid Nodule, Cold Intolerance, Heat Intolerance , Sweatiness, Tremor, Frequent Defecation, Constipation, Palpitations, Primary Hypothyroidism, Primary Hyperthyroidism, Weight Loss, Weight Gain, Change in Skin/Hair, Change in Menstruation, Radiation Exposure, Other Pulmonary: Positive: Cough, Sputum, Shortness of Breath Cardiology: Negative: Normal, Chest Pain, Shortness of Breath, Palpitations, Swelling of Ankles, Peripheral Vascular Dis, Edema, Faintness, Syncope, Claudication, Proximal NocturnalDyspnea, Orthopnoea, Other Gastroenterology: Positive: Diarrhea Negative: Normal, Abdominal Pain, Nausea, Vomiting, Anorexia, Indigestion, Difficulty Swallowing, Heartburn, Constipation, Blood in Stools, Change in Bowel Habits, Haematemesis, Melena, Other Genital - Urinary: Negative: Normal, Dysuria, Hematuria, Polyuria, Nocturia, Other Endocrinology: Negative: Normal, Thyroid Problems, Adrenal Problems, Gonadal Problems, Family Hx Endocrine Disorders, Obesity, Diabetes Mellitus, Hyperglycemia, Hx Hypoglycemia, Diabetic Foot Ulcers, Calluses, Hirsutism, Menstrual Abnormalities , Polydipsia, Polyuria, Gonadal Problems, Gynecomastia, Pituitary disease, Other Hematologic/Lymphatic: Negative: Anemia, Easy Bruising, Hx Leukemia, Hx Lymphoma, Use of Anticoagulant, Use of Antiplatelet Drugs, Other Neurology: Negative: Normal, Headache, Migraines, Change in Vision, Diplopia, Dizziness , Change in Balancing, Change in Coordination, Change in Memory, Change in Speech, Change in Sphincter Function, Change in Walking, Numbness\Paresthesiae, Unexplained Weakness, Hx of Stroke\TIA, Hx of Seizures, Other Psychiatry: Negative: Normal, Depression, Anxiety, Depressed Mood, Anhedonia, Sexual Dysfunction, Weight Change, Guilt Feelings, Tearfulness, Unusual Fatigue, Unusual Anxiety, Suicidal Ideation, Hypomania, Eating Disorders, Other Objective Active Medications: Acyclovir (Zovirax Tab*) 400 mg PO DAILY [facility] Amlodipine Besylate (Norvasc Tab*) 10 mg PO BEDTIME [facility] Aspirin (Aspirin Ec Tab*) 81 mg PO DAILY [facility] Escitalopram Oxalate (Lexapro *) 10 mg PO DAILY [facility] Heparin Sodium (Porcine) (Heparin Vial(*)) 5,000 units SUBCUT Q8HR [facility] Sodium Chloride (Ns 0.9% 1000 Ml) 1,000 mls @ 125 mls/hr IV Q8H [facility] Vancomycin HCl 1,250 mg/ (Sodium Chloride) 250 mls @ 166.667 mls/hr IVPB ONCE ONE; Protocol Stop: 01/23/19 00:29 Last Admin: 01/22/19 23:00 Dose: 166.667 mls/hr Cefepime HCl (Maxipime 1 Gm In Dextrose Duplex (*)) 1 gm in 50 mls @ 100 mls/ hr IV Q12H FUAD Loperamide HCl (Imodium Cap*) 2 mg PO .SEE DIRECTIONS PRN PRN Reason: DIARRHEA Lorazepam (Ativan Tab(*)) 1 mg PO Q6HR PRN PRN Reason: anxiety or nausea Metoprolol Tartrate (Lopressor Tab*) 25 mg PO BID [facility] Mometasone Furoate/Formoterol Fumar (Dulera 200/5 Mdi*) 2 puff INH BID [facility] Pantoprazole Sodium (Protonix Tab*) 40 mg PO DAILY [facility] Pharmacy Consult (Vancomycin Per Pharmacy*) 1 note FOLLOW UP .VANC PER PHARMACY [facility]; Protocol Vital Signs - 8 hr 01/22/19 01/22/19 01/22/19 19:52 19:57 19:58 Temperature 100.0 F Pulse Rate 100 100 101 Respiratory 16 Rate Blood Pressure 138/70 138/70 (mmHg) O2 Sat by Pulse 95 95 96 Oximetry 01/22/19 01/22/19 01/22/19 20:00 20:27 20:57 Temperature Pulse Rate 104 97 Respiratory 21 18 Rate Blood Pressure 141/67 128/68 (mmHg) O2 Sat by Pulse 96 97 Oximetry 01/22/19 01/22/19 01/22/19 21:00 21:27 21:57 Temperature Pulse Rate 87 90 Respiratory 23 20 26 Rate Blood Pressure 128/69 130/64 (mmHg) O2 Sat by Pulse 96 97 Oximetry 01/22/19 01/22/19 01/22/19 22:00 22:50 22:57 Temperature Pulse Rate 89 83 87 Respiratory 18 23 26 Rate Blood Pressure 133/60 129/57 (mmHg) O2 Sat by Pulse 96 96 96 Oximetry 01/22/19 01/22/19 23:00 23:05 Temperature 98.6 F Pulse Rate 83 Respiratory 28 Rate Blood Pressure (mmHg) O2 Sat by Pulse 96 Oximetry Oxygen Devices in Use Now: Nasal Cannula Appearance: she appears exhausted Eyes: No Scleral Icterus, PERRLA Ears/Nose/Mouth/Throat: NL Teeth, Lips, Gums, Mucous Membranes Moist Neck: NL Appearance and Movements; NL JVP, Trachea Midline Respiratory: Symmetrical Chest Expansion and Respiratory Effort, - - bilateral crackles Cardiovascular: NL Sounds; No Murmurs; No JVD, No Edema Abdominal: NL Sounds; No Tenderness; No Distention, No Hepatosplenomegaly Lymphatic: No Cervical Adenopathy Skin: No Rash or Ulcers Neurological: Alert and Oriented x 3 Result Diagrams: 01/22/19 22:09 01/22/19 22:09 Assess/Plan/Problems-Billing Assessment: - Patient Problems (1) Pneumonia Current Visit: No Status: Acute Priority: High Onset Date: 07/19/15 Code (s): J18.9 - PNEUMONIA, UNSPECIFIED ORGANISM SNOMED Code(s): 637731568 Comment: Hospital acquired PNA, failed augmentin now with acute respiratory failure with hypoxemia Vanc and zosyn blood cultures CT scan of chest (2) Atrial fibrillation, new onset Current Visit: No Status: Acute Code(s): I48.91 - UNSPECIFIED ATRIAL FIBRILLATION SNOMED Code(s): 86409836 Comment: new from last admission, was discharged on metoprolol cont metoprolol Echo (3) Anemia associated with chemotherapy Current Visit: No Status: Acute Code(s): D64.81 - ANEMIA DUE TO ANTINEOPLASTIC CHEMOTHERAPY; T45.1X5A - ADVERSE EFFECT OF ANTINEOPLASTIC AND IMMUNOSUP DRUGS, INIT SNOMED Code(s): 143296225 (4) Cellulitis and abscess of left lower extremity Current Visit: No Status: Acute Code(s): L03.116 - CELLULITIS OF LEFT LOWER LIMB; L02.416 - CUTANEOUS ABSCESS OF LEFT LOWER LIMB SNOMED Code(s): 230704808 Comment: much improved (5) Multiple myeloma Current Visit: No Status: Acute Priority: High Code(s): C90.00 - MULTIPLE MYELOMA NOT HAVING ACHIEVED REMISSION SNOMED Code(s): 606339746 Comment: On ninlaro and elotuzumab received chemo today (6) Volume depletion Current Visit: No Status: Acute Code(s): E86.9 - VOLUME DEPLETION, UNSPECIFIED SNOMED Code(s): 46060992 Comment: from poor intake due to nausea and diarrhea from chemo loperamide IVF Replenish electrolytes as needed (7) ESAU (acute kidney injury) Current Visit: Yes Status: Acute Code(s): N17.9 - ACUTE KIDNEY FAILURE, UNSPECIFIED SNOMED Code(s): 35070507 Comment: likely from dehydration IVF (8) Full code status Current Visit: Yes Status: Acute Code(s): Z78.9 - OTHER SPECIFIED HEALTH STATUS SNOMED Code(s): 527435892 (9) DVT prophylaxis Current Visit: Yes Status: Acute Code(s): Z29.9 - ENCOUNTER FOR PROPHYLACTIC MEASURES, UNSPECIFIED SNOMED Code(s): 407491707 Comment: heparin scc
[2019-01-23] MEDS ORDERED: Zosyn 3.375 gm X 1 dose, then dose per Pharmacy IVPB ONE ×2
[2019-01-23] MEDS: NS 0.9% 1000 ML** 1,000 ML IV SCH ×3 (00:58→18:29)
[2019-01-23 05:00] LABS: Troponin I 0.03 ng/mL (<0.03)
[2019-01-23] MEDS: Heparin VIAL(*) 5000 UNITS/ML VIAL (FIVE THOUSAND) SUBCUT SCH ×3 (05:22→21:33)
[2019-01-23] MEDS: ZOSYN 3.375 GM Q8H per EXTENDED INFUSION IVPB SCH ×6 (05:22→21:26)
[2019-01-23] MEDS: Mometasone/Formoter 200/5 MDI INH SCH ×2 (08:21→23:05)
[2019-01-23] MEDS: Acyclovir* 400 MG TAB PO SCH (08:43)
[2019-01-23] MEDS: Aspirin EC TAB* 81 MG TAB.EC PO SCH (08:43)
[2019-01-23] MEDS: Escitalopram * 10 MG TAB PO SCH (08:43)
[2019-01-23] MEDS: Pantoprazole TAB * 40 MG TAB PO SCH (08:43)
[2019-01-23] MEDS ORDERED: Metoprolol Tartrate TAB* 25 MG PO SCH (09:00)
[2019-01-23] MEDS ORDERED: Metoprolol Tartrate IV* 1 MG/ML 5 ML VIAL IV ONE (09:40)
[2019-01-23] MEDS ORDERED: Loperamide CAP* 2 MG PO PRN (12:00)
[2019-01-23] MEDS: Loperamide CAP* 2 MG PO PRN (13:00)
--- NOTE | 2019-01-23 13:13 | ECHO ---
*[facility]* [place] [address] Fax #: [phone] Transthoracic Echocardiogram Patient: Jerica Pepe : 1945 Study Date: 01/23/2019 Age: 73 Gender: F HR: 83 bpm Height: 63 in /160 cm BSA: 1.8 m^2 Weight: 169.6 lb /77.1 kg BMI: 30.1 kg/m^2 *Clinical Program Consultant: * Elisha High [facility] *Referring Physician: * Elizabeth Lopez *Reading Physician: * Khadar Sarkar MD Indications: Abnormal EKG. History: Multiple myeloma with current chemotherapy. Conclusions Summary: - Impressions: The study is unchanged since the study of November 2018. - Left ventricle: The cavity size is normal. Wall thickness is at the upper limits of normal. Systolic function is normal. The estimated ejection fraction is 55-60%. Doppler parameters are consistent with abnormal left ventricular relaxation (grade 1 diastolic dysfunction). - Left atrium: The atrium is mildly dilated. - Mitral valve: There is mild regurgitation. - Tricuspid valve: There is trace to mild regurgitation. - Similar to the prior study of 11/2018. Study data: Transthoracic echocardiogram. Procedure: Transthoracic echocardiography was performed. Image quality was fair. Complete 2D, spectral Doppler, and color flow Doppler. Location: Bedside. Patient status: Inpatient. Patient room number: 441-02. The previous study was not available, so comparison is made to the report of November 2018. Rhythm: Normal sinus rhythm. Findings Left ventricle: The cavity size is normal. Wall thickness is at the upper limits of normal. Systolic function is normal. The estimated ejection fraction is 55-60%. Wall motion is normal; there are no regional wall motion abnormalities. Doppler parameters are consistent with abnormal left ventricular relaxation (grade 1 diastolic dysfunction). Right ventricle: The cavity size is normal. Systolic function is normal. Left atrium: The atrium is mildly dilated. Right atrium: The atrium is normal in size. Mitral valve: The leaflets are mildly thickened. There is no evidence of stenosis. There is mild regurgitation. Aortic valve: The valve is trileaflet. The leaflets are mildly thickened. There is no evidence of stenosis. There is no significant regurgitation. Tricuspid valve: The leaflets are normal thickness. There is no evidence of stenosis. There is trace to mild regurgitation. Pulmonic valve: The leaflets are normal thickness. There is no evidence of stenosis. There is trace regurgitation. Aorta: Aortic root: The aortic root is appears normal. Ascending aorta: The ascending aorta is appears normal. Aortic arch: The aortic arch is appears normal. Pericardium: A prominent pericardial fat pad is present. There is no significant pericardial effusion. Pulmonary arteries: The main pulmonary artery is normal-sized. Systolic pressure is within the normal range. Systemic veins: Inferior vena cava: The vessel is normal in size. There is (>= 50%) respiratory change in the IVC dimension. Measurements Left ventricle Value Ref Aortic valve Value Ref LEIGHA, LAX 4.0 cm 3.8 - 5.2 Jerica diam, ED 2.0 cm ----- ESD, LAX 3.2 cm 2.2 - 3.5 Peak v, S 1.96 m/sec ----- FS, LAX (L) 20 % 27 - 45 VTI, S 42.4 cm ----- PW, ED, LAX (H) 1.0 cm 0.6 - 0.9 Mean grad, S 10.0 mm Hg ----- FS (L) 20 % 27 - 45 Peak grad, S 15.0 mm Hg ----- PW, ED (H) 1.0 cm 0.6 - 0.9 LVOT/AV, VTI ratio 0.64 ----- PW/ID, ED 0.24 E', lat jerica, TDI 11.1 cm/sec >=10.0 Mitral valve Value Re f E/e', lat jerica, 9 Peak E 0.97 m/sec ----- TDI Peak A 1.07 m/sec ----- E', med jerica, TDI 8.5 cm/sec >=7.0 Decel time 155 ms -- --- E/e', med jerica, 11 Peak grad, D 3.7 mm Hg ----- TDI Peak E/A ratio 0.9 ----- E', avg, TDI 9.8 cm/sec E/e', avg, TDI 10 <=14 Pulmonic valve Value Re f Peak v, S 0.87 m/sec ----- LVOT Value Ref Peak grad, S 3.0 mm Hg ----- Peak lee ann, S 1.31 m/sec VTI, S 27.0 cm Tricuspid valve Value Ref Peak grad, S 7 mm Hg TR peak v 2.59 m/sec <=2.8 Mean grad, S 5 mm Hg Peak RV-RA grad, S 27 mm Hg ----- Ventricular septum Value Ref Aortic root Value Ref IVS, ED (H) 1.0 cm 0.6 - 0.9 Root diam 2.9 cm <4.0 Right ventricle Value Ref Ascending aorta Value Ref LEIGHA, LAX 3.9 cm AAo AP diam, S 3.5 cm ----- LEIGHA minor ax, A4C 3.3 cm 1.9 - 3.5 AAo AP diam/bsa, S 1.9 cm/m^2 ----- mid Pressure, S 30 mm Hg Aortic arch Value Ref Arch diam 1.9 cm ----- Left atrium Value Ref AP dim, ES (H) 4.30 cm 2.70 - Decending aorta Value Ref 3.80 Susannah peak lee ann 0.57 m/sec ----- ML dim, A4C 4.1 cm SI dim, A4C 4.9 cm Pulmonary artery Value Ref Vol/bsa, ES, 1-p 26 ml/m^2 11 - 40 Pressure, S 27.0 mm Hg ----- A4C Vol/bsa, ES, A/L 34 ml/m^2 16 - 34 Inferior vena cava Value Ref Diam 1.9 cm ----- Right atrium Value Ref SI dim, ES 4.7 cm 3.4 - 5.3 ML dim, ES, A4C 3.9 cm 2.6 - 4.4 SI dim, ES, A4C 4.7 cm 3.4 - 5.3 SI dim/bsa, ES, 2.6 cm/m^2 1.9 - 3.1 A4C Estimated RAP 3 mm Hg Legend: (L) and (H) ryan values outside specified reference range. Prepared and electronically signed by Khadar Sarkar MD 01/23/2019 13:12
[2019-01-23 13:48] LABS: Albumin/Globulin Ratio 1.3 (1-3); BUN/Creatinine Ratio 8.1 (8-20); C Reactive Protein 188.69 mg/L (<8.01); EGFR African American 35.1 (>60); Globulin 2.4 g/dL (2-4); Magnesium 1.6 mg/dL (1.9-2.7); Phosphorus 2.4 mg/dL (2.5-5.0); Potassium 3.9 mmol/L (3.5-5.0); Total Bilirubin 0.8 mg/dL (0.2-1.0); Total Protein 5.4 g/dL (6.4-8.9)
[2019-01-23 13:58] LABS: Hematocrit 25 % (35-47); Mean Corpuscular HGB Conc 32 g/dL (31-36); Mean Corpuscular Hemoglobin 30 pg (27-31); Mean Corpuscular Volume 96 fL (80-97); Mean Platelet Volume 8.8 fL (7.4-10.4); Platelet Count 125 10^3/uL (150-450); Red Blood Count 2.63 10^6 /uL (3.70-4.87); Red Cell Distribution Width 18 % (10-15); White Blood Count 5.6 10^3/uL (3.5-10.8)
[2019-01-23 14:26] LABS: ABS Eosinophils 0.1 10^3/ul (0-0.6); ABS Lymphocytes 0.3 10^3/ul (1.0-4.8); ABS Monocytes 0.4 10^3/ul (0-0.8); ABS Neutrophils 4.8 10^3/ul (1.5-7.7); Eosinophil % 0.9 %; Lymphocyte % 4.6 %
[2019-01-23] MEDS ORDERED: Cefepime 1 GM in Dextrose(*) 1 GM/50 ML BAG IV SCH (16:00)
[2019-01-23] MEDS: Vancomycin(*) 1,250 MG in NS 0.9% 250 ML* 250 ML IVPB SCH (19:00)
[2019-01-23] MEDS: Metoprolol Tartrate TAB* 50 mg PO SCH (21:26)
[2019-01-23] MEDS: amLODIPine TAB* 5 MG PO SCH (21:26)
[2019-01-23 21:50] LABS: Urine Appearance Cloudy; Urine Bilirubin Negative (Negative); Urine Blood 2+ (Negative); Urine Color Yellow; Urine Glucose 1+(50 mg/dL) (Negative); Urine Ketones Negative (Negative); Urine Nitrite Negative (Negative); Urine Protein 1+(30 mg/dL) (Negative); Urine Specific Gravity 1.018 (1.010-1.030); Urine Urobilinogen Negative (Negative)
[2019-01-23 21:57] LABS: Urine Bacteria 1+ (Absent); Urine Red Blood Cell 2+(6-10/hpf) (Absent); Urine White Blood Cell 1+(6-10/hpf) (Absent)
[2019-01-24] MEDS: ZOSYN 3.375 GM Q8H per EXTENDED INFUSION IVPB SCH ×6 (05:25→22:07)
[2019-01-24] MEDS: Heparin VIAL(*) 5000 UNITS/ML VIAL (FIVE THOUSAND) SUBCUT SCH ×3 (05:29→20:54)
[2019-01-24 05:45] LABS: ABS Eosinophils 0.1 10^3/ul (0-0.6); ABS Lymphocytes 0.3 10^3/ul (1.0-4.8); ABS Monocytes 0.5 10^3/ul (0-0.8); ABS Neutrophils 3.9 10^3/ul (1.5-7.7); Eosinophil % 2.7 %; Hematocrit 24 % (35-47); Hemoglobin 7.8 g/dL (12.0-16.0); Lymphocyte % 5.6 %; Mean Corpuscular HGB Conc 33 g/dL (31-36); Mean Corpuscular Hemoglobin 31 pg (27-31); Mean Corpuscular Volume 96 fL (80-97); Mean Platelet Volume 8.7 fL (7.4-10.4); Nucleated Red Blood Cells % 0.1; Platelet Count 130 10^3/uL (150-450); Red Blood Count 2.48 10^6 /uL (3.70-4.87); Red Cell Distribution Width 19 % (10-15); White Blood Count 4.8 10^3/uL (3.5-10.8)
[2019-01-24 05:58] LABS: BUN/Creatinine Ratio 6.4 (8-20); C Reactive Protein 187.09 mg/L (<8.01); Calcium 7.1 mg/dL (8.6-10.3); EGFR African American 31.9 (>60); EGFR Non-African American 26.4 (>60)
[2019-01-24] MEDS: Mometasone/Formoter 200/5 MDI INH SCH ×2 (09:12→21:13)
[2019-01-24] MEDS: Metoprolol Tartrate TAB* 50 mg PO SCH ×2 (09:54→20:54)
[2019-01-24] MEDS: Aspirin EC TAB* 81 MG TAB.EC PO SCH (09:54)
[2019-01-24] MEDS: Acyclovir* 400 MG TAB PO SCH (09:54)
[2019-01-24] MEDS: Escitalopram * 10 MG TAB PO SCH (09:55)
[2019-01-24] MEDS: Pantoprazole TAB * 40 MG TAB PO SCH (09:55)
[2019-01-24] MEDS ORDERED: Magnesium Sulfate IV* 3 GM in NS 0.9% 100 ML* 100 ML IVPB ONE (10:39)
[2019-01-24] MEDS ORDERED: Furosemide IV* 10 MG/ML 2 ML VIAL (20 MG) IV ONE (15:23)
[2019-01-24] MEDS ORDERED: Acetaminophen TAB* 325 MG PO PRN (18:51)
[2019-01-24] MEDS: amLODIPine TAB* 5 MG PO SCH (20:54)
[2019-01-24] MEDS: Vancomycin(*) 1,250 MG in NS 0.9% 250 ML* 250 ML IVPB SCH (21:08)
[2019-01-24] MEDS ORDERED: ZOSYN 3.375 GM Q8H per EXTENDED INFUSION IVPB SCH ×2 (22:30)
[2019-01-25 04:58] LABS: Hematocrit 27 % (35-47); Hemoglobin 8.7 g/dL (12.0-16.0); Mean Corpuscular HGB Conc 33 g/dL (31-36); Mean Corpuscular Hemoglobin 30 pg (27-31); Mean Corpuscular Volume 91 fL (80-97); Mean Platelet Volume 8.3 fL (7.4-10.4); Platelet Count 131 10^3/uL (150-450); Red Blood Count 2.94 10^6 /uL (3.70-4.87); Red Cell Distribution Width 20 % (10-15); White Blood Count 4.9 10^3/uL (3.5-10.8)
[2019-01-25 05:14] LABS: BUN/Creatinine Ratio 6.3 (8-20); C Reactive Protein 124.05 mg/L (<8.01); Calcium 7.3 mg/dL (8.6-10.3); EGFR African American 31.7 (>60); EGFR Non-African American 26.2 (>60); Magnesium 2.5 mg/dL (1.9-2.7); Potassium 3.9 mmol/L (3.5-5.0)
[2019-01-25] MEDS: Heparin VIAL(*) 5000 UNITS/ML VIAL (FIVE THOUSAND) SUBCUT SCH ×3 (05:17→20:30)
[2019-01-25 05:32] LABS: ABS Eosinophils 0.2 10^3/ul (0-0.6); ABS Lymphocytes 0.3 10^3/ul (1.0-4.8); ABS Monocytes 0.6 10^3/ul (0-0.8); ABS Neutrophils 3.8 10^3/ul (1.5-7.7); Eosinophil % 3.7 %; Lymphocyte % 6.5 %; Nucleated Red Blood Cells % 0.1
[2019-01-25] MEDS: Mometasone/Formoter 200/5 MDI INH SCH ×2 (07:25→19:52)
[2019-01-25] MEDS: ZOSYN 3.375 GM Q8H per EXTENDED INFUSION IVPB SCH ×4 (09:57→20:12)
[2019-01-25] MEDS: Aspirin EC TAB* 81 MG TAB.EC PO SCH (10:00)
[2019-01-25] MEDS: Escitalopram * 10 MG TAB PO SCH (10:01)
[2019-01-25] MEDS: Metoprolol Tartrate TAB* 50 mg PO SCH ×2 (10:01→21:41)
[2019-01-25] MEDS: Acyclovir* 400 MG TAB PO SCH (10:01)
[2019-01-25] MEDS: Pantoprazole TAB * 40 MG TAB PO SCH (10:01)
[2019-01-25] MEDS ORDERED: Vancomycin Trough Check NOTE FOLLOW UP ONE (15:30)
[2019-01-25] MEDS: Vancomycin(*) 1,250 MG in NS 0.9% 250 ML* 250 ML IVPB SCH (17:22)
[2019-01-25] MEDS: LORazepam TAB(*) 1 MG PO PRN (17:22)
[2019-01-25] MEDS: amLODIPine TAB* 5 MG PO SCH (21:41)
[2019-01-26] MEDS: ZOSYN 3.375 GM Q8H per EXTENDED INFUSION IVPB SCH ×6 (03:22→17:50)
[2019-01-26] MEDS: Heparin VIAL(*) 5000 UNITS/ML VIAL (FIVE THOUSAND) SUBCUT SCH ×3 (05:52→21:13)
[2019-01-26] MEDS: Mometasone/Formoter 200/5 MDI INH SCH ×2 (07:53→19:30)
[2019-01-26] MEDS: Pantoprazole TAB * 40 MG TAB PO SCH (08:03)
[2019-01-26] MEDS: Metoprolol Tartrate TAB* 50 mg PO SCH ×2 (08:03→21:12)
[2019-01-26] MEDS: Aspirin EC TAB* 81 MG TAB.EC PO SCH (08:03)
[2019-01-26] MEDS: Acyclovir* 400 MG TAB PO SCH (08:03)
[2019-01-26] MEDS: Loperamide CAP* 2 MG PO PRN (08:03)
[2019-01-26] MEDS: Escitalopram * 10 MG TAB PO SCH (08:03)
[2019-01-26] MEDS: Vancomycin(*) 1,250 MG in NS 0.9% 250 ML* 250 ML IVPB SCH (16:01)
[2019-01-26] MEDS: LORazepam TAB(*) 1 MG PO PRN (18:26)
[2019-01-26] MEDS: amLODIPine TAB* 5 MG PO SCH (21:17)
[2019-01-27] MEDS: ZOSYN 3.375 GM Q8H per EXTENDED INFUSION IVPB SCH ×6 (02:20→18:26)
[2019-01-27] MEDS ORDERED: Calcium Carbonate CHEW TAB* 500 MG (TUMS) PO PRN (02:28)
[2019-01-27] MEDS: Heparin VIAL(*) 5000 UNITS/ML VIAL (FIVE THOUSAND) SUBCUT SCH ×3 (05:07→23:16)
[2019-01-27] MEDS: Mometasone/Formoter 200/5 MDI INH SCH ×2 (08:05→19:51)
[2019-01-27] MEDS: Pantoprazole TAB * 40 MG TAB PO SCH (09:25)
[2019-01-27] MEDS: Acyclovir* 400 MG TAB PO SCH (09:25)
[2019-01-27] MEDS: Aspirin EC TAB* 81 MG TAB.EC PO SCH (09:25)
[2019-01-27] MEDS: Metoprolol Tartrate TAB* 50 mg PO SCH ×2 (09:25→20:42)
[2019-01-27] MEDS: Escitalopram * 10 MG TAB PO SCH (09:25)
--- NOTE | 2019-01-27 11:37 | PN ---
Subjective - Subjective Reason for Note: Progress Note History: She has had improvement of her patch of cellulitis and the pain is less. She continues to have a paroxysmal cough. According to the nursing staff, she snored at night and sounded like she had sleep apnea and suggested an overnight oximetry. She managed to eat her breakfast, her diarrhea is being controlled with imodium. She denies dysuria. Her headache has "come and gone". Active Problems: Active Problems DVT prophylaxis (Chronic) Z29.9 heparin scc Full code status (Chronic) Z78.9 Current Medications: Current Medications Acetaminophen (Tylenol Tab*) 650 mg PO Q4H PRN PRN Reason: PAIN - MILD Last Admin: 01/24/19 23:01 Dose: 650 mg Acyclovir (Zovirax Tab*) 400 mg PO DAILY [facility] Last Admin: 01/27/19 09:25 Dose: 400 mg Amlodipine Besylate (Norvasc Tab*) 10 mg PO BEDTIME FUAD Last Admin: 01/26/19 21:17 Dose: 10 mg Aspirin (Aspirin Ec Tab*) 81 mg PO DAILY FUAD Last Admin: 01/27/19 09:25 Dose: 81 mg Calcium Carbonate (Tums*) 500 mg PO Q8H PRN PRN Reason: DYSPEPSIA Escitalopram Oxalate (Lexapro *) 10 mg PO DAILY [facility] Last Admin: 01/27/19 09:25 Dose: 10 mg Heparin Sodium (Porcine) (Heparin Vial(*)) 5,000 units SUBCUT Q8HR FUAD Last Admin: 01/27/19 05:07 Dose: Not Given Vancomycin HCl 1,250 mg/ (Sodium Chloride) 250 mls @ 166.667 mls/hr IVPB Q24H FUAD Last Admin: 01/26/19 16:01 Dose: 166.667 mls/hr Piperacillin Sod/Tazobactam (Sod 3.375 gm/ Sodium Chloride) 100 mls @ 25 mls/ hr IVPB 0200,1000,1800 [facility] Last Admin: 01/27/19 09:40 Dose: 25 mls/hr Loperamide HCl (Imodium Cap*) 4 mg PO BID PRN PRN Reason: DIARRHEA Last Admin: 01/26/19 08:03 Dose: 4 mg Lorazepam (Ativan Tab(*)) 1 mg PO Q6HR PRN PRN Reason: anxiety or nausea Last Admin: 01/26/19 18:26 Dose: 1 mg Metoprolol Tartrate (Lopressor Tab*) 50 mg PO BID [facility] Last Admin: 01/27/19 09:25 Dose: 50 mg Mometasone Furoate/Formoterol Fumar (Dulera 200/5 Mdi*) 2 puff INH BID [facility] Last Admin: 01/27/19 08:05 Dose: 2 puff Pantoprazole Sodium (Protonix Tab*) 40 mg PO DAILY [facility] Last Admin: 01/27/19 09:25 Dose: 40 mg Pharmacy Consult (Vancomycin Per Pharmacy*) 1 note FOLLOW UP .VANC PER PHARMACY FUAD; Protocol Pharmacy Consult (Zosyn Per Pharmacy*) 1 note FOLLOW UP . PRN PRN Reason: PER PROTOCOL Home Medications: Home Medications Medication Instructions Recorded Confirmed Type Aspirin EC TAB* [Ecotrin EC Low 81 mg PO DAILY 10/02/14 01/22/19 History Dose 81 MG*] LoraTADine TAB(NF) [Claritin 10 MG 10 mg PO QAM 10/02/14 01/22/19 History TAB(NF)] Escitalopram * [Lexapro 10 mg (NF)] 10 mg PO DAILY 12/19/17 01/22/19 History Cholecalciferol TAB* [Vitamin D 1,000 unit PO DAILY 08/20/18 01/22/19 History TAB*] Elotuzumab* [Empliciti*] 400 mg IV MONTHLY 08/20/18 01/22/19 History Melatonin 3 mg PO BEDTIME PRN 30 Days #30 tab 10/11/18 01/22/19 Rx Acetaminophen [Acetaminophen Extra 500 - 1,000 mg PO TID PRN 11/23/18 01/22/19 History Strength] Acyclovir* [Zovirax 400 MG TAB*] 400 mg PO DAILY 11/23/18 01/22/19 History Cyanocobalamin TAB* [Vitamin B12 1,000 mcg PO DAILY 11/23/18 01/22/19 History TAB*] Pomalidomide [Pomalyst] 2 mg PO SEE INSTRUCTIONS 11/23/18 01/22/19 History Prochlorperazine TAB* [Compazine 10 mg PO Q6H PRN 11/23/18 01/22/19 History Tab*] amLODIPine TAB* [Norvasc 5 mg TAB*] 10 mg PO BEDTIME 11/23/18 01/22/19 History LORazepam TAB(*) [Ativan 0.5 MG 1 mg PO Q6HR PRN #0 12/10/18 01/22/19 Rx TAB (*)] Loperamide CAP* [Imodium CAP*] 2 mg PO .SEE DIRECTIONS PRN #0 cap 12/10/1801/22 Rx Mometasone/Formoter 200/5 MDI* 2 puff INH BID 01/09/19 01/22/19 History [Dulera 200/5 MDI*] Dexamethasone TAB* [Decadron TAB*] 4 mg PO TUWE 01/22/19 01/22/19 History Dexamethasone TAB* [Decadron TAB*] 12 mg PO MO 01/22/19 01/22/19 History Levofloxacin TAB* [Levaquin TAB*] 750 mg PO EVERY OTHER DAY 01/22/19 01/22/19 History Magnesium Oxide TAB* [MagOx 400 400 mg PO DAILY 01/22/19 01/22/19 History TAB*] Metoprolol Tartrate TAB* 25 mg PO BID 01/22/19 01/22/19 History [Lopressor TAB*] Omeprazole CAP (NF) [Prilosec CAP* 20 mg PO DAILY 01/22/19 01/22/19 History 20 MG] Allergies: Allergies Allergy/AdvReac Type Severity Reaction Status Date / Time cefepime Allergy Mild Hives Verified 12/26/18 16:10 gabapentin Allergy Unknown Verified 12/26/18 16:10 Reaction Details glatiramer (copolymer 1) Allergy Unknown Verified 12/26/18 16:10 [From Copaxone] Reaction Details mannitol Allergy Unknown Verified 12/26/18 16:10 Reaction Details simvastatin Allergy Unknown Verified 12/26/18 16:10 Reaction Details ciprofloxacin AdvReac Severe Unknown Verified 12/26/18 16:10 Reaction Details Objective - Vital Signs Vital Signs: Vital Signs 01/26/19 01/26/19 01/26/19 15:15 18:26 19:15 Temperature 98.0 F 97.2 F Pulse Rate 62 71 Respiratory 18 16 16 Rate Blood Pressure 135/45 144/48 (mmHg) O2 Sat by Pulse 90 92 Oximetry 01/26/19 01/26/19 01/26/19 19:49 20:00 20:26 Temperature Pulse Rate 70 Respiratory 16 16 16 Rate Blood Pressure (mmHg) O2 Sat by Pulse 92 87 Oximetry 01/26/19 01/26/19 01/27/19 20:31 23:15 03:15 Temperature 98.0 F 98.8 F 98.2 F Pulse Rate 66 62 54 Respiratory 16 16 18 Rate Blood Pressure 150/73 133/63 119/58 (mmHg) O2 Sat by Pulse 90 87 94 Oximetry 01/27/19 01/27/19 01/27/19 07:15 08:00 08:06 Temperature 97.9 F Pulse Rate 60 70 Respiratory 18 18 18 Rate Blood Pressure 143/58 (mmHg) O2 Sat by Pulse 96 93 Oximetry 01/27/19 08:55 Temperature 97.1 F Pulse Rate 70 Respiratory 12 Rate Blood Pressure 123/46 (mmHg) O2 Sat by Pulse 97 Oximetry - Intake and Output Intake and Output: Intake & Output 01/24/19 01/25/19 01/26/19 01/27/19 11:59 11:59 11:59 11:59 Intake Total 1314 1214 1530 1500 Output Total 0 0 0 1525 Balance 1314 1214 1530 -25 Intake: IV Fluids 427 90 350 ABX - PIPERACILLIN 30 100 ABX - VANCOMYCIN 30 250 NS (0.9%) 427 magnesium 30 IVPB 507 460 500 ABX - PIPERACILLIN 210 100 400 ABX - VANCOMYCIN 297 260 magnesium 100 100 Oral 124 195 0776 1000 Packed Cells 64 Output: Urine 0 0 0 1525 Other: Estimated Void Medium # Voids 1 2 2 ADLs: Meal Record Start: 01/22/19 23: 11 Freq: DAILY@0900,1400,1800 Status: Active Protocol: Created 01/22/19 23:11 System (Rec: 01/22/19 23:11 System [id number]) Document 01/23/19 09:00 (Rec: 01/23/19 10:17 [id number]) Document 01/23/19 13:52 (Rec: 01/23/19 13:52 TELE-C05) Document 01/23/19 18:00 [id number] (Rec: 01/23/19 20:25 [id number] TELE-C35) Document 01/24/19 09:00 [id number] (Rec: 01/24/19 10:46 [id number] TELE-C09) Document 01/24/19 14:00 [id number] (Rec: 01/24/19 14:10 [id number] TELE-C10) Document 01/24/19 18:00 [id number] (Rec: 01/24/19 18:48 [id number] TELE-C13) Document 01/25/19 09:00 [id number] (Rec: 01/25/19 10:54 [id number] TELE-C11) Document 01/25/19 14:00 [id number] (Rec: 01/25/19 14:37 [id number] TELE-C11) Document 01/25/19 18:00 [id number] (Rec: 01/25/19 18:44 [id number] TELE-C07) Document 01/26/19 09:00 [id number] (Rec: 01/26/19 09:51 [id number] TELE-C01) Document 01/26/19 13:42 [id number] (Rec: 01/26/19 13:43 [id number] TELE-C01) Document 01/26/19 18:00 [id number] (Rec: 01/26/19 18:32 [id number] TELE-C01) Document 01/27/19 09:00 [id number] (Rec: 01/27/19 09:47 [id number] TELE-C09) Intake and Output Start: 01/22/19 19: 59 Freq: Status: Active Protocol: Created 01/22/19 19:59 System (Rec: 01/22/19 19:59 System [id number]) Intake and Output Start: 01/22/19 23: 11 Freq: DAILY@0600,1400,2200 Status: Active Protocol: Created 01/22/19 23:11 System (Rec: 01/22/19 23:11 System TELE-C32) Document 01/23/19 06:00 [id number] (Rec: 01/23/19 07:17 [id number] TELE-C33) Document 01/23/19 14:00 [id number] (Rec: 01/23/19 14:51 TELE-C01) Document 01/23/19 22:00 [id number] (Rec: 01/23/19 22:06 [id number] TELE-C34) Document 01/24/19 06:00 [id number] (Rec: 01/24/19 06:11 [id number] TELE-C01) Document 01/24/19 14:00 [id number] (Rec: 01/24/19 14:10 [id number] TELE-C10) Document 01/24/19 14:16 [id number] (Rec: 01/24/19 14:16 [id number] TELE-C05) Document 01/24/19 22:00 [id number] (Rec: 01/24/19 22:20 [id number] TELE-C13) Document 01/25/19 05:43 [id number] (Rec: 01/25/19 05:44 [id number] TELE-C10) Document 01/25/19 22:00 [id number] (Rec: 01/25/19 22:33 [id number] TELE-C09) Document 01/26/19 06:00 [id number] (Rec: 01/26/19 06:53 [id number] TELE-C07) Document 01/26/19 13:42 [id number] (Rec: 01/26/19 13:43 [id number] TELE-C01) Document 01/26/19 20:00 [id number] (Rec: 01/27/19 04:22 [id number] TELE-C05) Document 01/26/19 22:00 [id number] (Rec: 01/26/19 22:34 [id number] TELE-C01) Document 01/26/19 23:30 [id number] (Rec: 01/27/19 04:22 [id number] TELE-C05) Document 01/27/19 01:20 [id number] (Rec: 01/27/19 04:22 [id number] TELE-C05) Document 01/27/19 03:35 [id number] (Rec: 01/27/19 04:22 [id number] TELE-C05) Document 01/27/19 06:00 [id number] (Rec: 01/27/19 06:48 [id number] TELE-C13) - Physical Exam General Physical Exam Comment: She is sitting in a chair comfortably. Her right lower leg cellulitis is clearly improving compared with a cell phone photo. She is coughing frequently. She is warm and well perfused. General: No Cyanosis, Yes Anemia, No Jaundice, No Clubbing Lungs and Chest: Yes: Chest Expansion Full, Chest Expansion Symetrica, Percussion Note Resonant, Crackles, Wheezes. No: Vessicular Breath Sounds, Respiratory Distress, Use of Accessory Muscles Heart Rate and Rhythm: Regular Additional Cardiovascular: Yes: Normal Heart Sounds. No: Heart Murmur, Pedal Edema Abdominal Exam: Yes: Soft. No: Distention, Abdominal Mass, Abdominal Tenderness , Bowel Sounds Present - Neuro Orientation: A/O x3 Psychiatric: Normal Speech: Normal Assessment - Problem List Assessment: Patient Problems Pneumonia (Acute 07/19/15) Cellulitis and abscess of left lower extremity (Acute) Atrial fibrillation, new onset (Acute) Multiple myeloma (Acute) Anemia associated with chemotherapy (Acute) DVT prophylaxis (Chronic) Full code status (Chronic) Plan: Pneumonia (Acute 07/19/15) She is tolerating antibacterials. She has some diarrhea. She has a cough, this is not currently productive. Cellulitis and abscess of left lower extremity (Acute) This is improving Atrial fibrillation, new onset (Acute) Sinus rhythm today Multiple myeloma (Acute) Anemia associated with chemotherapy (Acute) Per oncology. DVT prophylaxis (Chronic) Full code status (Chronic) The nursing staff are concerned she may have sleep apnea - she is known to snore. I will check an overnight oximetry. Otherwise, she will continue current Rx. I discussed the above with Adwoa Pepe
[2019-01-27] MEDS: Vancomycin(*) 1,250 MG in NS 0.9% 250 ML* 250 ML IVPB SCH (16:05)
[2019-01-27] MEDS: Loperamide CAP* 2 MG PO PRN (20:42)
[2019-01-27] MEDS: amLODIPine TAB* 5 MG PO SCH (20:42)
[2019-01-28] MEDS: ZOSYN 3.375 GM Q8H per EXTENDED INFUSION IVPB SCH ×6 (02:20→18:20)
[2019-01-28] MEDS: Ondansetron INJ* 2 MG/ML VIAL IV PRN ×2 (03:45→18:20)
[2019-01-28] MEDS: Heparin VIAL(*) 5000 UNITS/ML VIAL (FIVE THOUSAND) SUBCUT SCH ×3 (05:47→21:19)
[2019-01-28] MEDS: Mometasone/Formoter 200/5 MDI INH SCH ×2 (07:59→20:17)
[2019-01-28] MEDS: Acyclovir* 400 MG TAB PO SCH (09:20)
[2019-01-28] MEDS: Aspirin EC TAB* 81 MG TAB.EC PO SCH (09:20)
[2019-01-28] MEDS: Metoprolol Tartrate TAB* 50 mg PO SCH ×2 (09:20→21:19)
[2019-01-28] MEDS: Pantoprazole TAB * 40 MG TAB PO SCH (09:21)
[2019-01-28] MEDS: Escitalopram * 10 MG TAB PO SCH (09:21)
[2019-01-28] MEDS: Loperamide CAP* 2 MG PO PRN ×2 (13:45→21:19)
[2019-01-28] MEDS: Vancomycin(*) 1,250 MG in NS 0.9% 250 ML* 250 ML IVPB SCH (16:50)
--- NOTE | 2019-01-28 17:19 | PN ---
Progress Note - Progress Note Date of Service: 01/28/19 SOAP: Subjective: [Adwoa feels like she is starting to improve. Still coughs occasionally. No dyspnea at rest. Ambulated without O2 today and was able to maintain SpO2>90. No fevers. She has been holding her pomalyst.] Objective: [ Vital Signs: Temp Pulse Resp BP Pulse Ox 97.9 F 73 18 136/59 90 01/28/19 11:15 01/28/19 11:15 01/28/19 16:22 01/28/19 11:15 01/28/19 11:15 Acetaminophen (Tylenol Tab*) 650 mg PO Q4H PRN PRN Reason: PAIN - MILD Last Admin: 01/24/19 23:01 Dose: 650 mg Acyclovir (Zovirax Tab*) 400 mg PO DAILY [facility] Last Admin: 01/28/19 09:20 Dose: 400 mg Amlodipine Besylate (Norvasc Tab*) 10 mg PO BEDTIME [facility] Last Admin: 01/27/19 20:42 Dose: 10 mg Aspirin (Aspirin Ec Tab*) 81 mg PO DAILY [facility] Last Admin: 01/28/19 09:20 Dose: 81 mg Calcium Carbonate (Tums*) 500 mg PO Q8H PRN PRN Reason: DYSPEPSIA Escitalopram Oxalate (Lexapro *) 10 mg PO DAILY [facility] Last Admin: 01/28/19 09:21 Dose: 10 mg Heparin Sodium (Porcine) (Heparin Vial(*)) 5,000 units SUBCUT Q8HR [facility] Last Admin: 01/28/19 13:43 Dose: Not Given Vancomycin HCl 1,250 mg/ (Sodium Chloride) 250 mls @ 166.667 mls/hr IVPB Q24H [facility] Last Admin: 01/28/19 16:50 Dose: 166.667 mls/hr Piperacillin Sod/Tazobactam (Sod 3.375 gm/ Sodium Chloride) 100 mls @ 25 mls/ hr IVPB 0200,1000,1800 [facility] Last Admin: 01/28/19 09:19 Dose: 25 mls/hr Loperamide HCl (Imodium Cap*) 4 mg PO BID PRN PRN Reason: DIARRHEA Last Admin: 01/28/19 13:45 Dose: 4 mg Lorazepam (Ativan Tab(*)) 1 mg PO Q6HR PRN PRN Reason: anxiety or nausea Last Admin: 01/26/19 18:26 Dose: 1 mg Metoprolol Tartrate (Lopressor Tab*) 50 mg PO BID [facility] Last Admin: 01/28/19 09:20 Dose: 50 mg Mometasone Furoate/Formoterol Fumar (Dulera 200/5 Mdi*) 2 puff INH BID FUAD Last Admin: 01/28/19 07:59 Dose: 2 puff Ondansetron HCl (Zofran Inj*) 4 mg IV Q6H PRN PRN Reason: NAUSEA Last Admin: 01/28/19 03:45 Dose: 4 mg Pantoprazole Sodium (Protonix Tab*) 40 mg PO DAILY [facility] Last Admin: 01/28/19 09:21 Dose: 40 mg Pharmacy Consult (Vancomycin Per Pharmacy*) 1 note FOLLOW UP .VANC PER PHARMACY FUAD; Protocol Pharmacy Consult (Zosyn Per Pharmacy*) 1 note FOLLOW UP . PRN PRN Reason: PER PROTOCOL Exam: Gen: Chronically ill appearing 73 yo female in NAD HEENT: MMM CV: RRR, no m/r/g Resp: diffuse rhonchi in posterior lung nance Abd: soft, nonTTP Ext: trace RLE edema, no LLE] Assessment: [This is a 73 yo female with multiple myeloma admitted with PNA. She appears to be slowly improving clinically.] Plan: [1. PNA - management per primary medicine team 2. MM - cont to hold pomalyst - hold scheduled velcade for tomorrow - hold weekly dexamethasone - plan to resume myeloma therapy next week, she will be seen same day of her infusion to ensure adequate recovery to resume treatment - IgG 571 01/22/19, no indication for IVIG at this time - will cont to monitor monthly and give if IgG <500 Dispo: per primary medicine team, oncology will follow closely at the time of discharge]
[2019-01-28] MEDS: amLODIPine TAB* 5 MG PO SCH (21:19)
[2019-01-28] MEDS: LORazepam TAB(*) 1 MG PO PRN (21:38)
[2019-01-28 21:54] LABS: ABS Basophils 0.1 10^3/ul (0-0.2); ABS Eosinophils 0.2 10^3/ul (0-0.6); ABS Lymphocytes 0.4 10^3/ul (1.0-4.8); ABS Monocytes 0.6 10^3/ul (0-0.8); ABS Neutrophils 3.6 10^3/ul (1.5-7.7); Eosinophil % 3.4 %; Hematocrit 28 % (35-47); Hemoglobin 8.9 g/dL (12.0-16.0); Lymphocyte % 8.1 %; Mean Corpuscular HGB Conc 32 g/dL (31-36); Mean Corpuscular Hemoglobin 30 pg (27-31); Mean Corpuscular Volume 92 fL (80-97); Mean Platelet Volume 8.1 fL (7.4-10.4); Nucleated Red Blood Cells % 0.1; Platelet Count 146 10^3/uL (150-450); Red Cell Distribution Width 19 % (10-15); White Blood Count 4.8 10^3/uL (3.5-10.8)
[2019-01-28 21:57] LABS: Calcium 8.3 mg/dL (8.6-10.3); EGFR African American 34.9 (>60); EGFR Non-African American 28.8 (>60); Potassium 4.1 mmol/L (3.5-5.0)
[2019-01-28 22:08] LABS: C Reactive Protein 25.55 mg/L (<8.01)
[2019-01-29] MEDS: ZOSYN 3.375 GM Q8H per EXTENDED INFUSION IVPB SCH ×6 (02:04→17:45)
[2019-01-29] MEDS: Heparin VIAL(*) 5000 UNITS/ML VIAL (FIVE THOUSAND) SUBCUT SCH ×3 (04:25→20:57)
[2019-01-29] MEDS: Metoprolol Tartrate TAB* 50 mg PO SCH ×2 (09:34→20:57)
[2019-01-29] MEDS: Pantoprazole TAB * 40 MG TAB PO SCH (09:34)
[2019-01-29] MEDS: Escitalopram * 10 MG TAB PO SCH (09:34)
[2019-01-29] MEDS: Aspirin EC TAB* 81 MG TAB.EC PO SCH (09:34)
[2019-01-29] MEDS: Acyclovir* 400 MG TAB PO SCH (09:34)
[2019-01-29] MEDS: Mometasone/Formoter 200/5 MDI INH SCH ×3 (10:29→19:39)
[2019-01-29] MEDS: LORazepam TAB(*) 1 MG PO PRN (12:28)
[2019-01-29] MEDS ORDERED: Vancomycin Trough Check NOTE FOLLOW UP ONE (15:30)
[2019-01-29 16:04] LABS: EGFR African American 32.5 (>60); EGFR Non-African American 26.9 (>60)
[2019-01-29 16:13] LABS: Vancomycin Trough 21.4 mcg/mL
[2019-01-29] MEDS: Vancomycin(*) 1,250 MG in NS 0.9% 250 ML* 250 ML IVPB SCH (16:33)
--- NOTE | 2019-01-29 17:54 | CONS ---
CONSULTATION REPORT: DATE OF CONSULT: 01/29/19 REQUESTING PHYSICIAN: Dr. Adwoa Boyce. CONSULTING SERVICE: Infectious Disease. REASON FOR CONSULT: Pneumonia. IMPRESSION: 1. Admitted to the hospital with cough and a low-grade fever with malaise and dyspnea. A chest CT showed right lower lobe consolidation. She had a week of vancomycin and Zosyn. Her CRP was originally 190, it is down to 25. Her energy and oxygen requirement are improving. She did have a followup chest CT yesterday, which showed slight increase in the infiltrate at the right side and then infiltrate in the left base. However, because of her improvement in symptoms and C-reactive protein, I think that that radiographic change may be a lagging indicator of infection. 2. Multiple myeloma with immunoglobulin supplementation. 3. Recent right leg cellulitis, which has resolved. 4. Atrial fibrillation. RECOMMENDATIONS: Plan on 1 more day of IV antibiotics and reassess tomorrow. As long as she is continuing to improve, I think it would be reasonable to stop her antibiotics and continue supportive care. If her symptoms of coughing while eating and drinking persist, it might be worth a swallow evaluation. HISTORY OF PRESENT ILLNESS: This is a 73-year-old woman with multiple myeloma, on immunoglobulin supplementation; recent hospitalization for right leg cellulitis, discharged home on oral antibiotics and the cellulitis resolved. However, around the time of leaving the hospital, she developed a bit of a cough that progressed, became intermittently productive. She had some dyspnea develop as well as malaise and low-grade fever. She came to the hospital on . A chest CT showed infiltrate at the right base. She was started on vancomycin and Zosyn. Her CRP around that time was 190. Her blood cultures have been negative. She has had no recurrence of fever. Her CRP has improved to 25 yesterday. Her energy is better. She is up and walking around a little bit. Sometimes, she has got more of an appetite, but notices that has been off , for example today and then at dinnertime she needs some medicine for nausea. She has had no belly pain or diarrhea. Her white count is 4.8, down from 8. A followup chest CT showed slight progression of the infiltrate at the right base and then a small infiltrate at the left base. She does note from time to time coughing when eating or drinking if she is not careful. PAST MEDICAL HISTORY: 1. Myeloma. 2. Stage 4 chronic kidney disease. 3. Left chest port. 4. Anemia. 5. Gastroesophageal reflux disease. 6. Hypertension. 7. Multiple sclerosis, in remission. 8. Osteoporosis. 9. History of marrow transplant. 10. Status post fixation of the left femur. ALLERGIES: CEFEPIME, SIMVASTATIN, CIPRO, GLATIRAMER. MEDICATIONS: 1. Tylenol. 2. Acyclovir 400 mg daily. 3. Amlodipine. 4. Aspirin. 5. Calcium carbonate. 6. Lexapro. 7. Heparin subcutaneous injection. 8. Loperamide as needed. 9. Ativan as needed. 10. Metoprolol. 11. Pantoprazole. 12. Zosyn 3.375 g IV every 8 hours. 13. Vancomycin 1250 mg daily. SOCIAL HISTORY: She lives in [place] with her . She is a nonsmoker. FAMILY HISTORY: Father had bladder cancer, at age 84. Mother had rheumatic fever and at age 86. REVIEW OF SYSTEMS: All negative except as noted above to a 14-point review. PHYSICAL EXAM: Vital Signs: Temperature 37, heart rate 60, respiratory rate 20 , blood pressure 152/54, oxygen saturation 97% on room air. General: She is awake, not in distress. Neurologic: She is oriented x3. Follows all commands. HEENT: There is no conjunctival hemorrhage. Oropharynx without lesions. Neck is supple without mass. Heart is regular rate and rhythm without murmurs, rubs, or gallops. Lungs: There are decreased breath sounds at the base without wheeze or rale. Abdomen: Soft, nontender, nondistended. There are bowel sounds present. Skin: There is no rash or splinter hemorrhage. Musculoskeletal: There is no spine tenderness to palpation or joint synovitis. LABORATORY DATA: White blood cell count 4, hemoglobin 8.9, platelets 146. Creatinine 1.7. CRP 25. Please see impression and recommendations outlined above. Thank you for asking me to see Ms. Pepe in consultation. [id number]/[facility] #: [id number] DONTE
[2019-01-29] MEDS: amLODIPine TAB* 5 MG PO SCH (20:57)
[2019-01-30] MEDS: ZOSYN 3.375 GM Q8H per EXTENDED INFUSION IVPB SCH ×6 (02:13→17:34)
[2019-01-30] MEDS: Heparin VIAL(*) 5000 UNITS/ML VIAL (FIVE THOUSAND) SUBCUT SCH ×3 (05:58→21:11)
[2019-01-30] MEDS: Loperamide CAP* 2 MG PO PRN ×2 (07:20→21:24)
[2019-01-30] MEDS: Ondansetron INJ* 2 MG/ML VIAL IV PRN ×3 (07:20→21:18)
[2019-01-30] MEDS: Mometasone/Formoter 200/5 MDI INH SCH ×2 (07:48→19:55)
[2019-01-30] MEDS: Metoprolol Tartrate TAB* 50 mg PO SCH ×2 (09:30→21:24)
[2019-01-30] MEDS: Aspirin EC TAB* 81 MG TAB.EC PO SCH (09:30)
[2019-01-30] MEDS: Acyclovir* 400 MG TAB PO SCH (09:30)
[2019-01-30] MEDS: Pantoprazole TAB * 40 MG TAB PO SCH (09:31)
[2019-01-30] MEDS: Escitalopram * 10 MG TAB PO SCH (09:31)
--- NOTE | 2019-01-30 12:00 | PN ---
Progress Note - Progress Note Date of Service: 01/30/19 SOAP: Subjective: CC: Pneumonia HPI: Ms. Pepe is a 73 yo female with PMH significant for multiple myeloma, CKD 4, power port, anemia, GERD, HTN, multiple sclerosis currently in remission, osteoporosis, and hx bone marrow transplant. Denies fever or chills. She reports shortness of breath with exertion (this is only occurring at the end of her walk around the unit). She reports nausea in the AM when she has her ABX and this improves with nausea medication. Reports an episode of vomiting last night. She has diarrhea at baseline and takes Imodium for this at home. Objective: Vital Signs - 8 hr 01/30/19 01/30/19 01/30/19 07:20 07:41 07:45 Temperature 97.8 F Pulse Rate 68 Respiratory 18 18 16 Rate Blood Pressure 127/55 (mmHg) O2 Sat by Pulse 93 Oximetry 01/30/19 01/30/19 01/30/19 07:54 07:55 09:42 Temperature Pulse Rate 65 Respiratory 15 16 Rate Blood Pressure (mmHg) O2 Sat by Pulse 90 90 Oximetry Physical Exam: General: NAD, sitting up in a chair Neurological: Alert and Oriented x4 HEENT: Moist MM, no thrush Cardiovascular: Heart rate regular Respiratory: Lung sounds clear in the upper lobes, diminished in bases with few scattered crackles Abdominal: Bowel sounds present; ABD soft, non tender and non distended Skin: No rash Laboratory Last Values WBC 4.8 10^3/uL (3.5-10.8) 01/28/19 21: RBC 3.00 10^6 /uL (3.70-4.87) L 01/28/19 21: Hgb 8.9 g/dL (12.0-16.0) L 01/28/19 21: Hct 28 % (35-47) L 01/28/19 21: MCV 92 fL (80-97) 01/28/19 21: MCH 30 pg (27-31) 01/28/19 21: MCHC 32 g/dL (31-36) 01/28/19 21: RDW 19 % (10-15) H 01/28/19 21: Plt Count 146 10^3/uL (150-450) L 01/28/19 21:26 MPV 8.1 fL (7.4-10.4) 01/28/19 21: Neut % (Auto) 74.9 % 01/28/19 21: Lymph % (Auto) 8.1 % 01/28/19 21:26 [place] % (Auto) 12.4 % 01/28/19 21: Eos % (Auto) 3.4 % 01/28/19 21: Baso % (Auto) 1.2 % 01/28/19 21: Absolute Neuts (auto) 3.6 10^3/ul (1.5-7.7) 01/28/19 21: Absolute Lymphs (auto) 0.4 10^3/ul (1.0-4.8) L 01/28/19 21: Absolute Monos (auto) 0.6 10^3/ul (0-0.8) 01/28/19 21: Absolute Eos (auto) 0.2 10^3/ul (0-0.6) 01/28/19 21: Absolute Basos (auto) 0.1 10^3/ul (0-0.2) 01/28/19 21: Absolute Nucleated RBC 0.0 10^3/ul 01/28/19 21: Nucleated RBC % 0.1 01/28/19 21:26 INR (Anticoag Therapy) 1.28 (0.82-1.09) H 01/22/19 22:51 APTT 28.2 seconds (26.0-38.0) 01/22/19 22:51 Sodium 145 mmol/L (135-145) 01/28/19 21:26 Potassium 4.1 mmol/L (3.5-5.0) 01/28/19 21:26 Chloride 115 mmol/L (101-111) H 01/28/19 21:26 Carbon Dioxide 21 mmol/L (22-32) L 01/28/19 21:26 Anion Gap 9 mmol/L (2-11) 01/28/19 21:26 BUN 13 mg/dL (6-24) 01/29/19 15:39 Creatinine 1.85 mg/dL (0.51-0.95) H 01/29/19 15:39 Est GFR ( Amer) 32.5 (>60) 01/29/19 15:39 Est GFR (Non-Af Amer) 26.9 (>60) 01/29/19 15:39 BUN/Creatinine Ratio 8.0 (8-20) 01/28/19 21:26 Glucose 114 mg/dL (70-100) H 01/28/19 21:26 Lactic Acid 1.6 mmol/L (0.5-2.0) 01/23/19 01:04 Calcium 8.3 mg/dL (8.6-10.3) L 01/28/19 21:26 Phosphorus 2.4 mg/dL (2.5-5.0) L 01/23/19 13:15 Magnesium 2.5 mg/dL (1.9-2.7) 01/25/19 04:45 Total Bilirubin 0.80 mg/dL (0.2-1.0) 01/23/19 13:15 AST 14 U/L (13-39) 01/23/19 13:15 ALT 17 U/L (7-52) 01/23/19 13:15 Alkaline Phosphatase 58 U/L (34-104) 01/23/19 13:15 Troponin I 0.03 ng/mL (<0.03) H* 01/23/19 04:13 C-Reactive Protein 25.55 mg/L (<8.01) H 01/28/19 21:26 Total Protein 5.4 g/dL (6.4-8.9) L 01/23/19 13:15 Albumin 3.0 g/dL (3.2-5.2) L 01/23/19 13:15 Globulin 2.4 g/dL (2-4) 01/23/19 13:15 Albumin/Globulin Ratio 1.3 (1-3) 01/23/19 13:15 Urine Color Yellow 01/23/19 21:39 Urine Appearance Cloudy 01/23/19 21:39 Urine pH 5.0 (5-9) 01/23/19 21:39 Ur Specific [place] 1.018 (1.010-1.030) 01/23/19 21:39 Urine Protein 1+(30 mg/dl) (Negative) A 01/23/19 21:39 Urine Ketones Negative (Negative) 01/23/19 21:39 Urine Blood 2+ (Negative) A 01/23/19 21:39 Urine Nitrate Negative (Negative) 01/23/19 21:39 Urine Bilirubin Negative (Negative) 01/23/19 21:39 Urine Urobilinogen Negative (Negative) 01/23/19 21:39 Ur Leukocyte Esterase Negative (Negative) 01/23/19 21:39 Urine WBC (Auto) 1+(6-10/hpf) (Absent) A 01/23/19 21:39 Urine RBC (Auto) 2+(6-10/hpf) (Absent) A 01/23/19 21:39 Urine Bacteria 1+ (Absent) A 01/23/19 21:39 Urine Glucose 1+(50 mg/dl) (Negative) A 01/23/19 21:39 Vancomycin Trough 21.4 mcg/mL 01/29/19 15:39 Blood Type A Positive 01/24/19 05:35 Antibody Screen Negative 01/24/19 05:35 Crossmatch See Detail 01/24/19 05:35 Transfusion React Rpt 01/24/19 13:30 Donor Unit # [id number] 01/24/19 13:30 Post-Trans Blood Type A Positive 01/24/19 13:30 Post-Trans GALLO Negative 01/24/19 13:30 Reaction Interpretation 01/24/19 13:30 Microbiology 01/24/19 13:30 Transfusion Reaction Culture - Final Blood Bag No Growth Day 5 Transfusion Reaction Gram Stain - Final 01/22/19 22:09 Aerobic Blood Culture - Final Blood Venous No Growth Day 5 Anaerobic Blood Culture - Final No Growth Day 5 01/22/19 21:20 Blood Culture - Final Blood Venous No Growth Day 5 01/23/19 21:39 Urine Culture - Final Urine Viri Albicans Assessment: 1. Community acquired PNA. Presented to the hospital with low grade fevers, cough, and dyspnea. Chest CT with right lower lobe consolidation. CRP trending down. Blood cultures with no growth to date. Continues to require oxygen for ambulation. Afebrile and no leukocytosis. Today is day 9 of Vancomycin and day 8 of Zosyn. 2. Multiple myeloma with immunoglobulin supplementation. Plan: Continue IV ABX (vanco and zosyn) today, and discontinue tomorrow.
[2019-01-30] MEDS ORDERED: Vancomycin(*) 1,000 MG in NS 0.9% 250 ML* 250 ML IV ONE (13:00)
[2019-01-30] MEDS: amLODIPine TAB* 5 MG PO SCH (21:23)
[2019-01-30] MEDS ORDERED: Ondansetron INJ* 2 MG/ML VIAL IV ONE (22:00)
[2019-01-31] MEDS: ZOSYN 3.375 GM Q8H per EXTENDED INFUSION IVPB SCH ×4 (02:18→08:56)
[2019-01-31 02:30] LABS: ABS Basophils 0.1 10^3/ul (0-0.2); ABS Eosinophils 0.1 10^3/ul (0-0.6); ABS Lymphocytes 0.3 10^3/ul (1.0-4.8); ABS Monocytes 0.6 10^3/ul (0-0.8); ABS Neutrophils 4.2 10^3/ul (1.5-7.7); Eosinophil % 2.4 %; Hematocrit 28 % (35-47); Lymphocyte % 5.7 %; Mean Corpuscular HGB Conc 33 g/dL (31-36); Mean Corpuscular Hemoglobin 30 pg (27-31); Mean Corpuscular Volume 92 fL (80-97); Mean Platelet Volume 7.7 fL (7.4-10.4); Nucleated Red Blood Cells % 0.1; Platelet Count 147 10^3/uL (150-450); Red Cell Distribution Width 19 % (10-15); White Blood Count 5.3 10^3/uL (3.5-10.8)
[2019-01-31 02:47] LABS: BUN/Creatinine Ratio 6.4 (8-20); C Reactive Protein 25.67 mg/L (<8.01); Calcium 8.2 mg/dL (8.6-10.3); EGFR African American 32.1 (>60); EGFR Non-African American 26.5 (>60); Potassium 3.8 mmol/L (3.5-5.0)
[2019-01-31] MEDS: Heparin VIAL(*) 5000 UNITS/ML VIAL (FIVE THOUSAND) SUBCUT SCH ×5 (05:24→21:08)
[2019-01-31] MEDS: Mometasone/Formoter 200/5 MDI INH SCH ×2 (07:26→19:24)
[2019-01-31] MEDS: Metoprolol Tartrate TAB* 50 mg PO SCH ×3 (08:49→21:47)
[2019-01-31] MEDS: Acyclovir* 400 MG TAB PO SCH (08:49)
[2019-01-31] MEDS: Aspirin EC TAB* 81 MG TAB.EC PO SCH (08:49)
[2019-01-31] MEDS: Pantoprazole TAB * 40 MG TAB PO SCH (08:49)
[2019-01-31] MEDS: Escitalopram * 10 MG TAB PO SCH (08:49)
[2019-01-31] MEDS: Ondansetron INJ* 2 MG/ML VIAL IV PRN ×2 (08:52→16:31)
--- NOTE | 2019-01-31 10:22 | PN ---
Progress Note - Progress Note Date of Service: 01/31/19 SOAP: Subjective: []She sitll does not feel well. Breathing is fine. Cough continues. She has had more nausea over the past 2 days, Zofran helps but not completely. She is weak, does not want to go home today. Acetaminophen (Tylenol Tab*) 650 mg PO Q4H PRN PRN Reason: PAIN - MILD Last Admin: 01/24/19 23:01 Dose: 650 mg Acyclovir (Zovirax Tab*) 400 mg PO DAILY [facility] Last Admin: 01/31/19 08:49 Dose: 400 mg Amlodipine Besylate (Norvasc Tab*) 10 mg PO BEDTIME [facility] Last Admin: 01/30/19 21:23 Dose: 10 mg Aspirin (Aspirin Ec Tab*) 81 mg PO DAILY [facility] Last Admin: 01/31/19 08:49 Dose: 81 mg Calcium Carbonate (Tums*) 500 mg PO Q8H PRN PRN Reason: DYSPEPSIA Escitalopram Oxalate (Lexapro *) 10 mg PO DAILY [facility] Last Admin: 01/31/19 08:49 Dose: 10 mg Heparin Sodium (Porcine) (Heparin Vial(*)) 5,000 units SUBCUT Q8HR [facility] Last Admin: 01/31/19 05:24 Dose: Not Given Loperamide HCl (Imodium Cap*) 4 mg PO BID PRN PRN Reason: DIARRHEA Last Admin: 01/30/19 07:20 Dose: 4 mg Metoprolol Tartrate (Lopressor Tab*) 50 mg PO BID [facility] Last Admin: 01/31/19 08:49 Dose: 50 mg Mometasone Furoate/Formoterol Fumar (Dulera 200/5 Mdi*) 2 puff INH BID [facility] Last Admin: 01/31/19 07:26 Dose: Not Given Ondansetron HCl (Zofran Inj*) 8 mg IV Q8H PRN PRN Reason: NAUSEA Last Admin: 01/31/19 08:52 Dose: 8 mg Pantoprazole Sodium (Protonix Tab*) 40 mg PO DAILY [facility] Last Admin: 01/31/19 08:49 Dose: 40 mg Pharmacy Consult (Zosyn Per Pharmacy*) 1 note FOLLOW UP . PRN PRN Reason: PER PROTOCOL Scopolamine (Transderm-Scop 1.5 Mg Patch*) 1 patch TRANSDERM Q72H [facility] Objective: [] Vital Signs Temp Pulse Resp BP Pulse Ox 98.2 F 66 20 128/54 93 01/31/19 07:15 01/31/19 07:15 01/31/19 07:40 01/31/19 07:15 01/31/19 08:00 Exam: Gen: Chronically ill appearing 73 yo female in NAD HEENT: MMM CV: RRR, no m/r/g Resp: diffuse rhonchi in posterior lung nance Abd: soft, nonTTP Ext: trace RLE edema, no LLE] Assessment: [This is a 73 yo female with multiple myeloma admitted with PNA. She is improving and has responded to antiboitics, course complicated by nausea, some continued SOB and weakness. She is very nervous about going home.] Plan: [1. PNA - Per ID, discontinue antibiotics - Follow overnight for recurrent fever. - CRP improved. 2. MM - cont to hold pomalyst - hold scheduled velcade for tomorrow - hold weekly dexamethasone - plan to resume myeloma therapy next week, she will be seen same day of her infusion to ensure adequate recovery to resume treatment - IgG 571 01/22/19, no indication for IVIG at this time - will cont to monitor monthly and give if IgG <500 - Follow up Dr. Shelley next week. 3. Nausea. - Continue Zofran - Scopolamine patch. - Follow off antibiotics. 4. CRI, stable.
[2019-01-31] MEDS ORDERED: Scopolamine 1.5 mg* PATCH TRANSDERM SCH (11:00)
[2019-01-31] MEDS ORDERED: LORazepam TAB(*) 1 MG PO PRN (17:38)
[2019-01-31] MEDS: amLODIPine TAB* 5 MG PO SCH (20:58)
[2019-02-01] MEDS: Ondansetron INJ* 2 MG/ML VIAL IV PRN (00:29)
[2019-02-01] MEDS: Heparin VIAL(*) 5000 UNITS/ML VIAL (FIVE THOUSAND) SUBCUT SCH ×2 (06:21→06:22)
[2019-02-01] MEDS: Mometasone/Formoter 200/5 MDI INH SCH (07:14)
[2019-02-01 07:51] LABS: ABS Basophils 0.1 10^3/ul (0-0.2); ABS Eosinophils 0.1 10^3/ul (0-0.6); ABS Lymphocytes 0.3 10^3/ul (1.0-4.8); ABS Monocytes 0.5 10^3/ul (0-0.8); ABS Neutrophils 4.1 10^3/ul (1.5-7.7); Eosinophil % 2.3 %; Hematocrit 29 % (35-47); Hemoglobin 9.6 g/dL (12.0-16.0); Lymphocyte % 5.3 %; Mean Corpuscular HGB Conc 33 g/dL (31-36); Mean Corpuscular Hemoglobin 30 pg (27-31); Mean Corpuscular Volume 91 fL (80-97); Mean Platelet Volume 7.8 fL (7.4-10.4); Platelet Count 164 10^3/uL (150-450); Red Blood Count 3.19 10^6 /uL (3.70-4.87); Red Cell Distribution Width 19 % (10-15)
[2019-02-01 08:07] LABS: Albumin 3.5 g/dL (3.2-5.2); Albumin/Globulin Ratio 1.5 (1-3); BUN/Creatinine Ratio 6.1 (8-20); Calcium 8.3 mg/dL (8.6-10.3); EGFR African American 33.6 (>60); EGFR Non-African American 27.7 (>60); Globulin 2.3 g/dL (2-4); Potassium 3.7 mmol/L (3.5-5.0); Total Bilirubin 0.6 mg/dL (0.2-1.0); Total Protein 5.8 g/dL (6.4-8.9)
[2019-02-01] MEDS: Pantoprazole TAB * 40 MG TAB PO SCH (08:37)
[2019-02-01] MEDS: Escitalopram * 10 MG TAB PO SCH (08:37)
[2019-02-01] MEDS: Acyclovir* 400 MG TAB PO SCH (08:37)
[2019-02-01] MEDS: Metoprolol Tartrate TAB* 50 mg PO SCH (08:37)
[2019-02-01] MEDS: Aspirin EC TAB* 81 MG TAB.EC PO SCH (08:37)
--- NOTE | 2019-02-01 11:11 | DS ---
DISCHARGE SUMMARY: DATE OF ADMISSION: 01/22/19 DATE OF DISCHARGE: 02/01/19 DISCHARGE DIAGNOSES: 1. Multiple myeloma, immunosuppression. 2. Community-acquired pneumonia, status post IV antibiotics. 3. Cellulitis. 4. Atrial fibrillation, new onset. 5. Chronic renal insufficiency. 6. Anemia, chronic. HOSPITAL COURSE: Please see detailed history and physical from 01/22/19 for presentation. A 73-year-old female with longstanding history of multiple myeloma, on salvage therapy and chronically immunosuppressed. She had presented with the cellulitis on the prior admission and was discharged home on Augmentin on 01/13/19. Presented with progressive shortness of breath. CT scan of the chest showed question of pneumonia. She was placed on IV Zosyn and vancomycin, antibiotics, which she tolerated well. She had a CT scan of the chest that confirmed possible pneumonia. Hospital course was further complicated by new-onset atrial fibrillation, treated with metoprolol and has been in sinus rhythm since the 01/29/19. She had a consultation by Infectious Disease who recommended IV antibiotics with Zosyn and vancomycin through yesterday and then stopping. She has been afebrile through the hospitalization. Breathing has slowly improved on antibiotics. She continues to have a cough intermittently throughout the day. She has had mild nausea over the past 2 to 3 days, often associated with the cough. We tried scopolamine but had no impact. She does improve somewhat with Compazine, she is taking Zofran and then p.r.n. Ativan helped significantly. She has been off myeloma therapy since the prior hospital admission. Plan will be to discharge home today, respiratory status near baseline. She will follow up with Dr. Norris on Monday to discuss when to restart therapy for myeloma. Discussed symptoms of recurrent disease, to call our office with any concerns. DISPOSITION: Home. CONDITION ON DISCHARGE: Good. MEDICATIONS ON DISCHARGE: 1. Acyclovir 400 mg p.o. daily. 2. Amlodipine 10 p.o. q.h.s. 3. Aspirin 81 mg p.o. daily. 4. Lexapro 10 mg p.o. daily. 5. Imodium 2 mg p.r.n. as needed for diarrhea. 6. Dulera 200/5 MDI 2 puffs b.i.d. 7. Prilosec 20 mg p.o. daily. 8. Acetaminophen 500 to 1000 mg p.o. t.i.d. p.r.n. 9. Vitamin D 1000 units daily. 10. B12 1000 mcg daily. 11. Claritin 10 mg p.o. daily. 12. Lorazepam 0.5 mg q.6 p.r.n. 13. Magnesium 400 mg p.o. daily. 14. Melatonin 3 mg p.o. q.h.s. 15. Compazine 10 mg p.o. q.6 p.r.n. FOLLOWUP: Followup will be in [address] Norris to discuss additional therapy. Will also have follow up with Adwoa Acharya [employer] [facility] [id number]/[facility] #: [id number] [facility]
[2019-02-01 11:56] VITALS: BP 141/51
[2019-02-03] MEDS ORDERED: Scopolamine PATCH Remove* 1 NOTE MISC PATCH OFF SCH (11:00)
== END 2019-02-01 12:42 | disposition home health service (06) | DRG 194 ==
LOC: ED 19:49 → MEDTELE 22:01
PROVIDERS: ADMIT Student in an Organized Health Care Education/Training Program; ATTEND Internal Medicine Hematology & Oncology
PROC: 30233N1 Transfusion of Nonautologous Red Blood Cells into Peripheral Vein, Percutaneous Approach (ICD-10-PCS; principal; 2019-01-24)
DX: J18.9 Pneumonia, unspecified organism (principal); L03.116 Cellulitis of left lower limb; C90.00 Multiple myeloma not having achieved remission; L02.416 Cutaneous abscess of left lower limb; N17.9 Acute kidney failure, unspecified; N18.4 Chronic kidney disease, stage 4 (severe); D64.81 Anemia due to antineoplastic chemotherapy; J30.2 Other seasonal allergic rhinitis; K21.9 Gastro-esophageal reflux disease without esophagitis; M19.90 Unspecified osteoarthritis, unspecified site; F41.9 Anxiety disorder, unspecified; F32.9 Major depressive disorder, single episode, unspecified; I48.91 Unspecified atrial fibrillation; I12.9 Hypertensive chronic kidney disease with stage 1 through stage 4 chronic kidney disease, or unspecified chronic kidney disease; E78.5 Hyperlipidemia, unspecified; E86.9 Volume depletion, unspecified; M81.0 Age-related osteoporosis without current pathological fracture; E83.42 Hypomagnesemia; T45.1X5A Adverse effect of antineoplastic and immunosuppressive drugs, initial encounter; Z88.1 Allergy status to other antibiotic agents; Z88.8 Allergy status to other drugs, medicaments and biological substances; Y92.9 Unspecified place or not applicable; Z79.82 Long term (current) use of aspirin; Z79.899 Other long term (current) drug therapy
CPT/HCPCS: 36415; 71045; 71046; 71250; 80048; 80053; 80202; 81003; 81015; 82565; 83605; 83735; 84100; 84484; 84520; 85025; 85610; 85730; 86078; 86140; 86850; 86900; 86901; 86922; 87040; 87070; 87086; 87106; 87205; 93005; 93306; 94640; 94762; 99232; 99239; 99284; A9270-GY; G8978-GP-CK; G8979-GP-CI; J0692; J1644; J1940; J2405; J2543; J3370; J3475; J3490; P9040

== ENCOUNTER 2019-05-19 22:15 | Observation (INO) | payer MEDICARE ==
--- OUTSIDE RECORDS SUMMARY | 2019-05-19 23:53 | XMS REPORT | Continuity of Care Document ---
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 Onset: 04/24/2013 Chronic kidney disease stage 3 Carlene Navarrete M.D. Onset: 02/08/2018 Anemia Carlene Navarrete M.D. Onset: 02/08/2018 Acute renal failure syndrome Carlene Navarrete M.D. Onset: 02/08/2018 Pneumonia Carlene Navarrete M.D. Onset: 02/08/2018 Hypertensive chronic kidney disease with DO Goodman Onset: 2017 stage 1 through stage 4 chronic kidney disease, or unspecified chronic kidney disease Chronic kidney disease DO Goodman Onset: 12/18/2017 Chest pain DO Goodman Onset: 12/18/2017 Social History Type Date Description Comments Sex Unknown Tobacco Use Start: Unknown Never Smoked Cigarettes Smoking Status Reviewed: 04/03/19 Never Smoked Cigarettes ETOH Use Denies alcohol use Tobacco Use Start: Unknown Patient has never smoked Exercise Type/Frequency Exercises regularly Allergies, Adverse Reactions, Alerts Active Allergies Reaction Severity Comments Date Cefepime Urticaria 07/29/2015 Cipro unknown 01/17/2017 Glatiramer Acetate unknown 01/17/2017 Mannitol unknown 01/17/2017 Simvastatin unknown 01/17/2017 Medications Active Medications SIG Qnty Indications Ordering Provider Date Tramadol 1 -2 tabs by 30tabs Olivia Fowler, 10/21/2015 Hydrochloride/Acetamin mouth every 4-6 M.D. ophen hours as needed 37.5-325mg Tablets pain Revlimid 1 po qod x3wks, Halie Norris MD 2mg Capsules then 1wk off Aspirin 81 po qd Unknown 81mg Tablets DR Smalls every 12 weeks Unknown 4mg/5ML (dose varies) Concentrate Vitamin D 1 tab po every 8caps Unknown 2000Iu Capsules day Imodium A-D take 1 to 2 tabs Unknown 2mg Tablets po prn diarrhea Probiotic 1 by mouth every Unknown Capsules day Acyclovir 1 tab daily Unknown 400mg Tablets Pomalyst Unknown 2mg Capsules Dexamethasone once a week Unknown 12mg Tablets Omeprazole 1 by mouth every Unknown 20mg Capsules day DR Smart 1 by mouth every Unknown 10mg Capsules day Dulcolax as needed Unknown 5mg Tablets DR Martin 1 tab by mouth Unknown 4mg Tablets every 6 hours as needed nausea Ativan 1.2 tab as Unknown 0.5mg Tablets directed Montelukast Sodium 1 by mouth every Unknown 10mg day Tablets Immunizations Description No Information Available Vital Signs Date Vital Result Comment 04/03/2019 9:46am Height 64 inches 5'4" Weight 173.00 lb Heart Rate 89 /min BP Systolic Sitting 144 mmHg BP Diastolic Sitting 70 mmHg O2 % BldC Oximetry 98 % BMI (Body Mass Index) 29.7 kg/m2 01/20/2017 10:08am Height 64 inches 5'4" Weight 170.00 lb Heart Rate 78 /min BP Systolic Sitting 136 mmHg BP Diastolic Sitting 78 mmHg Respiratory Rate 18 /min Body Temperature 97.6 F BMI (Body Mass Index) 29.2 kg/m2 Results Description No Information Available Procedures Date Code Description Status 01/23/2019 13489 ECHO Transthorasic Realtime 2D W Doppler & Color Flow Hosp Completed 01/12/2019 88640 EKG, Interpretation Only Completed 01/11/2019 24058 EKG, Interpretation Only Completed 11/26/2018 31337 ECHO Transthorasic Realtime 2D W Doppler & Color Flow Hosp Completed Medical Devices Description No Information Available Encounters Type Date Location Provider Dx Diagnosis Office Visit 04/03/2019 [facility] And Brooklyn Bennett, G47.9 Sleep disorder, 10:00a Sleep Services Of unspecified Fiber Picker R09.02 Hypoxemia Office Visit 01/30/2019 [facility] Elisha Barrera J18.9 Pneumonia, 1:12p For Infectious TO Sellers unspecified Diseases organism C90.00 Multiple myeloma not having achieved remission Office Visit 01/29/2019 1:10p [facility] For Hector Conrad18.9 Pneumonia, Infectious Abdirizak Gomez unspecified Diseases organism C90.00 Multiple myeloma not having achieved remission Office Visit 01/11/2019 [facility] Elisha Barrera L03.115 Cellulitis of 11:06a For Vincenzo Sellers NP right lower limb Diseases C90.00 Multiple myeloma not having achieved remission N18.9 Chronic kidney disease, unspecified Office Visit 12/09/2018 9:04a [facility] Cathy R11.2 Nausea with Assoc,rody Burt, vomiting, Hospitalists INDEPENDENT LIVING SPECIALIST unspecified R19.7 Diarrhea, unspecified Office Visit 10/09/2018 9:37a [facility] June Hohn, E86.0 Dehydration Assoc,rody Reveles Hospitalists E87.2 Acidosis Assessments Date Code Description Provider 04/03/2019 G47.9 Sleep disorder, unspecified Brooklyn Bennett MD 04/03/2019 R09.02 Hypoxemia Brooklyn Bennett MD 01/30/2019 J18.9 Pneumonia, unspecified organism Elisha Sellers NP 01/30/2019 C90.00 Multiple myeloma not having achieved Elisha Sellers NP remission 01/29/2019 J18.9 Pneumonia, unspecified organism Hector Gomez M.D. 01/29/2019 C90.00 Multiple myeloma not having achieved Hector Gomez M.D. remission 01/23/2019 R94.31 Abnormal electrocardiogram [ECG] Khadar Sarkar M.D. [EKG] 01/12/2019 I48.91 Unspecified atrial fibrillation Chaka Calvin M.D. 01/11/2019 R94.31 Abnormal electrocardiogram [ECG] Deana Crane M.D. [EKG] 01/11/2019 L03.115 Cellulitis of right lower limb Elisha Sellers, TO 01/11/2019 C90.00 Multiple myeloma not having achieved Elisha Sellers, TO remission 01/11/2019 N18.9 Chronic kidney disease, unspecified Elisha Sellers, TO 12/09/2018 R11.2 Nausea with vomiting, unspecified Cathy Burt, INDEPENDENT LIVING SPECIALIST 12/09/2018 R19.7 Diarrhea, unspecified Cathy Burt, INDEPENDENT LIVING SPECIALIST 11/26/2018 R06.02 Shortness of breath Chaka Calvin M.D. 10/09/2018 E86.0 Dehydration June Brandt M.D. 10/09/2018 E87.2 Acidosis June Brandt M.D. Plan of Treatment Future Appointment(s):05/01/2019 1:00 pm - Olivia Hansen NP at [facility]04/03/2019 - Brooklyn Bennett MDG47.9 Sleep disorder, unspecifiedNew Orders:Home Sleep Testing, Scheduled: 04/03/19R09.02 Hypoxemia Functional Status Description No Information Available Mental Status Description No Information Available Referrals Description No Information Available
--- OUTSIDE RECORDS SUMMARY | 2019-05-19 23:53 | XMS REPORT | Continuity of Care Document ---
:1945 External Reference #:[id number] Author Name Olivia Hanesn NP (transmitted by agent of provider Agueda Satnton) Address [address], [address] [place] [address] Care Team Providers Name Role Phone Adwoa Boyce MD - Internal Medicine Care Team Information Shoemaking Cutter [phone] Problems Active Problems Provider Date Multiple myeloma [...] Unknown Never Smoked Cigarettes Smoking Status Reviewed: 05/01/19 Never Smoked Cigarettes ETOH Use Denies alcohol use Tobacco Use Start: Unknown Patient has never smoked Exercise Type/Frequency Exercises regularly Allergies, Adverse Reactions, Alerts Active Allergies Reaction Severity Comments Date Cefepime Urticaria 07/29/2015 Cipro unknown 01/17/2017 Glatiramer Acetate unknown 01/17/2017 Mannitol unknown 01/17/2017 Simvastatin unknown 01/17/2017 Medications Active Medications SIG Qnty Indications Ordering Date Provider Tramadol 1 -2 tabs by mouth 30tabs Olivia 10/21/2015 Hydrochloride/Acetami every 4-6 hours as Abdirizak Fowlerhen needed pain 37.5-325mg Tablets Citalopram 1 by mouth every Unknown Hydrobromide day 10mg Tablets Emla apply 30 - 45 Unknown 2.5-2.5% Cream minutes before appointment Vitamin D 2 by mouth every Unknown (Cholecalciferol) day 25mcg (1000 Ut) Capsules [facility] Vitamin B12 please take one Unknown 1000mcg daily Tablets Lorazepam Take One Tablet By Unknown 1mg Tablets Mouth Every 6 Hours as Needed For Nausea - Maximum Daily Dose Of 2 Tablets Per Day Metoprolol Tartrate Take 1 Tablet By Unknown Mouth Two Times 25mg Tablets Daily Escitalopram Oxalate Take 1 Tablet By Unknown Mouth Every Day 10mg Tablets Amlodipine Besylate Take 2 Tablets By Unknown 5mg Mouth AT Bedtime Tablets Gabapentin Take 1 Capsule By Unknown 300mg Mouth AT Bedtime Capsules Montelukast Sodium 1 by mouth every Unknown 10mg day Tablets Ativan 1.2 tab as Unknown 0.5mg Tablets directed Zofran 1 tab by mouth Unknown 4mg Tablets every 6 hours as needed nausea Dulcolax as needed Unknown 5mg Tablets DR Smart 1 by mouth every Unknown 10mg Capsules day Omeprazole 1 by mouth every Unknown 20mg day Capsules Dexamethasone once a week Unknown 12mg Tablets Pomalyst Unknown 2mg Capsules Acyclovir 1 tab daily Unknown 400mg Tablets Probiotic 1 by mouth every Unknown Capsules day Imodium A-D take 1 to 2 tabs Unknown 2mg Tablets po prn diarrhea Vitamin D 1 tab po every day 8caps Unknown 2000Iu Capsules Zometa every 12 weeks Unknown 4mg/5ML (dose varies) Concentrate Aspirin 81 po qd Unknown 81mg Tablets DR Connell 1 po qod x3wks, Halie Norris, 2mg Capsules then 1wk off Immunizations Description No Information Available Vital Signs Date Vital Result Comment 05/01/2019 12:49pm Height 64 inches 5'4" Weight 170.00 lb Heart Rate 68 /min BP Systolic 128 mmHg BP Diastolic 70 mmHg O2 % BldC Oximetry 97 % BMI (Body Mass Index) 29.2 kg/m2 04/03/2019 9:46am Height 64 inches 5'4" Weight 173.00 lb Heart Rate 89 /min BP Systolic Sitting 144 mmHg BP Diastolic Sitting 70 mmHg O2 % BldC Oximetry 98 % BMI (Body Mass Index) 29.7 kg/m2 Results Description No Information Available Procedures Date Code Description Status 04/03/2019 50302 Sleep Study Unattended,HRT Rate,Oxygen Sat,Resp Completed Effort/Airflow 01/23/2019 63215 ECHO Transthorasic Realtime 2D W Doppler & Color Flow Hosp Completed 01/12/2019 99703 EKG, Interpretation Only Completed 01/11/2019 22422 EKG, Interpretation Only Completed 11/26/2018 16685 ECHO Transthorasic Realtime 2D W Doppler & Color Flow Hosp Completed Medical Devices Description No Information Available Encounters Type Date Location Provider Dx Diagnosis Office Visit 04/03/2019 Pul[facility]ology And Brooklyn Bennett, G47.9 Sleep disorder, 10:00a Sleep Services Of unspecified Health Safety Instructor R09.02 Hypoxemia Office Visit 01/30/2019 [facility] Elisha Barrera J18.9 Pneumonia, 1:12p For Infectious TO Sellers unspecified Diseases organism C90.00 Multiple myeloma not having achieved remission Office Visit 01/29/2019 1:10p [facility] For Hector Fierro J18.9 Pneumonia, Infectious Abdirizak Gomez unspecified Diseases organism C90.00 Multiple myeloma not having achieved remission Office Visit 01/11/2019 [facility] Elisha Barrera L03.115 Cellulitis of 11:06a For Vincenzo Sellers NP right lower limb Diseases C90.00 Multiple myeloma not having achieved remission N18.9 Chronic kidney disease, unspecified Office Visit 12/09/2018 9:04a [facility] Cathy R11.2 Nausea with Assoc,pc Nancy Brut, vomiting, Hospitalists PRODUCT INSPECTION COORDINATOR unspecified R19.7 Diarrhea, unspecified Assessments Date Code Description Provider 05/01/2019 G47.33 Obstructive sleep apnea (adult) Olivia Hansen NP (pediatric) 05/01/2019 R09.02 Hypoxemia Olivia Hansen NP 04/03/2019 G47.33 Obstructive sleep apnea (adult) Brooklyn Bennett MD (pediatric) 04/03/2019 G47.9 Sleep disorder, unspecified Brooklyn Bennett MD 04/03/2019 R09.02 Hypoxemia Brooklyn Bennett MD 01/30/2019 J18.9 Pneumonia, unspecified organism Elisha Sellers, TO 01/30/2019 C90.00 Multiple myeloma not having achieved Elisha Sellers, PRODUCT INSPECTION COORDINATOR remission 01/29/2019 J18.9 Pneumonia, unspecified organism Hector Gomez M.D. 01/29/2019 C90.00 Multiple myeloma not having achieved Hector Gomez M.D. remission 01/23/2019 R94.31 Abnormal electrocardiogram [ECG] Khadar Sarkar M.D. [EKG] 01/12/2019 I48.91 Unspecified atrial fibrillation Chaka Calvin M.D. 01/11/2019 R94.31 Abnormal electrocardiogram [ECG] Deana Crane M.D. [EKG] 01/11/2019 L03.115 Cellulitis of right lower limb Elisha Sellers NP 01/11/2019 C90.00 Multiple myeloma not having achieved Elisha Sellers, PRODUCT INSPECTION COORDINATOR remission 01/11/2019 N18.9 Chronic kidney disease, unspecified Elisha Sellers, PRODUCT INSPECTION COORDINATOR 12/09/2018 R11.2 Nausea with vomiting, unspecified Cathy Nancy Doto, PRODUCT INSPECTION COORDINATOR 12/09/2018 R19.7 Diarrhea, unspecified Cathy Nancy Doto, PRODUCT INSPECTION COORDINATOR 11/26/2018 R06.02 Shortness of breath Chaka Calvin M.D. Plan of Treatment Future Appointment(s):06/26/2019 2:00 pm - Olivia Hansen NP at [facility]05/01/2019 - Olivia Hansen NPG47.33 Obstructive sleep apnea (adult) (pediatric)Follow up:6-8 weeks ([facility]) Recommendations:You are being set up with CPAP for your sleep apnea through [facility]. They will call you to set up an appointment to get fit for a mask and pick and shovel worker your machine. If you have difficulty with your equipment, or need to replace your mask or hoses, please contact your homecare agency. If you have any further questions, please call the [facility] Disorder Center at [phone] If you have any sleepiness while driving you MUST avoid operating a vehicle or machinery. If you feel tired while driving, thread pulling machine attendant and take a nap or switch drivers. If you know you are sleepy and need to go somewhere, arrange for a ride or use public transportation. It is very important to not risk your safety or the safetyof others.R09.02 Hypoxemia Functional Status Description No Information Available Mental Status Description No Information Available Referrals Description No Information Available
--- NOTE | 2019-05-20 00:01 | ED ---
Complex/Multi-Sys Presentation - HPI Summary HPI Summary: Patient is a 74 y/o F w/ Hx of multiple myeloma who presents to [facility] with complaints of fever, cough and SOB. She states that she went to [place] on May 07, 2019 with her to see her grandchildren. She returned on May 12. Patient reports that she was having some minimal rhinorrhea after returning, but this evening, 05/19/19, she had onset of fever, cough, and SOB. It is reported that the patient's had been evaluated at [facility] for fever, he is currently under self-quarantine and COVID-19 results are pending for him at this time. No known, confirmed COVID-19 exposure noted for this patient. Patient is on o2 at night. She also notes some decreased appetite but states that this is typical given her chemotherapy schedule. Home medications and allergies are reviewed. - History Of Current Complaint Chief Complaint: EDFever Time Seen by Provider: 05/19/19 22:16 Hx Obtained From: Patient Onset/Duration: Lasting Hours, Lasting Days Timing: Constant Associated Signs And Symptoms: Positive: SOB, Cough, Fever, Other - positive - rhinorrhea - Allergies/Home Medications Allergies/Adverse Reactions: Allergies Allergy/AdvReac Type Severity Reaction Status Date / Time cefepime Allergy Mild Hives Verified 05/19/19 23:51 gabapentin Allergy Unknown Verified 05/19/19 23:51 Reaction Details glatiramer (copolymer 1) Allergy Unknown Verified 05/19/19 23:51 [From Copaxone] Reaction Details mannitol Allergy Unknown Verified 05/19/19 23:51 Reaction Details simvastatin Allergy Unknown Verified 05/19/19 23:51 Reaction Details ciprofloxacin AdvReac Severe Unknown Verified 05/19/19 23:51 Reaction Details Home Medications: Home Medications Aspirin EC TAB* [Ecotrin EC Low Dose 81 MG*] 81 mg PO DAILY 10/02/14 [History Confirmed 05/16/19] LoraTADine TAB(NF) [Claritin 10 MG TAB(NF)] 10 mg PO QAM 10/02/14 [History Confirmed 05/16/19] Escitalopram * [Lexapro 10 mg (NF)] 10 mg PO DAILY 12/19/17 [History Confirmed 05/16/19] Cholecalciferol TAB* [Vitamin D TAB*] 1,000 unit PO DAILY 08/20/18 [History Confirmed 05/16/19] Elotuzumab* [Empliciti*] 400 mg IV MONTHLY 08/20/18 [History Confirmed 05/16/19] Melatonin 3 mg PO BEDTIME PRN 30 Days #30 tab 10/11/18 [Rx Confirmed 05/16/19] Acetaminophen [Acetaminophen Extra Strength] 500 - 1,000 mg PO TID PRN 11/23/18 [History Confirmed 05/16/19] Acyclovir* [Zovirax 400 MG TAB*] 400 mg PO DAILY 11/23/18 [History Confirmed 02/22] Cyanocobalamin TAB* [Vitamin B12 TAB*] 1,000 mcg PO DAILY 11/23/18 [History Confirmed 05/16/19] Prochlorperazine 10 mg TAB [Compazine 10 mg TAB] 10 mg PO Q6H PRN 11/23/18 [ History Confirmed 05/16/19] amLODIPine TAB* [Norvasc 5 mg TAB*] 10 mg PO BEDTIME 11/23/18 [History Confirmed 05/16/19] LORazepam TAB(*) [Ativan 0.5 MG TAB (*)] 1 mg PO Q6HR PRN #0 12/10/18 [Rx Confirmed 05/16/19] Loperamide CAP* [Imodium CAP*] 2 mg PO .SEE DIRECTIONS PRN #0 cap 12/10/18 [Rx Confirmed 05/16/19] Mometasone/Formoter 200/5 MDI* [Dulera 200/5 MDI*] 2 puff INH BID 01/09/19 [ History Confirmed 05/16/19] Magnesium Oxide TAB* [MagOx 400 TAB*] 400 mg PO DAILY 01/22/19 [History Confirmed 05/16/19] Omeprazole CAP (NF) [Prilosec CAP* 20 MG] 20 mg PO DAILY 01/22/19 [History Confirmed 05/16/19] LORazepam TAB(*) [Ativan 1 MG TAB (*)] 1 mg PO Q6H PRN 30 Days #30 tab MDD 2 [Rx Confirmed 05/16/19] Metoprolol Tartrate TAB* [Lopressor TAB*] 25 mg PO BID 30 Days #60 tab 02/01/19 [Rx Confirmed 05/16/19] PMH/Surg Hx/FS Hx/Imm Hx Endocrine/Hematology History: Reports: Hx Anemia - from chemo medications, Other Endocrine/Hematological Disorders - multiple MYELOMA, BONE MARROW TRANSPLANT Denies: Hx Diabetes, Hx Thyroid Disease Cardiovascular History: Reports: Hx Angina, Hx Hypertension, Other Cardiovascular Problems/Disorders - BONE MARROW TRANSPLANT, CML Denies: Hx Congestive Heart Failure, Hx Coronary Artery Disease, Hx Hypercholesterolemia, Hx Myocardial Infarction, Hx Pacemaker/ICD, Hx Peripheral Vascular Disease, Hx Valvular Heart Disease Respiratory History: Reports: Hx Pneumonia, Hx Seasonal Allergies, Other Respiratory Problems/Disorders - PNEUMONIA ONE WEEK AGO Denies: Hx Asthma, Hx Chronic Obstructive Pulmonary Disease (COPD) GI History: Reports: Hx Gastroesophageal Reflux Disease History: Reports: Hx Chronic Renal Failure, Hx Renal Disease - DECREASED FUNCTION FROM MULTIPLE MYELOMA Denies: Hx Dialysis Musculoskeletal History: Reports: Hx Arthritis, Other Musculoskeletal History - MS Sensory History: Reports: Hx Cataracts, Hx Contacts or Glasses Denies: Hx Glaucoma, Hx Hearing Aid Opthamlomology History: Reports: Hx Cataracts, Hx Contacts or Glasses Denies: Hx Glaucoma Neurological History: Reports: Other Neuro Impairments/Disorders - MS Denies: Hx Headaches, Hx Seizures, Hx Transient Ischemic Attacks (TIA) Psychiatric History: Reports: Hx Anxiety, Hx Depression - ON MEDICATION Denies: Hx Panic Disorder - Cancer History Cancer Type, Location and Year: MULTIPLE MYELOMA Hx Chemotherapy: Yes - shots on tuesdays Hx Radiation Therapy: No Hx Palliative Cancer Treatment: No - Surgical History Surgery Procedure, Year, and Place: LEFT FEMUR JUS FROM HIP TO KNEE 2019. BONE MARROW TRANSPLANT 2011. [place]. TOE SURGERY Hx Anesthesia Reactions: No - Immunization History Date of Tetanus Vaccine: Unk Date of Influenza Vaccine: Fall 2014 Infectious Disease History: No Infectious Disease History: Denies: Hx Clostridium Difficile, Hx Hepatitis, Hx Human Immunodeficiency Virus (HIV), Hx of Known/Suspected MRSA, Traveled Outside the [place] in Last 30 Days - Family History Known Family History: Positive: Cardiac Disease, Other - BREAST CANCER. Mother: rheumatic heart disease (from rheumatic fever) - Social History Alcohol Use: None Hx Substance Use: No Substance Use Type: Reports: None Hx Tobacco Use: No Smoking Status (MU): Never Smoked Tobacco Have You Smoked in the Last Year: No - Additional Comments History Additional Comments: Hx of multiple myeloma Review of Systems Positive: Fever Positive: Nasal Discharge Positive: Shortness Of Breath, Cough Positive: Other - Decreased appetite All Other Systems Reviewed And Are Negative: Yes Physical Exam - Summary Physical Exam Summary: General: Well-developed, Obese female. Appears in respiratory discomfort, mild at rest. HEENT: Normocephalic, Atraumatic. Eyes: Conjuctiva normal, PERRL. Oropharynx: Clear, mucous membranes moist, (-) exudates. Neck: Soft, FROM, (-) lymphadenopathy, (-) thyromegaly, (-) JVD. Cardiovascular: Normal sinus rhythm, (-) murmur. Lungs: Appears in respiratory discomfort, mild at rest, decreased breath sounds bilaterally, rhonchorous breath sounds, tight wheezing. Abdomen: Soft, non-tender, non-distended, (-) organomegaly, normal bowel sounds. Back: (-) CVA tenderness Extremities: No edema. Skin: Warm, dry, (-) rash. Neuro: Alert and oriented x3, moves all extremities equally. No ataxia. No gait disturbance. No sensory deficit. Normal strength, normal sensation. Psychiatric: Mood normal, affect normal. Triage Information Reviewed: Yes Vital Signs On Initial Exam: Initial Vitals Temp Pulse Resp BP Pulse Ox 99.6 F 93 20 144/73 97 05/19/19 22:20 05/19/19 22:20 05/19/19 22:20 05/19/19 22:20 05/19/19 22:20 Vital Signs Reviewed: Yes Procedures - Sedation Patient Received Moderate/Deep Sedation with Procedure: No Diagnostics - Vital Signs Vital Signs Temp Pulse Resp BP Pulse Ox 05/19/19 22:20 99.6 F 93 20 144/73 97 - Laboratory Result Diagrams: 05/19/19 23:35 05/19/19 23:35 Lab Statement: Any lab studies that have been ordered have been reviewed, and results considered in the medical decision making process. - Radiology CXR Radiology Interpretation Completed By: ED Physician Summary of Radiographic Findings: No acute process, pending official report. Complex Multi-Symp Course/Dx - Diagnoses Provider Diagnoses: Bronchitis, Anemia - Physician Notifications Discussed Care Of Patient With: Anisa Jay Time Discussed With Above Provider: 23:45 Instructed by Provider To: Other - Patient's case was discussed with Dr. Jay, Dr. Jay to admit the patient to hospitalist services. Discharge ED - Sign-Out/Discharge Documenting (check all that apply): Patient Departure - admit - Discharge Plan Condition: Fair Disposition: ADMITTED TO [facility] Referrals: Adwoa Boyce MD [Primary Care Provider] - - Attestation Statements Document Initiated by Scribe: Yes Documenting Scribe: CHRISTIANNE WICK Provider For Whom Scribe is Documenting (Include Credential): JAIRO SNOW MD Scribe Attestation: CHRISTIANNE Beverly, scribed for JAIRO SNOW MD on 05/20/19 at 0314. Status of Scribe Document: Ready
[2019-05-20 00:05] LABS: ABS Lymphocytes 0.3 10^3/ul (1.0-4.8); ABS Monocytes 0.7 10^3/ul (0-0.8); ABS Neutrophils 6.5 10^3/ul (1.5-7.7); Eosinophil % 0.2 %; Hematocrit 26 % (35-47); Hemoglobin 8.5 g/dL (12.0-16.0); Lymphocyte % 4.4 %; Mean Corpuscular HGB Conc 33 g/dL (31-36); Mean Corpuscular Hemoglobin 33 pg (27-31); Mean Corpuscular Volume 99 fL (80-97); Mean Platelet Volume 8.2 fL (7.4-10.4); Platelet Count 138 10^3/uL (150-450); Red Blood Count 2.59 10^6 /uL (3.70-4.87); Red Cell Distribution Width 18 % (10-15); White Blood Count 7.6 10^3/uL (3.5-10.8)
[2019-05-20 00:22] LABS: Albumin 3.9 g/dL (3.2-5.2); Albumin/Globulin Ratio 1.2 (1-3); BUN/Creatinine Ratio 14.2 (8-20); Calcium 8.7 mg/dL (8.6-10.3); EGFR Non-African American 29.7 (>60); Globulin 3.3 g/dL (2-4); Potassium 4.5 mmol/L (3.5-5.0); Total Bilirubin 0.6 mg/dL (0.2-1.0); Total Protein 7.2 g/dL (6.4-8.9)
[2019-05-20 00:25] LABS: Troponin I 0.02 ng/mL (<0.03)
[2019-05-20 00:26] LABS: Influenza A Molecular Negative (Negative); Influenza B Molecular Negative (Negative)
[2019-05-20] MEDS ORDERED: NS 0.9% 1000 ML** 1,000 ML IV SCH (01:45)
[2019-05-20] MEDS ORDERED: LORazepam TAB(*) 1 MG PO PRN (01:47)
[2019-05-20] MEDS ORDERED: Melatonin 3 MG TAB PO PRN (01:47)
[2019-05-20] MEDS ORDERED: Azithromycin 500 mg/250 mL NS BAG IVPB ONE (02:30)
[2019-05-20 03:01] LABS: Urine Appearance Clear; Urine Bilirubin Negative (Negative); Urine Blood 1+ (Negative); Urine Color Yellow; Urine Glucose Negative (Negative); Urine Ketones Negative (Negative); Urine Nitrite Negative (Negative); Urine Protein 1+(30 mg/dL) (Negative); Urine Specific Gravity 1.012 (1.010-1.030); Urine Urobilinogen Negative (Negative)
[2019-05-20 03:17] LABS: Urine Bacteria Absent (Absent); Urine Red Blood Cell Trace(0-2/hpf) (Absent); Urine White Blood Cell Trace(0-5/hpf) (Absent)
[2019-05-20] MEDS: Acetaminophen TAB* 325 MG PO PRN (04:30)
--- NOTE | 2019-05-20 06:07 | HP ---
HISTORY AND PHYSICAL: DATE OF ADMISSION: 05/20/19 PRIMARY CARE PROVIDER: Dr. Adwoa Boyce. HALL COORDINATOR: Jonathan Pepe, the patient's . CODE STATUS: Full. CHIEF COMPLAINT: Cough and fever. HISTORY OF PRESENT ILLNESS: A 74-year-old female with past medical history of multiple myeloma, on immunosuppression and IVIG, considered in remission; paroxysmal atrial fibrillation, not on anticoagulation; stage 3 CKD; MS, in remission; osteoporosis; GERD, stable; anemia; hypertension; anxiety, who is presenting this evening with a cough and fever for 1 day. The patient reports that her last IVIG was on and her last chemotherapy was on Monday. She told that she is in her usual state of health until today, where she started having fevers and cough. She denies shortness of breath, chest pain, or pleuritic chest pain. She reports that her cough is nonproductive. She also reports that she started having diarrhea, but that this is not uncommon for her and that she frequently gets diarrhea after her treatments and that this feels roughly the same. She also notes that she has had a poor appetite all day, but denies any headaches, changes in visions, new rashes, or yesica abdominal pain. No dysuria, no hematuria, or changes in skin color, new pain, joint swelling, myalgias, or arthralgias. Of note, her has been ruled out for COVID-19. She recently traveled to [place], roughly 1 week ago and visited her son, daughter, and grandchildren, none of whom she thinks were sick at that time. In the emergency room, her temperature is 100.2, heart rate is sinus in the 80s , her blood pressure is 140/72. She is needing no supplemental oxygen. Her chest x-ray shows questionable hazy infiltrate on the left middle lobe. Labs were notable for a stable creatinine at around 1.4 and mild transaminitis that is new. She has no evidence of white count. Because the patient is a high risk patient on chemotherapy and IVIG, the patient has been admitted under observation for followup with her primary insulation technician, Dr. Boyce in the morning , to determine if she is safe to be discharged to home. PAST MEDICAL HISTORY: Multiple myeloma, on immunosuppression and immunoglobulin therapy; paroxysmal atrial fibrillation, not on anticoagulation; stage 3 CKD; MS, in remission; osteoporosis; GERD; anemia; hypertension; anxiety. PAST SURGICAL HISTORY: Left port, status post fixation of left femur and bone marrow transplant in 2012. MEDICATIONS: 1. Acetaminophen 500 to 1000 mg p.o. p.r.n. for pain. 2. Empliciti 400 mg IV monthly. 3. Loperamide 2 mg p.o. p.r.n. for diarrhea. 4. Loratadine 10 mg p.o. q.a.m. 5. Lorazepam 1 mg p.o. every 6 hours p.r.n. 6. Compazine 10 mg p.o. q.6 hours p.r.n. 7. Acyclovir 400 mg p.o. daily. 8. Amlodipine 10 mg p.o. daily. 9. Aspirin 81 mg p.o. daily. 10. Vitamin D 1000 units p.o. daily. 11. Vitamin B12 at 1000 mcg p.o. daily. 12. Citalopram 10 mg p.o. daily. 13. Magnesium oxide 400 mg p.o. daily. 14. Melatonin 3 mg p.o. q.h.s. 15. Metoprolol tartrate 25 mg p.o. b.i.d. 16. Mometasone-formoterol 2 puffs inhaled b.i.d. 17. Omeprazole 20 mg p.o. daily. ALLERGIES: CEFEPIME, GABAPENTIN, MANNITOL, CIPRO, SIMVASTATIN. FAMILY HISTORY: Father with bladder cancer, mother with rheumatic fever, who at 86 of natural causes. SOCIAL HISTORY: She is a retired homemaker. She lives with her . She has never smoked, never illicit, or never alcohol. REVIEW OF SYSTEMS: Constitutional: Positive for fevers, but negative for chills. Positive for malaise. HEENT is negative for headaches, vision changes. Negative for sore throat. Cardiovascular: Negative for chest pain, palpitations, orthopnea. Respiratory: Positive for cough, but no pleuritic chest pain, no yesica shortness of breath, or wheezing. Gastrointestinal: Positive for diarrhea, but no nausea or vomiting. No yesica abdominal pain. is negative for dysuria or hematuria. Musculoskeletal: Negative for myalgias, arthralgias, or weakness. Skin is negative for any new rashes or lesions. Neurologic: Negative for focal weakness or numbness. Psychiatric: Negative for new depression or anxiety. Endocrine: Negative for polyuria or polydipsia. Heme is negative for easy bruising or bleed. No lymphadenopathy. PHYSICAL EXAMINATION GENERAL APPEARANCE: This is a very well-appearing woman, in no acute distress, who is scrolling through her phone during my interview. VITAL SIGNS: At the time of physical exam, blood pressure is 155/69, heart rate is 90, respiratory rate is 16, saturating is 97% on room air. HEENT: Pupils are equal and reactive. Sclerae are anicteric. Extraocular muscles are intact. She has mildly dry mucous membranes. NECK: Supple with no supraclavicular or cervical lymphadenopathy. RESPIRATORY: She has scant rhonchi, scattered throughout bilateral lower lung bases, but no wheezes, crackles, or increased work of breathing. CARDIAC: Regular rate and rhythm with no murmurs, rubs, or gallops. ABDOMEN: Belly is soft, nontender, nondistended with normoactive bowel sounds. MUSCULOSKELETAL: She moves all 4 limbs spontaneously without pain. EXTREMITIES: She has bilateral 1+ edema with mild erythema to bilateral lower extremities, but no associated warmth or tenderness. NEUROLOGICAL: A and O x3. Cranial nerves II through XII, no focal neurological deficits. DIAGNOSTIC STUDIES/LAB DATA: White blood cell count of 7.6, hemoglobin of 8.5 , hematocrit of 26, platelets 138. Sodium 136, potassium 4.5, chloride 105, carbon dioxide 22, anion gap 9, BUN 24, creatinine 1.69, glucose 124. AST 48, ALT 70, alkaline phosphatase 101, BNP 103. Influenza A and B are negative. Imaging includes a chest x-ray, which shows mild hazy infiltrate to left perihilar. Otherwise, clear borders. Diffuse new reticular markings throughout both lungs. Telemetry is showing sinus tachycardia with no active signs of ischemia. ASSESSMENT AND PLAN: A 74-year-old female with past medical history of multiple myeloma, on immunosuppression and immunoglobulin supplementation; paroxysmal atrial fibrillation, not on anticoagulation; stage 3 CKD; MS, on remission; osteoporosis, GERD; anemia; hypertension; and anxiety, who is presenting this evening with one- day of cough and fever, which is all concerning for viral URI including COVID and possible community-acquired pneumonia. She has very mild hypoxia only while sleeping, c/w likely [place]. 1. Upper respiratory tract infection symptoms. We will continue isolation precautions. The COVID test has been sent. We will add human respiratory panel. The patient is not requiring supplemental oxygen. Continue supportive care with Tylenol. If the patient is stable in the morning, she will be discharged home for self-quarantine along with her . This likely will be safer for her, although she should be monitored given her immunocompromised state. 2. Community-acquired pneumonia. No clear infiltrate on exam except for mild left perihilar. I will start azithro for CAP or possible early bacterial pneumonia. 3. Chronic kidney disease. Creatinine appears stable. 4. Anemia, appears stable. 5. Hypertension. Continue amlodipine. 6. Anxiety. Continue escitalopram and lorazepam. 7. Osteoporosis, stable. 8. Multiple sclerosis in remission, stable. 9. Gastroesophageal reflux disease. Continue pantoprazole. 10. DVT prophylaxis: High risk, start Lovenox. 11. Home medications: Continue vitamin D and B, melatonin. 12. Paroxysmal atrial fibrillation. Continue metoprolol 25 mg p.o. b.i.d. 13. Code status is full. 14. Disposition: Stable, will be admitted under observation as a person under investigation for COVID to negative pressure room at [address] [place] [address]. TIME SPENT: Sixty minutes was spent on the planning of this admission with over half of that spent directly at the bedside of the patient providing direct patient care. Plan of care was discussed with the patient, who has no further questions and will be followed by her primary care doctor, Dr. Adwoa Boyce at 3 :16 a.m. [id number]/[facility] #: [id number] DONTE
[2019-05-20] MEDS: amLODIPine TAB* 5 MG PO SCH ×2 (06:30→19:59)
[2019-05-20] MEDS: Mometasone/Formoter 200/5 MDI INH SCH ×2 (08:09→19:33)
[2019-05-20 09:14] LABS: C Reactive Protein 103.35 mg/L (<8.01)
[2019-05-20] MEDS: Metoprolol Tartrate TAB* 25 MG PO SCH ×2 (09:31→19:58)
[2019-05-20] MEDS: Pantoprazole TAB * 40 MG TAB PO SCH (09:31)
[2019-05-20] MEDS: Magnesium Oxide TAB* 400 MG PO SCH (09:31)
[2019-05-20] MEDS: Aspirin EC TAB* 81 MG TAB.EC PO SCH (09:31)
[2019-05-20] MEDS: Escitalopram * 10 MG TAB PO SCH (09:31)
[2019-05-20] MEDS: Cholecalciferol TAB* 1000 UNITS PO SCH (09:31)
[2019-05-20] MEDS: Cyanocobalamin TAB* 500 MCG PO SCH (09:32)
[2019-05-20] MEDS: Acyclovir* 400 MG TAB PO SCH (09:32)
[2019-05-20] MEDS: Enoxaparin(*) 40 MG/0.4 ML SYR SUBCUT SCH (09:39)
[2019-05-20] MEDS: Levofloxacin 750 MG IVPREMIX(* 750 MG/150 ML BAG IVPB SCH (12:57)
[2019-05-20] MEDS ORDERED: Ondansetron INJ* 2 MG/ML VIAL IV PRN (14:49)
[2019-05-20] MEDS: Loperamide CAP* 2 MG PO PRN (16:01)
[2019-05-20] MEDS ORDERED: amLODIPine TAB* 5 MG PO SCH (21:00)
[2019-05-21] MEDS ORDERED: Azithromycin 500 mg/250 ml NS 500 MG/250 ML BAG IVPB SCH (03:00)
[2019-05-21 04:41] LABS: ABS Lymphocytes 0.3 10^3/ul (1.0-4.8); ABS Monocytes 0.6 10^3/ul (0-0.8); ABS Neutrophils 3.2 10^3/ul (1.5-7.7); Eosinophil % 0.5 %; Hematocrit 21 % (35-47); Lymphocyte % 6.3 %; Mean Corpuscular HGB Conc 34 g/dL (31-36); Mean Corpuscular Hemoglobin 33 pg (27-31); Mean Corpuscular Volume 99 fL (80-97); Mean Platelet Volume 8.1 fL (7.4-10.4); Nucleated Red Blood Cells % 0.1; Platelet Count 104 10^3/uL (150-450); Red Cell Distribution Width 18 % (10-15); White Blood Count 4.1 10^3/uL (3.5-10.8)
[2019-05-21 05:00] LABS: Albumin 3.4 g/dL (3.2-5.2); Albumin/Globulin Ratio 1.3 (1-3); BUN/Creatinine Ratio 9.7 (8-20); C Reactive Protein 114.14 mg/L (<8.01); Calcium 8.4 mg/dL (8.6-10.3); EGFR African American 34.3 (>60); EGFR Non-African American 28.4 (>60); Globulin 2.7 g/dL (2-4); Potassium 4.3 mmol/L (3.5-5.0); Total Bilirubin 0.4 mg/dL (0.2-1.0); Total Protein 6.1 g/dL (6.4-8.9)
[2019-05-21] MEDS: Pantoprazole TAB * 40 MG TAB PO SCH (08:51)
[2019-05-21] MEDS: Enoxaparin(*) 40 MG/0.4 ML SYR SUBCUT SCH (08:52)
[2019-05-21] MEDS: Magnesium Oxide TAB* 400 MG PO SCH (08:55)
[2019-05-21] MEDS: Aspirin EC TAB* 81 MG TAB.EC PO SCH (08:55)
[2019-05-21] MEDS: Metoprolol Tartrate TAB* 25 MG PO SCH ×2 (08:55→20:10)
[2019-05-21] MEDS: Acyclovir* 400 MG TAB PO SCH (08:55)
[2019-05-21] MEDS: Escitalopram * 10 MG TAB PO SCH (08:55)
[2019-05-21] MEDS: Cyanocobalamin TAB* 500 MCG PO SCH (08:55)
[2019-05-21] MEDS: Cholecalciferol TAB* 1000 UNITS PO SCH (08:55)
[2019-05-21] MEDS: Acetaminophen TAB* 325 MG PO PRN (08:56)
[2019-05-21] MEDS ORDERED: Azithromycin TAB* 250 MG PO SCH (09:00)
[2019-05-21] MEDS: Mometasone/Formoter 200/5 MDI INH SCH ×2 (09:28→20:34)
[2019-05-21] MEDS ORDERED: Lidocaine 2.5%/Prilocain 2.5%* 5 GM TUBE TOPICAL ONE (13:30)
[2019-05-21] MEDS: amLODIPine TAB* 5 MG PO SCH (20:09)
[2019-05-22 05:00] LABS: ABS Lymphocytes 0.5 10^3/ul (1.0-4.8); ABS Monocytes 0.7 10^3/ul (0-0.8); Eosinophil % 0.6 %; Hematocrit 25 % (35-47); Hemoglobin 8.4 g/dL (12.0-16.0); Lymphocyte % 11.8 %; Mean Corpuscular HGB Conc 33 g/dL (31-36); Mean Corpuscular Hemoglobin 32 pg (27-31); Mean Corpuscular Volume 95 fL (80-97); Mean Platelet Volume 8.5 fL (7.4-10.4); Platelet Count 124 10^3/uL (150-450); Red Blood Count 2.67 10^6 /uL (3.70-4.87); Red Cell Distribution Width 21 % (10-15); White Blood Count 4.3 10^3/uL (3.5-10.8)
[2019-05-22 05:17] LABS: BUN/Creatinine Ratio 8.8 (8-20); C Reactive Protein 97.21 mg/L (<8.01); EGFR African American 30.7 (>60); EGFR Non-African American 25.4 (>60)
[2019-05-22] MEDS: Mometasone/Formoter 200/5 MDI INH SCH (08:43)
[2019-05-22] MEDS: Levofloxacin 750 MG IVPREMIX(* 750 MG/150 ML BAG IVPB SCH (09:00)
[2019-05-22] MEDS: Escitalopram * 10 MG TAB PO SCH (09:01)
[2019-05-22] MEDS: Cholecalciferol TAB* 1000 UNITS PO SCH (09:02)
[2019-05-22] MEDS: Cyanocobalamin TAB* 500 MCG PO SCH (09:02)
[2019-05-22] MEDS: Acyclovir* 400 MG TAB PO SCH (09:02)
[2019-05-22] MEDS: Enoxaparin(*) 40 MG/0.4 ML SYR SUBCUT SCH (09:02)
[2019-05-22] MEDS: Aspirin EC TAB* 81 MG TAB.EC PO SCH (09:02)
[2019-05-22] MEDS: Magnesium Oxide TAB* 400 MG PO SCH (09:03)
[2019-05-22] MEDS: Pantoprazole TAB * 40 MG TAB PO SCH (09:03)
[2019-05-22] MEDS: Metoprolol Tartrate TAB* 25 MG PO SCH (09:03)
[2019-05-22] MEDS: Acetaminophen TAB* 325 MG PO PRN (09:20)
--- NOTE | 2019-05-22 11:27 | DS ---
CC: Dr. Halie Norris * DISCHARGE SUMMARY: DATE OF ADMISSION: 05/20/19 DATE OF DISCHARGE: 05/22/19 DISCHARGE DIAGNOSES: 1. Pneumonia. 2. Multiple myeloma. 3. Anemia, related to #2. 4. Elevated LFTs, resolved. 5. History of hypertension. 6. History of anxiety and depression. 7. Chronic immunosuppression, on chronic IVIG. 8. History of paroxysmal atrial fibrillation. 9. Stage 3 chronic kidney disease. 10. Multiple sclerosis, in remission. 11. Osteoporosis. 12. Gastroesophageal reflux disease. 13. Status post fixation of left femur pathologic fracture. 14. Status post bone marrow transplant. HISTORY: Adwoa Pepe is a 74-year-old woman admitted with cough and fever. Please see the dictated admission note for details of the present illness, past medical history, family history, social and personal history, review of systems , and physical examination. DIAGNOSTIC STUDIES/LAB DATA: CBC on 05/19/19 in the ER: WBC 7.6, H and H 8.5/ 26, MCV 99, PLT 138,000. CBC on 05/21/19: WBC 4.1, H and H 7/21, MCV 99, PLT 104,000. CBC on 05/22/19: WBC 4.3, H and H 8.4/25, MCV 95, PLT 124,000. Chemistries on 05/19/19: Sodium 136, potassium 4.5, chloride 105, CO2 of 22, BUN and creatinine 24/1.69, glucose 124. AST 48, ALT 70. CMP otherwise within normal limits. CRP elevated at 103.35. Labs on 05/21/19: Creatinine up to 1.76 , otherwise essentially unchanged. CRP up to 114.14. BMP on 05/22/19: Creatinine up to 1.94, otherwise essentially unchanged. CRP down to 97.21. BNP on 05/19/19 was 103. Serology: COVID-19 negative. Influenza A and B negative. Blood cultures x2 were negative. Urine culture negative. Urine for legionella and Streptococcus pneumoniae negative. Blood type A positive, transfused 1 unit. Imaging: Chest x-ray on 05/19/19 showed elevated lung volumes, no acute findings. Chest x-ray on 05/21/19 showed minimal linear atelectasis of the right lung base. These were both portable x-rays done because the patient was in the isolation. HOSPITAL COURSE: The patient was initially admitted through the emergency room. There was a concern about COVID-19. Her at that point was a person under investigation for COVID-19, eventually turned out to be negative. She also turned out to be negative. She has had recurrent pneumonia in the past. She was started on azithromycin initially, subsequently switched to levofloxacin. She was on isolation, taken off isolation on 05/22/19 when her COVID-19 test was negative. A human respiratory panel was also sent. This has not come back yet. She received supportive care with Tylenol, as needed oxygen. It was felt that she should stay in the hospital because of her immunosuppressed condition and to see whether she would respond to IV antibiotics. She did improve. She developed rales and wheezing on exam. This seemed somewhat better by the time of discharge. She was continued on metoprolol for history of paroxysmal atrial fibrillation. She received 1 unit of packed red blood cells for anemia. Hemoglobin down to 7 on 05/21/19. She tolerated this without complications. She felt less tired by the time of discharge on 05/22/19. She continued to have a nonproductive cough. She had diarrhea for which she took an Imodium. Her elevated LFTs resolved. By the time of discharge on 05/22/19, she is being discharged home in improved condition. She still had rales, rhonchi at the right base with expiratory wheezes. Her heart was regular. Extremities showed no edema, no calf tenderness. Labs are as noted above. She was felt to have pneumonia despite no definite pneumonia on x-ray based on her physical exam and her previous history. She is being discharged on levofloxacin. Her anemia improved post transfusion. This was discussed with Dr. Norris and no further transfusion was indicated. Her elevated LFTs had resolved. With regards to her multiple myeloma , Dr. Norris will see her back in the office on 05/27/19 to decide on further treatment. She was to be started on a new medication for multiple myeloma. Empliciti was to be discontinued. She will not start the new medication until her infection has resolved. Her blood pressure was slightly high prior to discharge. This will be followed as an outpatient. The high temperature in the past 24 hours was 99.8. She can follow this as an outpatient. She is also able to follow her blood pressure at home. At the time of discharge, she is being discharged later today if she feels strong enough. MEDICATIONS AT THE TIME OF DISCHARGE: As follows: 1. Loratadine 10 mg each morning. 2. Aspirin 81 mg daily. 3. Lexapro/escitalopram 10 mg daily. 4. Melatonin 3 mg at bedtime as needed. 5. Prochlorperazine 10 mg every 6 hours as needed. 6. Vitamin B12 1000 mcg daily. 7. Zovirax 400 mg daily. 8. Tylenol 1000 mg t.i.d. as needed for pain. 9. Amlodipine 10 mg at bedtime. 10. Loperamide 2 mg every 4 hours as needed for diarrhea. 11. Lorazepam 1 mg every 6 hours as needed for anxiety. 12. Dulera 200/5 two puffs twice a day. 13. Omeprazole 20 mg daily. 14. Magnesium 400 mg daily. 15. Metoprolol 25 mg twice a day. 16. Dexamethasone 20 mg weekly, 12 mg today, 4 mg tomorrow, 4 mg the next day. She does this every week. She will start today. 17. Levofloxacin 250 mg daily for 7 days. DIET: As usual. ACTIVITIES: As tolerated. [id number]/[facility] #: [id number] DONTE
[2019-05-22 11:35] VITALS: BP 119/57
[2019-05-22] MEDS: Loperamide CAP* 2 MG PO PRN (15:30)
== END 2019-05-22 16:50 | disposition home or self-care (01) ==
LOC: ED 22:15 → MED 05-20 01:43
PROVIDERS: ADMIT Internal Medicine; ATTEND Internal Medicine Geriatric Medicine
DX: J18.9 Pneumonia, unspecified organism (principal); C90.00 Multiple myeloma not having achieved remission; D64.9 Anemia, unspecified; R79.89 Other specified abnormal findings of blood chemistry; I12.9 Hypertensive chronic kidney disease with stage 1 through stage 4 chronic kidney disease, or unspecified chronic kidney disease; N18.3 Chronic kidney disease, stage 3 (moderate); I48.0 Paroxysmal atrial fibrillation; D84.9 Immunodeficiency, unspecified; I10 Essential (primary) hypertension; F41.9 Anxiety disorder, unspecified; F32.9 Major depressive disorder, single episode, unspecified; M81.0 Age-related osteoporosis without current pathological fracture; G35 Multiple sclerosis; R06.02 Shortness of breath; K21.9 Gastro-esophageal reflux disease without esophagitis; Z94.81 Bone marrow transplant status; Z87.311 Personal history of (healed) other pathological fracture; Z79.82 Long term (current) use of aspirin; Z79.899 Other long term (current) drug therapy; Z88.8 Allergy status to other drugs, medicaments and biological substances; Z92.21 Personal history of antineoplastic chemotherapy; Z88.1 Allergy status to other antibiotic agents; Z20.828 Contact with and (suspected) exposure to other viral communicable diseases
CPT/HCPCS: 36415; 71045; 80048; 80053; 81003; 81015; 83605; 83880; 84484; 85025; 86140; 86850; 86900; 86901; 86922; 87040; 87086; 87899; 94640; 96365; 96366; 96372; 96375; 99284; A9270-GY; G0378; J0456; J1642; J1650; J2405; P9040

== ENCOUNTER 2020-05-01 10:13 | Inpatient (IN) ==
[2020-05-01 11:00] LABS: ABS Lymphocytes 0.4 10^3/ul (1.0-4.8); ABS Monocytes 0.4 10^3/ul (0-0.8); ABS Neutrophils 3.8 10^3/ul (1.5-7.7); Eosinophil % 0.1 %; Hematocrit 24 % (35-47); Hemoglobin 8.1 g/dL (12.0-16.0); Lymphocyte % 8.6 %; Mean Corpuscular HGB Conc 33 g/dL (31-36); Mean Corpuscular Hemoglobin 31 pg (27-31); Mean Corpuscular Volume 93 fL (80-97); Mean Platelet Volume 8.6 fL (7.4-10.4); Platelet Count 37 10^3/uL (150-450); Red Blood Count 2.62 10^6 /uL (3.70-4.87); Red Cell Distribution Width 20 % (10-15); White Blood Count 4.7 10^3/uL (3.5-10.8)
[2020-05-01 11:35] LABS: Albumin/Globulin Ratio 1.6 (1-3); BUN/Creatinine Ratio 4.6 (8-20); Calcium 7.7 mg/dL (8.6-10.3); EGFR Non-African American 9.9 (>60); Globulin 2.5 g/dL (2-4); Magnesium 1.5 mg/dL (1.9-2.7); Potassium 3.8 mmol/L (3.5-5.0); Total Bilirubin 0.7 mg/dL (0.2-1.0); Total Protein 6.5 g/dL (6.4-8.9)
[2020-05-01] MEDS ORDERED: Albuterol HFA INHALER 8 gm MDI INH PRN (14:57)
[2020-05-01] MEDS: NS 0.9% 1000 ml BAG 1,000 ML IV SCH (17:27)
[2020-05-01] MEDS: Mometasone/Formoter 200/5 MDI INH SCH (19:11)
[2020-05-01] MEDS ORDERED: Scopolamine PATCH Remove NOTE PATCH OFF PRN (19:29)
[2020-05-02] MEDS: NS 0.9% 1000 ml BAG 1,000 ML IV SCH ×3 (03:42→22:43)
[2020-05-02 05:56] LABS: Albumin 3.5 g/dL (3.2-5.2); Albumin/Globulin Ratio 1.7 (1-3); BUN/Creatinine Ratio 4.6 (8-20); Calcium 6.9 mg/dL (8.6-10.3); EGFR African American 12.2 (>60); Globulin 2.1 g/dL (2-4); Potassium 4.2 mmol/L (3.5-5.0); Total Bilirubin 0.7 mg/dL (0.2-1.0); Total Protein 5.6 g/dL (6.4-8.9)
[2020-05-02 05:59] LABS: ABS Basophils 0.1 10^3/ul (0-0.2); ABS Lymphocytes 0.4 10^3/ul (1.0-4.8); ABS Monocytes 0.5 10^3/ul (0-0.8); ABS Neutrophils 3.2 10^3/ul (1.5-7.7); Eosinophil % 0.2 %; Hematocrit 25 % (35-47); Hemoglobin 8.4 g/dL (12.0-16.0); Lymphocyte % 9.1 %; Mean Corpuscular HGB Conc 34 g/dL (31-36); Mean Corpuscular Hemoglobin 31 pg (27-31); Mean Corpuscular Volume 91 fL (80-97); Mean Platelet Volume 8.8 fL (7.4-10.4); Platelet Count 36 10^3/uL (150-450); Red Blood Count 2.76 10^6 /uL (3.70-4.87); Red Cell Distribution Width 19 % (10-15); White Blood Count 4.1 10^3/uL (3.5-10.8)
[2020-05-02] MEDS: Mometasone/Formoter 200/5 MDI INH SCH ×2 (08:40→19:46)
[2020-05-02] MEDS: Calcium Carb (TUMS) 500 mg CHEW TAB PO SCH (08:59)
[2020-05-02] MEDS ORDERED: VENETOCLAX 200 MG PO SCH (09:00)
[2020-05-02] MEDS ORDERED: Magnesium Sulfate 2 gm BAG 2 GM/50 ML BAG IVPB ONE (15:07)
[2020-05-02 16:00] LABS: Magnesium 1.4 mg/dL (1.9-2.7)
[2020-05-02] MEDS ORDERED: Magnesium Sulfate IV 1GM/100ML 1 GM/100 ML BAG IV ONE (21:02)
[2020-05-02] MEDS: Ondansetron 4 mg VIAL 2 MG/ML 2 ml VIAL IV PRN (21:08)
[2020-05-03 05:04] LABS: ABS Lymphocytes 0.3 10^3/ul (1.0-4.8); ABS Monocytes 0.5 10^3/ul (0-0.8); Eosinophil % 0.1 %; Hematocrit 25 % (35-47); Hemoglobin 8.4 g/dL (12.0-16.0); Lymphocyte % 6.5 %; Mean Corpuscular HGB Conc 33 g/dL (31-36); Mean Corpuscular Hemoglobin 31 pg (27-31); Mean Corpuscular Volume 93 fL (80-97); Platelet Count 40 10^3/uL (150-450); Red Blood Count 2.72 10^6 /uL (3.70-4.87); Red Cell Distribution Width 20 % (10-15); White Blood Count 4.8 10^3/uL (3.5-10.8)
[2020-05-03 05:19] LABS: BUN/Creatinine Ratio 4.5 (8-20); Calcium 6.8 mg/dL (8.6-10.3); EGFR Non-African American 9.1 (>60); Magnesium 2.3 mg/dL (1.9-2.7); Potassium 3.9 mmol/L (3.5-5.0)
[2020-05-03] MEDS: Mometasone/Formoter 200/5 MDI INH SCH ×2 (08:21→20:00)
[2020-05-03] MEDS: Calcium Carb (TUMS) 500 mg CHEW TAB PO SCH (09:48)
[2020-05-03] MEDS ORDERED: NS 0.9% 1000 ml BAG 1,000 ML IV SCH (12:44)
[2020-05-03 14:40] LABS: Urine Appearance Clear; Urine Bilirubin Negative (Negative); Urine Blood 1+ (Negative); Urine Color Straw; Urine Glucose Negative (Negative); Urine Ketones Negative (Negative); Urine Nitrite Negative (Negative); Urine Protein 2+(100 mg/dL) (Negative); Urine Specific Gravity 1.005 (1.010-1.030); Urine Urobilinogen Negative (Negative)
[2020-05-03 14:42] LABS: Urine Bacteria Absent (Absent); Urine Red Blood Cell 1+(3-5/hpf) (Absent); Urine White Blood Cell Trace(0-5/hpf) (Absent)
[2020-05-03] MEDS: Lactated Ringers 1000 ml BAG 1,000 ML IV SCH (17:14)
[2020-05-04 05:40] LABS: BUN/Creatinine Ratio 4.7 (8-20); Calcium 6.8 mg/dL (8.6-10.3); EGFR African American 10.1 (>60); EGFR Non-African American 8.3 (>60); Potassium 3.9 mmol/L (3.5-5.0)
[2020-05-04] MEDS: Lactated Ringers 1000 ml BAG 1,000 ML IV SCH ×2 (06:05→19:55)
[2020-05-04] MEDS: Mometasone/Formoter 200/5 MDI INH SCH ×2 (07:56→20:21)
[2020-05-04] MEDS: Calcium Carb (TUMS) 500 mg CHEW TAB PO SCH (10:27)
[2020-05-04 15:24] LABS: % Iron Saturation 20 % (15-55); Iron 51 ug/dL (50-212); Total Iron Binding Capacity 252 mcg/dL (250-450); Transferrin 180 mg/dL (203-362); Unsaturated Iron Binding < 237 ug/dL
[2020-05-04 15:40] LABS: Ferritin 493.7 ng/mL (11-307)
[2020-05-04 15:45] LABS: Vitamin B12 485 pg/mL (180-914)
[2020-05-05] MEDS ORDERED: Magnesium Hydroxide LIQ 30 ML UDC PO PRN (00:38)
[2020-05-05] MEDS ORDERED: Senna TAB 8.6 mg TAB PO PRN (00:39)
[2020-05-05 05:56] LABS: Hematocrit 23 % (35-47); Hemoglobin 7.9 g/dL (12.0-16.0); Mean Corpuscular HGB Conc 34 g/dL (31-36); Mean Corpuscular Hemoglobin 32 pg (27-31); Mean Corpuscular Volume 92 fL (80-97); Mean Platelet Volume 8.5 fL (7.4-10.4); Platelet Count 50 10^3/uL (150-450); Red Cell Distribution Width 19 % (10-15); White Blood Count 4.5 10^3/uL (3.5-10.8)
[2020-05-05 06:05] LABS: Albumin 3.3 g/dL (3.2-5.2); Albumin/Globulin Ratio 1.4 (1-3); BUN/Creatinine Ratio 5.4 (8-20); Calcium 7.3 mg/dL (8.6-10.3); EGFR African American 10.2 (>60); EGFR Non-African American 8.4 (>60); Globulin 2.4 g/dL (2-4); Magnesium 1.7 mg/dL (1.9-2.7); Potassium 4.1 mmol/L (3.5-5.0); Total Bilirubin 0.5 mg/dL (0.2-1.0); Total Protein 5.7 g/dL (6.4-8.9)
[2020-05-05 07:19] LABS: ABS Lymphocytes 0.3 10^3/ul (1.0-4.8); ABS Monocytes 0.5 10^3/ul (0-0.8); ABS Neutrophils 3.6 10^3/ul (1.5-7.7); Eosinophil % 0.3 %; Lymphocyte % 7.6 %; Nucleated Red Blood Cells % 0.1
[2020-05-05] MEDS: Calcium Carb (TUMS) 500 mg CHEW TAB PO SCH (08:35)
[2020-05-05] MEDS: Mometasone/Formoter 200/5 MDI INH SCH ×2 (09:12→21:10)
[2020-05-05] MEDS: Lactated Ringers 1000 ml BAG 1,000 ML IV SCH ×2 (09:15→20:18)
[2020-05-05] MEDS ORDERED: Dexamethasone IV 40 MG in NS 0.9% 50 ML 50 ML IVPB ONE (13:30)
[2020-05-05] MEDS ORDERED: BORTEZOMIB ONE (14:00)
[2020-05-05] MEDS ORDERED: CYCLOPHOSPHAMIDE IVPB ONE (14:00)
[2020-05-05] MEDS ORDERED: NS 0.9% IVPB ONE (14:00)
[2020-05-06] MEDS: Calcium Carb (TUMS) 500 mg CHEW TAB PO SCH (08:41)
[2020-05-06] MEDS: Mometasone/Formoter 200/5 MDI INH SCH ×2 (09:10→19:14)
[2020-05-06] MEDS: Lactated Ringers 1000 ml BAG 1,000 ML IV SCH ×3 (10:02→23:46)
[2020-05-06 10:31] LABS: ABS Lymphocytes 0.3 10^3/ul (1.0-4.8); ABS Monocytes 0.4 10^3/ul (0-0.8); ABS Neutrophils 8.3 10^3/ul (1.5-7.7); Hematocrit 25 % (35-47); Hemoglobin 8.5 g/dL (12.0-16.0); Lymphocyte % 3.3 %; Mean Corpuscular HGB Conc 34 g/dL (31-36); Mean Corpuscular Hemoglobin 31 pg (27-31); Mean Corpuscular Volume 91 fL (80-97); Mean Platelet Volume 8.4 fL (7.4-10.4); Nucleated Red Blood Cells % 0.1; Platelet Count 47 10^3/uL (150-450); Red Blood Count 2.73 10^6 /uL (3.70-4.87); Red Cell Distribution Width 20 % (10-15)
[2020-05-06 10:44] LABS: Albumin 3.7 g/dL (3.2-5.2); Albumin/Globulin Ratio 1.4 (1-3); BUN/Creatinine Ratio 6.7 (8-20); EGFR African American 10.8 (>60); EGFR Non-African American 8.9 (>60); Globulin 2.6 g/dL (2-4); Magnesium 1.4 mg/dL (1.9-2.7); Potassium 4.1 mmol/L (3.5-5.0); Total Bilirubin 0.4 mg/dL (0.2-1.0); Total Protein 6.3 g/dL (6.4-8.9)
[2020-05-07] MEDS: Lactated Ringers 1000 ml BAG 1,000 ML IV SCH ×2 (05:59→12:48)
[2020-05-07] MEDS: Calcium Carb (TUMS) 500 mg CHEW TAB PO SCH (08:57)
[2020-05-07] MEDS: Mometasone/Formoter 200/5 MDI INH SCH ×2 (09:27→21:15)
[2020-05-07 09:42] LABS: Albumin 3.8 g/dL (3.2-5.2); Albumin/Globulin Ratio 1.4 (1-3); BUN/Creatinine Ratio 7.5 (8-20); Calcium 8.1 mg/dL (8.6-10.3); EGFR African American 11.9 (>60); EGFR Non-African American 9.8 (>60); Globulin 2.7 g/dL (2-4); Potassium 4.5 mmol/L (3.5-5.0); Total Bilirubin 0.5 mg/dL (0.2-1.0); Total Protein 6.5 g/dL (6.4-8.9)
[2020-05-07] MEDS: Ondansetron 4 mg VIAL 2 MG/ML 2 ml VIAL IV PRN (16:57)
[2020-05-07 22:31] LABS: Kappa Free Light Chain 1570 mg/dL
[2020-05-08] MEDS: Lactated Ringers 1000 ml BAG 1,000 ML IV SCH ×3 (03:49→22:37)
[2020-05-08] MEDS: Mometasone/Formoter 200/5 MDI INH SCH ×2 (07:34→19:46)
[2020-05-08 07:52] LABS: Albumin 3.4 g/dL (3.2-5.2); Albumin/Globulin Ratio 1.5 (1-3); Calcium 7.7 mg/dL (8.6-10.3); EGFR Non-African American 9.9 (>60); Globulin 2.2 g/dL (2-4); Potassium 4.7 mmol/L (3.5-5.0); Total Bilirubin 0.4 mg/dL (0.2-1.0); Total Protein 5.6 g/dL (6.4-8.9)
[2020-05-08 08:07] LABS: ABS Lymphocytes 0.2 10^3/ul (1.0-4.8); ABS Monocytes 0.4 10^3/ul (0-0.8); ABS Neutrophils 2.6 10^3/ul (1.5-7.7); Eosinophil % 0.5 %; Hematocrit 22 % (35-47); Hemoglobin 7.5 g/dL (12.0-16.0); Lymphocyte % 5.8 %; Mean Corpuscular HGB Conc 34 g/dL (31-36); Mean Corpuscular Hemoglobin 31 pg (27-31); Mean Corpuscular Volume 92 fL (80-97); Mean Platelet Volume 8.1 fL (7.4-10.4); Nucleated Red Blood Cells % 0.1; Platelet Count 39 10^3/uL (150-450); Red Blood Count 2.43 10^6 /uL (3.70-4.87); Red Cell Distribution Width 19 % (10-15); White Blood Count 3.3 10^3/uL (3.5-10.8)
[2020-05-08] MEDS: Calcium Carb (TUMS) 500 mg CHEW TAB PO SCH (09:13)
[2020-05-08] MEDS: Senna TAB 8.6 mg TAB PO SCH ×2 (12:26→20:02)
[2020-05-08] MEDS ORDERED: BORTEZOMIB SUBCUT ONE (14:00)
[2020-05-08] MEDS: Ondansetron 4 mg VIAL 2 MG/ML 2 ml VIAL IV PRN (18:03)
[2020-05-09] MEDS: Mometasone/Formoter 200/5 MDI INH SCH ×2 (08:42→21:14)
[2020-05-09] MEDS: Calcium Carb (TUMS) 500 mg CHEW TAB PO SCH (10:05)
[2020-05-09] MEDS: Senna TAB 8.6 mg TAB PO SCH ×2 (10:09→20:18)
[2020-05-09] MEDS: Lactated Ringers 1000 ml BAG 1,000 ML IV SCH ×2 (10:13→20:56)
[2020-05-09 10:47] LABS: Hematocrit 24 % (35-47); Mean Corpuscular HGB Conc 33 g/dL (31-36); Mean Corpuscular Hemoglobin 31 pg (27-31); Mean Corpuscular Volume 92 fL (80-97); Mean Platelet Volume 7.9 fL (7.4-10.4); Platelet Count 31 10^3/uL (150-450); Red Blood Count 2.62 10^6 /uL (3.70-4.87); Red Cell Distribution Width 19 % (10-15); White Blood Count 5.4 10^3/uL (3.5-10.8)
[2020-05-09 11:01] LABS: BUN/Creatinine Ratio 7.6 (8-20); Calcium 7.9 mg/dL (8.6-10.3); EGFR Non-African American 9.1 (>60); Magnesium 1.3 mg/dL (1.9-2.7); Potassium 4.4 mmol/L (3.5-5.0)
[2020-05-09] MEDS ORDERED: Magnesium Sulfate IV 3 GM in NS 0.9% 100 ml BAG 100 ML IVPB ONE (12:29)
[2020-05-09 12:31] LABS: ABS Lymphocytes 0.1 10^3/ul (1.0-4.8); ABS Monocytes 0.3 10^3/ul (0-0.8); ABS Neutrophils 4.9 10^3/ul (1.5-7.7); Eosinophil % 0.5 %; Lymphocyte % 2.7 %; Nucleated Red Blood Cells % 0.1
[2020-05-09 13:16] LABS: Urine Appearance Clear; Urine Bilirubin Negative (Negative); Urine Blood 2+ (Negative); Urine Color Straw; Urine Glucose Negative (Negative); Urine Ketones Negative (Negative); Urine Nitrite Negative (Negative); Urine Protein 1+(30 mg/dL) (Negative); Urine Specific Gravity 1.008 (1.010-1.030); Urine Urobilinogen Negative (Negative)
[2020-05-09 13:19] LABS: Urine Bacteria 1+ (Absent); Urine Red Blood Cell 3+(>10/hpf) (Absent); Urine White Blood Cell 3+(>20/hpf) (Absent)
[2020-05-10 05:31] LABS: Hematocrit 22 % (35-47); Hemoglobin 7.2 g/dL (12.0-16.0); Mean Corpuscular HGB Conc 33 g/dL (31-36); Mean Corpuscular Hemoglobin 31 pg (27-31); Mean Corpuscular Volume 93 fL (80-97); Mean Platelet Volume 8.4 fL (7.4-10.4); Platelet Count 23 10^3/uL (150-450); Red Blood Count 2.34 10^6 /uL (3.70-4.87); Red Cell Distribution Width 19 % (10-15)
[2020-05-10 05:47] LABS: Albumin 3.3 g/dL (3.2-5.2); Albumin/Globulin Ratio 1.3 (1-3); BUN/Creatinine Ratio 7.4 (8-20); Calcium 7.8 mg/dL (8.6-10.3); EGFR African American 11.7 (>60); EGFR Non-African American 9.7 (>60); Globulin 2.5 g/dL (2-4); Magnesium 2.3 mg/dL (1.9-2.7); Total Bilirubin 0.4 mg/dL (0.2-1.0); Total Protein 5.8 g/dL (6.4-8.9)
[2020-05-10 05:48] LABS: ABS Lymphocytes 0.1 10^3/ul (1.0-4.8); ABS Monocytes 0.2 10^3/ul (0-0.8); ABS Neutrophils 2.7 10^3/ul (1.5-7.7); Eosinophil % 0.8 %; Lymphocyte % 3.4 %; Nucleated Red Blood Cells % 0.1
[2020-05-10 05:51] LABS: Potassium 5.1 mmol/L (3.5-5.0)
[2020-05-10] MEDS: Lactated Ringers 1000 ml BAG 1,000 ML IV SCH (07:23)
[2020-05-10] MEDS: Calcium Carb (TUMS) 500 mg CHEW TAB PO SCH (07:28)
[2020-05-10] MEDS: Senna TAB 8.6 mg TAB PO SCH ×2 (07:35→21:01)
[2020-05-10] MEDS: Mometasone/Formoter 200/5 MDI INH SCH ×2 (09:07→20:16)
[2020-05-11 06:27] LABS: ABS Lymphocytes 0.2 10^3/ul (1.0-4.8); ABS Monocytes 0.3 10^3/ul (0-0.8); ABS Neutrophils 2.4 10^3/ul (1.5-7.7); Eosinophil % 1.1 %; Hematocrit 22 % (35-47); Hemoglobin 7.5 g/dL (12.0-16.0); Lymphocyte % 7.2 %; Mean Corpuscular HGB Conc 33 g/dL (31-36); Mean Corpuscular Hemoglobin 31 pg (27-31); Mean Corpuscular Volume 92 fL (80-97); Mean Platelet Volume 8.4 fL (7.4-10.4); Platelet Count 26 10^3/uL (150-450); Red Blood Count 2.44 10^6 /uL (3.70-4.87); Red Cell Distribution Width 19 % (10-15)
[2020-05-11 06:45] LABS: BUN/Creatinine Ratio 7.6 (8-20); Calcium 7.8 mg/dL (8.6-10.3); EGFR African American 11.7 (>60); EGFR Non-African American 9.7 (>60); Magnesium 2.1 mg/dL (1.9-2.7); Potassium 4.9 mmol/L (3.5-5.0)
[2020-05-11] MEDS: Mometasone/Formoter 200/5 MDI INH SCH ×2 (08:20→20:00)
[2020-05-11] MEDS: Senna TAB 8.6 mg TAB PO SCH ×2 (09:11→22:37)
[2020-05-11] MEDS: Calcium Carb (TUMS) 500 mg CHEW TAB PO SCH (09:12)
[2020-05-12 05:11] LABS: Hematocrit 27 % (35-47); Hemoglobin 9.1 g/dL (12.0-16.0); Mean Corpuscular HGB Conc 34 g/dL (31-36); Mean Corpuscular Hemoglobin 31 pg (27-31); Mean Corpuscular Volume 91 fL (80-97); Mean Platelet Volume 7.7 fL (7.4-10.4); Platelet Count 26 10^3/uL (150-450); Red Blood Count 2.97 10^6 /uL (3.70-4.87); Red Cell Distribution Width 18 % (10-15); White Blood Count 4.4 10^3/uL (3.5-10.8)
[2020-05-12 05:26] LABS: ABS Eosinophils 0.1 10^3/ul (0-0.6); ABS Lymphocytes 0.3 10^3/ul (1.0-4.8); ABS Monocytes 0.4 10^3/ul (0-0.8); ABS Neutrophils 3.6 10^3/ul (1.5-7.7); Eosinophil % 1.4 %; Lymphocyte % 7.2 %; Nucleated Red Blood Cells % 0.2
[2020-05-12] MEDS ORDERED: Al Hydrox/Mg Hydrox/Simet LIQ 30 ML UDC PO ONE (05:45)
[2020-05-12 07:32] LABS: Albumin 3.6 g/dL (3.2-5.2); Calcium 7.4 mg/dL (8.6-10.3); Magnesium 1.9 mg/dL (1.9-2.7); Potassium 4.6 mmol/L (3.5-5.0); Total Bilirubin 0.5 mg/dL (0.2-1.0)
[2020-05-12 07:38] LABS: Albumin/Globulin Ratio 1.5 (1-3); BUN/Creatinine Ratio 8.1 (8-20); EGFR African American 11.4 (>60); EGFR Non-African American 9.4 (>60); Globulin 2.4 g/dL (2-4)
[2020-05-12] MEDS: Mometasone/Formoter 200/5 MDI INH SCH ×2 (08:13→19:37)
[2020-05-12] MEDS: Calcium Carb (TUMS) 500 mg CHEW TAB PO SCH (10:10)
[2020-05-12] MEDS: Senna TAB 8.6 mg TAB PO SCH ×2 (10:13→21:14)
[2020-05-12] MEDS ORDERED: NS 0.9% IVPB ONE (12:30)
[2020-05-12] MEDS ORDERED: BORTEZOMIB ONE (12:30)
[2020-05-12] MEDS ORDERED: CYCLOPHOSPHAMIDE IVPB ONE (12:30)
[2020-05-13 08:54] LABS: Hematocrit 27 % (35-47); Hemoglobin 9.3 g/dL (12.0-16.0); Mean Corpuscular HGB Conc 34 g/dL (31-36); Mean Corpuscular Hemoglobin 31 pg (27-31); Mean Corpuscular Volume 91 fL (80-97); Platelet Count 27 10^3/uL (150-450); Red Blood Count 2.98 10^6 /uL (3.70-4.87); Red Cell Distribution Width 18 % (10-15); White Blood Count 9.6 10^3/uL (3.5-10.8)
[2020-05-13 09:19] LABS: Albumin/Globulin Ratio 1.6 (1-3); BUN/Creatinine Ratio 10.3 (8-20); Calcium 7.4 mg/dL (8.6-10.3); EGFR African American 11.1 (>60); EGFR Non-African American 9.2 (>60); Globulin 2.5 g/dL (2-4); Magnesium 1.9 mg/dL (1.9-2.7); Total Bilirubin 0.3 mg/dL (0.2-1.0); Total Protein 6.5 g/dL (6.4-8.9)
[2020-05-13 09:33] LABS: Potassium 5.2 mmol/L (3.5-5.0)
[2020-05-13] MEDS: Calcium Carb (TUMS) 500 mg CHEW TAB PO SCH (09:38)
[2020-05-13] MEDS: Senna TAB 8.6 mg TAB PO SCH (09:40)
[2020-05-13 10:09] LABS: ABS Basophils 0.1 10^3/ul (0-0.2); ABS Lymphocytes 0.2 10^3/ul (1.0-4.8); ABS Monocytes 0.4 10^3/ul (0-0.8); ABS Neutrophils 8.8 10^3/ul (1.5-7.7); Eosinophil % 0.1 %; Lymphocyte % 2.5 %
[2020-05-13] MEDS ORDERED: NS 0.9% 1000 ml BAG 1,000 ML IV SCH (10:30)
[2020-05-13] MEDS: Mometasone/Formoter 200/5 MDI INH SCH (11:04)
[2020-05-13 15:57] VITALS: BP 119/59
== END 2020-05-13 16:45 | disposition home or self-care (01) | DRG 840 ==
LOC: CHOA 10:13 → MEDTELE 14:50
PROVIDERS: ADMIT Internal Medicine Hematology & Oncology; ATTEND Internal Medicine Hematology & Oncology

== ENCOUNTER 2020-05-23 15:56 | Inpatient (IN) ==
[2020-05-23] MEDS ORDERED: NS 0.9% 1000 ml BAG 1,000 ML IV ONE (16:22)
[2020-05-23 17:13] LABS: ABS Lymphocytes 0.2 10^3/ul (1.0-4.8); ABS Monocytes 0.3 10^3/ul (0-0.8); ABS Neutrophils 3.3 10^3/ul (1.5-7.7); Eosinophil % 0.1 %; Hematocrit 25 % (35-47); Hemoglobin 8.6 g/dL (12.0-16.0); Mean Corpuscular HGB Conc 34 g/dL (31-36); Mean Corpuscular Hemoglobin 31 pg (27-31); Mean Corpuscular Volume 90 fL (80-97); Mean Platelet Volume 8.2 fL (7.4-10.4); Platelet Count 32 10^3/uL (150-450); Red Blood Count 2.81 10^6 /uL (3.70-4.87); Red Cell Distribution Width 19 % (10-15); White Blood Count 3.8 10^3/uL (3.5-10.8)
[2020-05-23 17:29] LABS: Albumin/Globulin Ratio 1.2 (1-3); C Reactive Protein 21.1 mg/L (<8.01); Calcium 6.6 mg/dL (8.6-10.3); EGFR African American 10.3 (>60); EGFR Non-African American 8.5 (>60); Globulin 3.3 g/dL (2-4); Magnesium 1.7 mg/dL (1.9-2.7); Potassium 4.3 mmol/L (3.5-5.0); Total Bilirubin 0.9 mg/dL (0.2-1.0); Total Protein 7.3 g/dL (6.4-8.9)
[2020-05-23] MEDS ORDERED: Magnesium Sulfate IV 3 GM in NS 0.9% 100 ml BAG 100 ML IVPB ONE (17:37)
[2020-05-23] MEDS ORDERED: Levofloxacin 500 MG IVPREMIX 500 MG/100 ML BAG IV ONE (17:39)
[2020-05-23] MEDS ORDERED: Magnesium Sulfate IV 1GM/100ML 1 GM/100 ML BAG IV ONE (17:47)
[2020-05-23] MEDS ORDERED: Magnesium Hydroxide LIQ 30 ML UDC PO PRN (18:44)
[2020-05-23] MEDS ORDERED: Lactated Ringers 1000 ml BAG 1,000 ML IV SCH (19:00)
[2020-05-23 20:00] LABS: Urine Appearance Cloudy; Urine Bilirubin Negative (Negative); Urine Blood 1+ (Negative); Urine Color Straw; Urine Glucose Negative (Negative); Urine Ketones Negative (Negative); Urine Nitrite Negative (Negative); Urine Protein 1+(30 mg/dL) (Negative); Urine Urobilinogen Negative (Negative)
[2020-05-23 20:08] LABS: Urine Bacteria Absent (Absent); Urine Red Blood Cell 1+(3-5/hpf) (Absent); Urine Squamous Epithelial Cell Present (Absent); Urine White Blood Cell 3+(>20/hpf) (Absent)
[2020-05-23] MEDS ORDERED: Albuterol HFA INHALER 8 gm MDI INH PRN (20:16)
[2020-05-23] MEDS: Ondansetron 4 mg VIAL 2 MG/ML 2 ml VIAL IV PRN (20:28)
[2020-05-23] MEDS: Mometasone/Formoter 200/5 MDI INH SCH (20:45)
[2020-05-23] MEDS: NS 0.9% IV SCH (22:33)
[2020-05-23] MEDS: AZTREONAM IV SCH (22:33)
[2020-05-24 05:10] LABS: ABS Basophils 0.3 10^3/ul (0-0.2); ABS Lymphocytes 0.1 10^3/ul (1.0-4.8); ABS Monocytes 0.1 10^3/ul (0-0.8); ABS Neutrophils 2.6 10^3/ul (1.5-7.7); Eosinophil % 0.7 %; Hematocrit 22 % (35-47); Hemoglobin 7.5 g/dL (12.0-16.0); Lymphocyte % 2.6 %; Mean Corpuscular HGB Conc 34 g/dL (31-36); Mean Corpuscular Hemoglobin 31 pg (27-31); Mean Corpuscular Volume 91 fL (80-97); Mean Platelet Volume 8.9 fL (7.4-10.4); Platelet Count 29 10^3/uL (150-450); Red Blood Count 2.46 10^6 /uL (3.70-4.87); Red Cell Distribution Width 19 % (10-15); White Blood Count 3.1 10^3/uL (3.5-10.8)
[2020-05-24 05:24] LABS: Albumin 3.5 g/dL (3.2-5.2); Albumin/Globulin Ratio 1.2 (1-3); BUN/Creatinine Ratio 10.9 (8-20); EGFR African American 11.6 (>60); EGFR Non-African American 9.6 (>60); Globulin 2.9 g/dL (2-4); Magnesium 1.9 mg/dL (1.9-2.7); Total Bilirubin 0.7 mg/dL (0.2-1.0); Total Protein 6.4 g/dL (6.4-8.9)
[2020-05-24 05:33] LABS: Calcium 6.1 mg/dL (8.6-10.3)
[2020-05-24] MEDS ORDERED: CALCIUM GLUCONATE 1GM/50ML NS 1 GM/50 ML BAG IV ONE (06:00)
[2020-05-24 07:02] LABS: Troponin I 0.01 ng/mL (<0.03)
[2020-05-24] MEDS: Cholecalciferol (VIT D3) 1,000 unit TAB PO SCH (08:43)
[2020-05-24] MEDS: CMC:LoraTADine 10 mg TAB (NF) PO SCH (08:43)
[2020-05-24] MEDS: Mometasone/Formoter 200/5 MDI INH SCH ×2 (08:51→20:25)
[2020-05-24] MEDS: AZTREONAM IV SCH ×2 (08:54→20:41)
[2020-05-24] MEDS: NS 0.9% IV SCH ×2 (08:54→20:41)
[2020-05-24] MEDS ORDERED: Calcium Carb (TUMS) 500 mg CHEW TAB PO SCH (09:00)
[2020-05-24 10:53] LABS: Phosphorus 4.1 mg/dL (2.5-5.0)
[2020-05-24] MEDS: Calcium Carb (TUMS) 500 mg CHEW TAB PO SCH (22:24)
[2020-05-25 05:08] LABS: ABS Basophils 0.1 10^3/ul (0-0.2); ABS Eosinophils 0.1 10^3/ul (0-0.6); ABS Lymphocytes 0.1 10^3/ul (1.0-4.8); ABS Monocytes 0.2 10^3/ul (0-0.8); ABS Neutrophils 3.9 10^3/ul (1.5-7.7); Eosinophil % 1.6 %; Hematocrit 28 % (35-47); Hemoglobin 9.4 g/dL (12.0-16.0); Lymphocyte % 3.4 %; Mean Corpuscular HGB Conc 34 g/dL (31-36); Mean Corpuscular Hemoglobin 30 pg (27-31); Mean Corpuscular Volume 91 fL (80-97); Nucleated Red Blood Cells % 0.2; Platelet Count 30 10^3/uL (150-450); Red Blood Count 3.09 10^6 /uL (3.70-4.87); Red Cell Distribution Width 17 % (10-15); White Blood Count 4.3 10^3/uL (3.5-10.8)
[2020-05-25 05:21] LABS: BUN/Creatinine Ratio 9.8 (8-20); EGFR African American 10.7 (>60); EGFR Non-African American 8.9 (>60); Potassium 4.4 mmol/L (3.5-5.0)
[2020-05-25] MEDS: Mometasone/Formoter 200/5 MDI INH SCH ×3 (07:08→20:25)
[2020-05-25] MEDS: Cholecalciferol (VIT D3) 1,000 unit TAB PO SCH (09:46)
[2020-05-25] MEDS: Calcium Carb (TUMS) 500 mg CHEW TAB PO SCH ×2 (09:46→20:57)
[2020-05-25] MEDS: CMC:LoraTADine 10 mg TAB (NF) PO SCH (09:51)
[2020-05-25] MEDS: AZTREONAM IV SCH (09:52)
[2020-05-25] MEDS: NS 0.9% IV SCH (09:52)
[2020-05-26 05:30] LABS: Hematocrit 25 % (35-47); Hemoglobin 8.5 g/dL (12.0-16.0); Mean Corpuscular HGB Conc 35 g/dL (31-36); Mean Corpuscular Hemoglobin 31 pg (27-31); Mean Corpuscular Volume 90 fL (80-97); Mean Platelet Volume 8.7 fL (7.4-10.4); Platelet Count 30 10^3/uL (150-450); Red Blood Count 2.73 10^6 /uL (3.70-4.87); Red Cell Distribution Width 17 % (10-15); White Blood Count 3.6 10^3/uL (3.5-10.8)
[2020-05-26 05:44] LABS: Albumin 3.7 g/dL (3.2-5.2); Albumin/Globulin Ratio 1.3 (1-3); BUN/Creatinine Ratio 8.9 (8-20); Calcium 6.7 mg/dL (8.6-10.3); EGFR African American 10.1 (>60); EGFR Non-African American 8.4 (>60); Globulin 2.8 g/dL (2-4); Magnesium 1.4 mg/dL (1.9-2.7); Potassium 4.4 mmol/L (3.5-5.0); Total Bilirubin 0.7 mg/dL (0.2-1.0); Total Protein 6.5 g/dL (6.4-8.9)
[2020-05-26 07:30] LABS: ABS Lymphocytes 0.2 10^3/ul (1.0-4.8); ABS Monocytes 0.3 10^3/ul (0-0.8); ABS Neutrophils 3.1 10^3/ul (1.5-7.7); Lymphocyte % 4.5 %; Nucleated Red Blood Cells % 0.1
[2020-05-26] MEDS: Mometasone/Formoter 200/5 MDI INH SCH ×2 (08:21→19:40)
[2020-05-26] MEDS: Calcium Carb (TUMS) 500 mg CHEW TAB PO SCH ×2 (08:51→20:17)
[2020-05-26] MEDS: Cholecalciferol (VIT D3) 1,000 unit TAB PO SCH (08:52)
[2020-05-26] MEDS: CMC:LoraTADine 10 mg TAB (NF) PO SCH (08:53)
[2020-05-26] MEDS: Ondansetron 4 mg VIAL 2 MG/ML 2 ml VIAL IV PRN (13:41)
[2020-05-26] MEDS ORDERED: Magnesium Sulfate IV 1GM/100ML 1 GM/100 ML BAG IV ONE (13:48)
[2020-05-26] MEDS ORDERED: NS 0.9% IVPB ONE (14:00)
[2020-05-26] MEDS ORDERED: BORTEZOMIB SUBCUT ONE (14:00)
[2020-05-26] MEDS ORDERED: Scopolamine PATCH Remove NOTE PATCH OFF SCH (14:00)
[2020-05-26] MEDS ORDERED: CYCLOPHOSPHAMIDE IVPB ONE (14:00)
[2020-05-26] MEDS ORDERED: Bortezomib SQ USE 3.5 MG/1.4 ML VIAL SUBCUT ONE (14:00)
[2020-05-26 15:55] LABS: Hepatitis B Surface Antigen Nonreactive (Nonreactive)
[2020-05-26 16:00] LABS: Hepatitis B Core IgM Nonreactive (Nonreactive)
[2020-05-26 16:13] LABS: Hepatitis B Surface Ab Immune (Immune)
[2020-05-26 18:21] LABS: Hepatitis B Surface Antigen Nonreactive (Nonreactive)
[2020-05-27] MEDS ORDERED: Dexamethasone IV 4 MG/ML VIAL 1 ml VIAL IV SLOW PU ONE (06:00)
[2020-05-27] MEDS ORDERED: Buffered Lidocaine 1% SYRIN 1 ml INTRADERM ONE (06:00)
[2020-05-27 06:06] LABS: Albumin 3.6 g/dL (3.2-5.2); Albumin/Globulin Ratio 1.3 (1-3); BUN/Creatinine Ratio 9.6 (8-20); Calcium 6.9 mg/dL (8.6-10.3); EGFR African American 9.6 (>60); EGFR Non-African American 7.9 (>60); Globulin 2.7 g/dL (2-4); Magnesium 1.8 mg/dL (1.9-2.7); Phosphorus 3.1 mg/dL (2.5-5.0); Potassium 4.8 mmol/L (3.5-5.0); Total Bilirubin 0.5 mg/dL (0.2-1.0); Total Protein 6.3 g/dL (6.4-8.9)
[2020-05-27 06:09] LABS: ABS Lymphocytes 0.1 10^3/ul (1.0-4.8); ABS Monocytes 0.2 10^3/ul (0-0.8); ABS Neutrophils 3.4 10^3/ul (1.5-7.7); Hematocrit 22 % (35-47); Hemoglobin 7.6 g/dL (12.0-16.0); Lymphocyte % 3.1 %; Mean Corpuscular HGB Conc 35 g/dL (31-36); Mean Corpuscular Hemoglobin 31 pg (27-31); Mean Corpuscular Volume 91 fL (80-97); Mean Platelet Volume 8.3 fL (7.4-10.4); Platelet Count 24 10^3/uL (150-450); Red Blood Count 2.43 10^6 /uL (3.70-4.87); Red Cell Distribution Width 17 % (10-15); White Blood Count 3.8 10^3/uL (3.5-10.8)
[2020-05-27] MEDS: Mometasone/Formoter 200/5 MDI INH SCH ×2 (07:53→19:43)
[2020-05-27] MEDS: Lactated Ringers 1000 ml BAG 1,000 ML IV SCH (08:00)
[2020-05-27] MEDS: CMC:LoraTADine 10 mg TAB (NF) PO SCH (08:05)
[2020-05-27] MEDS: Calcium Carb (TUMS) 500 mg CHEW TAB PO SCH ×2 (08:05→20:51)
[2020-05-27] MEDS: Cholecalciferol (VIT D3) 1,000 unit TAB PO SCH (08:06)
[2020-05-27] MEDS ORDERED: Dexamethasone IV 4 MG/ML VIAL 1 ml VIAL ONE (11:51)
[2020-05-27] MEDS ORDERED: Heparin *DIALYSIS* ONLY 1,000 UNITS/ML VIAL ONE (12:33)
[2020-05-27] MEDS ORDERED: fentaNYL 100 mcg/2 ml 50 MCG/ML VIAL IV PRN (12:37)
[2020-05-27] MEDS ORDERED: Naloxone 0.4 mg VIAL 0.4 mg/ml 1 ml VIAL IV PRN (12:37)
[2020-05-27] MEDS ORDERED: oxyCODONE/Acetamin 5/325 mg TAB PO PRN (12:37)
[2020-05-27] MEDS ORDERED: DiMENhydriNATE IV 50 mg/ml 1 ml VIAL IV PUSH PRN (12:37)
[2020-05-27 14:46] LABS: Kappa Free Light Chain 1470 mg/dL
[2020-05-27 15:11] LABS: Immunoglobulin A 2 mg/dL (61 - 356); Immunoglobulin G 803 mg/dL (767 - 1590); Immunoglobulin M <5 mg/dL (37 - 286)
[2020-05-27 15:13] LABS: Mean Platelet Volume 8.4 fL (7.4-10.4); Platelet Count 42 10^3/uL (150-450)
[2020-05-28] MEDS: Lactated Ringers 1000 ml BAG 1,000 ML IV SCH ×2 (02:56→11:15)
[2020-05-28 04:41] LABS: Hematocrit 24 % (35-47); Hemoglobin 8.5 g/dL (12.0-16.0); Mean Corpuscular HGB Conc 35 g/dL (31-36); Mean Corpuscular Hemoglobin 32 pg (27-31); Mean Corpuscular Volume 91 fL (80-97); Mean Platelet Volume 8.5 fL (7.4-10.4); Platelet Count 30 10^3/uL (150-450); Red Blood Count 2.69 10^6 /uL (3.70-4.87); Red Cell Distribution Width 16 % (10-15); White Blood Count 3.5 10^3/uL (3.5-10.8)
[2020-05-28 04:54] LABS: Calcium 6.7 mg/dL (8.6-10.3); EGFR African American 9.7 (>60); Magnesium 1.6 mg/dL (1.9-2.7); Potassium 4.3 mmol/L (3.5-5.0)
[2020-05-28 05:01] LABS: ABS Lymphocytes 0.1 10^3/ul (1.0-4.8); ABS Monocytes 0.2 10^3/ul (0-0.8); ABS Neutrophils 3.2 10^3/ul (1.5-7.7); Eosinophil % 0.1 %; Lymphocyte % 1.5 %
[2020-05-28] MEDS: Mometasone/Formoter 200/5 MDI INH SCH (07:57)
[2020-05-28] MEDS: Calcium Carb (TUMS) 500 mg CHEW TAB PO SCH (08:05)
[2020-05-28] MEDS: Cholecalciferol (VIT D3) 1,000 unit TAB PO SCH (08:05)
[2020-05-28] MEDS: CMC:LoraTADine 10 mg TAB (NF) PO SCH (08:05)
[2020-05-28] MEDS: Ondansetron 4 mg VIAL 2 MG/ML 2 ml VIAL IV PRN (08:56)
[2020-05-28 13:20] LABS: Albumin 2.9 g/dL (3.4-4.7); Albumin/Globulin Ratio 0.96; Gamma Globulin 0.6 g/dL (0.6-1.6); Total Protein(PEP) 5.9 g/dL (6.3 - 7.9)
[2020-05-28 14:05] VITALS: BP 133/60
[2020-05-28 14:27] LABS: TB1 Ag minus Nil Result -0.02 IU/mL; TB2 Ag minus Nil Result 0.01 IU/mL
[2020-05-28 14:31] LABS: QuantiferonTb Gold Plus Result Indeterminate (Negative)
== END 2020-05-28 13:45 | disposition home health service (06) | DRG 660 ==
LOC: MEDTELE 15:56 → ED 15:56 → MEDTELE 05-26 00:25
PROVIDERS: ADMIT Internal Medicine; ATTEND Internal Medicine

== ENCOUNTER 2020-06-01 21:16 | Inpatient (IN) ==
[2020-06-01 21:52] LABS: ABS Lymphocytes 0.1 10^3/ul (1.0-4.8); ABS Monocytes 0.1 10^3/ul (0-0.8); ABS Neutrophils 2.7 10^3/ul (1.5-7.7); Eosinophil % 0.2 %; Hematocrit 25 % (35-47); Hemoglobin 8.5 g/dL (12.0-16.0); Lymphocyte % 2.8 %; Mean Corpuscular HGB Conc 34 g/dL (31-36); Mean Corpuscular Hemoglobin 31 pg (27-31); Mean Corpuscular Volume 90 fL (80-97); Mean Platelet Volume 9.2 fL (7.4-10.4); Red Blood Count 2.74 10^6 /uL (3.70-4.87); Red Cell Distribution Width 17 % (10-15); White Blood Count 2.9 10^3/uL (3.5-10.8)
[2020-06-01 21:59] LABS: Activated Partial Thrombo Time 28.9 seconds (26.0-38.0); INR 1.09 (0.82-1.09)
[2020-06-01 22:05] LABS: Albumin 3.5 g/dL (3.2-5.2); Albumin/Globulin Ratio 1.3 (1-3); BUN/Creatinine Ratio 9.9 (8-20); Calcium 6.7 mg/dL (8.6-10.3); EGFR African American 7.6 (>60); EGFR Non-African American 6.3 (>60); Globulin 2.8 g/dL (2-4); Potassium 4.7 mmol/L (3.5-5.0); Total Bilirubin 0.5 mg/dL (0.2-1.0); Total Protein 6.3 g/dL (6.4-8.9)
[2020-06-01 22:26] LABS: Platelet Count 17 10^3/uL (150-450)
[2020-06-01] MEDS ORDERED: Pantoprazole 80 mg in NS BAG 80 MG/250 ML BAG IV ONE (22:29)
[2020-06-01] MEDS ORDERED: Albuterol HFA INHALER 8 gm MDI INH PRN (23:41)
[2020-06-01] MEDS ORDERED: Magnesium Hydroxide LIQ 30 ML UDC PO PRN (23:41)
[2020-06-01] MEDS ORDERED: Al Hydrox/Mg Hydrox/Simet LIQ 30 ML UDC PO PRN (23:43)
[2020-06-02 06:39] LABS: ABS Lymphocytes 0.1 10^3/ul (1.0-4.8); ABS Monocytes 0.1 10^3/ul (0-0.8); Eosinophil % 0.4 %; Hematocrit 23 % (35-47); Hemoglobin 7.9 g/dL (12.0-16.0); Mean Corpuscular HGB Conc 34 g/dL (31-36); Mean Corpuscular Hemoglobin 31 pg (27-31); Mean Corpuscular Volume 90 fL (80-97); Mean Platelet Volume 9.6 fL (7.4-10.4); Platelet Count 12 10^3/uL (150-450); Red Blood Count 2.57 10^6 /uL (3.70-4.87); Red Cell Distribution Width 17 % (10-15); White Blood Count 2.3 10^3/uL (3.5-10.8)
[2020-06-02 06:42] LABS: BUN/Creatinine Ratio 9.8 (8-20); EGFR African American 7.2 (>60); EGFR Non-African American 5.9 (>60); Potassium 4.5 mmol/L (3.5-5.0)
[2020-06-02 06:44] LABS: Calcium 6.4 mg/dL (8.6-10.3)
[2020-06-02] MEDS ORDERED: CALCIUM GLUCONATE 1GM/50ML NS 1 GM/50 ML BAG IV ONE (07:38)
[2020-06-02 08:20] LABS: Magnesium 1.8 mg/dL (1.9-2.7)
[2020-06-02 08:25] LABS: Phosphorus 7.5 mg/dL (2.5-5.0)
[2020-06-02 08:56] LABS: Vitamin D Total 25(OH) 33.7 ng/mL (20-50)
[2020-06-02] MEDS ORDERED: LoraTADine 10 mg TAB (NF) PO SCH (09:00)
[2020-06-02] MEDS: Pantoprazole 80 mg in NS BAG 80 MG/250 ML BAG IV SCH (10:30)
[2020-06-02] MEDS: Calcium Carb (TUMS) 500 mg CHEW TAB PO SCH ×2 (11:34→21:28)
[2020-06-02] MEDS: Cholecalciferol (VIT D3) 1,000 unit TAB PO SCH (11:34)
[2020-06-02] MEDS: Mometasone/Formoter 200/5 MDI INH SCH ×2 (11:34→20:25)
[2020-06-02] MEDS ORDERED: Calcium Gluconate 1 GM/10 ML VIAL (in Pyxis) IVPB ONE (15:40)
[2020-06-02] MEDS ORDERED: CALCIUM GLUCONATE 1GM/50ML NS BAG IV ONE (16:00)
[2020-06-02 21:39] LABS: Mean Platelet Volume 8.3 fL (7.4-10.4); Platelet Count 13 10^3/uL (150-450)
[2020-06-03] MEDS: Pantoprazole 80 mg in NS BAG 80 MG/250 ML BAG IV SCH ×4 (01:38→16:16)
[2020-06-03 04:28] LABS: ABS Lymphocytes 0.1 10^3/ul (1.0-4.8); ABS Monocytes 0.2 10^3/ul (0-0.8); ABS Neutrophils 1.3 10^3/ul (1.5-7.7); Eosinophil % 0.4 %; Hematocrit 21 % (35-47); Lymphocyte % 6.5 %; Mean Corpuscular HGB Conc 34 g/dL (31-36); Mean Corpuscular Hemoglobin 31 pg (27-31); Mean Corpuscular Volume 91 fL (80-97); Mean Platelet Volume 8.8 fL (7.4-10.4); Platelet Count 19 10^3/uL (150-450); Red Blood Count 2.28 10^6 /uL (3.70-4.87); Red Cell Distribution Width 17 % (10-15); White Blood Count 1.6 10^3/uL (3.5-10.8)
[2020-06-03 04:36] LABS: Albumin 3.2 g/dL (3.2-5.2); Albumin/Globulin Ratio 1.2 (1-3); BUN/Creatinine Ratio 9.3 (8-20); EGFR African American 7.2 (>60); EGFR Non-African American 5.9 (>60); Globulin 2.7 g/dL (2-4); Magnesium 1.6 mg/dL (1.9-2.7); Potassium 4.5 mmol/L (3.5-5.0); Total Bilirubin 0.6 mg/dL (0.2-1.0); Total Protein 5.9 g/dL (6.4-8.9)
[2020-06-03] MEDS ORDERED: Calcium Gluconate 2 GM in NS 0.9% 100 ml BAG 100 ML IV ONE (04:49)
[2020-06-03 04:50] LABS: Calcium 6.2 mg/dL (8.6-10.3)
[2020-06-03] MEDS ORDERED: Magnesium Sulfate IV 1GM/100ML 1 GM/100 ML BAG IV ONE (07:01)
[2020-06-03] MEDS: Cholecalciferol (VIT D3) 1,000 unit TAB PO SCH (07:31)
[2020-06-03] MEDS: Calcium Carb (TUMS) 500 mg CHEW TAB PO SCH ×2 (07:32→20:23)
[2020-06-03 08:29] LABS: Phosphorus 7.6 mg/dL (2.5-5.0)
[2020-06-03] MEDS: Mometasone/Formoter 200/5 MDI INH SCH ×2 (10:23→20:14)
[2020-06-03 14:50] LABS: ABS Lymphocytes 0.2 10^3/ul (1.0-4.8); ABS Monocytes 0.3 10^3/ul (0-0.8); ABS Neutrophils 1.5 10^3/ul (1.5-7.7); Eosinophil % 0.5 %; Hematocrit 23 % (35-47); Hemoglobin 8.1 g/dL (12.0-16.0); Lymphocyte % 8.5 %; Mean Corpuscular HGB Conc 35 g/dL (31-36); Mean Corpuscular Hemoglobin 32 pg (27-31); Mean Corpuscular Volume 91 fL (80-97); Mean Platelet Volume 8.9 fL (7.4-10.4); Nucleated Red Blood Cells % 0.1; Platelet Count 25 10^3/uL (150-450); Red Blood Count 2.57 10^6 /uL (3.70-4.87); Red Cell Distribution Width 17 % (10-15)
[2020-06-04] MEDS: Pantoprazole 80 mg in NS BAG 80 MG/250 ML BAG IV SCH ×5 (00:10→14:08)
[2020-06-04 05:49] LABS: Hematocrit 25 % (35-47); Hemoglobin 8.5 g/dL (12.0-16.0); Mean Corpuscular HGB Conc 34 g/dL (31-36); Mean Corpuscular Hemoglobin 31 pg (27-31); Mean Corpuscular Volume 92 fL (80-97); Mean Platelet Volume 8.7 fL (7.4-10.4); Platelet Count 21 10^3/uL (150-450); Red Blood Count 2.71 10^6 /uL (3.70-4.87); Red Cell Distribution Width 17 % (10-15)
[2020-06-04 06:01] LABS: BUN/Creatinine Ratio 8.5 (8-20); Calcium 6.9 mg/dL (8.6-10.3); EGFR African American 6.9 (>60); EGFR Non-African American 5.7 (>60); Magnesium 1.8 mg/dL (1.9-2.7); Phosphorus 7.5 mg/dL (2.5-5.0); Potassium 4.1 mmol/L (3.5-5.0)
[2020-06-04] MEDS: Senna TAB 8.6 mg TAB PO PRN ×2 (06:18→21:23)
[2020-06-04 08:52] LABS: ABS Lymphocytes 0.2 10^3/ul (1.0-4.8); ABS Monocytes 0.3 10^3/ul (0-0.8); ABS Neutrophils 1.5 10^3/ul (1.5-7.7); Eosinophil % 0.8 %; Lymphocyte % 9.3 %; Nucleated Red Blood Cells % 0.2
[2020-06-04] MEDS: Mometasone/Formoter 200/5 MDI INH SCH ×2 (08:53→20:17)
[2020-06-04] MEDS: Cholecalciferol (VIT D3) 1,000 unit TAB PO SCH (11:31)
[2020-06-04] MEDS: Calcium Carb (TUMS) 500 mg CHEW TAB PO SCH ×2 (11:32→21:24)
[2020-06-05] MEDS: Pantoprazole 80 mg in NS BAG 80 MG/250 ML BAG IV SCH ×4 (00:06→21:44)
[2020-06-05 05:25] LABS: ABS Lymphocytes 0.2 10^3/ul (1.0-4.8); ABS Monocytes 0.3 10^3/ul (0-0.8); ABS Neutrophils 1.3 10^3/ul (1.5-7.7); Eosinophil % 0.6 %; Hematocrit 23 % (35-47); Lymphocyte % 10.7 %; Mean Corpuscular HGB Conc 35 g/dL (31-36); Mean Corpuscular Hemoglobin 32 pg (27-31); Mean Corpuscular Volume 91 fL (80-97); Mean Platelet Volume 8.3 fL (7.4-10.4); Nucleated Red Blood Cells % 0.1; Platelet Count 19 10^3/uL (150-450); Red Blood Count 2.51 10^6 /uL (3.70-4.87); Red Cell Distribution Width 17 % (10-15); White Blood Count 1.7 10^3/uL (3.5-10.8)
[2020-06-05 05:42] LABS: Albumin 3.2 g/dL (3.2-5.2); Albumin/Globulin Ratio 1.2 (1-3); BUN/Creatinine Ratio 8.1 (8-20); Calcium 6.9 mg/dL (8.6-10.3); EGFR African American 6.7 (>60); EGFR Non-African American 5.5 (>60); Globulin 2.6 g/dL (2-4); Potassium 3.9 mmol/L (3.5-5.0); Total Bilirubin 0.8 mg/dL (0.2-1.0); Total Protein 5.8 g/dL (6.4-8.9)
[2020-06-05] MEDS: Mometasone/Formoter 200/5 MDI INH SCH ×2 (08:10→20:31)
[2020-06-05] MEDS: Calcium Carb (TUMS) 500 mg CHEW TAB PO SCH ×2 (08:26→20:31)
[2020-06-05] MEDS: Cholecalciferol (VIT D3) 1,000 unit TAB PO SCH (08:26)
[2020-06-05] MEDS: Senna TAB 8.6 mg TAB PO PRN (08:27)
[2020-06-05] MEDS ORDERED: Calcium Gluconate 2 GM in NS 0.9% 100 ml BAG 100 ML IV ONE (09:00)
[2020-06-05 15:23] LABS: Mean Platelet Volume 7.4 fL (7.4-10.4); Platelet Count 25 10^3/uL (150-450)
[2020-06-06 06:24] LABS: ABS Lymphocytes 0.2 10^3/ul (1.0-4.8); ABS Monocytes 0.3 10^3/ul (0-0.8); ABS Neutrophils 1.3 10^3/ul (1.5-7.7); Eosinophil % 1.1 %; Hematocrit 23 % (35-47); Lymphocyte % 12.1 %; Mean Corpuscular HGB Conc 34 g/dL (31-36); Mean Corpuscular Hemoglobin 31 pg (27-31); Mean Corpuscular Volume 92 fL (80-97); Mean Platelet Volume 8.6 fL (7.4-10.4); Nucleated Red Blood Cells % 0.1; Platelet Count 25 10^3/uL (150-450); Red Blood Count 2.54 10^6 /uL (3.70-4.87); Red Cell Distribution Width 17 % (10-15); White Blood Count 1.8 10^3/uL (3.5-10.8)
[2020-06-06 06:34] LABS: BUN/Creatinine Ratio 8.9 (8-20); EGFR African American 11.9 (>60); EGFR Non-African American 9.8 (>60)
[2020-06-06 06:35] LABS: Calcium 4.8 mg/dL (8.6-10.3); Potassium 2.7 mmol/L (3.5-5.0)
[2020-06-06] MEDS ORDERED: Potassium Chlor 20 meq TAB.ER PO ONE (06:43)
[2020-06-06] MEDS ORDERED: Calcium Gluconate 2 GM in NS 0.9% 100 ml BAG 100 ML IV ONE (06:44)
[2020-06-06] MEDS: KCL 20 MEQ/100 ML IVPREMIX 20 MEQ/100 ML BAG IV SCH ×2 (07:38→14:15)
[2020-06-06] MEDS ORDERED: Magnesium Sulfate IV 3 GM in NS 0.9% 100 ml BAG 100 ML IVPB ONE (07:58)
[2020-06-06] MEDS: Mometasone/Formoter 200/5 MDI INH SCH ×2 (08:19→20:11)
[2020-06-06] MEDS: Cholecalciferol (VIT D3) 1,000 unit TAB PO SCH (10:10)
[2020-06-06] MEDS: Calcium Carb (TUMS) 500 mg CHEW TAB PO SCH ×2 (10:11→20:18)
[2020-06-06] MEDS: Pantoprazole VIAL 40 MG VIAL IV SCH ×2 (10:13→20:18)
[2020-06-06 11:00] LABS: BUN/Creatinine Ratio 7.8 (8-20); Calcium 8.3 mg/dL (8.6-10.3); EGFR African American 6.6 (>60); EGFR Non-African American 5.5 (>60); Magnesium 1.6 mg/dL (1.9-2.7); Potassium 4.8 mmol/L (3.5-5.0)
[2020-06-07] MEDS: Cholecalciferol (VIT D3) 1,000 unit TAB PO SCH (08:33)
[2020-06-07] MEDS: Calcium Carb (TUMS) 500 mg CHEW TAB PO SCH ×2 (08:36→19:34)
[2020-06-07] MEDS: Pantoprazole VIAL 40 MG VIAL IV SCH ×2 (08:36→19:39)
[2020-06-07] MEDS: Mometasone/Formoter 200/5 MDI INH SCH ×3 (08:58→20:29)
[2020-06-07 11:34] LABS: ABS Lymphocytes 0.2 10^3/ul (1.0-4.8); ABS Monocytes 0.2 10^3/ul (0-0.8); ABS Neutrophils 1.8 10^3/ul (1.5-7.7); Eosinophil % 0.5 %; Hematocrit 26 % (35-47); Hemoglobin 8.7 g/dL (12.0-16.0); Lymphocyte % 9.6 %; Mean Corpuscular HGB Conc 34 g/dL (31-36); Mean Corpuscular Hemoglobin 31 pg (27-31); Mean Corpuscular Volume 92 fL (80-97); Mean Platelet Volume 8.3 fL (7.4-10.4); Platelet Count 33 10^3/uL (150-450); Red Cell Distribution Width 17 % (10-15); White Blood Count 2.2 10^3/uL (3.5-10.8)
[2020-06-07 11:47] LABS: Magnesium 2.5 mg/dL (1.9-2.7)
[2020-06-07 12:32] LABS: BUN/Creatinine Ratio 8.2 (8-20); Calcium 8.5 mg/dL (8.6-10.3); EGFR Non-African American 5.8 (>60); Potassium 4.4 mmol/L (3.5-5.0)
[2020-06-08 05:01] LABS: Hematocrit 23 % (35-47); Hemoglobin 7.7 g/dL (12.0-16.0); Mean Corpuscular HGB Conc 33 g/dL (31-36); Mean Corpuscular Hemoglobin 31 pg (27-31); Mean Corpuscular Volume 95 fL (80-97); Mean Platelet Volume 8.4 fL (7.4-10.4); Platelet Count 34 10^3/uL (150-450); Red Blood Count 2.45 10^6 /uL (3.70-4.87); Red Cell Distribution Width 17 % (10-15); White Blood Count 2.4 10^3/uL (3.5-10.8)
[2020-06-08 05:14] LABS: BUN/Creatinine Ratio 7.8 (8-20); Calcium 7.5 mg/dL (8.6-10.3); EGFR African American 7.5 (>60); EGFR Non-African American 6.2 (>60); Potassium 4.6 mmol/L (3.5-5.0)
[2020-06-08] MEDS: Mometasone/Formoter 200/5 MDI INH SCH (07:29)
[2020-06-08] MEDS: Pantoprazole VIAL 40 MG VIAL IV SCH (07:47)
[2020-06-08] MEDS: Calcium Carb (TUMS) 500 mg CHEW TAB PO SCH (07:48)
[2020-06-08] MEDS: Cholecalciferol (VIT D3) 1,000 unit TAB PO SCH (07:48)
[2020-06-08 07:51] LABS: ABS Lymphocytes 0.3 10^3/ul (1.0-4.8); ABS Monocytes 0.3 10^3/ul (0-0.8); ABS Neutrophils 1.7 10^3/ul (1.5-7.7); Eosinophil % 0.8 %; Lymphocyte % 14.3 %; Nucleated Red Blood Cells % 0.1
[2020-06-08 09:41] VITALS: BP 116/54
== END 2020-06-08 09:50 | disposition home or self-care (01) | DRG 377 ==
LOC: ED 21:16 → SSU 21:16 → MED 06-02 20:53
PROVIDERS: ADMIT Internal Medicine; ATTEND Hospitalist